=== PATIENT | male | born 1955 | race Caucasian/White ===

== ENCOUNTER → 2017-09-23 07:59 | Outpatient (CLI) | payer OTHER, SELFPAY ==
[2017-09-23 12:30] LABS: ALB/GLOB Ratio 1.2 RATIO (0.9-2.4); AST(SGOT) 105 U/L (15-37); Alanine Aminotransfer ALT/SGPT 206 U/L (16-61); Albumin, Serum 4.1 g/dL (3.2-5.0); Alkaline Phosphatase 64 U/L (45-117); Anion Gap 7 (5-15); BUN 16 mg/dL (7-18); BUN/Creat Ratio 15.1 RATIO (10-20); Calcium,Total 8.5 mg/dL (8.5-10.1); Chloride 106 mmol/L (98-107); Cholesterol 186 mg/dL (200); Creatinine, Serum 1.06 mg/dL (0.70-1.30); EST Glomerular Filtration Rate 75 mL/min (>60); Est Glom Filt Rate - Afr Amer 91 mL/min (>60); Globulin 3.4 g/dL (2.2-4.2); Glucose 107 mg/dL (74-106); High Density Lipoprotein 33 mg/dL; Protein, Total 7.5 g/dL (6.4-8.2); Sodium Level 139 mmol/L (136-145); Triglycerides 186 mg/dL; Very Low Density Lipoprotein 37 mg/dL (5-40)
[2017-09-23 12:42] LABS: Hemoglobin A1c 6.5 % (4.2-6.3)
[2017-09-23 12:57] LABS: Microalbumin,Random Urine 19.1 mg/L (NO RANGE EST.); Microalbumin:Creatinine Ratio 8.3 mg/g CRE (<30 mg/g CRE)
== END ==
PROVIDERS: Family Provider Family Medicine; PCP Family Medicine; Visit Provider Family Medicine
DX: I10 Essential (primary) hypertension (principal); E11.42 Type 2 diabetes mellitus with diabetic polyneuropathy; E78.1 Pure hyperglyceridemia; E78.5 Hyperlipidemia, unspecified; K76.0 Fatty (change of) liver, not elsewhere classified
CPT/HCPCS: 36415; 80053; 80061; 82043; 82570; 83036

== ENCOUNTER → 2018-05-27 08:36 | Outpatient (CLI) | payer OTHER, SELFPAY ==
[2018-05-27 12:44] LABS: ALB/GLOB Ratio 1.1 RATIO (0.9-2.4); AST(SGOT) 60 U/L (15-37); Alanine Aminotransfer ALT/SGPT 139 U/L (16-61); Albumin, Serum 3.7 g/dL (3.2-5.0); Alkaline Phosphatase 59 U/L (45-117); Anion Gap 9 (5-15); BUN 17 mg/dL (7-18); BUN/Creat Ratio 14.9 RATIO (10-20); Calcium,Total 8.8 mg/dL (8.5-10.1); Chloride 102 mmol/L (98-107); Cholesterol 220 mg/dL (200); Creatinine, Serum 1.14 mg/dL (0.70-1.30); EST Glomerular Filtration Rate 69 mL/min (>60); Est Glom Filt Rate - Afr Amer 83 mL/min (>60); Globulin 3.5 g/dL (2.2-4.2); Glucose 118 mg/dL (74-106); Hemoglobin A1c 7.4 % (4.2-6.3); High Density Lipoprotein 35 mg/dL; Potassium 4.4 mmol/L (3.5-5.1); Protein, Total 7.2 g/dL (6.4-8.2); Sodium Level 141 mmol/L (136-145); Triglycerides 196 mg/dL; Very Low Density Lipoprotein 39 mg/dL (5-40)
== END ==
PROVIDERS: Family Provider Family Medicine; PCP Family Medicine; Visit Provider Family Medicine
DX: I10 Essential (primary) hypertension (principal); E11.42 Type 2 diabetes mellitus with diabetic polyneuropathy
CPT/HCPCS: 36415; 80053; 80061; 83036

== ENCOUNTER → 2018-09-01 08:01 | Outpatient (CLI) | payer OTHER, SELFPAY ==
[2018-09-01 13:25] LABS: Hemoglobin A1c 6.8 % (4.2-6.3)
[2018-09-01 13:56] LABS: Cholesterol 228 mg/dL (200); High Density Lipoprotein 44 mg/dL; PSA,Total - Annual Screen 1.88 ng/mL (0.00-4.00); Triglycerides 252 mg/dL; Very Low Density Lipoprotein 50 mg/dL (5-40)
== END ==
PROVIDERS: Family Provider Family Medicine; PCP Family Medicine; Visit Provider Family Medicine
DX: E11.42 Type 2 diabetes mellitus with diabetic polyneuropathy (principal); N40.1 Benign prostatic hyperplasia with lower urinary tract symptoms
CPT/HCPCS: 36415; 80061; 83036; 84153; G0103

== ENCOUNTER → 2019-02-24 | Outpatient (CLI) | payer OTHER, SELFPAY ==
[2019-02-24 12:13] LABS: Absolute Lymphocyte Count 2.08 X10^3/uL (0.83-4.51); Absolute Neutrophil Count 2.8 X10^3/uL (2.0-7.7); Basophil# 0.09 X10^3/uL; Basophil% 1.5 % (0-1); Eosinophil# 0.23 X10^3/uL; Eosinophils% 3.8 % (0-5); Hematocrit 48.6 % (40-54); Hemoglobin 16.3 g/dL (13.0-16.5); Lymphocyte # 2.08 X10^3/ul (4.0); Lymphocyte % 34.6 % (19-41); Mean Corp Hgb Conc 33.5 g/dL (32-36); Mean Corpuscular Hgb 30.8 pg (27.0-32.0); Mean Corpuscular Volume 91.9 fL (80-94); Mean Platelet Vol. 10.8 fl (6.2-12.0); Monocyte# 0.78 X10^3/uL; NRBC Flagged by Analyzer 0 % (0-5); Neutrophil # 2.82 X10^3/uL (2.7-7.7); Neutrophil % 46.8 % (47-70); Platelet Count 213 K/mm3 (150-450); RBC Distribution Width CV 13.2 % (11.6-14.6); RBC Distribution Width SD 44.9 fl (35.1-43.9); Red Blood Count 5.29 M/mm3 (4.6-6.2)
[2019-02-24 12:28] LABS: AST(SGOT) 69 U/L (15-37); Alanine Aminotransfer ALT/SGPT 157 U/L (16-61); Albumin, Serum 3.8 g/dL (3.2-5.0); Alkaline Phosphatase 66 U/L (45-117); Anion Gap 7 (5-15); BUN 22 mg/dL (7-18); Calcium,Total 8.9 mg/dL (8.5-10.1); Chloride 106 mmol/L (98-107); Cholesterol 239 mg/dL (200); Creatinine, Serum 1.05 mg/dL (0.70-1.30); EST Glomerular Filtration Rate 75 mL/min (>60); Est Glom Filt Rate - Afr Amer 91 mL/min (>60); Globulin 3.9 g/dL (2.2-4.2); Glucose 129 mg/dL (74-106); High Density Lipoprotein 42 mg/dL; Potassium 4.1 mmol/L (3.5-5.1); Protein, Total 7.7 g/dL (6.4-8.2); Sodium Level 138 mmol/L (136-145); Triglycerides 282 mg/dL; Very Low Density Lipoprotein 56 mg/dL (5-40)
[2019-02-24 12:39] LABS: Hemoglobin A1c 7.1 % (4.2-6.3)
== END | disposition home or self-care (01) ==
LOC: LAB.FUTURE 09:41
PROVIDERS: Family Provider Family Medicine; PCP Family Medicine; Visit Provider Family Medicine
DX: E11.42 Type 2 diabetes mellitus with diabetic polyneuropathy (principal); I10 Essential (primary) hypertension; E78.1 Pure hyperglyceridemia; I25.10 Atherosclerotic heart disease of native coronary artery without angina pectoris
CPT/HCPCS: 80053; 80061; 83036; 85025

== ENCOUNTER → 2019-02-24 | Outpatient (CLI) | payer OTHER, SELFPAY ==
[2019-02-24 12:03] LABS: Microalbumin,Random Urine 23.2 mg/L (NO RANGE EST.); Microalbumin:Creatinine Ratio 14.5 mg/g CRE (<30 mg/g CRE)
== END | disposition home or self-care (01) ==
LOC: LABSPEC 11:05
PROVIDERS: Family Provider Family Medicine; PCP Family Medicine; Referring Provider Family Medicine; Visit Provider Family Medicine
DX: E11.42 Type 2 diabetes mellitus with diabetic polyneuropathy (principal); I10 Essential (primary) hypertension; E78.1 Pure hyperglyceridemia; I25.10 Atherosclerotic heart disease of native coronary artery without angina pectoris
CPT/HCPCS: 82043; 82570

== ENCOUNTER 2020-08-17 10:02 | Outpatient (RCR) | payer MEDICARE, SELFPAY | END 2020-08-17 23:59 | LOC: IMMUN 10:02 | PROVIDERS: PCP Internal Medicine; Referring Provider Family Medicine; Visit Provider Family Medicine | DX: Z23 Encounter for immunization (principal) | CPT/HCPCS: 0011A; 0012A ==

== ENCOUNTER → 2020-11-15 13:50 | Outpatient (CLI) | payer MEDICARE, SELFPAY ==
--- NOTE | 2020-11-15 13:54 | US_ITS ---
STUDY: THYROID ULTRASOUND REASON FOR EXAM: Male, 65 years old. THYROID CYST TECHNIQUE: Ultrasound evaluation of the thyroid was performed with real-time and static ellsworth-scale imaging. COMPARISON: Comparison is made with prior examination dated 01/25/2017. FINDINGS: RIGHT LOBE: The right lobe of the thyroid gland measures 4.6 cm x 1.7 cm x 2.2 cm. There is a homogeneous echotexture. There is a 9 mm x 8 mm x 8 mm hypoechoic solid nodule in the deep midportion of the right lobe. This is unchanged. LEFT LOBE: The left lobe of the thyroid gland measures 4.7 cm x 2 cm x 2.5 cm. There is a homogeneous echotexture. 2 hypoechoic solid/cystic nodules are seen. The larger measures 2.2 cm by 2 cm x 1.7 cm. This is deep within the lobe. ISTHMUS: The isthmus measures 5 mm. The regional lymph nodes are normal. US/Thyroid IMPRESSION: Stable examination. A biopsy of the dominant nodule in the left lobe of the thyroid is recommended if none done yet. Electronically Signed: Derrick Groves MD at 15:02 EDT , Service support ,
== END ==
PROVIDERS: PCP Internal Medicine; Referring Provider Internal Medicine; Visit Provider Internal Medicine
DX: E04.1 Nontoxic single thyroid nodule (principal)
CPT/HCPCS: 76536

== ENCOUNTER 2021-06-25 06:01 | Emergency (ER) | payer MEDICARE, SELFPAY ==
[2021-06-25 06:01] VITALS: BP 152/98; PULSE 85; RESP 18; TEMP 37.3; O2SAT 96; BMI 37.8
[2021-06-25 06:04] VITALS: O2SAT 96
--- NOTE | 2021-06-25 06:22 | RAD_ITS ---
EXAM: XR CHEST, 1 VIEW : 1955 CLINICAL INDICATION: cough TECHNIQUE: Frontal view of the chest. This report was created using [employer] report generation technology. COMPARISON: 09/15/15 FINDINGS: LUNGS AND PLEURAL SPACES: Unremarkable. No consolidation or edema. No pneumothorax. No effusion. HEART: Mild enlargement of the cardiac silhouette. MEDIASTINUM: Central airways and mediastinal contour are unremarkable. BONES/JOINTS: Degenerative changes of the spine. SOFT TISSUES: Unremarkable. RAD/Chest 1 View (Portable) IMPRESSION: No acute findings in the chest. at 0654 Reported and signed by: Radu Dumont MD Electronically Signed: Radu Dumont MD at 6:53 EST Tel , Service support ,
--- NOTE | 2021-06-25 06:22 | EX.ED.DYSGE1 ---
HPI History of Present Illness Chief Complaint: Cough Informant: patient Onset/Context/Timing Onset: Days Context: Gradual Onset Current Severity: Mild Maximum Severity: Mild Narrative Narrative: Patient presents due to concerns of Covid. He reports feeling slightly rundown the past couple days but worse today. He reports low-grade fever, nonproductive cough, congestion. He has been vaccinated and received a booster. [facility] Medical History Diabetes Home Medications benzonatate 200 mg PO BID PRN #14 cap 06/25/21 [Rx Last Taken Unknown] dulaglutide [Trulicity] 0.5 mg SUBCUT DAILY 06/25/21 [History Last Taken Unknown] famotidine 20 mg PO DAILY 06/25/21 [History Last Taken Unknown] rosuvastatin 5 mg PO DAILY 06/25/21 [History Last Taken Unknown] tamsulosin 0.4 mg PO DAILY 06/25/21 [History Last Taken Unknown] Allergy/AdvReac Type Severity Reaction Status Date / Time No Known Allergies Allergy Verified 06/25/21 06:04 Surgical History History of cholecystectomy Social History Smoking Status: Never smoker ROS ROS ED Constitutional Constitutional ED: Reports fever(s); Denies chills Eyes Eyes: Denies change in vision ENT ENT ED: Reports other Details: Congestion ; Denies sore throat Cardiovascular Cardiovascular: Denies chest pain Respiratory/Chest Respiratory/Chest: Reports cough and dyspnea; Denies sputum Gastrointestinal Gastrointestinal: Denies abdominal pain, diarrhea, nausea or vomiting Genitourinary Genitourinary ED: Denies dysuria Musculoskeletal Musculoskeletal: Reports myalgias; Denies back pain Integumentary Denies rash Neurologic Neurologic: Denies headache(s) or weakness Allergic/Immunologic Allergic/Immunologic ED: Denies urticaria EXAM Physical Exam Const Vital Signs: 06/25/21 06:01 06/25/21 06:04 Temperature 99.2 F H Temperature Source Oral Pulse Rate 85 Respiratory Rate 18 Respiratory Effort Normal Respiratory Depth Normal Respiratory Pattern Normal Blood Pressure 152/98 H Blood Pressure Mean 116 Pulse Ox 96 Oxygen Delivery Method Room Air Room Air Positive well nourished and well developed General Appearance ED: well developed HEENT Reports moist mucous membranes Eyes PERRL and EOMs intact bilaterally Chest Wall inspection of chest normal and palpation of chest normal Resp normal respiratory effort and clear to auscultation bilaterally Cardio regular rate and regular rhythm GI non-tender Palpation: soft Extremity normal to inspection Neuro oriented x3 Sensorium / Orientation: alert Psych mental status grossly normal Skin no rashes or lesions noted MDM MDM MDM Narrative Medical decision making narrative: Rapid Covid test obtained along with portable chest x-ray. Radiography Chest X-Ray - ED: 1 View, Read by ED Physician and No Acute Disease Diagnostic Testing: Clinical Impression(s) from Imaging Studies Chest X-Ray 06/25/21 06:22 IMPRESSION: No acute findings in the chest. at 0654 Reported and signed by: Radu Dumont MD Electronically Signed: Radu Dumont MD at 6:53 EST Tel , Service support , Treatment and Re-Evaluation Comments:: Chest x-ray reveals no focal infiltrate. Radiology interpretation also reviewed. Rapid Covid test is negative. Patient will continue supportive care. I will write him Tessalon Perles to help control cough. He was advised he can also use Robitussin [id number]. Discharge Plan Triage Chief Complaint: Cough ED Provider: Melida Santa Dx/Rx/DC Orders Clinical Impression: Viral URI Instructions: ED URI, Viral, No Abx (Adult) Prescriptions: New benzonatate 200 mg capsule 200 mg PO BID PRN (Reason: cough) Qty: 14 RF: 0 No Action famotidine 20 mg tablet 20 mg PO DAILY RF: 0 tamsulosin 0.4 mg capsule 0.4 mg PO DAILY RF: 0 rosuvastatin 5 mg tablet 5 mg PO DAILY RF: 0 Trulicity 0.75 mg/0.5 mL pen injector 0.5 mg SUBCUT DAILY RF: 0 Primary Care Provider: Miri Powers Referrals: Miri Powers MD [Primary Care Provider] - 1 Week if not improving Disposition Disposition: Home, Self Care
== END 2021-06-25 08:07 | disposition home or self-care (01) ==
PROVIDERS: Emergency Provider Emergency Medicine; PCP Internal Medicine; Visit Provider Emergency Medicine
DX: J06.9 Acute upper respiratory infection, unspecified (principal); Z79.899 Other long term (current) drug therapy
CPT/HCPCS: 71045; 87426; 99282

== ENCOUNTER 2024-07-12 10:17 | Emergency (ER) | payer MEDICARE, SELFPAY ==
[2024-07-12 10:17] VITALS: BP 146/88; PULSE 70; RESP 14; TEMP 36.1; O2SAT 98; BMI 39.0
--- NOTE | 2024-07-12 10:37 | ED.VIS.GI ---
HPI HPI - GI History of Present Illness Chief Complaint: Abd Pain Informant: patient Narrative Narrative: Very pleasant 69-year-old male presenting to the emergency room with a chief complaint of left-sided abdominal pain. Patient notes the development of a sharp abdominal pain in the left side of his abdomen. He states he massaged it and outs more of a generalized ache. He is concerned about a bowel obstruction. He had a normal bowel movement yesterday but does note that he has felt more constipated recently. He denies any hematuria dysuria or urinary frequency. Denies any fever. He has had prior cholecystectomy. No history of bowel obstruction. [facility] Medical History (Updated 07/12/24 @ 11:[address] Vish Herron DO) BPH (benign prostatic hyperplasia) Hypercholesterolemia Hypertriglyceridemia Diabetes Home Medications ?Medication ?Instructions ?Recorded ?Last Taken ?Type benzonatate 200 mg capsule 200 mg PO BID PRN cough #14 caps 06/25/21 Unknown Rx dulaglutide 0.75 mg/0.5 mL 0.5 mg subcut DAILY 06/25/21 Unknown History subcutaneous pen injector (Trulicity) famotidine 20 mg tablet 20 mg PO DAILY 06/25/21 Unknown History rosuvastatin 5 mg tablet 5 mg PO DAILY 06/25/21 Unknown History tamsulosin 0.4 mg capsule 0.4 mg PO DAILY 06/25/21 Unknown History Allergy/AdvReac Type Severity Reaction Status Date / Time No Known Allergies Allergy Verified 06/25/21 06:04 Surgical History History of cholecystectomy Social History Smoking Status: Never smoker ROS ROS ED Constitutional Constitutional ED: Denies chills, fever(s) or weight loss Eyes Eyes: Denies change in vision or diplopia ENT ENT ED: Denies ear pain, rhinorrhea or sore throat Cardiovascular Cardiovascular: Denies chest pain, orthopnea, palpitations or racing heartbeat Respiratory/Chest Respiratory/Chest: Denies cough, dyspnea or orthopnea Gastrointestinal Gastrointestinal: Reports abdominal pain and constipation; Denies diarrhea, nausea or vomiting Genitourinary Genitourinary ED: Denies dysuria, hematuria or urinary frequency Musculoskeletal Musculoskeletal: Denies arthralgias or myalgias Integumentary Denies abscess or rash Neurologic Neurologic: Denies headache(s) or weakness Psychiatric Psychiatric: Denies anxiety, depression, suicidal ideation or suicidal thoughts Endocrine Endocrinology: Denies polydipsia, polyphagia or polyuria Allergic/Immunologic Allergic/Immunologic ED: Denies mouth swelling, tongue swelling or urticaria EXAM Physical Exam Const Vital Signs: 07/12/24 10:17 Temperature 96.9 F L Temperature Source Temporal Pulse Rate 70 Respiratory Rate 14 Blood Pressure 146/88 H Blood Pressure Mean 107 Pulse Ox 98 Oxygen Delivery Method Room Air Positive well nourished and well developed General Appearance ED: well developed HEENT Reports normocephalic, head/scalp atraumatic and moist mucous membranes Eyes PERRL and EOMs intact bilaterally Neck no lymphadenopathy, supple and no JVD Resp normal respiratory effort and clear to auscultation bilaterally Cardio regular rate, regular rhythm and no murmurs GI normal to inspection, nondistended, normoactive bowel sounds and non-tender Auscultation: normoactive bowel sounds Palpation: soft; Negative for guarding or rebound tenderness present Back/Spine no CVA tenderness and normal ROM Extremity normal to inspection General Extremety ED: Negative for edema General Extremity: Negative for edema Neuro oriented x3 and CN's II-XII intact bilaterally Sensorium / Orientation: alert Motor Exam: strength 5/5 throughout Psych mental status grossly normal Mood & Affect: Negative for depressed or tearful Skin no rashes or lesions noted and no wounds MDM MDM MDM Narrative Medical decision making narrative: Differential diagnosis includes but not limited to colitis diverticulitis volvulus bowel obstruction ureterolithiasis Patient's white count 9.5 hemoglobin 15.4 platelet count of 210. Creatinine 1.04 glucose noted to be 170. Patient had a CT of the abdomen pelvis ordered but he declined this stating that he is now asymptomatic and does not feel it is necessary. At this point believe the patient will be discharged home. Would recommend PCP follow-up return if worsening or concerns History & Record Review Discussion w/independent historian: Patient Lab Data Attestation: I reviewed the patient's lab results. Labs: Laboratory Results - last 24 hr 07/12/24 10:50 WBC 9.5 RBC 5.09 Hgb 15.4 Hct 45.7 MCV 89.8 MCH 30.3 MCHC 33.7 RDW Std Deviation 41.9 RDW Coeff of Nahtan 12.7 Plt Count 210 MPV 10.5 Immature Gran % (Auto) 0.300 Neut % (Auto) 71.9 H Lymph % (Auto) 16.2 L [place] % (Auto) 10.1 H Eos % (Auto) 0.7 Baso % (Auto) 0.8 Absolute Neuts (auto) 6.8 Absolute Lymphs (auto) 1.54 Nucleated RBC % 0 Sodium 137 Potassium 4.6 Chloride 104 Carbon Dioxide 26.0 Anion Gap 6 BUN 19 H Creatinine 1.04 Estim Creat Clear Calc 97.67 Est GFR (MDRD) Af Amer 91 Est GFR (MDRD) Non-Af 75 BUN/Creatinine Ratio 18.3 Glucose 170 H Calcium 9.5 Discharge Plan Triage Chief Complaint: Abd Pain ED Provider: Vish Herron Dx/Rx/DC Orders Clinical Impression: Abdominal pain, Diabetes mellitus Instructions: Abdominal Pain Prescriptions: No Action famotidine 20 mg tablet 20 mg PO DAILY tamsulosin 0.4 mg capsule 0.4 mg PO DAILY Patient Comments: take 1 capsule by mouth at bedtime rosuvastatin 5 mg tablet 5 mg PO DAILY Trulicity 0.75 mg/0.5 mL pen injector 0.5 mg SUBCUT DAILY Patient Comments: inject 0.5 milliliters ( 0.75 milligrams ) subcutaneously every week DISCARD PEN AFTER benzonatate 200 mg capsule 200 mg PO BID PRN (Reason: cough) Qty: 14 0RF Primary Care Provider: Miri Powers Referrals: Miri Powers MD [Primary Care Provider] - As Needed Print Language: Portuguese Disposition Disposition: Home, Self Care
[2024-07-12 11:03] LABS: Absolute Lymphocyte Count 1.54 X10^3/uL (0.83-4.51); Absolute Neutrophil Count 6.8 X10^3/uL (2.0-7.7); Basophil# 0.08 X10^3/uL; Basophil% 0.8 % (0-1); Eosinophil# 0.07 X10^3/uL; Eosinophils% 0.7 % (0-5); Hematocrit 45.7 % (40-54); Hemoglobin 15.4 g/dL (13.0-16.5); Lymphocyte # 1.54 X10^3/ul (0.83-4.51); Lymphocyte % 16.2 % (19-41); Mean Corp Hgb Conc 33.7 g/dL (32-36); Mean Corpuscular Hgb 30.3 pg (27.0-32.0); Mean Corpuscular Volume 89.8 fL (80-94); Mean Platelet Vol. 10.5 fl (6.2-12.0); Monocyte# 0.96 X10^3/uL; Monocyte% 10.1 % (0-10); NRBC Flagged by Analyzer 0 % (0-5); Neutrophil # 6.82 X10^3/uL (2.7-7.7); Neutrophil % 71.9 % (47-70); Platelet Count 210 K/mm3 (150-450); RBC Distribution Width CV 12.7 % (11.6-14.6); RBC Distribution Width SD 41.9 fl (35.1-43.9); Red Blood Count 5.09 M/mm3 (4.6-6.2); White Blood Count 9.5 K/mm3 (4.4-11.0)
[2024-07-12 11:07] LABS: Anion Gap 6 (5-15); BUN 19 mg/dL (7-18); BUN/Creat Ratio 18.3 RATIO (10-20); Calcium,Total 9.5 mg/dL (8.5-10.1); Chloride 104 mmol/L (98-107); Creatinine, Serum 1.04 mg/dL (0.70-1.30); EST Glomerular Filtration Rate 75 mL/min (>60); Est Glom Filt Rate - Afr Amer 91 mL/min (>60); Estimated Creatinine Clearance 97.67 ml/min; Glucose 170 mg/dL (74-106); Potassium 4.6 mmol/L (3.5-5.1); Sodium Level 137 mmol/L (136-145)
--- NOTE | 2024-07-12 11:42 | ED.RN ---
RADIOLOGY CAME TO GET PATIENT. PT TOLD RADIOLOGY STAFF THAT HE DOES NOT THINK THE CT IS NECESSARY. DR. BRIAN INFORMED
== END 2024-07-12 11:46 | disposition home or self-care (01) ==
PROVIDERS: Emergency Provider Emergency Medicine; PCP Internal Medicine; Visit Provider Emergency Medicine
DX: R10.9 Unspecified abdominal pain (principal); E11.9 Type 2 diabetes mellitus without complications; E78.00 Pure hypercholesterolemia, unspecified; N40.0 Benign prostatic hyperplasia without lower urinary tract symptoms; Z90.49 Acquired absence of other specified parts of digestive tract; Z79.85 Long-term (current) use of injectable non-insulin antidiabetic drugs; Z79.899 Other long term (current) drug therapy
CPT/HCPCS: 80048; 85025; 99282; A4216

== ENCOUNTER 2024-12-09 20:45 | Emergency (ER) | payer MEDICARE, SELFPAY ==
[2024-12-09 20:46] VITALS: BP 163/82; PULSE 80; RESP 17; TEMP 37; O2SAT 95; BMI 38.4
--- NOTE | 2024-12-09 21:40 | ED.VIS.DENTA ---
HPI History of Present Illness Chief Complaint: Dental Detail of Chief Complaint: Dental pain right lower molar Informant: patient Onset/Context/Timing Onset: Weeks Context: Sudden Onset Timing: Intermittent Quality: Pain Location: Tooth #31 Current Severity: Mild Maximum Severity: Severe Worsened by: Cold liquids Relieved by: - (Nothing) Associated Symptoms Assocated Symptom - Dental: cold sensitivity; Negative for fever, jaw swelling, face swelling or hot sensitivity Narrative Narrative: Patient is a 69-year-old male. Patient presents with pain involving tooth #31. He saw his dentist a week ago and had x-rays because tooth #30 is an implant. X-rays revealed no abnormality. Patient did contact his natural resources technician. He states he needs a referral. He denies fever, chills night sweats. He denies history of medic fever, heart murmur, SBE or mitral valve prolapse. Patient denies difficulty opening closes mouth. He had no trouble with swallowing. No change in his voice or speech. Drinking hot liquids does not make the pain worse. Prior similar symptoms: No Recent Illness/Hospitalization: No PFSH PFS Medical History BPH (benign prostatic hyperplasia) Hypercholesterolemia Hypertriglyceridemia Diabetes Home Medications ?Medication ?Instructions ?Recorded ?Last Taken ?Type benzonatate 200 mg capsule 200 mg PO BID PRN cough #14 caps 06/25/21 Unknown Rx dulaglutide 0.75 mg/0.5 mL 0.5 mg subcut DAILY 06/25/21 Unknown History subcutaneous pen injector (Trulicity) famotidine 20 mg tablet 20 mg PO DAILY 06/25/21 Unknown History rosuvastatin 5 mg tablet 5 mg PO DAILY 06/25/21 Unknown History tamsulosin 0.4 mg capsule 0.4 mg PO DAILY 06/25/21 Unknown History naproxen 500 mg tablet 500 mg PO BID #14 tabs 12/09/24 Unknown Rx oxycodone-acetaminophen 5 mg-325 1 tab PO Q6H PRN PRN pain 5 days 12/09/24 Unknown Rx mg tablet #20 TABLETS Allergy/AdvReac Type Severity Reaction Status Date / Time No Known Allergies Allergy Verified 12/09/24 20:48 Surgical History History of cholecystectomy Social History Smoking Status: Never smoker ROS ROS ED Constitutional Constitutional ED: Denies chills, fever(s), subjective or sweats Eyes Eyes: Denies blurry vision or change in vision ENT ENT ED: Denies sore throat Cardiovascular Cardiovascular: Reports other Details: HPI narrative ; Denies chest pain or palpitations Respiratory/Chest Respiratory/Chest: Denies dyspnea or dyspnea on exertion Integumentary Denies rash Neurologic Neurologic: Denies headache(s) EXAM Physical Exam Const Vital Signs: 12/09/24 20:46 Temperature 98.6 F Temperature Source Temporal Pulse Rate 80 Respiratory Rate 17 Blood Pressure 163/82 H Blood Pressure Mean 109 Pulse Ox 95 Oxygen Delivery Method Room Air Positive well nourished and well developed General Appearance ED: well developed and NAD HEENT HEENT Narrative: Patient has no tenderness with tapping of tooth #31. There is a large filling noted. Tooth #30 is a prosthetic tooth/implant. There is no swelling of the gingiva. There is no submandibular swelling noted. There is no evidence of Ludewig's angina. He has no trismus. There is no dysphonia or drooling. Mouth ED: Yes lips normal, Yes tongue normal, Yes salivary gland normal and No mouth trauma Mouth: lips normal, tongue normal, salivary gland normal and No mouth trauma Teeth and Gingiva: Negative for caries, gingiva abnormal or poor dentition Eyes PERRL and EOMs intact bilaterally Neck no lymphadenopathy, supple and no JVD General: normal visual inspection; Negative for anterior neck swelling or tenderness Resp normal respiratory effort Cardio regular rate, regular rhythm, S1 normal heart sound, S2 normal heart sound and no murmurs Neuro oriented x3 and CN's II-XII intact bilaterally Sensorium / Orientation: alert Psych mental status grossly normal Skin Skin Narrative: There is no evidence of facial cellulitis. MDM MDM MDM Narrative Medical decision making narrative: With sensitivity to cold that would indicate reversible pulpitis however with symptoms for 3 weeks this would be considered irreversible pulpitis. Since he had recent dental x-ray that showed no evidence infection he was treated with NSAID and opiate analgesia. Recommend that he see his natural resources technician. Discharge Plan Triage Chief Complaint: Dental ED Provider: Malachi Friedman Dx/Rx/DC Orders Clinical Impression: Symptomatic irreversible pulpitis, History of renal hypertension, Elevated blood pressure reading with diagnosis of hypertension Instructions: ED Dental Pain Prescriptions: New oxycodone-acetaminophen 5-325 mg tablet 1 tab PO Q6H PRN PRN (Reason: pain) 5 Days Qty: 20 0RF naproxen 500 mg tablet 500 mg PO BID Qty: 14 0RF No Action famotidine 20 mg tablet 20 mg PO DAILY tamsulosin 0.4 mg capsule 0.4 mg PO DAILY Patient Comments: take 1 capsule by mouth at bedtime rosuvastatin 5 mg tablet 5 mg PO DAILY Trulicity 0.75 mg/0.5 mL pen injector 0.5 mg SUBCUT DAILY Patient Comments: inject 0.5 milliliters ( 0.75 milligrams ) subcutaneously every week DISCARD PEN AFTER benzonatate 200 mg capsule 200 mg PO BID PRN (Reason: cough) Qty: 14 0RF Primary Care Provider: Miri Powers Referrals: Miri Powers MD [Primary Care Provider] - Activity Restrictions/Additional Instructions: 1. Recommend that you follow-up with your natural resources technician. You can tell your natural resources technician in my opinion you have irreversible pulpitis. 2. Take pain medicine as prescribed 3. Avoid cold liquids 4. If you develop temperature greater than 100, swelling of your face, difficulty opening closing her mouth return to the emergency department or see the natural resources technician immediately Print Language: Sudanese Disposition Disposition: Home, Self Care
[2024-12-09 21:52] VITALS: BP 145/78; PULSE 78; RESP 18; TEMP 36.8; O2SAT 100
[2024-12-09] MEDS: Naproxen 500 MG Tablet PO (21:54)
--- OUTSIDE RECORDS SUMMARY | 2024-12-09 22:54 | XMS RPT_ITS | CCD ---
Author Organization [facility] Care Team Providers Care Operations Trainer Name Role Phone Gio PEÑA, Marquita Primary Care Provider Older DICE DEALER.Daria STEWART Primary Care Provider Gio PEÑA, Marquita Primary Care Provider Gio PEÑA, Marquita Primary Care Provider Gio PEÑA, Marquita Primary Care Provider Older DICE DEALER.Daria STEWART Primary Care Provider Micki Smith PA-C Unavailable Older DICE DEALER.PEST CONTROL OPERATOR, Daria Unavailable Ct Michelle PA-C Unavailable [phone] PROVIDER, UNKNOWN Referring Unavailable GANTA, MARQUITA Primary Care Unavailable PROVIDER, UNKNOWN Attending Unavailable PROVIDER, UNKNOWN Admitting Unavailable GANTA, MARQUITA Primary Care Unavailable Vish Herron Attending Unavailable Ganta, Marquita Primary Care Unavailable Andrés PARKER, Rima Unavailable Unavailable JERRY SUH Attending Unavailable GANTA, MARQUITA Primary Care Unavailable OLDER, DARIA Attending Unavailable GANTA, MARQUITA Primary Care Unavailable OLDER, DARIA Referring Unavailable GANTA, MARQUITA Primary Care Unavailable OLDER, DARIA Attending Unavailable GANTA, MARQUITA Primary Care Unavailable OLDER, DARIA Referring Unavailable GANTA, MARQUITA Primary Care Unavailable ENRICO HOLLIS Attending Unavailable GANTA, MARQUITA Primary Care Unavailable VISH PETERSON Attending Unavailable OLDER, DARIA Referring Unavailable GANTA, MARQUITA Primary Care Unavailable OLDER, DARIA Referring Unavailable GANTA, MARQUITA Primary Care Unavailable GANTA, MARQUITA Primary Care Unavailable ROBERT BARONE Referring Unavailable GANTA, MARQUITA Primary Care Unavailable ENRICO HOLLIS Attending Unavailable GANTA, MARQUITA Primary Care Unavailable OLDER, DARIA Attending Unavailable GANTA, MARQUITA Primary Care Unavailable GREY HERNANDEZ Referring Unavailable [facility], MARQUITA Primary Care Unavailable GREY HERNANDEZ Attending Unavailable [facility], MARQUITA Primary Care Unavailable [facility], MARQUITA Primary Care Unavailable [facility], MARQUITA Primary Care Unavailable PEMA DUONG Attending Unavailable [facility] Primary Care Unavailable JERRY SUH Referring Unavailable [facility] Unavailable Gio PEÑA, Dr. Chery Primary Care Provider Dr. Malachi Friedman MD Emergency Provider [phone] Allergies Allergy Classification Reported Allergen(s) Allergy Type Date of Onset Reaction(s) Facility (20 sources) Losartan; Translations: [LOSARTAN] Drug Allergy 12-07-2022 Other: See Comments, GI Upset [facility] Work Phone: (20 sources) Lisinopril; Translations: [LISINOPRIL] Drug Allergy 07-25-2023 Rash [facility] Medications Current Medications Medication Drug Class(es) Dates Sig (Normalized) Sig (Original) acetaminophen 325 mg / oxyCODONE hydrochloride 5 mg oral tablet (1 source) Opioid Agonist Start: 12-09-2024 take 1 tablet by mouth every six hours as needed for pain Oxycodone-Acetam inophen 5-325 mg tablet Active 1 {tbl} PO EVERY 6 HOURS NEEDED as needed for pain 10 11December 09, 2024 amLODIPine 5 mg oral tablet (20 sources) Dihydropyridine Calcium Channel Marc Start: 08-23-2023 End: 10-21-2024 take 1 tablet by mouth once daily amLODIPine (NORVASC) 5 mg tablet Take 1 tablet by mouth once daily. 90 tablet 3 10/21/2024 Active Start: 08-07-2023 End: 08-22-2023 take 1 tablet by mouth once daily amLODIPine (NORVASC) 2.5 mg tablet Take 1 tablet by mouth once daily. 30 tablet 1 08/20/2023 08/22/2023 Discontinued Comment on above: Take 1 tablet by yg th once daily. ascorbic acid 1000 mg oral tablet (20 sources) Vitamin C take 1 tablet by mouth once daily Ascorbic Acid (VITAMIN C) 1,000 mg tablet Take 1,000 mg by mouth once daily. Active Comment on above: Take 1,000 mg by yg th once daily. azelastine hydrochloride 0.137 mg/actuat metered dose nasal spray (20 sources) Histamine-1 Receptor Antagonist Start: azelastine 0.1% nasal spray 2 Sprays two times a day. 07/08/2024 Active Start: 05-20-2023 End: 02-26-2024 take 2 spray(s) nasal route twice daily azelastine 0.1% nasal spray Use 2 Sprays in each nostril two times a day. 90 mL 3 12/23/2023 02/26/2024 Discontinued Start: 04-02-2022 take 2 spray(s) nasa l route twice daily azelastine (ASTELIN, ASTEPRO) 0.1% nasal spray Use 2 Sprays in each nostril twice daily. 90 mL 3 04/02/2022 Active Start: 01-30-2021 End: 02-22-2022 take 2 spray(s) nasal route twice daily azelastine (ASTELIN) 0.1% nasal spray Use 2 Sprays in each nostril twice daily. 4 Bottle 3 01/30/2021 02/22/2022 Discontinued Comment on above: Use 2 Sprays in each nostril twice daily. Use 2 Sprays in each nostril two times a day. benzonatate 100 mg oral capsule (3 sources) Non-narcotic Antitussive Start: End: take 1 capsule by mouth every eight hours as needed benzonatate (TESSALON PERLE) 100 mg capsule Take 1 capsule by mouth three times a day as needed for cough for up to 7 days. 21 capsule 06/25/2024 07/02/2024 Active Start: 06-25-2021 take 1 capsule by [facility] twice daily as needed for cough Benzonatate 200 mg capsule Active 200 mg PO TWICE A DAY as needed for cough June 25, 2021 1:00am cholecalciferol 0.025 mg oral capsule (20 sources) Vitamin D take 1 capsule by mouth once daily Cholecalciferol, Vitamin D3, (VITAMIN D) 1,000 unit cap Take 1,000 Units by mouth once daily. Active Comment on above: Take 1,000 Units by mouth once daily. 0.5 ml dulaglutide 1.5 mg/ml auto-injector (20 sources) GLP-1 Receptor Agonist Start: inject 0.75 mg by subcutaneous injection every week dulaglutide (TRULICITY) 0.75 mg/0.5 mL pen injector Indications: Type 2 diabetes mellitus without complication, without long-term current use of insulin (HCC) Inject 0.75 mg subcutaneously one time a week. 2 mL 1 11/27/2024 Active Start: 07-25-2023 End: 01-01-2024 inject 1.5 mg by subcutaneous injection every week dulaglutide (TRULICITY) 1.5 mg/0.5 mL pen injector Inject 1.5 mg subcutaneously one time a week. 6 mL 3 07/25/2023 01/01/2024 Discontinued Start: 05-16-2022 End: 07-25-2023 inject 0.75 mg by subcutaneous injection every week TRULICITY 0.75 mg/0.5 mL pen injector INJECT 0.75 MG DOSE UNDER THE SKIN ONCE A WEEK. DISCARD PEN AFTER 6 mL 3 04/15/2023 07/25/2023 Discontinued Start: 06-25-2021 Dulaglutide (T rulicity) 0.75 mg/0.5 mL pen injector Active 0.5 mg SC DAILY June 25, 2021 1:00am Start: 06-13-2021 End: 05-13-2022 inject 0.75 mg by subcutaneous injection every week dulaglutide (TRULICITY) 0.75 mg/0.5 mL pen injector Inject 0.75 mg subcutaneously one time a week. Inject dose once per week. Discard Pen After 12 Each 3 06/13/2021 05/13/2022 Discontinued Comment on above: Inject 0.75 mg subcu taneously one time a week. Inject dose once per week. Discard Pen After INJECT 0.75 MG DOSE UNDER THE SKIN ONCE A WEEK. DISCARD PEN AFTER Inject 1.5 mg subcut aneously one time a week. famotidine 20 mg oral tablet (20 sources) Histamine-2 Receptor Antagonist Start: 01-31-20 End: 04-24-20 take 1 tablet by mouth once daily Famotidine 20 mg tablet Active 20 mg PO DAILY June 25, 2021 1:00am Comment on above: Take 1 tablet by yg th at bedtime as needed. finasteride 5 mg oral tablet (20 sources) 5-alpha Reductase Inhibitor Start: 10-18-19 22 End: 07-05-19 25 take 1 tablet by mouth once daily finasteride (PROSCAR) 5 mg tablet Take 1 tablet by mouth once daily. 90 tablet 3 07/06/2024 Active Comment on above: Take 1 tablet by yg once daily. TAKE 1 TABLET DAILY fluocinolone acetonide 0.1 mg/ml topical oil (20 sources) Corticosteroid Fluocinolone Acetonide 0.01 % external oil Apply 0.1 % to affected area every 2 weeks. Active Comment on above: Apply 0.1 % to affec robbie area every 2 weeks. ketoconazole 20 mg/ml medicated shampoo (20 sources) Azole Antifungal Start: 07-28-19 ketoconazole (NIZORAL) 2 % shampoo Apply to affected area as directed. 07/28/2014 Active Start: 07-28-2014 ketoconazole ( NIZORAL) 2 % shampoo Comment on above: Apply to affected ar ea as directed. MULTI-VITAMIN ORAL (20 sources) MULTI-VITAMIN OR AL Take by mouth once daily. Active MULTI-VITAMIN OR AL Take by mouth once daily. 0 Active MULTI-VITAMIN OR AL Take by mouth. 0 Active Comment on above: Take by mouth. Take by mouth once d aily. naproxen 500 mg oral tablet (13 sources) Nonsteroidal Anti-inflammatory Drug Start: 12-09-2024 take 1 tablet by mouth twice daily Naproxen 500 mg tablet Active 500 mg PO TWICE A DAY December 09, 2024 12:00am Start: 07-08-2024 End: 09-06-2024 take 1 tablet by mouth twice daily at mealtime naproxen (NAPROSYN) 500 mg tablet Take 1 tablet by mouth two times a day with meals. 60 tablet 1 07/08/2024 09/06/2024 Active End: 11-16-2021 naproxen sodium (ALEVE) 220 mg cap Take by mouth. 11/16/2021 Discontinued (Discontinued by Patient) Comment on above: Take by mouth. nirmatrelvir tablet 300 mg (150 mg x 2) and ritonavir tablet 100 mg in a dose pack (PAXLOVID) (1 source) Start: 06-25-2024 End: 06-30-2024 nirmatrelvir tablet 300 mg (150 mg x 2) and ritonavir tablet 100 mg in a dose pack (PAXLOVID) Administer TWO pink nirmatrelvir 150 mg tablets and ONE white ritonavir 100 mg tablet for a total of three tablets twice daily. 30 tablet 06/25/2024 06/30/2024 Active [place]-3 Fatty Acids-Vitamin E (FISH OIL) 1,000 mg cap (20 sources) take 1 capsule by mouth once daily [place]-3 Fatty Acids-Vitamin E (FISH OIL) 1,000 mg cap Take 1 capsule by mouth once daily. Active take 1 capsule by mouth once lakhwinder ly [place]-3 Fatty Acids-Vitamin E (FISH OIL) 1,000 mg cap Take 1 capsule by mouth once daily. 0 Active [place]-3 Fatty Ac ids-Vitamin E (FISH OIL) 1,000 mg cap Take 1 capsule by mouth. 0 Active Comment on above: Take 1 capsule by mo ut. Take 1 capsule by mo ut once daily. rosuvastatin calcium 5 mg oral tablet (20 sources) HMG-CoA Reductase Inhibitor Start: End: take 1 tablet by mouth once daily at bedtime rosuvastatin (CRESTOR) 5 mg tablet Take 1 tablet by mouth daily at bedtime. 90 tablet 3 04/24/2024 Active Start: 12-12-2020 End: 12-04-2022 take 1 tablet by mouth once daily at bedtime rosuvastatin (CRESTOR) 5 mg tablet Take 1 tablet by mouth daily at bedtime. 90 tablet 3 12/04/2022 Active Comment on above: Take 1 tablet by [facility] daily at bedtime. semaglutide (OZEMPIC) 0.25 mg or 0.5 mg (2 mg/3 mL) pen (20 sources) Start: 02-26-20 inject 0.5 mg by subcutaneous injection every week semaglutide (OZEMPIC) 0.25 mg or 0.5 mg (2 mg/3 mL) pen Indications: Type 2 diabetes mellitus with peripheral neuropathy (HCC) Inject 0.5 mg subcutaneously one time a week. 9 mL 1 02/26/2024 Active Start: 02-26-2024 End: 02-26-2024 inject 0.5 mg by subcutaneous injection every week semaglutide (OZEMPIC) 0.25 mg or 0.5 mg (2 mg/3 mL) pen Indications: Type 2 diabetes mellitus with peripheral neuropathy (HCC) Inject 0.5 mg subcutaneously one time a week. 9 mL 1 02/26/2024 02/26/2024 Discontinued Start: 01-01-2024 End: 02-26-2024 inject 0.5 mg by subcutaneous injection every week semaglutide (OZEMPIC) 0.25 mg or 0.5 mg (2 mg/3 mL) pen Indications: Type 2 diabetes mellitus with peripheral neuropathy (HCC) Inject 0.5 mg subcutaneously one time a week. 3 mL 1 01/01/2024 02/26/2024 Discontinued Start: 01-01-2024 inject 0.5 mg by sub cutaneous injection every week semaglutide (OZEMPIC) 0.25 mg or 0.5 mg (2 mg/3 mL) pen Indications: Type 2 diabetes mellitus with peripheral neuropathy (HCC) Inject 0.5 mg subcutaneously one time a week. 3 mL 1 01/01/2024 Active tamsulosin hydrochloride 0.4 mg oral capsule (20 sources) alpha-Adrenergic Marc Start: 05-29-2021 End: 09-14-2024 take 1 capsule by mouth once daily at bedtime tamsulosin (FLOMAX) 0.4 mg Take 1 capsule by mouth daily at bedtime. 90 capsule 3 04/24/2024 Active Comment on above: Take 1 capsule by mo uth daily at bedtime. TAKE 1 CAPSULE DAILY AT BEDTIME Zinc (20 sources) Zinc 50 mg tab Take 22 mg by mouth once daily. Active Zinc 50 mg tab T rafi 22 mg by mouth once daily. 0 Active take 1 tablet by mouth once gardenia y Zinc 50 mg tab Take 50 mg by mouth once daily. 0 Active Comment on above: Take 50 mg by mouth once daily. Take 22 mg by mouth once daily. Completed/Discontinued Medications Medication Drug Class(es) Dates Sig (Normalized) Sig (Original) fenofibrate 54 mg oral tablet (20 sources) Peroxisome Proliferator Receptor alpha Agonist Start: 01-30-2021 End: 09-14-2024 take 1 tablet by mouth once daily Fenofibrate (LOFIBRA) 54 mg tablet Indications: Hypertriglyceridemia Take 1 tablet by mouth once daily. 90 tablet 3 09/14/2024 09/14/2024 Discontinued (Discontinued by Patient) Comment on above: Take 1 tablet by mouth once daily. fluticasone propionate 0.05 mg/actuat metered dose nasal spray (20 sources) Corticosteroid Start: 07-01-2023 End: 02-26-2024 take 2 spray(s) by mouth once daily fluticasone (FLONASE) 50 mcg/actuation nasal spray Use 2 Sprays in each nostril once daily. Rinse mouth after use. 4 Each 3 07/01/2023 02/26/2024 Discontinued Start: 03-15-2021 End: 09-03-2022 take 2 spray(s) by mouth once daily fluticasone (FLONASE) 50 mcg/actuation nasal spray Use 2 Sprays in each nostril once daily. Rinse mouth after use. 4 Each 3 09/03/2022 Active Start: 06-07-2020 End: 07-25-2021 fluticasone (FLONASE) 50 mcg/actuation nasal spray I spray in the morning and 2 sprays in the evening 1 Bottle 1 06/07/2020 07/25/2021 Discontinued fluticasone prop ionate (FLONASE NASAL) Use in the nose two times a day. Active Comment on above: Use 2 Sprays in each nostril once daily. Rinse mouth after use. hydroCHLOROthiazide 25 mg / triamterene 37.5 mg oral tablet (2 sources) Potassium-sparing Diuretic, Thiazide Diuretic Start: 12-08-19 End: 06-05-20 take 0.5 tablet by mouth once daily triamterene-hydroCH LOROthiazide (MAXZIDE-25) 37.5-25 mg per tablet Take 0.5 tablets by mouth once daily. 45 tablet 1 12/07/2022 12/12/2022 Discontinued Comment on above: Take 0.5 tablets by mouth once daily. 10 ml lidocaine hydrochloride 10 mg/ml injection (2 sources) Antiarrhythmic, Amide Local Anesthetic Start: 10-29-19 End: 10-29-19 lidocaine (PF) 10 mg/mL (1 %) 3 mL injection (XYLOCAINE) Start: 10-28-2024 End: 10-28-2024 3 mL, Injection - FOR ORTHO USE ONLY, ONCE, 1 dose, Starting on Sat10/28/24 at 1401, Until Sat10/28/24 at 1401 lisinopril 10 mg oral tablet (16 sources) Angiotensin Converting Enzyme Inhibitor Start: 12-12-2022 End: 07-25-2023 take 1 tablet by mouth once daily lisinopril (ZESTRIL) 10 mg tablet Indications: Essential hypertension Take 1 tablet by mouth once daily. 90 tablet 3 12/31/2022 07/25/2023 Discontinued Comment on above: Take 1 tablet by yg th once daily. losartan potassium 25 mg oral tablet (2 sources) Angiotensin 2 Receptor Marc Start: 11-13-2022 End: 12-12-2022 take 1 tablet by mouth once daily losartan (COZAAR) 25 mg tablet Take 1 tablet by mouth once daily. 30 tablet 5 11/13/2022 12/12/2022 Discontinued Comment on above: Take 1 tablet by yg th once daily. 1 ml triamcinolone acetonide 40 mg/ml injection (2 sources) Corticosteroid Start: 10-28-2024 End: 10-28-2024 triamcinolone acetonide 80 mg injection (KeNALog 40) Start: 10-28-2024 End: 10-28-2024 80 mg, Injection - FOR ORTHO USE ONLY, ONCE, 1 dose, Starting on Sat10/28/24 at 1401, Until Sat10/28/24 at 1401 Problems Active Problems Problem Classification Problem Date Documented Da te Episodic/Chronic Abdominal pain (3 sources) Left lower quadrant pain; Translations: [Left lower quadrant pain] Onset: 08-05-2024 07-12-2024 Episodic Cardiac dysrhythmias (2 sources) Palpitations; Translations: [Palpitations] 09-10-2023 Episodic Chronic obstructive pulmonary disease and bronchiectasis (20 sources) Chronic bronchitis; Translations: [Unspecified chronic bronchitis] Onset: 11-13-2022 11-13-2022 Chronic Diabetes mellitus with complications (20 sources) Type 2 diabetes mellitus; Translations: [Type 2 diabetes mellitus with other specified complication] Onset: 08-17-2021 Chronic Diabetes mellitus without complication (20 sources) Diabetes mellitus; Translations: [Type 2 diabetes mellitus without complications] Onset: 08-17-2021 08-17-2021 Chronic Disorders of lipid metabolism (20 sources) Mixed hyperlipidemia; Translations: [Mixed hyperlipidemia] Onset: 11-09-2020 11-09-2020 Chronic Disorders of teeth and jaw (1 source) Symptomatic irreversible pulpitis; Translations: [Irreversible pulpitis] 12-09-2024 Episodic Essential hypertension (20 sources) Essential hypertension; Translations: [Essential (primary) hypertension] Onset: 11-09-2020 11-09-2020 Chronic Genitourinary symptoms and ill-defined conditions (1 source) Urine looks dark; Translations: [Other abnormal findings in urine] 09-10-2023 Episodic Hyperplasia of prostate (7 sources) Benign prostatic hypertrophy with outflow obstruction; Translations: [Benign prostatic hyperplasia with lower urinary tract symptoms] Onset: 01-23-2024 Chronic Immunizations and screening for infectious disease (2 sources) Vaccination needed; Translations: [Encounter for immunization] 05-28-2023 Episodic Nutritional deficiencies (1 source) Vitamin D deficiency; Translations: [Vitamin D deficiency, unspecified] Chronic Osteoarthritis (3 sources) Osteoarthritis of left hip joint; Translations: [Unilateral primary osteoarthritis, left hip] 07-08-2024 Chronic Other circulatory disease (1 source) H/O: hypertension; Translations: [Personal history of other diseases of the circulatory system] 12-09-2024 Episodic Other connective tissue disease (1 source) Tendinitis of left gluteal tendon; Translations: [Unspecified disorder of synovium and tendon, left thigh] 07-08-2024 Episodic Other gastrointestinal disorders (2 sources) Heartburn; Translations: [Heartburn] Episodic Other gastrointestinal disorders (3 sources) Constipation; Translations: [Constipation, unspecified] 09-10-2023 Episodic Other gastrointestinal disorders (1 source) Drug-induced constipation; Translations: [Drug induced constipation] 09-14-2024 Episodic Other gastrointestinal disorders (1 source) Constipation, unspecified; Translations: [Constipation, unspecified constipation type] Onset: 10-21-2024 Episodic Other lower respiratory disease (2 sources) Cough; Translations: [Acute cough] 06-25-2024 Episodic Other non-traumatic joint disorders (2 sources) Hip pain; Translations: [Pain in left hip] 2024 Episodic Other nutritional; endocrine; and metabolic disorders (20 sources) Morbid obesity; Translations: [Morbid (severe) obesity due to excess calories] Onset: 11-09-2020 11-09-2020 Chronic Other skin disorders (1 source) Xeroderma; Translations: [Xerosis cutis] 09-10-2023 Episodic Other upper respiratory infections (2 sources) Acute upper respiratory infection; Translations: [Acute upper respiratory infection, unspecified] 06-25-2024 Episodic Residual codes; unclassified (3 sources) Pain; Translations: [Pain, unspecified] 06-22-2024 Episodic Screening and history of mental health and substance abuse codes (2 sources) Encounter for screening examination for other mental health and behavioral disorders; Translations: [Encounter for screening for depression] Onset: 10-21-2024 Episodic Spondylosis; intervertebral disc disorders; other back problems (1 source) Lumbar spondylosis; Translations: [Spondylosis without myelopathy or radiculopathy, lumbar region] 07-29-2024 Chronic Spondylosis; intervertebral disc disorders; other back problems (2 sources) Chronic low back pain; Translations: [Chronic bilateral low back pain without sciatica] 05-03-2021 Episodic Thyroid disorders (20 sources) Non-toxic multinodular goiter; Translations: [Nontoxic multinodular goiter] Onset: 08-11-2014 08-11-2014 Chronic Unclassified (1 source) Established Patient Onset: 10-28-2024 Unclassified (1 source) Acute cough; Translations: [Acute cough] Onset: 06-25-2024 Past or Other Problems Problem Classification Problem Date Documented Da te Episodic/Chronic Other diseases of kidney and ureters (1 source) Other obstructive and reflux uropathy; Translations: [BPH with urinary obstruction] Onset: 01-23-2024 Episodic Other gastrointestinal disorders (1 source) Heartburn; Translations: [Heartburn] Onset: 04-24-2024 Episodic Other non-traumatic joint disorders (2 sources) Pain in left hip; Translations: [Pain in left hip] Onset: 07-08-2024 Episodic Other screening for suspected conditions (not mental disorders or infectious disease) (20 sources) Patient encounter status; Translations: [Encounter for screening for malignant neoplasm of prostate] Onset: 11-09-2020 11-09-2020 Episodic Residual codes; unclassified (1 source) Pain, unspecified; Translations: [Pain] Onset: 08-24-2024 Episodic Results Test Name Value Interpretation Reference [facility] ABISA[facility]RAYA ([id number]) 1955 Date Time Provider Department 11/30/24 MARQUITA CALVERT During your visit today, we recorded the following information about you: Joy Soriano LPN 11/30/2024 11:56 AM Signed [employer] SLATER rec'd for trulicity. This was completed electronically. Prior authorization approved Payer: [facility] [phone] Approval Details Authorized from June 24, 2024 to November 30, 2025 Electronic appeal: Not supported View History Notes Time User Attachment Attachment received from payer. 11/30/2024 11:47 AM Aracelis Ontiveros Priorautmelva In Document Medication Being Authorized dulaglutide (TRULICITY) 0.75 mg/0.5 mL pen injector Inject 0.75 mg subcutaneously one time a week. Dispense: 2 mL Refills: 1 Start: 11/27/2024 Class: Normal Diagnoses: Type 2 diabetes mellitus without complication, without long-term current use of insulin (HCC) This order has been released to its destination. To be filled at: [facility] [address] [place] [id number] [facility] [phone] [facility] notified. Allergies As of Date: 11/30/2024 Noted Allergy Reaction LISINOPRIL 07/25/2023 2 - Rash LOSARTAN 12/07/2022 8 - GI Upset Comments: Constipation Date Reviewed: 11/24/2024 Reviewed by: Heather Groves, KEITH - Fully Assessed Reason for Visit: Insurance Authorization [[id number]] Prescriptions as of 11/30/2024 - dulaglutide (TRULICITY) 0.75 mg/0.5 mL pen injector Inject 0.75 mg subcutaneously one time a week. - amLODIPine (NORVASC) 5 mg tablet Take 1 tablet by mouth once daily. - azelastine 0.1% nasal spray 2 Sprays two times a day. - fluticasone propionate (FLONASE NASAL) Use in the nose two times a day. - finasteride (PROSCAR) 5 mg tablet Take 1 tablet by mouth once daily. - famotidine (PEPCID) 20 mg tablet Take 1 tablet by mouth at bedtime as needed. - tamsulosin (FLOMAX) 0.4 mg Take 1 capsule by mouth daily at bedtime. - rosuvastatin (CRESTOR) 5 mg tablet Take 1 tablet by mouth daily at bedtime. - Fluocinolone Acetonide 0.01 % external oil Apply 0.1 % to affected area every 2 weeks. - Zinc 50 mg tab Take 22 mg by mouth once daily. - ketoconazole (NIZORAL) 2 % shampoo Apply to affected area as directed. - MULTI-VITAMIN ORAL Take by mouth once daily. - Ascorbic Acid (VITAMIN C) 1,000 mg tablet Take 1,000 mg by mouth once daily. - [place]-3 Fatty Acids-Vitamin E (FISH OIL) 1,000 mg cap Take 1 capsule by mouth once daily. - Cholecalciferol, Vitamin D3, (VITAMIN D) 1,000 unit cap Take 1,000 Units by mouth once daily. Problem List As Of Date 11/30/2024 Noted Resolved Nontoxic multinodular goiter [E04.2] 08/11/2014 Mixed hyperlipidemia [E78.2] 11/09/2020 Essential hypertension [I10] 11/09/2020 Hypertriglyceridemia [E78.1] 11/09/2020 Morbid obesity (HCC) [E66.01] 11/09/2020 Prostate cancer screening [Z12.5] 11/09/2020 Type 2 diabetes mellitus with peripheral neurop*08/17/2021 Chronic bronchitis, unspecified chronic bronchi*11/13/2022 Encounter Status:Closed by JOY SORIANO on 11/30/24 [facility] Angely 11-24-2024 CNOV Office Visit (GENSWS ) MARSHALABISAI ([id number]) 1955 M Date Time Provider Department 11/24/24 11:30 AM VISH PETERSON During your visit today, we recorded the following information about you: Pulse Respiration Blood pressure Weight 75/minute 14/minute 146/80 136.9 kg Heather Groves RN 11/24/2024 1:36 PM Signed REVIEW OF SYSTEMS: General: The patient denies fatigue, denies weight loss, denies weight gain, denies feeling hot, and denies feelings of cold. Eyes: The patient denies glaucoma, denies eye injury/surgery, does not wear glasses or contacts. Ear/Nose/Throat: The patient denies allergies, denies hayfever, denies ear infections, and denies bloody noses. Cardiovascular: The patient denies chest pain, denies heart disease, denies high blood pressure,denies cardiac stent, denies prior heart attack, denies irregular heart beat, denies high cholesterol, denies poor circulation, denies heart failure, other cardiac issues, denies claudication, denies cold feet, denies peripheral arterial stent. Respiratory: The patient denies tuberculosis, denies pneumonia, denies frequent cough, denies pulmonary embolism, denies shortness of breath, and denies coughing up blood. Gastrointestinal: The patient denies difficulty swallowing, denies acid reflux, denies ulcers, denies vomiting, denies jaundice/hepatitis, denies gallbladder problems, denies black or tarry stools, denies hemorrhoids, denies bleeding from rectum, denies diverticulitis, notes constipation, denies diarrhea, denies loss of stool control, and denies hernias. Kidney/Bladder: The patient denies kidney stones, denies urine infections, and denies bloody urine. Skin: The patient denies a history of skin cancer, denies bleeding/changing moles, and denies a history of skin rash. Neurologic: The patient denies a history of epilepsy/convulsions, denies headaches, denies head/spinal injuries, and denies stroke/TIA. Psychiatric: The patient denies psychiatric medications, denies depression, and denies voices, denies substance abuse. Endocrine: The patient denies thyroid disorders, notes diabetes, and denies hormonal problems. Hematologic: The patient denies a history of bruising, denies bleeding, and denies anemia, denies blood clots. Infections: The patient denies a history of measles and mumps, denies rheumatic fever, and denies sexually transmitted diseases. Musculoskeletal: The patient denies back pain/injury, notes back problems, denies sciatica, notes knee/foot trouble, denies arthritis, or denies gout. When was patient's last Mammogram screening? N/A Last Colonoscopy: 2019 KEITH Berger Daniel P, MD 11/24/2024 1:36 PM Signed HISTORY AND PHYSICAL Abisai Araya 1955 REFERRING PHYSICIAN: Daria Park APRN.CNP CHIEF COMPLAINT: Thyroid Nodule (Has, three nodules on his thyroid, has had for years.) HPI: The patient is a 69 year old male with a complaint of evaluation of an abnormal thyroid ultrasound. NODULE 1: Location: Right mid Size: 1.2 x 0.8 x 0.9 cm Characteristics: Composition: Solid or almost completely solid, 2 points Echogenicity: Hypoechoic, 2 points Shape: Muwje-haxg-qkly, 0 points Margin: Smooth, 0 points Echogenic foci (add points for all that apply): Punctate echogenic foci, 3 points Internal vascularity: absent Interval growth: Grossly similar but not discretely measured on the prior study TI-RADS Category: TR5 ACR Recommendation: TI-RADS 5 nodule. FNA is advised. NODULE 2: Location: Left mid Size: 1.8 x 1.2 x 1.5 cm (previously 2.4 x 1.4 x 1.9 cm) Characteristics: Composition: Solid or almost completely solid, 2 points Echogenicity: Very hypoechoic, 3 points Shape: Eiywo-hwsr-ymex, 0 points Margin: Smooth, 0 points Echogenic foci (add points for all that apply): Macrocalcifications, 1 point Internal vascularity: absent Interval growth: No significant growth given differences in technique TI-RADS Category: TR4 ACR Recommendation: TI-RADS 4 nodule. FNA is recommended. NODULE 3: Location: Left lower pole Size: 3.6 x 2.5 x 2.8 cm (previously 2.5 x 1.9 x 2.6 cm) Characteristics: Composition: Solid or almost completely solid, 2 points Echogenicity: Peripherally isoechoic with hypoechoic center, 2 points Shape: Gqukd-ibzm-edxi, 0 points Margin: Smooth, 0 points Echogenic foci (add points for all that apply): None, 0 points Internal vascularity: absent Interval growth: Significant interval growth (20% increase in at least two nodule dimensions and a minimal increase of 2 mm, or a 50% or greater increase in volume). TI-RADS Category: TR4 ACR Recommendation: TI-RADS 4 nodule. FNA is recommended. Patient had a fine-needle aspiration of both the left and right side done last year which came back benign. However the left inferior 1 has grown (more content not included)... Normal [facility] CNOVon 10-28-2024 CNOV Office Visit (ORMDNA ) ABISAI ARAYA ([id number]) 1955 M Date Time Provider Department 10/28/24 1:30 PM ENRICO HOLLIS During your visit today, we recorded the following information about you: Enrico Hollis PA-C 10/28/2024 2:23 PM Signed Established Patient Ortho Knee Consult Note ASSESSMENT AND PLAN Sathish is a 69-year-old male who presents the office today for left knee pain. He states that he has an appointment in February with Dr. Jerry Suh to discuss possible knee replacement surgery. Patient would like to have this done around July or August of next year. He is here today requesting cortisone injection. He has not had any prior injections in this knee. No other concerns today. Follow-up with Dr. Suh in February for surgical consult. Impression: Left Knee Severe Degenerative Osteoarthritis, Primary After discussion with Abisai Araya, continued non-operative management of injection(s) was chosen. The patient currently has had six months of unsuccessful non-operative treatment as outlined in the HPI below and progressive symptoms. Progressive Symptoms Include: Pain worsened by weight bearing. The patient has been ordered: No orders placed today. CONSULTS: Patient does not require consults for optimization at this time. ACTIVE PROBLEM LIST Nontoxic Multinodular Goiter Mixed Hyperlipidemia Essential Hypertension Hypertriglyceridemia Morbid Obesity (Hcc) Prostate Cancer Screening Type 2 Diabetes Mellitus With Peripheral Neuropathy (Hcc) Chronic Bronchitis, Unspecified Chronic Bronchitis Type (Hcc) SUBJECTIVE CHIEF COMPLAINT: Knee Pain HPI: Abisai Araya is a 69 year old patient here for evaluation and management of left knee pain. Patient has had progressive problems with the knee(s) most of the day over the past 1 year(s) interfering with activities which include walking. The problem began limiting activities 1-3 years ago. Currently the pain in the joint is rated at 4 out of 10 with minimal activity. The pain is chronic and constant and is located along the inside aspect and in the front. The pain is described as aching, dull, and sharp. Relieving factors include rest and over the counter medication. There is no specific incident that brought about this pain. Patient has no additional complaints. Total Joint Athroplasty - Risk Calculator PREVIOUS TREATMENTS: Attempted Weight Loss Medical Treatments: OTC NSAIDS for 3 Months or Greater (Ibuprofen) Risk Factors for Total Joint Arthroplasty (TJA) Obesity High Risk High: BMI > 40 Moderate: BMI 30-40 Normal: BMI < 30 Diabetes Moderate Risk High: A1C > 8 Moderate: A1C 7-8 Normal: A1C < 7 Smoking normal High: Current smoker Normal: Non smoker Anemia normal High: Hgb < 13 (men) N/A: Hgb >= 13 (men) Nutritional Status normal High: Alb<3.4, or prealb<15, or serum transferrin<200, or total lymphocyte count<1500 Normal: normal labs COPD normal High: dx of COPD Normal: no dx of COPD MRSA normal High: dx of MRSA or positive lab test Normal: no MRSA CKD normal High: eGFR<60 Moderate: eGFR 60-89 Normal: eGFR>90 Hx of DVT / PE normal High: dx of DVT / PE Normal: no dx of DVT / PE Narcotics Use normal High:NarxCare >=300 Moderate: 100-299 Normal: 0-99 REYNALDO normal High: dx of REYNALDO N/A: no dx of REYNALDO Coagulation normal High:PT Sec>13, or PT INR>1.3, or APTT>32.4, or Plt ct<150k Moderate: on anticoag but none of the above Normal: none Obesity: Weight management and obesity medicine (bariatric) program recommended BMI Readings from Last 3 Encounters: 10/21/24 : 40.96 kg/m? 09/14/24 : 40.82 kg/m? 08/24/24 : 40.69 kg/m? Diabetes: Well controlled - Abisai has been diagnosed with Type 2 Diabetes. His last Hemoglobin A1C was 6.5 - 10/15/2024. Pt is followed by Daria Park for Type 2 Diabetes - last seen on 10/21/2024. Other Risk Factors None PHYSICAL EXAM: There were no vitals taken for this visit. All other systems deferred. GENERAL: Appears healthy, well-nourished, no deformities. HABITUS: Obese GAIT: Antalgic to the left KNEE EXAM: Left: Alignment: Varus deformity, Correctable Range of motion is lacking a few degrees secondary to tight hamstrings degrees in extension and 120 degrees of flexion. Extension La degrees Pain with ROM: Yes Effusion: Slight Tender to the palpation of Medial femoral condyle and Medial joint line Pain with patellar compression: No Stability: Anterior/Posterior stable and Varus/Valgus stable Hip Exam: flexion to 100+ degrees, full extension, internal/external rotation adequate, and no pain with log roll Neurovascular Status: Sensation Intact, Moves foot and ankle up AND down, and 2+ dorsalis pedis DATA: Diagnostic tests reviewed for today's visit: Left knee X-Ray: Severe tri-compartmental degeneration and Bone on bone contact of the medial (more content not included)... Normal [facility] Large Joint Arthro/Inj: L kn ee jointon 10-28-2024 Enrico Hollis P A-C 10/28/2024 2:23 PM Large Joint Arthro/Inj: L knee joint 10/28/2024 2:01 PM The procedure site was prepped in the usual sterile fashion. Site: L knee joint Medications: 80 mg triamcinolone acetonide 40 mg/mL Anesthetics: 3 mL lidocaine (PF) 10 mg/mL (1 %) Outcome: Tolerated well, no immediate complications Post-injection instructions were reviewed with the patient and the patient voiced understanding of these instructions. Informed Consent Consent Obtained: Verbal [place] Protocol A moment to CARE was completed. SIGN IN Personnel directly involved with the procedure wore the appropriate PPE. Special Equipment: N/A Patient/Surrogate Stated/Verified: Patient name, Date of , Relevant allergies and Intended procedure TIME OUT Relevant labs, photos, and/or imaging studies have been reviewed. Intended patient and procedure match source documents. Consent obtained and matches the intended procedure. Correct side/site marked and visible. Medications required for procedure verified. No fire risk assessment and interventions applicable. No implant(s) inserted. SIGN OUT No specimen collected. All instruments, equipment, possible retained foreign bodies accounted for. The post-procedure POC has been communicated to the patient or surrogate. No post-procedure POC communication to the patient's multidisciplinary team (including the bedside nurse for hospitalized patients) applicable. [facility] US THYROID/PARATHYROIDon US THYROID/PARATHYROI D * * *Final Report* * * DATE OF EXAM: Oct 27 2024 2:05PM [facility] 1048 - US THYROID/PARATHYROID / PROCEDURE REASON: Thyroid nodule * * * * Physician Interpretation * * * * EXAMINATION: THYROID ULTRASOUND CLINICAL HISTORY: Thyroid nodule TECHNIQUE: Sonography and Doppler imaging of the thyroid was performed. Images were obtained and stored in a permanent archive. MQ: UST_1 COMPARISON: 02/28/2023 RESULT: Right Lobe: 4.7 cm x 1.4 cm x 2.7 cm; homogeneous echogenicity, expected vascular flow. Left Lobe: 5.3 cm x 2.2 cm x 3.3 cm; homogeneous echogenicity, expected vascular flow. Isthmus: 0.4 cm The most suspicious thyroid nodule(s) (up to four) as below: NODULE 1: Location: Right mid Size: 1.2 x 0.8 x 0.9 cm Characteristics: Composition: Solid or almost completely solid, 2 points Echogenicity: Hypoechoic, 2 points Shape: Temzu-jtbz-lior, 0 points Margin: Smooth, 0 points Echogenic foci (add points for all that apply): Punctate echogenic foci, 3 points Internal vascularity: absent Interval growth: Grossly similar but not discretely measured on the prior study TI-RADS Category: TR5 ACR Recommendation: TI-RADS 5 nodule. FNA is advised. NODULE 2: Location: Left mid Size: 1.8 x 1.2 x 1.5 cm (previously 2.4 x 1.4 x 1.9 cm) Characteristics: Composition: Solid or almost completely solid, 2 points Echogenicity: Very hypoechoic, 3 points Shape: Kxfkb-pksj-pdyc, 0 points Margin: Smooth, 0 points Echogenic foci (add points for all that apply): Macrocalcifications, 1 point Internal vascularity: absent Interval growth: No significant growth given differences in technique TI-RADS Category: TR4 ACR Recommendation: TI-RADS 4 nodule. FNA is recommended. NODULE 3: Location: Left lower pole Size: 3.6 x 2.5 x 2.8 cm (previously 2.5 x 1.9 x 2.6 cm) Characteristics: Composition: Solid or almost completely solid, 2 points Echogenicity: Peripherally isoechoic with hypoechoic center, 2 points Shape: Wclbo-gjew-vgsd, 0 points Margin: Smooth, 0 points Echogenic foci (add points for all that apply): None, 0 points Internal vascularity: absent Interval growth: Significant interval growth (20% increase in at least two nodule dimensions and a minimal increase of 2 mm, or a 50% or greater increase in volume). TI-RADS Category: TR4 ACR Recommendation: TI-RADS 4 nodule. FNA is recommended. IMPRESSION: Thyroid nodule(s) is/are present. Fine needle aspiration is recommended if not previously performed. TI-RADS Category: TR4 ACR Recommendation: TI-RADS 4 nodule. FNA is recommended. ACR recommendations are strictly based on the size and imaging appearance at the time of the exam and do not consider stability or previous biopsy results. Operating Theatre Technician: ROBIN Transcribe Date/Time: Oct 31 2024 8:30A Dictated by : KAITY HOOPER MD This examination was interpreted and the report reviewed and electronically signed by: KAITY HOOPER MD on Oct 31 2024 8:36AM EST [id number] Normal [facility] CNOVon 10-21-2024 CNOV Office Visit (INTMWS ) ABISAI ARAYA ([id number]) 1955 M Date Time Provider Department 10/21/24 2:20 PM DARIA PARK During your visit today, we recorded the following information about you: Pulse Respiration Blood pressure Weight 70/minute 16/minute 128/72 137 kg Daria Park APRN.CNP 11/05/2024 1:07 PM Addendum Abisai Araya is a 69 year old male here for a Medicare wellness visit. Medicare Health Risk Assessment General Health Very good Exercise: Minutes/Day 40 min Exercise: Days/Week 4 days Alcohol: Daily Use 2-3 times a week Alcohol: Drinks/Day 1 or 2 Alcohol: 6 or more drinks Never Feel off balance Mild but not concerning to pt Concerns: Teeth/Dentures denies Concerns: Sexual function denies Troubled by feelings denies Frequency: Eating healthy diet 95% of the time ADLs requiring help denies Safety precautions in home/vehicle Wears seatbelt in the car, steps have handrails, floors are clutter free, and has grab bars in the bathrooms Smoke, vape, chews tobacco former Difficulty hearing Wears hearing aides but needs adjusted. Difficulty seeing Wears Glasses Current Providers Specialists: I have reviewed specialist-related care of the patient in the medical record. Sleep Medicine - Dr. Hunter ENT/Audiology - Dr. Espinoza Dentistry/Gum specialist Dermatology - Dr. Rae Orthopedics - Dr. Suh Optometry - sees Dr. Wright annually Medical/Family history review Reviewed and updated problem list, medical/surgical/family/soci al history, medications, and allergies. Opioid use review Opioid Medications (last 90 days) No data to display Anxiety/Depression screening PHQ-2 Score: 0 (Lower risk for depression) VANESSA-7 Score: 3 (Minimal Anxiety) Recommendation: no further intervention at this time Cognitive screening Mini Cog Score: 4 Cognitive screening reviewed and No further action needed (score 3-5). Functional Observation Was the patient's Timed Up AND Go test unsteady or >= 12 seconds? No Advance Care Planning Surrogate decision maker documented and/or advance directives scanned in chart Measurements BP 128/72 Pulse 70 Resp 16 Wt (!) 137 kg (302 lb) SpO2 96% BMI 40.96 kg/m? Vision Screening: Follows with optometry/ophthalmology Assessment/Plan Medicare annual wellness visit, subsequent (Z00.00) - Counseled on healthy diet and regular exercise - Fall avoidance information provided - Personalized prevention plan provided - Discussed need for and benefit of weight loss. BMI 40.96 kg/(m2) - Counseled patient on alcohol intake and associated health risks CC: Patient presents with: Medicare Wellness Exam: Annual Medicare Wellness HPI Abisai Araya is a 69 year old male who presents today for medicare wellness and review of chronic conditions. Recording using End[employer] software for draft documentation of the visit was discussed with the patient/authorized branch sales and service representative; all questions welcomed and answered. Patient/authorized branch sales and service representative agreed to proceed Type 2 Diabetes Mellitus w/ BMI > 40: - Recent HbA1c decreased from 6.6% to 6.5%. - Home glucose readings in the 130s. - Denies hypoglycemic episodes, dizziness, lightheadedness, diaphoresis, polydipsia, polyphagia, polyuria, chest pain, or dyspnea. - Taking Ozempic 0.25 mg; tolerating well with no abdominal pain or bowel changes. - Reports constipation managed with Colace as needed. - Followed by a foot clinic; sees Dr. Fox. Hyperlipidemia: - Recent labs show triglycerides at 155 mg/dL, HDL at 45 mg/dL, and LDL at 75 mg/dL. - Taking rosuvastatin 5 mg. - Consuming more fish, considering discontinuing fish oil supplements. Hypertension: - Taking amlodipine; requests a refill. - Home blood pressure readings approximately 20 points higher than office readings, with a recent reading of 142/90 mmHg but does tend to put the BP cuff on at home very tight which may be giving incorrect high readings. . - Denies chest pain, headaches, edema, or dyspnea. Thyroid Nodule: - Biopsy in July of last year; advised to have an annual thyroid ultrasound by Dr. Peterson. REVIEW OF SYSTEMS See HPI PAST MEDICAL HISTORY Diagnosis Date Allergic rhinitis, cause unspecified Anxiety state, unspecified Arthritis Backache, unspecified BPH (benign prostatic hyperplasia) Essential hypertension, benign Headache(784.0) Hypertrophy of prostate without urinary obstruction and other lower urinary tract symptoms (LUTS) Nontoxic uninodular goiter Olecranon bursitis Other and unspecified hyperlipidemia Other chronic nonalcoholic liver disease Shortness of breath Symptom of bladder outlet obstruction Unspecified hemorrhoids with other complication Unspecified hereditary and idiopathic peripheral neuropathy Urine retention PAST SURGICAL HISTORY Procedure L (more content not included)... Normal [facility] Comprehensive metabolic 2000 panelon 10-15-2024 Albumin [Mass/Vol] 4.6 g/dL Normal 3.9-4.9 [facility] Comment on above: Order Comment: Speci men Type: BLOOD SPECIMENOrdering Facility: [facility] Address: [address] [place] [address] Performed By: #### 2 4323-8 ####[facility] [id number] [place] [address] [place] ALP [Catalytic activity/Vol] 57 U/L Normal 38-113 [facility] Comment on above: Order Comment: Speci men Type: BLOOD SPECIMENOrdering Facility: [facility] Address: [address] [place] [address] Performed By: #### 2 4323-8 ####[facility] FLORIDAA [id number] [place] [address] [place] ALT [Catalytic activity/Vol] 64 U/L High 10-54 [facility] Comment on above: Order Comment: Speci men Type: BLOOD SPECIMENOrdering Facility: [facility] Address: [address] [place] [address] Performed By: #### 2 4323-8 ####[facility] [id number] [place] [address] [place] Anion gap [Moles/Vol] 9 mmol/L Normal 8-15 [facility] Comment on above: Order Comment: Speci men Type: BLOOD SPECIMENOrdering Facility: [facility] Address: [address] [place] [address] Performed By: #### 2 4323-8 ####[facility]ERN[facility] [id number] [place] [address] [place] AST [Catalytic activity/Vol] 38 U/L Normal 14-40 [facility] Comment on above: Order Comment: Speci men Type: BLOOD SPECIMENOrdering Facility: [facility] Address: [address] [place] [address] Performed By: #### 2 4323-8 ####[facility] DEBRACHRISA [id number] [place] [address] [place] Bilirubin [Mass/Vol] 0.8 mg/dL Normal 0.2-1.3 [facility] Comment on above: Order Comment: Speci men Type: BLOOD SPECIMENOrdering Facility: [facility] Address: [address] [place] [address] Performed By: #### 2 4323-8 ####[facility] DEBRAALYSSIALIA [id number] [place] [address] [place] Calcium [Mass/Vol] 9.3 mg/dL Normal 8.5-10.2 [facility] Comment on above: Order Comment: Speci men Type: BLOOD SPECIMENOrdering Facility: [facility] Address: [address] [place] [address] Performed By: #### 2 4323-8 ####[facility] CANDIEA [id number] [place] [address] [place] Chloride [Moles/Vol] 101 mmol/L Normal 98-107 [facility] Comment on above: Order Comment: Speci men Type: BLOOD SPECIMENOrdering Facility: [facility] Address: [address] [place] [address] Performed By: #### 2 4323-8 ####[facility] MILLYAZMINWNCLIA [id number] [place] [address] [place] CO2 [Moles/Vol] 25 mmol/L Normal 22-30 [facility] Comment on above: Order Comment: Speci men Type: BLOOD SPECIMENOrdering Facility: [facility] Address: [address] [place] [address] Performed By: #### 2 4323-8 ####[facility] [id number] [place] [address] [place] Creatinine [Mass/Vol] 0.86 mg/dL Normal 0.73-1.22 [facility] Comment on above: Order Comment: Anika mills Type: BLOOD SPECIMENOrdering Facility: [facility] Address: [address] [place] [address] Performed By: #### 2 4323-8 ####[facility] [id number] [place] [address] [place] Creatinine and Glomerular filtration rate.predicted panel (S/P/Bld) 93 mL/min/1.73m??? Normal >=60 [facility] Comment on above: Order Comment: Anika mills Type: BLOOD SPECIMENOrdering Facility: [facility] Address: [address] [place] [address] Result Comment: Mireya mated Glomerular Filtration Rate (eGFR) is calculated using the 2020 CKD-EPI creatinine equation. This equation utilizes serum creatinine, sex, and age as parameters. The creatinine assay has traceable calibration to isotope dilution-mass spectrometry. Refer to KDIGO guidelines for clinical interpretation. In patients with unstable renal function, e.g. those with acute kidney injury, the eGFR may not accurately reflect actual GFR. Performed By: #### 2 4323-8 ####[facility] [id number] [place] [address] [place] Glucose [Mass/Vol] 141 mg/dL High 74-99 [facility] Comment on above: Order Comment: Anika mills Type: BLOOD SPECIMENOrdering Facility: [facility] Address: [address] [place] [address] Result Comment: The [place] [employer] (ADA) provides guidance for cutoff values for fasting glucose and random glucose. The ADA defines fasting as no caloric intake for at least 8 hours. Fasting plasma glucose results between 100 to 125 mg/dL indicate increased risk for diabetes (prediabetes). Fasting plasma glucose results greater than or equal to 126 mg/dL meet the criteria for diagnosis of diabetes. In the absence of unequivocal hyperglycemia, results should be confirmed by repeat testing. In a patient with classic symptoms of hyperglycemia or hyperglycemic crisis, random plasma glucose results greater than or equal to 200 mg/dL meet the criteria for diagnosis of diabetes. Reference: Standards of Medical Care in Diabetes 2016, [place] [employer]. Diabetes Care. 2016.39(Suppl 1). Performed By: #### 2 4323-8 ####[facility] [id number] [place] [address] [place] Potassium [Moles/Vol] 4.0 mmol/L Normal 3.7-5.1 [facility] Comment on above: Order Comment: Speci men Type: BLOOD SPECIMENOrdering Facility: [facility] Address: [address] [place] [address] Performed By: #### 2 4323-8 ####[facility] [id number] [place] [address] [place] Protein [Mass/Vol] 7.3 g/dL Normal 6.3-8.0 [facility] Comment on above: Order Comment: Speci men Type: BLOOD SPECIMENOrdering Facility: [facility] Address: [address] [place] [address] Performed By: #### 2 4323-8 ####[facility] [id number] [place] [address] [place] Sodium [Moles/Vol] 135 mmol/L Low 136-144 [facility] Comment on above: Order Comment: Speci men Type: BLOOD SPECIMENOrdering Facility: [facility] Address: [address] [place] [address] Performed By: #### 2 4323-8 ####[facility] [id number] [place] [address] [place] Urea nitrogen [Mass/Vol] 18 mg/dL Normal 9-24 [facility] Comment on above: Order Comment: Speci men Type: BLOOD SPECIMENOrdering Facility: [facility] Address: [address] [place] [address] Performed By: #### 2 4323-8 ####[facility] [id number] [place] [address] [place] HbA1c (Bld)on 10-15-2024 Average glucose Estimated from glycated hemoglobin (Bld) [Mass/Vol] 140 mg/dL Normal [facility] Comment on above: Order Comment: Speci men Type: BLOOD SPECIMENOrdering Facility: [facility] Address: [address] [place] [address] Result Comment: eAG: (Estimated average glucose) is a calculated value from HgbA1c and is branch sales and service representative of the average blood glucose level in the last 2-3 month period. Performed By: #### 5 5454-3 ####[facility] [id number] [place] [address] [place] HbA1c (Bld) [Mass fraction] 6.5 % High 4.3-5.6 [facility] Comment on above: Order Comment: Anika mills Type: BLOOD SPECIMENOrdering Facility: [facility] Address: [address] [place] [address] Result Comment: Amer ican Diabetes Association guidelines indicate that patients with HgbA1c in the range 5.7-6.4% are at increased risk for development of diabetes, and intervention by lifestyle modification may be beneficial. HgbA1c greater or equal to 6.5% is considered diagnostic of diabetes. Performed By: #### 5 5454-3 ####[facility] [id number] [place] [id number] [place] Lipid 1996 panelon Cholesterol [Mass/Vol] 147 mg/dL Normal <200 [facility] Comment on above: Order Comment: Anika mills Type: BLOOD SPECIMENOrdering Facility: [facility] Address: [address] [place] [address] Result Comment: <200 mg/dL, Desirable 200-239 mg/dL, Borderline high >239 mg/dL, High Performed By: #### 2 4331-1 ####[facility] [id number] [address] [id number] [address] [place] Cholesterol in HDL [Mass/Vol] 45 mg/dL Normal >39 [facility] Comment on above: Order Comment: Speci men Type: BLOOD SPECIMENOrdering Facility: [facility] Address: [address] [place] [address] Result Comment: 40-5 9 mg/dL, Acceptable >59 mg/dL, High: Negative risk factor for coronary heart disease <40 mg/dL, Low: Positive risk factor for coronary heart disease Performed By: #### 2 4331-1 ####[facility] [id number] [id number] [place] [address] [place] [facility] Cholesterol in LDL [Mass/Vol] 75 mg/dL Normal <100 [facility] Comment on above: Order Comment: Radhamesi men Type: BLOOD SPECIMENOrdering Facility: [facility] Address: [address] [place] [address] Result Comment: <100 mg/dL, Optimal 100-129 mg/dL, Near optimal/above optimal 130-159 mg/dL, Borderline high 160-189 mg/dL, High >189 mg/dL, Very high Secondary prevention optimal LDL Cholesterol levels are recommended to be <70 mg/dL LDL cholesterol is calculated using the Morales-NIH equation. Performed By: #### 2 4331-1 ####[facility] [id number] [address] [id number] [address] [place] Cholesterol in LDL/Cholesterol in HDL [Mass ratio] 1.67 {ratio} Normal <2.54 [facility] Comment on above: Order Comment: Speci men Type: BLOOD SPECIMENOrdering Facility: [facility] Address: [address] [place] [address] Result Comment: Betsey alvarez: 1. National Cholesterol Education Program ATP III Guideline At-A-Glance Quick Desk Reference: National Heart, Lung, and Blood [place]. National Institutes of Health. 2001: NIH Publication No. 01-3305. 2. An International Atherosclerosis Society position paper: global recommendations for the management of dyslipidemia: executive summary, Atherosclerosis. 2014: 232(2):410-413. Performed By: #### 2 4331-1 ####[facility] [id number] [address] [id number] [place] [address] OF [facility] Cholesterol in VLDL [Mass/Vol] 24 mg/dL Normal <30 [facility] Comment on above: Order Comment: Speci men Type: BLOOD SPECIMENOrdering Facility: [facility] Address: [address] [place] [address] Performed By: #### 2 4331-1 ####[facility] [id number] [address] [id number] [place] [address] [place] Cholesterol non HDL [Mass/Vol] 102 mg/dL Normal <130 [facility] Comment on above: Order Comment: Speci men Type: BLOOD SPECIMENOrdering Facility: [facility] Address: [address] [place] [address] Result Comment: <130 mg/dL, Optimal 130-159 mg/dL, Near optimal/above optimal 160-189 mg/dL, Borderline high 190-219 mg/dL, High >219 mg/dL, Very high Secondary prevention optimal non HDL Cholesterol levels are recommended to be <100 mg/dL Performed By: #### 2 4331-1 ####[facility] [id number] [address] [place] [address] [place] [id number] [place] [address] [place] Cholesterol.total/ Cholesterol in HDL [Mass ratio] 3.27 {ratio} Normal <5.10 [facility] Comment on above: Order Comment: Speci men Type: BLOOD SPECIMENOrdering Facility: [facility] Address: [address] [place], [place] [id number] Performed By: #### 2 4331-1 ####[facility] [id number] [place] [id number] [place] [address] [place] FASTING TIME 12 hrs Normal [facility] Comment on above: Order Comment: Speci men Type: BLOOD SPECIMENOrdering Facility: [facility] Address: [address] [place], [place] [address] Performed By: #### 2 4331-1 ####[facility] [id number] [place] [id number] [place] [id number] [place] [address] [place] Triglyceride [Mass/Vol] 155 mg/dL High <150 [facility] Comment on above: Order Comment: Speci men Type: BLOOD SPECIMENOrdering Facility: [facility] Address: [address] [place] [address] Result Comment: <150 mg/dL, Normal 150-199 mg/dL, Borderline high 200-499 mg/dL, High >499 mg/dL, Very high Performed By: #### 2 4331-1 ####[facility] [id number] [address] [place] [address] [facility] [id number] [place] [id number] [place] CNOVon 09-14-2024 CNOV Office Visit (INTMWS ) ABISAI ARAYA ([id number]) 1955 M Date Time Provider Department 09/14/24 2:20 PM OLDERDARIA INTMWS During your visit today, we recorded the following information about you: Pulse Respiration Blood pressure Weight 70/minute 16/minute 128/68 136.5 kg OlderDaria APRN.PEST CONTROL OPERATOR 09/14/2024 4:28 PM Signed CC: Patient presents with: Recheck: Medication follow up HPI Abisai Araya is a 69 year old male who presents today for ongoing constipation. For months has had intermittent constipation. Once he notices he is getting constipated, which is every few days, hew will take a laxative stool softener which resolves this. Would like to review his medications. Realizes the ozempic causes constipation as well but would like to try stopping the fenofibrate first. Has been on fenofibrate for years, even prior to being our patient was on this for elevated triglycerides. Would like to consider stopping this. Denies abdominal pain (outside of cramping with constipation and having a BM, nausea, vomiting, fever, chills, chest pain, or shortness of breath. REVIEW OF SYSTEMS See HPI PAST MEDICAL HISTORY Diagnosis Date Allergic rhinitis, cause unspecified Anxiety state, unspecified Arthritis Backache, unspecified BPH (benign prostatic hyperplasia) Essential hypertension, benign Headache(784.0) Hypertrophy of prostate without urinary obstruction and other lower urinary tract symptoms (LUTS) Nontoxic uninodular goiter Olecranon bursitis Other and unspecified hyperlipidemia Other chronic nonalcoholic liver disease Shortness of breath Symptom of bladder outlet obstruction Unspecified hemorrhoids with other complication Unspecified hereditary and idiopathic peripheral neuropathy Urine retention PAST SURGICAL HISTORY Procedure Laterality Date CHOLECYSTECTOMY HX 2002 COLONOSCOPY 2004 COLONOSCOPY 2019 THYROID FINE NEEDLE ASPIRATION 07/29/2023 Left midpole and left lower pole of the thyroid ALLERGIES Lisinopril and Losartan MEDICATIONS azelastine 0.1% nasal spray 2 Sprays two times a day. fluticasone propionate (FLONASE NASAL) Use in the nose two times a day. finasteride (PROSCAR) 5 mg tablet Take 1 tablet by mouth once daily. amLODIPine (NORVASC) 5 mg tablet Take 1 tablet by mouth once daily. famotidine (PEPCID) 20 mg tablet Take 1 tablet by mouth at bedtime as needed. tamsulosin (FLOMAX) 0.4 mg Take 1 capsule by mouth daily at bedtime. rosuvastatin (CRESTOR) 5 mg tablet Take 1 tablet by mouth daily at bedtime. tamsulosin (FLOMAX) 0.4 mg Take 1 capsule by mouth daily at bedtime. (Patient not taking: Reported on 07/29/2024) semaglutide (OZEMPIC) 0.25 mg or 0.5 mg (2 mg/3 mL) pen Inject 0.5 mg subcutaneously one time a week. Fenofibrate (LOFIBRA) 54 mg tablet Take 1 tablet by mouth once daily. Fluocinolone Acetonide 0.01 % external oil Apply 0.1 % to affected area every 2 weeks. Zinc 50 mg tab Take 22 mg by mouth once daily. ketoconazole (NIZORAL) 2 % shampoo Apply to affected area as directed. MULTI-VITAMIN ORAL Take by mouth once daily. Ascorbic Acid (VITAMIN C) 1,000 mg tablet Take 1,000 mg by mouth once daily. [place]-3 Fatty Acids-Vitamin E (FISH OIL) 1,000 mg cap Take 1 capsule by mouth once daily. Cholecalciferol, Vitamin D3, (VITAMIN D) 1,000 unit cap Take 1,000 Units by mouth once daily. FAMILY HISTORY Problem Relation Age of Onset Goiter Mother Alcohol/Drug Father Diabetes Father Coronary Artery Disease Father Heart Father Hypertension Father Lipids Father No Known Problems Sister No Known Problems Sister No Known Problems Brother No Known Problems Maternal Grandmother No Known Problems Maternal Grandfather No Known Problems Paternal Grandmother Lung Cancer Paternal Grandfather Social History Tobacco Use Smoking status: Former Current packs/day: 0.00 Types: Cigarettes Quit date: 06/24/1997 Years since quittin.2 Smokeless tobacco: Never Vaping Use Vaping status: Never Used Substance Use Topics Alcohol use: Yes Alcohol/week: 7.0 standard drinks of alcohol Types: 4 Glasses of wine, 1 Cans of beer, 1 Shots of liquor, 1 Standard drinks or equivalent per week Drug use: Not Currently Types: Marijuana PHYSICAL EXAM BP 128/68 Pulse 70 Resp 16 Wt (!) 136.5 kg (301 lb) SpO2 94% BMI 40.82 kg/m? General Appearance: well appearing, in no acute distress, alert Lungs: Lungs clear to auscultation. No wheezing, rhonchi, rales. Heart: RRR without murmur, gallop, or rubs. No ectopy Abdomen: Abdomen soft, non-tender. Bowel sounds normal. No masses, organomegaly Health maintenance reviewed with patient: Depression Screening Never done Anxiety Screening Never done Covid-19 Vaccine( season) due on 05/29/2024 Advance Directive Discussion due on 06/24/2024 HbA1C due on 10/12/2024 Dilated Retin (more content not included)... Normal [facility] CNOVon 08-24-2024 CNOV Office Visit (ORTHMN ) ABISAI ARAYA ([id number]) 1955 M Date Time Provider Department 08/24/24 2:00 PM JERRY SUH ORTHMN During your visit today, we recorded the following information about you: Weight Height 136.1 kg 1.829 m Jerry Suh MD 08/24/2024 3:46 PM Signed CONSULT ORTHOPAEDIC: KNEE PRIMARY CARE PHYSICIAN: Marquita [place] MD REFERRING PROVIDER: No referring provider defined for this encounter. ASSESSMENT AND PLAN Impression: Left Knee Severe Degenerative Osteoarthritis, Primary Will RTC in to schedule in TKA in winter Diagnoses: No diagnosis found. Abisai Araya has radiograph and physical exam evidence of degenerative joint disease and wishes to consider options before making a decision for surgery. This patient appears to have sufficient symptoms to warrant surgical intervention and is an appropriate candidate for left Primary Total Knee Arthroplasty as evidenced by six months of unsuccessful non-operative treatment as outlined in the HPI below. We had a lengthy discussion regarding the risk and benefit of surgery, the alternatives, limitations and personnel involved. These included but were not limited to infection, persistent pain, instability, nerve injury, blood clots, and medical complications. We also discussed the pre-operative course, surgery itself and rehabilitation. Lucero-operative blood management and transfusion issues were discussed, and options clearly outlined. The patient has consented to the use of the banked allogenic blood if medically necessary. The patient has elected to schedule surgery in the winter; we will see the patient this fall for reevaluation. Shared decision making occurred while obtaining informed consent. The patient will be scheduled for a pre-operative education class at which time they will have their nasal swab completed and will be given CHG cloths along with the verbal and written instructions for their use. Patient has been instructed and has been scheduled or will call to schedule attendence in one of the total joint perioperative classes offered prior to proceeding with TKA. The patient has been ordered: No orders found for this visit on 08/24/24. None today CONSULTS: IMPACT/PACE Consult for preoperative clearance. Total Joint Arthroplasty: Risk Calculator Abisai Araya has a 9.53% chance of NOT returning home at discharge for a Primary total Knee replacement. Abisai's estimated Length of Stay is 1 day (Outpatient candidate). Abisai's 30 day chance of readmission is . Estimated LOS 1 day Discharge Disposition Probability D/C to Home 90.47 % D/C to SNF 9.53 % These calculations are based on the following factors: - 69 years of age - sex is male - BMI of 40.69 kg/m2 - 0 hospitalizations in the last 12 months - no history of heart disease - history of diabetes - no history of COPD - no history of anemia - preoperative ambulation: independent community distances - 5 step(s) to enter home - bed location is NOT on the first floor - bath location is NOT on the first floor - caregiver is consistent - home is not more than 150 miles away - PROMIS-10 Mental Health T score 41-49 - Marital status: Risk Factors for Total Knee Arthroplasty (TKA) Major Risk Factors Obesity High Risk High: BMI > 40 Moderate: BMI 30-40 Normal: BMI < 30 Diabetes Moderate Risk High: A1C > 8 Moderate: A1C 7-8 Normal: A1C < 7 Hx of DVT / PE normal High: dx of DVT / PE Normal: no dx of DVT / PE Smoking normal High: Current smoker Normal: Non smoker Narcotics Use normal High:NarxCare >=300 Moderate: 100-299 Normal: 0-99 Depression normal High: PHQ-9 >14 Moderate: PHQ-9 5-14 Normal: PHQ-9 < 5 Area Deprivation Index (NEFTALI) Unknown Risk High: NEFTALI Score > 75 Moderate: NEFTALI 50-75 Normal: NEFTALI < 50 Obesity: Weight management and obesity medicine (bariatric) program recommended BMI Readings from Last 3 Encounters: 08/24/24 : 40.69 kg/m? 07/29/24 : 38.61 kg/m? 06/25/24 : 39.12 kg/m? Diabetes: Well controlled - Abisai has been diagnosed with Type 2 Diabetes. His last Hemoglobin A1C was 6.6 (04/13/2024). Pt is followed by [facility] for Type 2 Diabetes - last seen on 04/24/2024. Area Deprivation Index (NEFTALI) 11/16/2021 11/06/2022 NEFTALI Score National Score 64 66 Patient Health Questionnaire (PHQ-9) 07/04/2024 07/26/2024 08/23/2024 PHQ-9 PHQ-2 Score 0 0 2 PHQ-9 Score 1 (0-4) minimal depression, (5-9) mild depression, (10-14) moderate depression, (15-19) moderately severe depression, (20-27) severe depression Bone Density Risk Screen Abisai Araya is at risk for bone loss and has not had a bone densitometry scan in the last 2 years (date of last scan: None on file). Recommend a bone densitometry scan and if indicated on the bone density results, a consult to a bone health specialist (Rheumatolo (more content not included)... Normal [facility] XR KNEE 4V AP/PA BOTH+LAT/ME R LTon 08-24-2024 XR KNEE 4V AP/PA BOTH+LAT/CHARMAINE LT * * *Final Report* * * DATE OF EXAM: Aug 24 2024 1:22PM AOX 5202 - XR KNEE 4V AP/PA BOTH+LAT/CHARMAINE LT / PROCEDURE REASON: Pain * * * * Physician Interpretation * * * * HISTORY: Pain . Chronic left knee pain TECHNIQUE: XR KNEE 4V AP/PA BOTH+LAT/CHARMAINE LT COMPARISON: None RESULT: Marked medial compartment narrowing with nfdr-ex-lglf contact. Small tricompartmental osteophytes. No fractures or joint effusion. Superior patellar enthesophyte. Marked medial compartment narrowing also noted in the right knee. No other significant abnormality. IMPRESSION: Marked degenerative changes in the medial compartments bilaterally. Operating Theatre Technician: [email or web address] Transcribe Date/Time: Aug 24 2024 1:40P Dictated by : NAM THAO MD This examination was interpreted and the report reviewed and electronically signed by: NAM THAO MD on Aug 24 2024 1:42PM EST [id number] Normal [facility] XR Knee - left 4 Viewson IMPRESSION: Marked degenerative changes in the medial compartments bilaterally. Operating Theatre Technician: [email or web address] Transcribe Date/Time: Aug 24 2024 1:40P Dictated by : NAM THAO MD This examination was interpreted and the report reviewed and electronically signed by: NAM THAO MD on Aug 24 2024 1:42PM EST DIVISION OF RADIOLOGY * * *Final Report* * * DATE OF EXAM: Aug 24 2024 1:22PM AOX 5202 - XR KNEE 4V AP/PA BOTH+LAT/CHARMAINE LT / PROCEDURE REASON: Pain * * * * Physician Interpretation * * * * HISTORY: Pain . Chronic left knee pain TECHNIQUE: XR KNEE 4V AP/PA BOTH+LAT/CHARMAINE LT COMPARISON: None RESULT: Marked medial compartment narrowing with zotv-nb-xixx contact. Small tricompartmental osteophytes. No fractures or joint effusion. Superior patellar enthesophyte. Marked medial compartment narrowing also noted in the right knee. No other significant abnormality. DIVISION OF RADIOLOGY Provider, [facility] [place] - 08/24/2024 * * *Final Report* * * DATE OF EXAM: Aug 24 2024 1:22PM AOX 5202 - XR KNEE 4V AP/PA BOTH+LAT/CAHRMAINE LT / PROCEDURE REASON: Pain * * * * Physician Interpretation * * * * HISTORY: Pain . Chronic left knee pain TECHNIQUE: XR KNEE 4V AP/PA BOTH+LAT/CHARMAINE LT COMPARISON: None RESULT: Marked medial compartment narrowing with umks-cr-duoy contact. Small tricompartmental osteophytes. No fractures or joint effusion. Superior patellar enthesophyte. Marked medial compartment narrowing also noted in the right knee. No other significant abnormality. IMPRESSION IMPRESSION: Marked degenerative changes in the medial compartments bilaterally. Operating Theatre Techn[facility] Trans[facility] Date/Time: Aug 24 2024 1:40P Dictated by : NAM THAO MD This examination was interpreted and the report reviewed and electronically signed by: NAM THAO MD on Aug 24 2024 1:42PM EST [facility] Radiology Study observation (narrative) [facility] XR Knee - left 4 ViewsOrdere d By: [facility] Provider on 08-24-2024 [facility] CNOVon 07-29-2024 CNOV Office Visit (SPNMED ) ABISAI ARAYA ([id number]) 1955 M Date Time Provider Department 07/29/24 11:00 AM PEMA DUONG SPBRENDENED During your visit today, we recorded the following information about you: Pulse Blood pressure Weight Height 69/minute 121/71 136.4 kg 1.88 m Pema Duong PA-C 07/29/2024 12:07 PM Signed Pema Duong PA-C [facility] [address] [place] [address] 07/29/2024 ASSESSMENT AND PLAN: Assessment : Encounter Diagnosis ICD-10-CM 1. Mechanical low back pain M54.59 2. Lumbar spondylosis M47.816 Discussion: Mr. Araya is a very pleasant 69-year-old man here for evaluation of low back pain on an intermittent but frequent basis over the last few years. He has tried health care attorney and massage as, naproxen. Current episode has lasted for around 6 months and he even says that pain has awoken him in the past. Walking makes symptoms worse and stretching before going to bed seems to really help. Patient is diabetic He is obese but losing weight with current BMI of 38.6. He has LEFT knee OA and RIGHT hip issues as well. He has been holding off on a left knee surgery. EXAM Highlights: Slow to mobilize from sitting to standing. He has favoring of his RLE secondary to some right hip pain as he walks and the left leg acts as if it is slightly shorter because it does not fully straighten at the knee. There is LBP at the LS junction to palpation but it is mild. Motion is normal and neurologic function in terms of strength and reflexes are normal. He is globally hyporeflexic at 0/4 in both upper and lower extremities without the presence of any pathological reflexes. He does have distal sensory deficits secondary to diabetic peripheral polyneuropathy. Seated SLR's are negative bilaterally. IMAGING: We did review his most recent lumbar plain radiographs together during today's visit. These films were done on 05/03/2021. He has moderately severe DDD especially in lower lumbar segments and increase in lumbar lordosis which seems to place more weight on the facet joints of the lumbar region. He does not appear to have fracture or significant listhesis. SUMMARY/PLAN: We had a long talk today regarding overall spine health and wellness. Since he is already working hard on weight loss, I will have him continue that. He is benefited from PT in the past and he would consider redoing this in the future, but he will also focus on his other lower extremity orthopedic issues in the left knee. He seems to manage quite well with his current symptoms in the low back and I think that he has good reason based on x-ray findings for lumbosacral mechanical pain. He will check back in with me if he would like to go forward with supervised PT, health care attorney, acupuncture, osteopathic manipulation or if symptoms develop into more of a radiculopathy where we would want to proceed with MRI studies. Plan : ACTIVITY RECOMMENDATIONS: -The patient is encouraged to avoid bed rest and maintain normal activity. -The patient is encouraged to exercise regularly as tolerated. -The patient advised to avoid prolonged sitting. NUTRITION RECOMMENDATIONS: -The patient is carrying a significant amount of weight above an ideal BMI. We discussed how this impacts overall health and back pain. FOLLOW-UP: -The patient is instructed to return as needed. ADDITIONAL DISCUSSION: -We discussed the difference between hurt vs harm as it relates to chronic pain. This document has been created with the use of voice recognition technology. It may contain inaccuracies: (e.g. misspellings, inaccurate syntax or word sense) that have escaped review. Time spent: 47 minutes today with this patient visit. This includes kypp-os-pcfn time, review of chart records regarding conservative care history, spine-pertinent imaging, and communication/care coordination with referring provider, problem-specific history-taking and counseling/education regarding treatment options. cc: No referring provider defined for this encounter. Phone: N/A Fax: Results of consultation to be transmitted via electronic medical record for those providers who practice within [facility] or with access to [facility] via [facility], or via letter. ############################ ############################ ################ CHIEF COMPLAINT: Patient is here for the lower back pian, and left hip. Has this pain for years but in the last 6 months, pain started to get worse. Level of the pain is at 1/10. Pain is worse when sleeping. Walking makes pain worse. He's stretching before going to beg and it helps. HPI: see Discussion above History of bowel or bladder dysfunction (not IBS or constip (more content not included)... Normal [facility] Basic Metabolic Profile (BMP )on 07-12-2024 BUN/CRE 18.3 RATIO Normal 10-20 [facility] Comment on above: Performed By: #### L 500.2500, L100.0100 #### [facility] [address] [place], [address] CA,Total 9.5 mg/dL Normal 8.5-10.1 [facility] Comment on above: Result Comment: Slig ht Lipemia, Result may be falsely increased. Performed By: #### L 500.2500, L100.0100 #### [facility] [address] [place], [address] Chloride [Moles/Vol] 104 mmol/L Normal 98-107 [facility] Comment on above: Performed By: #### L 500.2500, L100.0100 #### [facility] [address] [place], [address] CO2 [Moles/Vol] 26.0 mmol/L Normal 21.0-32.0 [facility] Comment on above: Result Comment: Slig ht Lipemia, Result may be falsely increased. Performed By: #### L 500.2500, L100.0100 #### [facility] [address] [place], [address] Creatinine [Mass/Vol] 1.04 mg/dL Normal 0.70-1.30 [facility] Comment on above: Result Comment: Slig ht Lipemia, Result may be falsely increased. The validity of the calculated GFR GFRAA in patients over 70 years has not been determined. Clinical correlation is essential. Performed By: #### L 500.2500, L100.0100 #### [facility] [address] [place], [address] ECRCL 97.67 ml/min Normal [facility] Comment on above: Performed By: #### L 500.2500, L100.0100 #### [facility] [address] [place], [address] EST GFR - AA 91 mL/min Normal >60 [facility] Comment on above: Result Comment: Afri can [place] GFR Calc Performed By: #### L 500.2500, L100.0100 #### [facility] [address] [place], [address] GAP 6 Normal 5-15 [facility] Comment on above: Performed By: #### L 500.2500, L100.0100 #### [facility] [address] [place], [address] GFR/1.73 sq M.predicted among non-blacks MDRD (S/P/Bld) [Vol rate/Area] 75 mL/min/{1.73_m2} Normal >60 [facility] Comment on above: Result Comment: Non- GFR Calc Performed By: #### L 500.2500, L100.0100 #### [facility] [address] [place], [address] Glucose [Mass/Vol] 170 mg/dL High 74-106 [facility] Comment on above: Result Comment: Slig ht Lipemia, Result may be falsely increased. Fasting Glucose result greater than or equal to 126 mg/dL suggests DIABETES MELLITUS per A.D.A. criteria. Performed By: #### L 500.2500, L100.0100 #### [facility] [address] [place], [address] Potassium [Moles/Vol] 4.6 mmol/L Normal 3.5-5.1 [facility] Comment on above: Result Comment: Slig ht Lipemia, Result may be falsely increased. Performed By: #### L 500.2500, L100.0100 #### [facility] [address] [place], [address] Sodium [Moles/Vol] 137 mmol/L Normal 136-145 [facility] Comment on above: Performed By: #### L 500.2500, L100.0100 #### [facility] [address] [place], [address] Urea nitrogen [Mass/Vol] 19 mg/dL High 7-18 [facility] Comment on above: Result Comment: Slig ht Lipemia, Result may be falsely increased. Performed By: #### L 500.2500, L100.0100 #### [facility] [address] [place], [address] CBC W/Diff, Automatedon 06-24 Absolute Lymph 1.54 X10 3/uL Normal 0.83-4.51 [facility] Comment on above: Performed By: #### L 500.2500, L100.0100 #### [facility] [address] [place], [address] Absolute Neut 6.8 X10 3/uL Normal 2.0-7.7 [facility] Comment on above: Performed By: #### L 500.2500, L100.0100 #### [facility] [address] [place], [address] Basophils/100 WBC (Bld) 0.8 % Normal 0-1 [facility] Comment on above: Performed By: #### L 500.2500, L100.0100 #### [facility] [address] [place], [address] Eosinophils/100 WBC (Bld) 0.7 % Normal 0-5 [facility] Comment on above: Performed By: #### L 500.2500, L100.0100 #### [facility] [address] [place], [address] Erythrocyte distribution width (RBC) [Ratio] 12.7 % Normal 11.6-14.6 [facility] Comment on above: Performed By: #### L 500.2500, L100.0100 #### [facility] [address] [place], [address] Hematocrit (Bld) [Volume fraction] 45.7 % Normal 40-54 [facility] Comment on above: Performed By: #### L 500.2500, L100.0100 #### [facility] [address] [place], [address] Hemoglobin (Bld) [Mass/Vol] 15.4 g/dL Normal 13.0-16.5 [facility] Comment on above: Performed By: #### L 500.2500, L100.0100 #### [facility] [address] [place], [address] IG% 0.300 Normal 0.0-0.9 [facility] Comment on above: Result Comment: IG% - Immature Granulocytes (promyelocytes, myelocytes and metamyelocytes) > 1% indicates that a LEFT SHIFT is Present. Performed By: #### L 500.2500, L100.0100 #### [facility] [address] [place], [address] Lymphocytes/100 WBC (Bld) 16.2 % Low 19-41 [facility] Comment on above: Performed By: #### L 500.2500, L100.0100 #### [facility] [address] [place], [address] MCH (RBC) [Entitic mass] 30.3 pg Normal 27.0-32.0 [facility] Comment on above: Performed By: #### L 500.2500, L100.0100 #### [facility] [address] [place], [address] MCHC (RBC) [Mass/Vol] 33.7 g/dL Normal 32-36 [facility] Comment on above: Performed By: #### L 500.2500, L100.0100 #### [facility] [address] [place], [address] MCV (RBC) [Entitic vol] 89.8 fL Normal 80-94 [facility] Comment on above: Performed By: #### L 500.2500, L100.0100 #### [facility] [address] [place], [address] Monocytes/100 WBC (Bld) 10.1 % High 0-10 [facility] Comment on above: Performed By: #### L 500.2500, L100.0100 #### [facility] [address] [place], [address] Neutrophils/100 WBC (Bld) 71.9 % High 47-70 [facility] Comment on above: Performed By: #### L 500.2500, L100.0100 #### [facility] [address] [place], [address] Nucleated RBC (Bld) [#/Vol] 0 10*3/uL Normal 0-5 [facility] Comment on above: Performed By: #### L 500.2500, L100.0100 #### [facility] [address] [place], [address] Platelet mean volume (Bld) [Entitic vol] 10.5 fL Normal 6.2-12.0 [facility] Comment on above: Performed By: #### L 500.2500, L100.0100 #### [facility] [address] [place], [address] Platelets (Bld) [#/Vol] 210 10*3/uL Normal 150-450 [facility] Comment on above: Performed By: #### L 500.2500, L100.0100 #### [facility] [address] [place], [address] RBC (Bld) [#/Vol] 5.09 10*6/uL Normal 4.6-6.2 [facility] Comment on above: Performed By: #### L 500.2500, L100.0100 #### [facility] [address] [place], [address] RDW SD 41.9 fl Normal 35.1-43.9 [facility] Comment on above: Performed By: #### L 500.2500, L100.0100 #### [facility] [address] [place], [address] WBC (Bld) [#/Vol] 9.5 10*3/uL Normal 4.4-11.0 [facility] Comment on above: Performed By: #### L 500.2500, L100.0100 #### [facility] [address] [place], [address] CNOVon 07-12-2024 CNOV Office Visit (UCWSTR ) ABISAI ARAYA ([id number]) 1955 M Date Time Provider Department 07/12/24 10:15 AM ELLA AARON [facility] During your visit today, we recorded the following information about you: Ella Aaron APRN.CNP 07/12/2024 10:06 AM Signed Called to triage patient by PSS 69 year old male presents with possible bowel obstruction Acute onset abdominal pain last night +LUQ and LLQ TTP Discussed limitations of express care. He denies prior history of bowel obstruction, but endorses the pain is so bad it has to be that No imaging and labs available on a Saturday morning Referred to ED Declines EMS Allergies As of Date: 07/12/2024 Noted Allergy Reaction LISINOPRIL 07/25/2023 2 - Rash LOSARTAN 12/07/2022 8 - GI Upset Comments: Constipation Date Reviewed: 07/08/2024 Reviewed by: Enrico Hollis PA-C - Fully Assessed Reason for Visit: Abdominal Pain [1] Primary Visit Diagnosis:Left lower quadrant abdominal pain [R10.32] Prescriptions as of 07/12/2024 - naproxen (NAPROSYN) 500 mg tablet Take 1 tablet by mouth two times a day with meals. - finasteride (PROSCAR) 5 mg tablet Take 1 tablet by mouth once daily. - amLODIPine (NORVASC) 5 mg tablet Take 1 tablet by mouth once daily. - famotidine (PEPCID) 20 mg tablet Take 1 tablet by mouth at bedtime as needed. - tamsulosin (FLOMAX) 0.4 mg Take 1 capsule by mouth daily at bedtime. - rosuvastatin (CRESTOR) 5 mg tablet Take 1 tablet by mouth daily at bedtime. - tamsulosin (FLOMAX) 0.4 mg Take 1 capsule by mouth daily at bedtime. - semaglutide (OZEMPIC) 0.25 mg or 0.5 mg (2 mg/3 mL) pen Inject 0.5 mg subcutaneously one time a week. - Fenofibrate (LOFIBRA) 54 mg tablet Take 1 tablet by mouth once daily. - Fluocinolone Acetonide 0.01 % external oil Apply 0.1 % to affected area every 2 weeks. - Zinc 50 mg tab Take 22 mg by mouth once daily. - ketoconazole (NIZORAL) 2 % shampoo Apply to affected area as directed. - MULTI-VITAMIN ORAL Take by mouth once daily. - Ascorbic Acid (VITAMIN C) 1,000 mg tablet Take 1,000 mg by mouth once daily. - [place]-3 Fatty Acids-Vitamin E (FISH OIL) 1,000 mg cap Take 1 capsule by mouth once daily. - Cholecalciferol, Vitamin D3, (VITAMIN D) 1,000 unit cap Take 1,000 Units by mouth once daily. Problem List As Of Date 07/12/2024 Noted Resolved Nontoxic multinodular goiter [E04.2] 08/11/2014 Mixed hyperlipidemia [E78.2] 11/09/2020 Essential hypertension [I10] 11/09/2020 Hypertriglyceridemia [E78.1] 11/09/2020 Morbid obesity (HCC) [E66.01] 11/09/2020 Prostate cancer screening [Z12.5] 11/09/2020 Type 2 diabetes mellitus with peripheral neurop*08/17/2021 Chronic bronchitis, unspecified chronic bronchi*11/13/2022 Encounter Status:Closed by ELLA AARON on 07/12/24 Normal [facility] Emergency Department Summary on 07-12-2024 Emergency Department Summary [facility] Medical Records Department [address] [place] [address] Emergency Department Summary 07/12/24 MR#: [id number] Acct: [id number] Name: ABISAI ARAYA Rep #: [id number] : 1955 69 From: Vish Herron DO PCP: Dr. Marquita Calvert MD Status:DEP ER Location: ED HPI HPI - GI History of Present Illness Chief Complaint: Abd Pain Informant: patient Narrative Narrative: Very pleasant 69-year-old male presenting to the emergency room with a chief complaint of left-sided abdominal pain. Patient notes the development of a sharp abdominal pain in the left side of his abdomen. He states he massaged it and outs more of a generalized ache. He is concerned about a bowel obstruction. He had a normal bowel movement yesterday but does note that he has felt more constipated recently. He denies any hematuria dysuria or urinary frequency. Denies any fever. He has had prior cholecystectomy. No history of bowel obstruction. [facility] Medical History (Updated 07/12/24 @ 11:[address] Vish Herron DO) BPH (benign prostatic hyperplasia) Hypercholesterolemia Hypertriglyceridemia Diabetes Home Medications ???Medication ???Instructions ???Recorded ???Last Taken ???Type benzonatate 200 mg capsule 200 mg PO BID PRN cough #14 caps 06/25/21 Unknown Rx dulaglutide 0.75 mg/0.5 mL 0.5 mg subcut DAILY 06/25/21 Unknown History subcutaneous pen injector (Trulicity) famotidine 20 mg tablet 20 mg PO DAILY 06/25/21 Unknown History rosuvastatin 5 mg tablet 5 mg PO DAILY 06/25/21 Unknown History tamsulosin 0.4 mg capsule 0.4 mg PO DAILY 06/25/21 Unknown History Allergy/AdvReac Type Severity Reaction Status Date / Time No Known Allergies Allergy Verified 06/25/21 06:04 Surgical History History of cholecystectomy Social History Smoking Status: Never smoker ROS ROS ED Constitutional Constitutional ED: Denies chills, fever(s) or weight loss Eyes Eyes: Denies change in vision or diplopia ENT ENT ED: Denies ear pain, rhinorrhea or sore throat Cardiovascular Cardiovascular: Denies chest pain, orthopnea, palpitations or racing heartbeat Respiratory/Chest Respiratory/Chest: Denies cough, dyspnea or orthopnea Gastrointestinal Gastrointestinal: Reports abdominal pain and constipation; Denies diarrhea, nausea or vomiting Genitourinary Genitourinary ED: Denies dysuria, hematuria or urinary frequency Musculoskeletal Musculoskeletal: Denies arthralgias or myalgias Integumentary Denies abscess or rash Neurologic Neurologic: Denies headache(s) or weakness Psychiatric Psychiatric: Denies anxiety, depression, suicidal ideation or suicidal thoughts Endocrine Endocrinology: Denies polydipsia, polyphagia or polyuria Allergic/Immunologic Allergic/Immunologic ED: Denies mouth swelling, tongue swelling or urticaria EXAM Physical Exam Const Vital Signs: 07/12/24 10:17 Temperature 96.9 F L Temperature Source Temporal Pulse Rate 70 Respiratory Rate 14 Blood Pressure 146/88 H Blood Pressure Mean 107 Pulse Ox 98 Oxygen Delivery Method Room Air Positive well nourished and well developed General Appearance ED: well developed HEENT Reports normocephalic, head/scalp atraumatic and moist mucous membranes Eyes PERRL and EOMs intact bilaterally Neck no lymphadenopathy, supple and no JVD Resp normal respiratory effort and clear to auscultation bilaterally Cardio regular rate, regular rhythm and no murmurs GI normal to inspection, nondistended, normoactive bowel sounds and non-tender Auscultation: normoactive bowel sounds Palpation: soft; Negative for guarding or rebound tenderness present Back/Spine no CVA tenderness and normal ROM Extremity normal to inspection General Extremety ED: Negative for edema General Extremity: Negative for edema Neuro oriented x3 and CN's II-XII intact bilaterally Sensorium / Orientation: alert Motor Exam: strength 5/5 throughout Psych mental status grossly normal Mood Affect: Negative for depressed or tearful Skin no rashes or lesions noted and no wounds MDM MDM MDM Narrative Medical decision making narrative: Differential diagnosis includes but not limited to colitis diverticulitis volvulus bowel obstruction ureterolithiasis Patient's white count 9.5 hemoglobin 15.4 platelet count of 210. Creatinine 1.04 glucose noted to be 170. Patient had a CT of the abdomen pelvis ordered but he declined this stating that he is now asymptomatic and does not feel it is necessary. At this point believe the patient will be discharged home. Would recommend PCP follow-up return if worsening or concerns History Record Review Discussion w/independent hi (more content not included)... Normal [facility] Urinalysis, Completeon 07-12 BACTERIA Normal None Seen [facility] Comment on above: Order Comment: CONNIE CTOR TO SPECIFY Result Comment: CON ENT DISCHARGED Performed By: #### L 400.0001 #### [facility] [address] [facility] [address] BILIRUBIN URINE Normal Negative [facility] Comment on above: Order Comment: CONNIE CTOR TO SPECIFY Result Comment: CON ENT DISCHARGED Performed By: #### L 400.0001 #### [facility] [address] [place], [address] Clarity (U) Normal Clear [facility] Comment on above: Order Comment: CONNIE CTOR TO SPECIFY Result Comment: CON ENT DISCHARGED Performed By: #### L 400.0001 #### [facility] [address] [place], [address] Color (U) Normal Yellow [facility] Comment on above: Order Comment: CONNIE CTOR TO SPECIFY Result Comment: CON ENT DISCHARGED Performed By: #### L 400.0001 #### [facility] [address] [place], [address] EPI,SQUAMOUS Normal 0-5 [facility] Comment on above: Order Comment: CONNIE CTOR TO SPECIFY Result Comment: CON ENT DISCHARGED Performed By: #### L 400.0001 #### [facility] [address] [place], [address] GLUCOSE, UR Normal Normal [facility] Comment on above: Order Comment: COLLE CTOR TO SPECIFY Result Comment: CON ENT DISCHARGED Performed By: #### L 400.0001 #### [facility] [address] [place], [address] KETONE UR Normal Negative [facility] Comment on above: Order Comment: COLLE CTOR TO SPECIFY Result Comment: CON ENT DISCHARGED Performed By: #### L 400.0001 #### [facility] [address] [place], [address] LEUK ESTERASE Normal Negative [facility] Comment on above: Order Comment: COLLE CTOR TO SPECIFY Result Comment: CON ENT DISCHARGED Performed By: #### L 400.0001 #### [facility] [address] [place], [address] Mucus Ql (Urine sed) Normal [facility] Comment on above: Order Comment: COLLE CTOR TO SPECIFY Result Comment: CON ENT DISCHARGED Performed By: #### L 400.0001 #### [facility] [address] [place], [address] Nitrite Ql (U) Normal Negative [facility] Comment on above: Order Comment: CONNIE CTOR TO SPECIFY Result Comment: CON ENT DISCHARGED Performed By: #### L 400.0001 #### [facility] [address] [place], [address] OCCULT BLOOD-UR Normal Negative [facility] Comment on above: Order Comment: CONNIE CTOR TO SPECIFY Result Comment: CON ENT DISCHARGED Performed By: #### L 400.0001 #### [facility] [address] [place], [address] pH UR Normal 5.0 - 8.0 [facility] Comment on above: Order Comment: COLLE CTOR TO SPECIFY Result Comment: CON ENT DISCHARGED Performed By: #### L 400.0001 #### [facility] [address] [place], [address] PROT DIPSTX Normal Negative [facility] Comment on above: Order Comment: CONNIE CTOR TO SPECIFY Result Comment: CON ENT DISCHARGED Performed By: #### L 400.0001 #### [facility] [address] [place], [address] RBC Normal 0-5 [facility] Comment on above: Order Comment: CONNIE CTOR TO SPECIFY Result Comment: CON ENT DISCHARGED Performed By: #### L 400.0001 #### [facility] [address] [place], [address] SP.GR. DIPSTX Normal 1.002-1.030 [facility] Comment on above: Order Comment: CONNIE CTOR TO SPECIFY Result Comment: CON ENT DISCHARGED Performed By: #### L 400.0001 #### [facility] [address] [place], [address] UR Preservative Normal [facility] Comment on above: Order Comment: CONNIE CTOR TO SPECIFY Result Comment: CON ENT DISCHARGED Performed By: #### L 400.0001 #### [facility] [address] [place], [address] UROBILI Normal Normal [facility] Comment on above: Order Comment: CONNIE CTOR TO SPECIFY Result Comment: CON ENT DISCHARGED Performed By: #### L 400.0001 #### [facility] [address] [place], [address] WBC Normal 0-5 [facility] Comment on above: Order Comment: CONNIE CTOR TO SPECIFY Result Comment: CON ENT DISCHARGED Performed By: #### L 400.0001 #### [facility] [address] [place], [address] CNOVon 07-08-2024 CNOV Office Visit (ORMDNA ) ABISAI ARAYA ([id number]) 1955 M Date Time Provider Department 07/08/24 11:00 AM ENRICO HOLLIS During your visit today, we recorded the following information about you: Enrico Hollis PA-C 07/08/2024 11:02 AM Signed HISTORY OF PRESENT ILLNESS: Abisai is a 69 year old male. He is here for evaluation of Left hip pain. Patient reports intermittent hip pain for approximately one year that is located in the posterior and lateral aspects of the hip. Denies groin pain. He reports that his left knee is pjih-da-lehi and he has been told he needs TKA. Due to this, he primarily keeps his left knee extended when he walks to avoid pain in the knee. He also moved into a new house and has been exercising more with walking. He currently takes xxse-cus-qsenqig naproxen 1 to 2 tablets at night. Denies any numbness or tingling to the left lower extremity. No trauma or injury that may have precipitated this pain. PAIN EVALUATION 07/04/2024 2132 07/08/2024 1034 Pain Level: 3 2 Pain Location: Hip-Left Hip-Left Description: Aching;Dull;Sore Aching Duration Amount of Time: 2 1 Duration Units: Hours Years Frequency: Intermittent Intermittent Intervention/Comfort measure: Medication;Reposition;Relaxa tion;Pillow support;Other: See comment -- Comments: Stretching -- MEDICATIONS Current Outpatient Medications on File Prior to Visit Medication Sig finasteride (PROSCAR) 5 mg tablet Take 1 tablet by mouth once daily. amLODIPine (NORVASC) 5 mg tablet Take 1 tablet by mouth once daily. famotidine (PEPCID) 20 mg tablet Take 1 tablet by mouth at bedtime as needed. tamsulosin (FLOMAX) 0.4 mg Take 1 capsule by mouth daily at bedtime. rosuvastatin (CRESTOR) 5 mg tablet Take 1 tablet by mouth daily at bedtime. tamsulosin (FLOMAX) 0.4 mg Take 1 capsule by mouth daily at bedtime. semaglutide (OZEMPIC) 0.25 mg or 0.5 mg (2 mg/3 mL) pen Inject 0.5 mg subcutaneously one time a week. Fenofibrate (LOFIBRA) 54 mg tablet Take 1 tablet by mouth once daily. Fluocinolone Acetonide 0.01 % external oil Apply 0.1 % to affected area every 2 weeks. Zinc 50 mg tab Take 22 mg by mouth once daily. ketoconazole (NIZORAL) 2 % shampoo Apply to affected area as directed. MULTI-VITAMIN ORAL Take by mouth once daily. Ascorbic Acid (VITAMIN C) 1,000 mg tablet Take 1,000 mg by mouth once daily. [place]-3 Fatty Acids-Vitamin E (FISH OIL) 1,000 mg cap Take 1 capsule by mouth once daily. Cholecalciferol, Vitamin D3, (VITAMIN D) 1,000 unit cap Take 1,000 Units by mouth once daily. No current facility-administered medications on file prior to visit. ALLERGIES ALLERGIES Allergen Reactions Lisinopril Rash Losartan GI Upset Constipation PAST MEDICAL HISTORY PAST MEDICAL HISTORY Diagnosis Date Allergic rhinitis, cause unspecified Anxiety state, unspecified Arthritis Backache, unspecified BPH (benign prostatic hyperplasia) Essential hypertension, benign Headache(784.0) Hypertrophy of prostate without urinary obstruction and other lower urinary tract symptoms (LUTS) Nontoxic uninodular goiter Olecranon bursitis Other and unspecified hyperlipidemia Other chronic nonalcoholic liver disease Shortness of breath Symptom of bladder outlet obstruction Unspecified hemorrhoids with other complication Unspecified hereditary and idiopathic peripheral neuropathy Urine retention PAST SURGICAL HISTORY PAST SURGICAL HISTORY Procedure Laterality Date CHOLECYSTECTOMY HX 2002 COLONOSCOPY 2005 COLONOSCOPY 2019 THYROID FINE NEEDLE ASPIRATION 07/29/2023 Left midpole and left lower pole of the thyroid SOCIAL HISTORY Tobacco: Ex-smoker, quit 1997 FAMILY HISTORY Does a similar condition to what you are experiencing run in your family? No REVIEW OF SYSTEMS: All other systems negative. PHYSICAL EXAM: PE: All other systems deferred. GENERAL: Appears healthy, well-nourished, no deformities. HABITUS: Obese GAIT: Antalgic to the left SKIN: Normal Left: ROM: Extension: Normal Flexion: 110 degrees Internal Rotation: 20 degrees External Rotation: 35 degrees Abduction: 40 degrees Adduction: 30 degrees Strength: Abduction 5/5 and Flexion 5/5 Palpation: No tenderness Log roll: non-painful. Straight leg raise: Negative Neurovascular Status: Sensation Intact and Moves foot and ankle up AND down Mild pain with FADIR and RACQUEL testing RADIOGRAPHS (personally reviewed): moderate left hip osteoarthritis MRI: none DIAGNOSIS Encounter Diagnosis ICD-10-CM 1. Pain in left hip M25.552 XR HIP GENERAL 3V PELV/AP/LAT LEFT 2. Primary osteoarthritis of left hip M16.12 3. Tendinopathy of left gluteal region M67.952 PLAN Patient has moderate left hip osteoarthritis, however I believe that most of his symptoms are coming from the gluteal musculature and IT band tightness due to (more content not included)... Normal [facility] XR HIP 3V PELV+ AP/LAT LTon 07-08-2024 XR HIP 3V PELV+ AP/LAT LT * * *Final Report* * * DATE OF EXAM: Jul 08 2024 10:16AM DARLINE [id number] - XR HIP 3V PELV+ AP/LAT LT / PROCEDURE REASON: M25.552-Pain in left hip * * * * Physician Interpretation * * * * PROCEDURE: Pelvis and left hip INDICATION: Pain in left hip .Pt states he is having left hip pain on his lateral side TECHNIQUE: XR HIP 3V PELV+ AP/LAT LT, weight bearing COMPARISON: None FINDINGS: Moderate bilateral hip osteoarthrosis, left slightly greater than right. Mild spurring from the greater trochanters bilaterally. Sacroiliac joints and symphysis pubis are maintained. No fracture or dislocation. IMPRESSION: Bilateral hip osteoarthrosis, left greater than right Operating Theatre Technician: ROBIN Transcribe Date/Time: Jul 09 2024 9:09A Dictated by : ABISAI GARCIAS MD This examination was interpreted and the report reviewed and electronically signed by: ABISAI GARCIAS MD on Jul 09 2024 9:10AM EST [id number] [facility] CNOVon 06-25-2024 OV Office Visit (UCWSTR ) ABISAI ARAYA ([id number]) 1955 M Date Time Provider Department 06/25/24 7:45 AM ABISAIROBERT UCWSTR During your visit today, we recorded the following information about you: Temperature Pulse Respiration Blood pressure 98.7 degrees 83/minute 18/minute 151/85 Weight 138.2 kg Robert Barone APRN.PEST CONTROL OPERATOR 06/25/2024 8:35 AM Signed CC: Patient presents with: Cough: Head and chest congestion, sinus drainage, NATARAJAN x3 days HPI: Abisai Araya is a 68 year old male who presents to the office with complaint of chest congestion, head congestion, and cough, nonproductive for a few days. Symptoms are staying the same. Associated symptoms includes dyspnea. Denies wheezing, nausea, vomiting , and diarrhea. Treatments tried include nothing so far. with no relief of symptoms. Sick contacts: unknown. History of asthma, frequent episodes of bronchitis, chronic bronchitis, bronchiectasis or COPD: No Smoker: No Seasonal/environmental allergies: No The ROS is otherwise negative. The patient's pmh, medications, allergies, and past visits are reviewed. PHYSICAL EXAM: BP 151/85 Pulse 83 Temp 37.1 ?C (98.7 ?F) Resp 18 Wt (!) 138.2 kg (304 lb 10.8 oz) SpO2 94% BMI 39.12 kg/m? General appearance: alert, cooperative, pleasant, in no acute distress Head: Normocephalic Eyes: EOM's intact, conjunctiva pink and moist, no icterus, sclera white, non-injected Ears: Right ear: External ear/canal- Normal, TM - clear with good landmarks. Left ear: External ear/canal- Normal, TM - clear with good landmarks Oropharynx:moist without lesions, No erythema, exudates or tonsillar hypertrophy. Heart: Negative. RRR without obvious murmur, gallop, or rubs. No ectopy. Lungs: clear to auscultation, without rales or wheeze, good air exchange PAST MEDICAL HISTORY Diagnosis Date Allergic rhinitis, cause unspecified Anxiety state, unspecified Arthritis Backache, unspecified BPH (benign prostatic hyperplasia) Essential hypertension, benign Headache(784.0) Hypertrophy of prostate without urinary obstruction and other lower urinary tract symptoms (LUTS) Nontoxic uninodular goiter Olecranon bursitis Other and unspecified hyperlipidemia Other chronic nonalcoholic liver disease Shortness of breath Symptom of bladder outlet obstruction Unspecified hemorrhoids with other complication Unspecified hereditary and idiopathic peripheral neuropathy Urine retention PAST SURGICAL HISTORY Procedure Laterality Date CHOLECYSTECTOMY HX 2002 COLONOSCOPY 2004 COLONOSCOPY 2019 THYROID FINE NEEDLE ASPIRATION 07/29/2023 Left midpole and left lower pole of the thyroid ALLERGIES Lisinopril and Losartan MEDICATIONS famotidine (PEPCID) 20 mg tablet Take 1 tablet by mouth at bedtime as needed. tamsulosin (FLOMAX) 0.4 mg Take 1 capsule by mouth daily at bedtime. rosuvastatin (CRESTOR) 5 mg tablet Take 1 tablet by mouth daily at bedtime. tamsulosin (FLOMAX) 0.4 mg Take 1 capsule by mouth daily at bedtime. semaglutide (OZEMPIC) 0.25 mg or 0.5 mg (2 mg/3 mL) pen Inject 0.5 mg subcutaneously one time a week. amLODIPine (NORVASC) 5 mg tablet Take 1 tablet by mouth once daily. finasteride (PROSCAR) 5 mg tablet Take 1 tablet by mouth once daily. Fenofibrate (LOFIBRA) 54 mg tablet Take 1 tablet by mouth once daily. Fluocinolone Acetonide 0.01 % external oil Apply 0.1 % to affected area every 2 weeks. Zinc 50 mg tab Take 22 mg by mouth once daily. ketoconazole (NIZORAL) 2 % shampoo Apply to affected area as directed. MULTI-VITAMIN ORAL Take by mouth once daily. Ascorbic Acid (VITAMIN C) 1,000 mg tablet Take 1,000 mg by mouth once daily. [place]-3 Fatty Acids-Vitamin E (FISH OIL) 1,000 mg cap Take 1 capsule by mouth once daily. Cholecalciferol, Vitamin D3, (VITAMIN D) 1,000 unit cap Take 1,000 Units by mouth once daily. FAMILY HISTORY Problem Relation Age of Onset Goiter Mother Alcohol/Drug Father Diabetes Father Coronary Artery Disease Father Heart Father Hypertension Father Lipids Father No Known Problems Sister No Known Problems Sister No Known Problems Brother No Known Problems Maternal Grandmother No Known Problems Maternal Grandfather No Known Problems Paternal Grandmother Lung Cancer Paternal Grandfather Social History Tobacco Use Smoking status: Former Current packs/day: 0.00 Types: Cigarettes Quit date: 06/24/1997 Years since quittin.0 Smokeless tobacco: Never Vaping Use Vaping status: Never Used Substance Use Topics Alcohol use: Yes Alcohol/week: 7.0 standard drinks of alcohol Types: 4 Glasses of wine, 1 Cans of beer, 1 Shots of liquor, 1 Standard drinks or equivalent per week Drug use: Not Currently Types: Marijuana ASSESSMENT/PLAN: 1. Acute cough - ICD9: 786.2, ICD10: R05.1 (primary diagnosis) - XR CHEST 2V FRONTAL/LAT * * (more content not included)... Normal [facility] ([id number]) 1955 M Date Time Provider Department 06/25/24 TRICIA GILBERT [facility] During your visit today, we recorded the following information about you: Tricia Gilbert PA 06/25/2024 7:48 PM Signed Contacted patient. Positive for COVID. He is into the window and candidate for Paxlovid. Lab testing reviewed from 03/2024-eGFR 94. Discussed with patient side effects of medication versus benefits. Patient unsure if he wants to take it or not, but would like it sent to his pharmacy. Discussed he will need to start this within 5 days of symptoms-patient is on day 3. He will need to start this within the next 2 days. Did discuss he needs to stop taking Flomax and rosuvastatin while taking the medication and 3 to 5 days afterwards. Patient understands. Carolina Osorio RN 06/26/2024 8:33 AM Signed Patient seen in [facility] on 06/25/2024 and positive for Covid. Patient was prescribed Paxlovid but calls to ask if Daria Park would recommend he take the Paxlovid. See below note from Tricia SLATER. Patient reports he doesn't feel comfortable taking the medication without Daria reviewing it. Today is day 4 of symptoms. CarolinaKEITH Kwon Joy, APRN.PEST CONTROL OPERATOR 06/26/2024 9:01 AM Signed Yes he can take this but should hold his rosuvastatin while taking paxlovid. Thank you Daria Park APRN.PEST CONTROL OPERATOR Nadiya Lebron MA 06/26/2024 10:57 AM Signed Patient notified. Allergies As of Date: 06/25/2024 Noted Allergy Reaction LISINOPRIL 07/25/2023 2 - Rash LOSARTAN 12/07/2022 8 - GI Upset Comments: Constipation Date Reviewed: 06/25/2024 Reviewed by: Lisa Gonzalez MA - Fully Assessed Reason for Visit: Results [95] Order(s):nirmatrelvir tablet 300 mg (150 mg x 2) and ritonavir tablet 100 mg in a dose pack (PAXLOVID)Administer TWO pink nirmatrelvir 150 mg tablets and ONE white ritonavir 100 mg tablet for a total of three tablets twice daily.Disp: 30 tabletRfl: 0 Prescriptions as of 06/26/2024 - benzonatate (TESSALON PERLE) 100 mg capsule Take 1 capsule by mouth three times a day as needed for cough for up to 7 days. - nirmatrelvir tablet 300 mg (150 mg x 2) and ritonavir tablet 100 mg in a dose pack (PAXLOVID) Administer TWO pink nirmatrelvir 150 mg tablets and ONE white ritonavir 100 mg tablet for a total of three tablets twice daily. - famotidine (PEPCID) 20 mg tablet Take 1 tablet by mouth at bedtime as needed. - tamsulosin (FLOMAX) 0.4 mg Take 1 capsule by mouth daily at bedtime. - rosuvastatin (CRESTOR) 5 mg tablet Take 1 tablet by mouth daily at bedtime. - tamsulosin (FLOMAX) 0.4 mg Take 1 capsule by mouth daily at bedtime. - semaglutide (OZEMPIC) 0.25 mg or 0.5 mg (2 mg/3 mL) pen Inject 0.5 mg subcutaneously one time a week. - amLODIPine (NORVASC) 5 mg tablet Take 1 tablet by mouth once daily. - finasteride (PROSCAR) 5 mg tablet Take 1 tablet by mouth once daily. - Fenofibrate (LOFIBRA) 54 mg tablet Take 1 tablet by mouth once daily. - Fluocinolone Acetonide 0.01 % external oil Apply 0.1 % to affected area every 2 weeks. - Zinc 50 mg tab Take 22 mg by mouth once daily. - ketoconazole (NIZORAL) 2 % shampoo Apply to affected area as directed. - MULTI-VITAMIN ORAL Take by mouth once daily. - Ascorbic Acid (VITAMIN C) 1,000 mg tablet Take 1,000 mg by mouth once daily. - [place]-3 Fatty Acids-Vitamin E (FISH OIL) 1,000 mg cap Take 1 capsule by mouth once daily. - Cholecalciferol, Vitamin D3, (VITAMIN D) 1,000 unit cap Take 1,000 Units by mouth once daily. Problem List As Of Date 06/25/2024 Noted Resolved Nontoxic multinodular goiter [E04.2] 08/11/2014 Mixed hyperlipidemia [E78.2] 11/09/2020 Essential hypertension [I10] 11/09/2020 Hypertriglyceridemia [E78.1] 11/09/2020 Morbid obesity (HCC) [E66.01] 11/09/2020 Prostate cancer screening [Z12.5] 11/09/2020 Type 2 diabetes mellitus with peripheral neurop*08/17/2021 Chronic bronchitis, unspecified chronic bronchi*11/13/2022 Prescriptions ordered this encounter Disp Refills Start End NIRMATRELVIR 300 MG (150 MG X2)-WILMER* 30 t* 0 06/25/2024 06/30/2024 Sig: Administer TWO pink nirmatrelvir 150 mg tablets and ONE white ritonavir 100 mg tablet for a total of three tablets twice daily. Encounter Status:Closed by TRICIA GILBERT on 06/25/24 Normal [facility] COVID AND INFLUENZA A/B AND RSV PCR, ROUTINEon 06-25-2024 SARS-CoV-2 (COVID-19) RNA MIGUEL+probe Ql (Unsp spec) SARS-COV-2 (AGENT OF COVID-19) RNA: Detected INFLUENZA A RNA: Not detected INFLUENZA B RNA: Not detected RESPIRATORY SYNCYTIAL VIRUS (RSV) RNA: Not detected Abnormal [facility] Comment on above: Performed By: #### C VFLRS ####[facility] LABCLIA [id number] [address] [address] [place] [facility] XR CHEST 2V FRONTAL/LATon XR CHEST 2V FRONTAL/LAT * * *Final Report* * * DATE OF EXAM: Jun 25 2024 8:13AM WOX [id number] - XR CHEST 2V FRONTAL/LAT / PROCEDURE REASON: Acute cough * * * * Physician Interpretation * * * * EXAMINATION: CHEST RADIOGRAPH (2 VIEW FRONTAL and LATERAL) CLINICAL HISTORY: Acute cough MQ: XC2_6 EXAM DATE/TIME: 06/25/2024 8:13 AM COMPARISON: No relevant prior studies available. RESULT: Lines, tubes, and devices: None. Lungs and pleura: There is prominence of the pulmonary markings in the lower lungs. No definite consolidation. No lung mass. No pleural effusion. No pneumothorax. Cardiomediastinal silhouette: The cardiac silhouette is within normal limits. There is tortuosity or dilation of the thoracic aorta. Bones and soft tissues: The spine shows degenerative changes. IMPRESSION: Prominence of the pulmonary markings in the lower lungs. Operating Theatre Technician: ROBIN Transcribe Date/Time: Jun 25 2024 8:14A Dictated by : ASHVIN ZUNIGA MD This examination was interpreted and the report reviewed and electronically signed by: ASHVIN ZUNIGA MD on Jun 25 2024 8:17AM EST [id number] Normal [facility] XR Chest PA and Lateralon IMPRESSION: Prominence of the pulmonary markings in the lower lungs. Operating Theatre Technician: ROBIN Transcribe Date/Time: Jun 25 2024 8:14A Dictated by : ASHVIN ZUNIGA MD This examination was interpreted and the report reviewed and electronically signed by: ASHVIN ZUNIGA MD on Jun 25 2024 8:17AM EST DIVISION OF RADIOLOGY * * *Final Report* * * DATE OF EXAM: Jun 25 2024 8:13AM WOX [id number] - XR CHEST 2V FRONTAL/LAT / PROCEDURE REASON: Acute cough * * * * Physician Interpretation * * * * EXAMINATION: CHEST RADIOGRAPH (2 VIEW FRONTAL & LATERAL) CLINICAL HISTORY: Acute cough MQ: XC2_6 EXAM DATE/TIME: 06/25/2024 8:13 AM COMPARISON: No relevant prior studies available. RESULT: Lines, tubes, and devices: None. Lungs and pleura: There is prominence of the pulmonary markings in the lower lungs. No definite consolidation. No lung mass. No pleural effusion. No pneumothorax. Cardiomediastinal silhouette: The cardiac silhouette is within normal limits. There is tortuosity or dilation of the thoracic aorta. Bones and soft tissues: The spine shows degenerative changes. DIVISION OF RADIOLOGY Provider, Soham Viveros - 06/25/2024 * * *Final Report* * * DATE OF EXAM: Jun 25 2024 8:13AM WOX [id number] - XR CHEST 2V FRONTAL/LAT / PROCEDURE REASON: Acute cough * * * * Physician Interpretation * * * * EXAMINATION: CHEST RADIOGRAPH (2 VIEW FRONTAL & LATERAL) CLINICAL HISTORY: Acute cough MQ: XC2_6 EXAM DATE/TIME: 06/25/2024 8:13 AM COMPARISON: No relevant prior studies available. RESULT: Lines, tubes, and devices: None. Lungs and pleura: There is prominence of the pulmonary markings in the lower lungs. No definite consolidation. No lung mass. No pleural effusion. No pneumothorax. Cardiomediastinal silhouette: The cardiac silhouette is within normal limits. There is tortuosity or dilation of the thoracic aorta. Bones and soft tissues: The spine shows degenerative changes. IMPRESSION IMPRESSION: Prominence of the pulmonary markings in the lower lungs. Operating Theatre Technician: ROBIN Transcribe Date/Time: Jun 25 2024 8:14A Dictated by : ASHVIN ZUNIGA MD This examination was interpreted and the report reviewed and electronically signed by: ASHVIN ZUNIGA MD on Jun 25 2024 8:17AM EST [facility] Radiology Study observation (narrative) [facility] XR Chest PA and LateralOrder ed By: Cc Provider on 06-25-2024 [facility] Rajwinder 05-05-2024 CNPN Telephone (INTMWS) ARAYAABISAI EARL ([id number]) 1955 M Date Time Provider Department 05/05/24 MARQUITA CALVERT During your visit today, we recorded the following information about you: Judy Hardin 05/05/2024 8:05 AM Signed Ella, with [facility], called to request a refill of axelastine 0.1% nasal spray. Noted as a discontinued medication. Please advise at [phone]; opt 2 Ref [id number] Johana Chavarria LPN 05/05/2024 8:22 AM Signed Message left asking patient to call office to confirm if taking/needing medication. Geraldo Ramsey, KEITH 05/06/2024 4:29 PM Signed Called pt and states he does still use this medication but he has so much of it at home he does not want anymore. He states he has told [facility] this several times. Allergies As of Date: 05/05/2024 Noted Allergy Reaction LISINOPRIL 07/25/2023 2 - Rash LOSARTAN 12/07/2022 14 - Other: See Comments Comments: Patient was constipated with the medication Date Reviewed: 04/24/2024 Reviewed by: Nadiya Lebron MA - Fully Assessed Reason for Visit: Rx refill; discontinued medication [Other] Prescriptions as of 05/06/2024 - famotidine (PEPCID) 20 mg tablet Take 1 tablet by mouth at bedtime as needed. - tamsulosin (FLOMAX) 0.4 mg Take 1 capsule by mouth daily at bedtime. - rosuvastatin (CRESTOR) 5 mg tablet Take 1 tablet by mouth daily at bedtime. - tamsulosin (FLOMAX) 0.4 mg Take 1 capsule by mouth daily at bedtime. - semaglutide (OZEMPIC) 0.25 mg or 0.5 mg (2 mg/3 mL) pen Inject 0.5 mg subcutaneously one time a week. - amLODIPine (NORVASC) 5 mg tablet Take 1 tablet by mouth once daily. - finasteride (PROSCAR) 5 mg tablet Take 1 tablet by mouth once daily. - Fenofibrate (LOFIBRA) 54 mg tablet Take 1 tablet by mouth once daily. - Fluocinolone Acetonide 0.01 % external oil Apply 0.1 % to affected area every 2 weeks. - Zinc 50 mg tab Take 22 mg by mouth once daily. - ketoconazole (NIZORAL) 2 % shampoo Apply to affected area as directed. - MULTI-VITAMIN ORAL Take by mouth once daily. - Ascorbic Acid (VITAMIN C) 1,000 mg tablet Take 1,000 mg by mouth once daily. - [place]-3 Fatty Acids-Vitamin E (FISH OIL) 1,000 mg cap Take 1 capsule by mouth once daily. - Cholecalciferol, Vitamin D3, (VITAMIN D) 1,000 unit cap Take 1,000 Units by mouth once daily. 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*08/17/2021 Chronic bronchitis, unspecified chronic bronchi*11/13/2022 Encounter Status:Closed by GERALDO RAMSEY on 05/06/24 [facility] CNOVon 04-24-2024 CNOV Office Visit (INTMWS ) ABISAI ARAYA ([id number]) 1955 M Date Time Provider Department 04/24/24 1:40 PM [facility] P[facility] During your visit today, we recorded the following information about you: Pulse Respiration Blood pressure Weight 80/minute 16/minute 128/68 137.4 kg Daria Park APRN.PEST CONTROL OPERATOR 04/24/2024 2:49 PM Signed CC: Patient presents with: Recheck: 6 month follow up HPI Abisai Araya is a 68 year old male who presents today for routine follow up. DIABETES MELLITUS: Mr. Araya denies excessive thirst or increased frequency of urination, chest pain or dyspnea , new numbness, tingling or pain in extremities, new or unusual visual symptoms, low sugar/hypoglycemic reactions, weight loss/gain, lightheadedness/dizziness, and bowel changes/loose stools. Follows a diabetic diet most of the time. He is compliant with medication(s) and is tolerating med(s) without any side effects. He reports checking his glucose on a once a day but unsure recent readings as he has not checked din a week. Patient's last HgA1C was Hemoglobin A1C (%) Date Value 04/13/2024 6.6 04/17/2023 7.0 08/15/2021 6.7 05/02/2021 8.7 Hemoglobin A1C (POCT) (%) Date Value 07/25/2023 6.9 ) Last Ophthalmology exam was within the past 12 months Last Podiatry exam was within the past 3 months HTN and HLD: Mr. Araya indicates that he is feeling well and denies any symptoms referable to elevated blood pressure. Specifically denies headache, chest pain, palpitations, dyspnea, and peripheral edema. Patient denies any side effects of his medication(s) and is compliant with their regimen. He does check BP's away from this office with average BP's in the 140s/80s range. Abisai works out regularly 3-4 times per week with walking. He watches his diet for sodium, low fat and low cholesterol most of the time. Last 3 Encounter BP Readings: Date: BP: 04/24/2024 132/70 - 128/68 01/28/2024 138/86 10/17/2023 132/82 Heartburn: controlled with current treatment and if not taken will have issues with heartburn. Denies abdominal pain, difficulty swallowing, nausea, or vomiting. REVIEW OF SYSTEMS See HPI PAST MEDICAL HISTORY Diagnosis Date Allergic rhinitis, cause unspecified Anxiety state, unspecified Arthritis Backache, unspecified BPH (benign prostatic hyperplasia) Essential hypertension, benign Headache(784.0) Hypertrophy of prostate without urinary obstruction and other lower urinary tract symptoms (LUTS) Nontoxic uninodular goiter Olecranon bursitis Other and unspecified hyperlipidemia Other chronic nonalcoholic liver disease Shortness of breath Symptom of bladder outlet obstruction Unspecified hemorrhoids with other complication Unspecified hereditary and idiopathic peripheral neuropathy Urine retention PAST SURGICAL HISTORY Procedure Laterality Date CHOLECYSTECTOMY HX 2002 COLONOSCOPY 2004 COLONOSCOPY 2019 THYROID FINE NEEDLE ASPIRATION 07/29/2023 Left midpole and left lower pole of the thyroid ALLERGIES Lisinopril and Losartan MEDICATIONS amLODIPine (NORVASC) 5 mg tablet Take 1 tablet by mouth once daily. Fenofibrate (LOFIBRA) 54 mg tablet Take 1 tablet by mouth once daily. rosuvastatin (CRESTOR) 5 mg tablet Take 1 tablet by mouth daily at bedtime. tamsulosin (FLOMAX) 0.4 mg Take 1 capsule by mouth daily at bedtime. semaglutide (OZEMPIC) 0.25 mg or 0.5 mg (2 mg/3 mL) pen Inject 0.5 mg subcutaneously one time a week. finasteride (PROSCAR) 5 mg tablet Take 1 tablet by mouth once daily. tamsulosin (FLOMAX) 0.4 mg Take 1 capsule by mouth daily at bedtime. (Patient not taking: Reported on 01/28/2024) famotidine (PEPCID) 20 mg tablet Take 1 tablet by mouth at bedtime as needed. Fluocinolone Acetonide 0.01 % external oil Apply 0.1 % to affected area every 2 weeks. Zinc 50 mg tab Take 22 mg by mouth once daily. ketoconazole (NIZORAL) 2 % shampoo Apply to affected area as directed. MULTI-VITAMIN ORAL Take by mouth once daily. Ascorbic Acid (VITAMIN C) 1,000 mg tablet Take 1,000 mg by mouth once daily. [place]-3 Fatty Acids-Vitamin E (FISH OIL) 1,000 mg cap Take 1 capsule by mouth once daily. Cholecalciferol, Vitamin D3, (VITAMIN D) 1,000 unit cap Take 1,000 Units by mouth once daily. FAMILY HISTORY Problem Relation Age of Onset Goiter Mother Alcohol/Drug Father Diabetes Father Coronary Artery Disease Father Heart Father Hypertension Father Lipids Father No Known Problems Sister No Known Problems Sister No Known Problems Brother No Known Problems Maternal Grandmother No Known Problems Maternal Grandfather No Known Problems Paternal Grandmother Lung Cancer Paternal Grandfather Social History Tobacco Use Smoking status: Former Current packs/day: 0.00 Types: Cigarettes Quit date: 06/24/1997 Years since quittin.8 Smokeless tobacco: Never Vaping Us (more content not included)... Normal [facility] ALBUMIN/CREATININE RATIO, UR INEon 04-13-2024 Albumin DL <= 20 mg/L (U) [Mass/Vol] 17.9 mg/L Normal [facility] Comment on above: Order Comment: Speci men Type: URINE SPECIMENOrdering Facility: [facility] Address: [address] [place] [address] Performed By: #### U ACR ####[facility] LABCLIA [id number] [place] [address] [place] Albumin/Creatinine (U) [Mass ratio] 12 mg/g Normal <30 [facility] Comment on above: Order Comment: Speci men Type: URINE SPECIMENOrdering Facility: [facility] Address: [address] [place] [address] Result Comment: Adul t Male and Female Nephrotic Criteria: <30 mg/g is considered normal to mildly increased 30-300 mg/g is considered moderately increased >300 mg/g is considered severely increased KDIGO. (2013). KDIGO 2012 Clinical Practice Guideline for the Evaluation and Management of Chronic Kidney Disease. Official Journal of the International Society of Nephrology, 3(1), 1-150. Performed By: #### U ACR ####[facility] LABCLIA [id number] [place] [address] [place] Creatinine (U) [Mass/Vol] 152.1 mg/dL Normal 20.0-300.0 [facility] Comment on above: Order Comment: Speci men Type: URINE SPECIMENOrdering Facility: [facility] Address: [address] [place] [address] Performed By: #### U ACR ####[facility] LABCLIA [id number] [address] [place] CBC panel Auto (Bld)on 04-13 Erythrocyte distribution width (RBC) [Ratio] 12.9 % Normal 11.5-15.0 [facility] Comment on above: Order Comment: Speci men Type: BLOOD SPECIMENOrdering Facility: [facility] Address: [address] [place] [address] Performed By: #### 5 8410-2 ####[facility] DEBRALANDON [id number] [place] [address] [place] Hematocrit (Bld) [Volume fraction] 47.1 % Normal 39.0-51.0 [facility] Comment on above: Order Comment: Speci men Type: BLOOD SPECIMENOrdering Facility: [facility] Address: [address] [place] [address] Performed By: #### 5 8410-2 ####[facility]ENTERNCSAMANTHA [id number] [place] [address] [place] Hemoglobin (Bld) [Mass/Vol] 15.8 g/dL Normal 13.0-17.0 [facility] Comment on above: Order Comment: Speci men Type: BLOOD SPECIMENOrdering Facility: [facility] Address: [address] [place] [address] Performed By: #### 5 8410-2 ####[facility] CENTERADONISA [id number] [place] [address] [place] MCH (RBC) [Entitic mass] 30.5 pg Normal 26.0-34.0 [facility] Comment on above: Order Comment: Speci men Type: BLOOD SPECIMENOrdering Facility: [facility] Address: [address] [place] [address] Performed By: #### 5 8410-2 ####[facility]ENTERNCLIA [id number] [place] [address] [place] MCHC (RBC) [Mass/Vol] 33.5 g/dL Normal 30.5-36.0 [facility] Comment on above: Order Comment: Speci men Type: BLOOD SPECIMENOrdering Facility: [facility] Address: [address] [place] [address] Performed By: #### 5 8410-2 ####[facility]ENTERNCLIA [id number] [place] [address] [place] MCV (RBC) [Entitic vol] 90.9 fL Normal 80.0-100.0 [facility] Comment on above: Order Comment: Speci men Type: BLOOD SPECIMENOrdering Facility: [facility] Address: [address] [place] [address] Performed By: #### 5 8410-2 ####[facility] [id number] [place] [address] [place] Nucleated RBC (Bld) [#/Vol] 10*3/uL Normal <0.01 [facility] Comment on above: Order Comment: Speci men Type: BLOOD SPECIMENOrdering Facility: [facility] Address: [address] [place] [address] Performed By: #### 5 8410-2 ####[facility] [id number] [place] [address] [place] Platelet mean volume (Bld) [Entitic vol] 9.8 fL Normal 9.0-12.7 [facility] Comment on above: Order Comment: Speci men Type: BLOOD SPECIMENOrdering Facility: [facility] Address: [address] [place] [address] Performed By: #### 5 8410-2 ####[facility] [id number] [place] [address] [place] Platelets (Bld) [#/Vol] 213 10*3/uL Normal 150-400 [facility] Comment on above: Order Comment: Speci men Type: BLOOD SPECIMENOrdering Facility: [facility] Address: [address] [place] [address] Performed By: #### 5 8410-2 ####[facility]ALLI [id number] [place] [address] [place] RBC (Bld) [#/Vol] 5.18 10*6/uL Normal 4.20-6.00 [facility] Comment on above: Order Comment: Speci men Type: BLOOD SPECIMENOrdering Facility: [facility] Address: [address] [place] [address] Performed By: #### 5 8410-2 ####[facility]ENTERADONISLIA [id number] [place] [address] [place] WBC (Bld) [#/Vol] 6.55 10*3/uL Normal 3.70-11.00 [facility] Comment on above: Order Comment: Speci men Type: BLOOD SPECIMENOrdering Facility: [facility] Address: [address] [place] [address] Performed By: #### 5 8410-2 ####[facility] CENTERADONISXin [id number] [place] [address] [place] Comprehensive metabolic 2000 panelon 04-13-2024 Albumin [Mass/Vol] 4.4 g/dL Normal 3.9-4.9 [facility] Comment on above: Order Comment: Speci men Type: BLOOD SPECIMENOrdering Facility: [facility] Address: [address] [place] [address] Performed By: #### 2 4323-8 ####[facility] CENTERADONISA [id number] [place] [address] [place] ALP [Catalytic activity/Vol] 59 U/L Normal 38-113 [facility] Comment on above: Order Comment: Speci men Type: BLOOD SPECIMENOrdering Facility: [facility] Address: [address] [place] [address] Performed By: #### 2 4323-8 ####[facility]ENTERNCLIA [id number] [place] [address] [place] ALT [Catalytic activity/Vol] 57 U/L High 10-54 [facility] Comment on above: Order Comment: Speci men Type: BLOOD SPECIMENOrdering Facility: [facility] Address: [address] [place] [address] Performed By: #### 2 4323-8 ####[facility] CLAY COUNTYWNCLIA [id number] [place] [address] [place] Anion gap [Moles/Vol] 10 mmol/L Normal 8-15 [facility] Comment on above: Order Comment: Speci men Type: BLOOD SPECIMENOrdering Facility: [facility] Address: [address] [place] [address] Performed By: #### 2 4323-8 ####[facility] [id number] [place] [address] [place] AST [Catalytic activity/Vol] 38 U/L Normal 14-40 [facility] Comment on above: Order Comment: Speci men Type: BLOOD SPECIMENOrdering Facility: [facility] Address: [address] [place] [address] Performed By: #### 2 4323-8 ####[facility] FLORIDAA [id number] [place] [address] [place] Bilirubin [Mass/Vol] 0.6 mg/dL Normal 0.2-1.3 [facility] Comment on above: Order Comment: Speci men Type: BLOOD SPECIMENOrdering Facility: [facility] Address: [address] [place] [address] Performed By: #### 2 4323-8 ####[facility] [id number] [place] [address] [place] Calcium [Mass/Vol] 9.5 mg/dL Normal 8.5-10.2 [facility] Comment on above: Order Comment: Speci men Type: BLOOD SPECIMENOrdering Facility: [facility] Address: [address] [place] [address] Performed By: #### 2 4323-8 ####[facility] MILLWNCLIA [id number] [place] [address] [place] Chloride [Moles/Vol] 101 mmol/L Normal 98-107 [facility] Comment on above: Order Comment: Speci men Type: BLOOD SPECIMENOrdering Facility: [facility] Address: [address] [place] [address] Performed By: #### 2 4323-8 ####[facility] [id number] [place] [address] [place] CO2 [Moles/Vol] 25 mmol/L Normal 22-30 [facility] Comment on above: Order Comment: Speci men Type: BLOOD SPECIMENOrdering Facility: [facility] Address: [address] [place] [address] Performed By: #### 2 4323-8 ####[facility] [id number] [place] [address] [place] Creatinine [Mass/Vol] 0.84 mg/dL Normal 0.73-1.22 [facility] Comment on above: Order Comment: Speci men Type: BLOOD SPECIMENOrdering Facility: [facility] Address: [address] [place] [address] Performed By: #### 2 4323-8 ####[facility] [id number] [place] [address] [place] [facility] Creatinine and Glomerular filtration rate.predicted panel (S/P/Bld) 94 mL/min/1.73m??? Normal >=60 [facility] Comment on above: Order Comment: Speci men Type: BLOOD SPECIMENOrdering Facility: [facility] Address: [address] [place] [address] Result Comment: Mireya mated Glomerular Filtration Rate (eGFR) is calculated using the 2020 CKD-EPI creatinine equation. This equation utilizes serum creatinine, sex, and age as parameters. The creatinine assay has traceable calibration to isotope dilution-mass spectrometry. Refer to KDIGO guidelines for clinical interpretation. In patients with unstable renal function, e.g. those with acute kidney injury, the eGFR may not accurately reflect actual GFR. Performed By: #### 2 4323-8 ####[facility] CLAY COUNTYWADONISLIXin [id number] [place] [address] [place] Glucose [Mass/Vol] 121 mg/dL High 74-99 [facility] Comment on above: Order Comment: Specyvonne mills Type: BLOOD SPECIMENOrdering Facility: [facility] Address: [address] [place] [id number] Result Comment: The [place] Diabetes Association (ADA) provides guidance for cutoff values for fasting glucose and random glucose. The ADA defines fasting as no caloric intake for at least 8 hours. Fasting plasma glucose results between 100 to 125 mg/dL indicate increased risk for diabetes (prediabetes). Fasting plasma glucose results greater than or equal to 126 mg/dL meet the criteria for diagnosis of diabetes. In the absence of unequivocal hyperglycemia, results should be confirmed by repeat testing. In a patient with classic symptoms of hyperglycemia or hyperglycemic crisis, random plasma glucose results greater than or equal to 200 mg/dL meet the criteria for diagnosis of diabetes. Reference: Standards of Medical Care in Diabetes 2016, [place] Diabetes Association. Diabetes Care. 2016.39(Suppl 1). Performed By: #### 2 4323-8 ####[facility] FLORIDAA [id number] [place] [address] [place] Potassium [Moles/Vol] 4.2 mmol/L Normal 3.7-5.1 [facility] Comment on above: Order Comment: Anika men Type: BLOOD SPECIMENOrdering Facility: [facility] Address: [address] [place] [address] Performed By: #### 2 4323-8 ####[facility] CENTERNCLIXin [id number] [place] [address] [place] Protein [Mass/Vol] 7.3 g/dL Normal 6.3-8.0 [facility] Comment on above: Order Comment: Speci men Type: BLOOD SPECIMENOrdering Facility: [facility] Address: [address] [place] [address] Performed By: #### 2 4323-8 ####[facility] [id number] [place] [address] [place] Sodium [Moles/Vol] 136 mmol/L Normal 136-144 [facility] Comment on above: Order Comment: Speci men Type: BLOOD SPECIMENOrdering Facility: [facility] Address: [address] [place] [address] Performed By: #### 2 4323-8 ####[facility] [id number] [place] [address] [place] Urea nitrogen [Mass/Vol] 13 mg/dL Normal 9-24 [facility] Comment on above: Order Comment: Speci men Type: BLOOD SPECIMENOrdering Facility: [facility] Address: [address] [place] [address] Performed By: #### 2 4323-8 ####[facility] [id number] [place] [address] [place] HbA1c (Bld)on 04-13-2024 Average glucose Estimated from glycated hemoglobin (Bld) [Mass/Vol] 143 mg/dL Normal [facility] Comment on above: Order Comment: Speci men Type: BLOOD SPECIMENOrdering Facility: [facility] Address: [address] [place] [address] Result Comment: eAG: (Estimated average glucose) is a calculated value from HgbA1c and is branch sales and service representative of the average blood glucose level in the last 2-3 month period. Performed By: #### 5 5454-3 ####[facility] LABCLIA [id number] [facility] [id number] [place] [address] [place] HbA1c (Bld) [Mass fraction] 6.6 % High 4.3-5.6 [facility] Comment on above: Order Comment: Anika lina Type: BLOOD SPECIMENOrdering Facility: [facility] Address: [address] [place] [address] Result Comment: Amer ican Diabetes Association guidelines indicate that patients with HgbA1c in the range 5.7-6.4% are at increased risk for development of diabetes, and intervention by lifestyle modification may be beneficial. HgbA1c greater or equal to 6.5% is considered diagnostic of diabetes. Performed By: #### 5 5454-3 ####[facility] LABCLIA [id number] [place] [address] [place] Lipid 1996 panelon 4 Cholesterol [Mass/Vol] 143 mg/dL Normal <200 [facility] Comment on above: Order Comment: Anika lina Type: BLOOD SPECIMENOrdering Facility: [facility] Address: [address] [place] [address] Result Comment: <200 mg/dL, Desirable 200-239 mg/dL, Borderline high >239 mg/dL, High Performed By: #### 2 4331-1 ####[facility] LABCLIA [id number] [id number] [place] [address] [place] Cholesterol in HDL [Mass/Vol] 46 mg/dL Normal >39 [facility] Comment on above: Order Comment: Anika lina Type: BLOOD SPECIMENOrdering Facility: [facility] Address: [address] [place] [address] Result Comment: 40-5 9 mg/dL, Acceptable >59 mg/dL, High: Negative risk factor for coronary heart disease <40 mg/dL, Low: Positive risk factor for coronary heart disease Performed By: #### 2 4331-1 ####[facility] LABCLIA [id number] [address] [id number] [place] [address] [place] Cholesterol in LDL [Mass/Vol] 66 mg/dL Normal <100 [facility] Comment on above: Order Comment: Speci men Type: BLOOD SPECIMENOrdering Facility: [facility] Address: [address] [place] [address] Result Comment: <100 mg/dL, Optimal 100-129 mg/dL, Near optimal/above optimal 130-159 mg/dL, Borderline high 160-189 mg/dL, High >189 mg/dL, Very high Secondary prevention optimal LDL Cholesterol levels are recommended to be < 70 mg/dL Performed By: #### 2 4331-1 ####[facility] LABCLIA [id number] [address] [id number] [place] [address] [place] Cholesterol in LDL/Cholesterol in HDL [Mass ratio] 1.43 {ratio} Normal <2.54 [facility] Comment on above: Order Comment: Speci men Type: BLOOD SPECIMENOrdering Facility: [facility] Address: [address] [place] [address] Result Comment: Betsey alvarez: 1. National Cholesterol Education Program ATP III Guideline At-A-Glance Quick Desk Reference: National Heart, Lung, and Blood [place]. National Institutes of Health. 2001: NIH Publication No. 01-3305. 2. An International Atherosclerosis Society position paper: global recommendations for the management of dyslipidemia: executive summary, Atherosclerosis. 2014: 232(2):410-413. Performed By: #### 2 4331-1 ####[facility] LABCLIA [id number] [address] [id number] [place] [address] [place] Cholesterol in VLDL [Mass/Vol] 31 mg/dL High <30 [facility] Comment on above: Order Comment: Speci men Type: BLOOD SPECIMENOrdering Facility: [facility] Address: [address] [place] [address] Performed By: #### 2 4331-1 ####[facility] LABCLIA [id number] [address] [id number] [place] [address] [place] Cholesterol non HDL [Mass/Vol] 97 mg/dL Normal <130 [facility] Comment on above: Order Comment: Speci men Type: BLOOD SPECIMENOrdering Facility: [facility] Address: [address] [place] [address] Result Comment: <130 mg/dL, Optimal 130-159 mg/dL, Near optimal/above optimal 160-189 mg/dL, Borderline high 190-219 mg/dL, High >219 mg/dL, Very high Secondary prevention optimal non HDL Cholesterol levels are recommended to be <100 mg/dL Performed By: #### 2 4331-1 ####[facility] LABCLIA [id number] [address] [id number] [place] [address] [place] Cholesterol.total/ Cholesterol in HDL [Mass ratio] 3.11 {ratio} Normal <5.10 [facility] Comment on above: Order Comment: Speci men Type: BLOOD SPECIMENOrdering Facility: [facility] Address: [address] [place] [address] Performed By: #### 2 4331-1 ####[facility] LABCLIA [id number] [address] [id number] [place] [address] [place] FASTING TIME 12 hrs Normal [facility] Comment on above: Order Comment: Speci men Type: BLOOD SPECIMENOrdering Facility: [facility] Address: [address] [id number] Performed By: #### 2 4331-1 ####[facility] LABCLIA [id number] [place] [id number] [facility] [id number] [place] [address] [place] Triglyceride [Mass/Vol] 154 mg/dL High <150 [facility] Comment on above: Order Comment: Speci men Type: BLOOD SPECIMENOrdering Facility: [facility] Address: [address] [place] [address] Result Comment: <150 mg/dL, Normal 150-199 mg/dL, Borderline high 200-499 mg/dL, High >499 mg/dL, Very high Performed By: #### 2 4331-1 ####[facility] LABCLIA [id number] [place] [id number] [facility] [id number] [address] [place] CNOVon 01-28-2024 CNOV Office Visit (UROLWS ) ABISAI ARAYA ([id number]) 1955 M Date Time Provider Department 01/28/24 10:30 AM GREY HERNANDEZ During your visit today, we recorded the following information about you: Temperature Pulse Respiration Blood pressure 97.4 degrees 80/minute 16/minute 138/86 Weight Height 136.1 kg 1.88 m Socorro Newberry LPN 01/28/2024 5:26 PM Signed Verified name and date of . CC Post Void Residual HPI: Abisai Chichi Marshal is a 68 year old male. The patient is here now for an appointment with ROGER Whitley, STEVEN MCCULLOUGH. Procedure: Explained procedure to patient and verbalizes understanding. Performed a PVR. Patient urinated and instructed to empty bladder as much as possible just prior to having PVR done using bladder ultrasound scanner. Results of scan: 280 mL The patient tolerated the procedure well. Plan: Appointment with Grey. Grey Hernandez PA-C 01/28/2024 5:26 PM Signed [facility] ESTABLISHED PATIENT CLINIC NOTE Some elements copied from his previous note, which have been updated where appropriate, and all reflect current medical decision making from date of this visit. NAME: Abisai Araya CHIEF COMPLAINT: BPH Follow-up HISTORY OF PRESENT ILLNESS: Abisai Araya is a 68 year old male an established patient following up for BPH and PSA check The patient reports no new LUTS and was started on on Proscar 5 mg and his PVR is mildly elevated But had much lower PVR's , he has trouble urinating when in public His renal function labs remain great so not concerned with PVR LUTS: No new LUTS LABS: PSA (ng/mL) Date Value 01/23/2024 1.43 PSA Screening (ng/mL) Date Value 11/06/2022 0.98 11/09/2020 2.46 Creatinine Date Value Ref Range Status 09/10/2023 0.90 0.73 - 1.22 mg/dL Final 04/17/2023 0.88 0.73 - 1.22 mg/dL Final 11/06/2022 1.01 0.73 - 1.22 mg/dL Final 05/15/2022 0.97 0.73 - 1.22 mg/dL Final MEDICATIONS: semaglutide (OZEMPIC) 0.25 mg or 0.5 mg (2 mg/3 mL) pen Inject 0.5 mg subcutaneously one time a week. azelastine 0.1% nasal spray Use 2 Sprays in each nostril two times a day. (Patient taking differently: Use 2 Sprays in each nostril two times a day. Two sprays each nostril at night, one spray each nostril in morning.) amLODIPine (NORVASC) 5 mg tablet Take 1 tablet by mouth once daily. finasteride (PROSCAR) 5 mg tablet Take 1 tablet by mouth once daily. Fenofibrate (LOFIBRA) 54 mg tablet Take 1 tablet by mouth once daily. fluticasone (FLONASE) 50 mcg/actuation nasal spray Use 2 Sprays in each nostril once daily. Rinse mouth after use. (Patient taking differently: Use 2 Sprays in each nostril once daily. Rinse mouth after use. Uses two sprays each nostril at bedtime, one spray each nostril in morning.) rosuvastatin (CRESTOR) 5 mg tablet Take 1 tablet by mouth daily at bedtime. tamsulosin (FLOMAX) 0.4 mg TAKE 1 CAPSULE DAILY AT BEDTIME famotidine (PEPCID) 20 mg tablet Take 1 tablet by mouth at bedtime as needed. Fluocinolone Acetonide 0.01 % external oil Apply 0.1 % to affected area every 2 weeks. Zinc 50 mg tab Take 22 mg by mouth once daily. ketoconazole (NIZORAL) 2 % shampoo Apply to affected area as directed. MULTI-VITAMIN ORAL Take by mouth once daily. Ascorbic Acid (VITAMIN C) 1,000 mg tablet Take 1,000 mg by mouth once daily. [place]-3 Fatty Acids-Vitamin E (FISH OIL) 1,000 mg cap Take 1 capsule by mouth once daily. Cholecalciferol, Vitamin D3, (VITAMIN D) 1,000 unit cap Take 1,000 Units by mouth once daily. amLODIPine (NORVASC) 5 mg tablet Take 1 tablet by mouth once daily. (Patient not taking: Reported on 01/28/2024) tamsulosin (FLOMAX) 0.4 mg Take 1 capsule by mouth daily at bedtime. (Patient not taking: Reported on 01/28/2024) PAST MEDICAL HISTORY: PAST MEDICAL HISTORY No date: Allergic rhinitis, cause unspecified No date: Anxiety state, unspecified No date: Arthritis No date: Backache, unspecified No date: BPH (benign prostatic hyperplasia) No date: Essential hypertension, benign No date: Headache(784.0) No date: Hypertrophy of prostate without urinary obstruction and other lower urinary tract symptoms (LUTS) No date: Nontoxic uninodular goiter No date: Olecranon bursitis No date: Other and unspecified hyperlipidemia No date: Other chronic nonalcoholic liver disease No date: Shortness of breath No date: Symptom of bladder outlet obstruction No date: Unspecified hemorrhoids with other complication No date: Unspecified hereditary and idiopathic peripheral neuropathy No date: Urine retention REVIEW OF SYSTEMS: GENERAL: No fever, chills, weight loss, or fatigue. All other systems reviewed and are negative PHYSICAL EXAMINATION: Blood pressure 138/86, pulse 80, temperature 36.3 ?C (97.4 ?F), temperature source (more content not included)... Normal [facility] UA DIP, URINE (POC)on 2023 BILIRUBIN UA (POCT) Negative Negative [facility] CLARITY UA (POCT) Slightly Cloudy Cl [facility] COLOR UA (POCT) Dark yellow [facility] GLUCOSE UA (POCT) 100 mg/dL Abnormal Negative [facility] nd [facility] Hemoglobin Ql (U) Negative Negative [facility] Interpretation and review of laboratory results Abnormal [facility] KETONE UA (POCT) Negative Negative mg/dL [facility] LEUKOCYTES UA (POCT) Negative Negative [facility] NITRITE UA (POCT) Negative Negative [facility] PH UA (POCT) 5.5 4.5 - 8.0 [facility] Protein Ql (U) Negative Negative mg/dL [facility] SPECIFIC GRAVITY UA (POCT) >=1.030 1.005 - 1.030 [facility] UROBILINOGEN UA (POCT) 0.2 Normal E.U./dL [facility] Location:[facility], [address] [facility], [place], [place], [id number] [place] [address] POINT OF CARE [facility] PSA SerPl-ncon 01-23-2024 Prostate specific Ag [Mass/Vol] 1.43 ng/mL Normal <2.60 [facility] Comment on above: Order Comment: Speci men Type: BLOOD SPECIMENOrdering Facility: [facility] Address: [address] [place] [id number] Result Comment: Samantha salmeron PSA test methodology used is the Electrochemiluminescence Immunoassay by [employer]. Total PSA values by differing methodologies cannot be interchanged. Performed By: #### 2 [id number] ####[facility] [id number] [facility] [id number] [place] [address] [place] CNPNon 12-30-2023 CNPN Telephone (INTMWS) ABISAI ARAYA ([id number]) 1955 M Date Time Provider Department 12/30/23 MARQUITA CALVERT INTWS During your visit today, we recorded the following information about you: Joy Soriano LPN 12/30/2023 1:24 PM Signed Fax rec'd from [facility] and completed for ozempic. This was completed and faxed back. They have approved the ozempic when new rx is sent. Allergies As of Date: 12/30/2023 Noted Allergy Reaction LISINOPRIL 07/25/2023 2 - Rash LOSARTAN 12/07/2022 14 - Other: See Comments Comments: Patient was constipated with the medication Date Reviewed: 10/17/2023 Reviewed by: Nadiya Lebron MA - Fully Assessed Reason for Visit: Insurance Authorization [[id number]] Prescriptions as of 12/30/2023 - azelastine 0.1% nasal spray Use 2 Sprays in each nostril two times a day. - amLODIPine (NORVASC) 5 mg tablet Take 1 tablet by mouth once daily. - amLODIPine (NORVASC) 5 mg tablet Take 1 tablet by mouth once daily. - finasteride (PROSCAR) 5 mg tablet Take 1 tablet by mouth once daily. - Fenofibrate (LOFIBRA) 54 mg tablet Take 1 tablet by mouth once daily. - dulaglutide (TRULICITY) 1.5 mg/0.5 mL pen injector Inject 1.5 mg subcutaneously one time a week. - fluticasone (FLONASE) 50 mcg/actuation nasal spray Use 2 Sprays in each nostril once daily. Rinse mouth after use. - rosuvastatin (CRESTOR) 5 mg tablet Take 1 tablet by mouth daily at bedtime. - tamsulosin (FLOMAX) 0.4 mg TAKE 1 CAPSULE DAILY AT BEDTIME - tamsulosin (FLOMAX) 0.4 mg Take 1 capsule by mouth daily at bedtime. - famotidine (PEPCID) 20 mg tablet Take 1 tablet by mouth at bedtime as needed. - Fluocinolone Acetonide 0.01 % external oil Apply 0.1 % to affected area every 2 weeks. - Zinc 50 mg tab Take 22 mg by mouth once daily. - ketoconazole (NIZORAL) 2 % shampoo Apply to affected area as directed. - MULTI-VITAMIN ORAL Take by mouth once daily. - Ascorbic Acid (VITAMIN C) 1,000 mg tablet Take 1,000 mg by mouth once daily. - [place]-3 Fatty Acids-Vitamin E (FISH OIL) 1,000 mg cap Take 1 capsule by mouth once daily. - Cholecalciferol, Vitamin D3, (VITAMIN D) 1,000 unit cap Take 1,000 Units by mouth once daily. Problem List As Of Date 12/30/2023 Noted Resolved Nontoxic multinodular goiter [E04.2] 08/11/2014 Mixed hyperlipidemia [E78.2] 11/09/2020 Essential hypertension [I10] 11/09/2020 Hypertriglyceridemia [E78.1] 11/09/2020 Morbid obesity (HCC) [E66.01] 11/09/2020 Prostate cancer screening [Z12.5] 11/09/2020 Type 2 diabetes mellitus with peripheral neurop*08/17/2021 Chronic bronchitis, unspecified chronic bronchi*11/13/2022 Encounter Status:Closed by JOY SORIANO on 12/30/23 [facility] Telephone (INTMWS) ABISAI ARAYA ([id number]) 1955 M Date Time Provider Department 12/30/23 MARQUITA CALVERT INTJoseWS During your visit today, we recorded the following information about you: Joy Soriano LPN 12/30/2023 11:37 AM Signed Fax rec'd from [employer] noting that an exception has already been granted for the trulicity. Allergies As of Date: 12/30/2023 Noted Allergy Reaction LISINOPRIL 07/25/2023 2 - Rash LOSARTAN 12/07/2022 14 - Other: See Comments Comments: Patient was constipated with the medication Date Reviewed: 10/17/2023 Reviewed by: Nadiya Lebron MA - Fully Assessed Reason for Visit: Medication Problem [65] Prescriptions as of 12/30/2023 - azelastine 0.1% nasal spray Use 2 Sprays in each nostril two times a day. - amLODIPine (NORVASC) 5 mg tablet Take 1 tablet by mouth once daily. - amLODIPine (NORVASC) 5 mg tablet Take 1 tablet by mouth once daily. - finasteride (PROSCAR) 5 mg tablet Take 1 tablet by mouth once daily. - Fenofibrate (LOFIBRA) 54 mg tablet Take 1 tablet by mouth once daily. - dulaglutide (TRULICITY) 1.5 mg/0.5 mL pen injector Inject 1.5 mg subcutaneously one time a week. - fluticasone (FLONASE) 50 mcg/actuation nasal spray Use 2 Sprays in each nostril once daily. Rinse mouth after use. - rosuvastatin (CRESTOR) 5 mg tablet Take 1 tablet by mouth daily at bedtime. - tamsulosin (FLOMAX) 0.4 mg TAKE 1 CAPSULE DAILY AT BEDTIME - tamsulosin (FLOMAX) 0.4 mg Take 1 capsule by mouth daily at bedtime. - famotidine (PEPCID) 20 mg tablet Take 1 tablet by mouth at bedtime as needed. - Fluocinolone Acetonide 0.01 % external oil Apply 0.1 % to affected area every 2 weeks. - Zinc 50 mg tab Take 22 mg by mouth once daily. - ketoconazole (NIZORAL) 2 % shampoo Apply to affected area as directed. - MULTI-VITAMIN ORAL Take by mouth once daily. - Ascorbic Acid (VITAMIN C) 1,000 mg tablet Take 1,000 mg by mouth once daily. - [place]-3 Fatty Acids-Vitamin E (FISH OIL) 1,000 mg cap Take 1 capsule by mouth once daily. - Cholecalciferol, Vitamin D3, (VITAMIN D) 1,000 unit cap Take 1,000 Units by mouth once daily. Problem List As Of Date 12/30/2023 Noted Resolved Nontoxic multinodular goiter [E04.2] 08/11/2014 Mixed hyperlipidemia [E78.2] 11/09/2020 Essential hypertension [I10] 11/09/2020 Hypertriglyceridemia [E78.1] 11/09/2020 Morbid obesity (HCC) [E66.01] 11/09/2020 Prostate cancer screening [Z12.5] 11/09/2020 Type 2 diabetes mellitus with peripheral neurop*08/17/2021 Chronic bronchitis, unspecified chronic bronchi*11/13/2022 Encounter Status:Closed by JOY SORIANO on 12/30/23 Normal [facility] Basic metabolic 2000 panelon 09-11-2023 Anion gap [Moles/Vol] 15 mmol/L 9 - 18 mmol/L [facility] Calcium [Mass/Vol] 9.9 mg/dL 8.5 - 10. 2 mg/dL [facility] Chloride [Moles/Vol] 103 mmol/L 97 - 105 mmol/L [facility] CO2 [Moles/Vol] 22 mmol/L 22 - 30 mmol/L [facility] Creatinine [Mass/Vol] 0.90 mg/dL 0.73 - 1.22 mg/dL [facility] Estimated Glomerular Filtration Rate 92 mL/min/1.73m >=60 mL/min/1.73m [facility] Glucose [Mass/Vol] 114 mg/dL High 74 - 99 mg/dL [facility] Potassium [Moles/Vol] 4.4 mmol/L 3.7 - 5.1 mmol/L [facility] Sodium [Moles/Vol] 140 mmol/L 136 - 144 mmol/L [facility] Urea nitrogen [Mass/Vol] 14 mg/dL 9 - 24 mg/dL [facility] MAGNESIUM [facility] 09-11-2023 Magnesium [Mass/Vol] 2.0 mg/dL 1.7 - 2.3 mg/dL [facility] TSH [facility] 09-11-2023 TSH Qn 2.010 m[IU]/L 0.270 - 4.200 mIU/L [facility] CBC panel Auto (Bld)on 09-09 Erythrocyte distribution width (RBC) [Ratio] 13.3 % 11.5 - 15.0 % [facility] Hematocrit (Bld) [Volume fraction] 50.1 % 39.0 - 51.0 % [facility] Hemoglobin (Bld) [Mass/Vol] 16.7 g/dL 13.0 - 17.0 g/dL [facility] MCH (RBC) [Entitic mass] 30.8 pg 26.0 - 34.0 pg [facility] MCHC (RBC) [Mass/Vol] 33.3 g/dL 30.5 - 36.0 g/dL [facility] MCV (RBC) [Entitic vol] 92.4 fL 80.0 - 100.0 fL [facility] Nucleated RBC (Bld) [#/Vol] <0.01 k/uL [facility] Platelet mean volume (Bld) [Entitic vol] 11.1 fL 9.0 - 12.7 fL [facility] Platelets (Bld) [#/Vol] 217 10*3/uL 150 - 400 k/uL [facility] RBC (Bld) [#/Vol] 5.42 10*6/uL 4.20 - 6.0 0 m/uL [facility] WBC (Bld) [#/Vol] 6.35 10*3/uL 3.70 - 11. 00 k/uL [facility] ALLIED HEALTHon 07-29-2023 [facility] HNO ID: [id number] Author: EDMUNDO SEAY Tech Service: Radiology Author Type: Tire Worker Type: Allied Health Filed: 07/29/2023 13:34 Note Text: Radiology Service Progress Note PATIENT NAME: Abisai Araya DATE OF SERVICE: July 29, 2023 TIME: 1:34 PM PATIENT IDENTITY VERIFICATION COMPLETED USING TWO (2) IDENTIFIERS: Name and Date of confirmed by patient verbally and Name and Date of confirmed by identification band. FALL SCREENING: Has the patient had 2 falls in the last year or 1 fall with injury or currently using an Ambulatory Assistive Device (Walker, Cane, Wheelchair, Crutches, etc.)? 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 Other Hearing Aids RADIOLOGY DEPARTMENT: Biopsy and Ultrasound PERIPHERAL IV DATA: Not applicable SIGNED BY: Bonnie Abdullahi July 29, 2023 1:34 PM [facility] CYTOLOGY NON-GYNon CASE REPORT Normal [facility] Comment on above: Order Comment: Anika mills Type: FLUID SPECIMEN [facility]ing Facility[facility] Address: [address] [place] [address] Result Comment: [facility] Cytology Report Case: [id number] Authorizing Provider: Russ Tucker DO, Collected: 07/29/2023 01:06 PM Ordering Location: [facility] Radiology Received: 07/29/2023 02:15 PM Pathologist: Diana Dumont MD Specimens: A) - THYROID LEFT FINE NEEDLE ASPIRATION, LEFT MIDPOLE THYROID NODULE B) - THYROID LEFT FINE NEEDLE ASPIRATION, LEFT LOWER POLE THYROID NODULE Performed By: #### C YTONON #### [facility] CLIA [id number] [address] [place], [place] [address]NA LABORATORY CLIA [id number] [address] CLINICAL HISTORY Thyroid Nodule Normal [facility] Comment on above: Order Comment: Anika mills Type: FLUID SPECIMEN [facility]ing Facility[facility] Address: [address] [place] [address] Result Comment: Luis keller requested for both parts A & B. Performed By: #### C YTONON #### [facility] CLIA [id number] [address] [place] [address] [facility] CLIA [id number] [address] FINAL DIAGNOSIS Normal [facility] Comment on above: Order Comment: Anika mills Type: FLUID SPECIMEN Ordering Facility[facility] Address: [address] [place] [address] Result Comment: A - THYROID LEFT FINE NEEDLE ASPIRATION - LEFT MIDPOLE THYROID NODULE Benign. Benign follicular cells and colloid. B - THYROID LEFT FINE NEEDLE ASPIRATION - LEFT LOWER POLE THYROID NODULE Benign. Benign follicular cells. The following cell blocks were associated with this case: A1 Cell Block, Alcohol Fixed B1 Cell Block, Alcohol Fixed Performed By: #### C YTONON #### [facility] CLIA [id number] [address] [place] [address] [facility] CLIA [id number] [address] OF [facility] FINAL PERFORMING LAB [facility] Comment on above: Order Comment: Speci men Type: FLUID SPECIMEN Ordering Facility: [facility] Address: [address] [place] [address] Result Comment: Tech nical component, pipe caulker screening performed at [facility], [address] [place] [address] CLIA# [id number] Diagnostic interpretation performed at [facility], [address] [place], [place] [id number] CLIA# [id number] Or Nurse Manager: Migel Ryan M.D. Performed By: #### C YTONON #### [facility] CLIA [id number] [address] [place], [place] [address]NA LABORATORY CLIA [id number] [address] GROSS DESCRIPTION [facility] Comment on above: Order Comment: Speci men Type: FLUID SPECIMEN Ordering Facility[facility] Address: [address] [place] [address] Result Comment: A. T HYROID LEFT FINE NEEDLE ASPIRATION 30 cc clear pink CytoLyt with particles. ThinPrep and Cell Block prepared. Afirma sample received. B. THYROID LEFT FINE NEEDLE ASPIRATION 30 cc cloudy red CytoLyt with particles. ThinPrep and Cell Block prepared. Afirma sample received. Performed By: #### C YTONON #### [facility] CLIA [id number] [address] [place] [address] OF [place] [facility] CLIA [id number] [address] [place] [address] [place] US FNA THYROID WO CORE BXon 07-29-2023 US FNA THYROID WO CORE BX * * *Final Report* * * DATE OF EXAM: Jul 29 2023 1:43PM MDU 1236 - US FNA THYROID WO CORE BX / PROCEDURE REASON: Consult * * * * Physician Interpretation * * * * PROCEDURE PERFORMED: ULTRASOUND GUIDED FINE NEEDLE ASPIRATION BIOPSY OF TWO LEFT THYROID NODULES INDICATION FOR PROCEDURE: 68 years old Male with Nontoxic multinodular goiter. 2 areas of the left thyroid STAFF RADIOLOGIST: Dr. Russ Tucker CONSENT: The risks, benefits, treatment options, potential complications and personnel involved were discussed with the patient. All questions were answered and consent was obtained. The patient indicated he was willing to proceed. The staff physician personally verified consent. TIME OUT: A time out was performed immediately prior to procedure start with the nursing and interventional team, correctly identifying the patient name, date of , procedure, anatomy (including marking of site and side), patient position, procedure consent form, relevant diagnostic and radiology test results, antibiotic administration, safety precautions, and procedure-specific equipment needs. RESULT: PROCEDURE: After performing the time out, the LEFT midpole thyroid nodule was localized with ultrasound. Anterior lower neck was prepped and draped in the usual sterile fashion. Under ultrasound guidance, fine needle aspiration biopsy of the LEFT midpole thyroid nodule was performed using multiple 25 gauge needles noting that fine-needle aspiration biopsy of this nodule was difficult due to suboptimal visualization. A total of 4 passes were made. Next, the LEFT lower pole thyroid nodule was localized with ultrasound. Under ultrasound guidance, fine needle aspiration biopsy of the LEFT lower pole thyroid nodule was performed using multiple 25 gauge needles. A total of 4 passes were made. Local anesthesia was achieved utilizing 3 mL 1% percent lidocaine. START TIME/TIMEOUT TIME: 1314 END TIME: 1330 PATIENT MONITORING: I personally supervised and directed an independent trained observer who assisted in monitoring the patient?s level of consciousness and physiological status throughout the procedure. COMPLICATIONS: None SIGN-OUT DISCUSSION: Completed ESTIMATED BLOOD LOSS: None SPECIMENS: 1 FNA specimen was placed in Afirma and 3 FNA specimens were placed in Cytolyt solution from each nodule and sent for surgical pathology. BIOPSY DEVICE: Multiple 25-gauge needles. IMPRESSION: Ultrasound-guided fine-needle aspiration biopsy of two LEFT thyroid nodules as described. Operating Theatre Technician: ROBIN Transcribe Date/Time: Jul 29 2023 5:36P Dictated by : RUSS TUCKER DO This examination was interpreted and the report reviewed and electronically signed by: RUSS TUCKER DO on Jul 30 2023 9:53AM EST [id number] [facility] US FNA THYROID WO CORE BX AD DLon 07-29-2023 US FNA THYROID WO CORE BX ADDL * * *Final Report* * * DATE OF EXAM: Jul 29 2023 9:45AM MDU 1235 - US FNA THYROID WO CORE BX ADDL / PROCEDURE REASON: Consult * * * * Physician Interpretation * * * * PROCEDURE PERFORMED: ULTRASOUND GUIDED FINE NEEDLE ASPIRATION BIOPSY OF TWO LEFT THYROID NODULES INDICATION FOR PROCEDURE: 68 years old Male with Nontoxic multinodular goiter. 2 areas of the left thyroid STAFF RADIOLOGIST: Dr. Russ Tucker CONSENT: The risks, benefits, treatment options, potential complications and personnel involved were discussed with the patient. All questions were answered and consent was obtained. The patient indicated he was willing to proceed. The staff physician personally verified consent. TIME OUT: A time out was performed immediately prior to procedure start with the nursing and interventional team, correctly identifying the patient name, date of , procedure, anatomy (including marking of site and side), patient position, procedure consent form, relevant diagnostic and radiology test results, antibiotic administration, safety precautions, and procedure-specific equipment needs. RESULT: PROCEDURE: After performing the time out, the LEFT midpole thyroid nodule was localized with ultrasound. Anterior lower neck was prepped and draped in the usual sterile fashion. Under ultrasound guidance, fine needle aspiration biopsy of the LEFT midpole thyroid nodule was performed using multiple 25 gauge needles noting that fine-needle aspiration biopsy of this nodule was difficult due to suboptimal visualization. A total of 4 passes were made. Next, the LEFT lower pole thyroid nodule was localized with ultrasound. Under ultrasound guidance, fine needle aspiration biopsy of the LEFT lower pole thyroid nodule was performed using multiple 25 gauge needles. A total of 4 passes were made. Local anesthesia was achieved utilizing 3 mL 1% percent lidocaine. START TIME/TIMEOUT TIME: 1314 END TIME: 1330 PATIENT MONITORING: I personally supervised and directed an independent trained observer who assisted in monitoring the patient?s level of consciousness and physiological status throughout the procedure. COMPLICATIONS: None SIGN-OUT DISCUSSION: Completed ESTIMATED BLOOD LOSS: None SPECIMENS: 1 FNA specimen was placed in Afirma and 3 FNA specimens were placed in Cytolyt solution from each nodule and sent for surgical pathology. BIOPSY DEVICE: Multiple 25-gauge needles. IMPRESSION: Ultrasound-guided fine-needle aspiration biopsy of two LEFT thyroid nodules as described. Operating Theatre Technician: ROBIN Transcribe Date/Time: Jul 29 2023 5:36P Dictated by : RUSS TUCKER DO This examination was interpreted and the report reviewed and electronically signed by: RUSS TUCKER DO on Jul 30 2023 9:53AM EST [id number] Normal [facility] HEMOGLOBIN A1C (POC)on 07-25 HbA1c (Bld) [Mass fraction] 6.9 % Abnormal 4.3 - 5.6 % [facility] CNPNon 07-15-2023 CNPN Telephone ([place]) ABISAI ARAYA ([id number]) 1955 M Date Time Provider Department 07/15/23 JOEL MULLEN ([facility]) [place] During your visit today, we recorded the following information about you: Joel Mullen 07/15/2023 12:52 PM Signed Received request for thyroid biopsy at [place]. Sending to radiologist for approval. Allergies As of Date: 07/15/2023 Noted Allergy Reaction LOSARTAN 12/07/2022 14 - Other: See Comments Comments: Patient was constipated with the medication Date Reviewed: 07/11/2023 Reviewed by: Eladia Obrien LPN - Fully Assessed Reason for Visit: Scheduling [3921] Cmt: Thyroid Biopsy Prescriptions as of 08/30/2023 - amLODIPine (NORVASC) 5 mg tablet Take 1 tablet by mouth once daily. - finasteride (PROSCAR) 5 mg tablet Take 1 tablet by mouth once daily. - Fenofibrate (LOFIBRA) 54 mg tablet Take 1 tablet by mouth once daily. - dulaglutide (TRULICITY) 1.5 mg/0.5 mL pen injector Inject 1.5 mg subcutaneously one time a week. - fluticasone (FLONASE) 50 mcg/actuation nasal spray Use 2 Sprays in each nostril once daily. Rinse mouth after use. - rosuvastatin (CRESTOR) 5 mg tablet Take 1 tablet by mouth daily at bedtime. - azelastine 0.1% nasal spray Use 2 Sprays in each nostril two times a day. - tamsulosin (FLOMAX) 0.4 mg TAKE 1 CAPSULE DAILY AT BEDTIME - tamsulosin (FLOMAX) 0.4 mg Take 1 capsule by mouth daily at bedtime. - famotidine (PEPCID) 20 mg tablet Take 1 tablet by mouth at bedtime as needed. - Fluocinolone Acetonide 0.01 % external oil Apply 0.1 % to affected area every 2 weeks. - Zinc 50 mg tab Take 22 mg by mouth once daily. - ketoconazole (NIZORAL) 2 % shampoo Apply to affected area as directed. - MULTI-VITAMIN ORAL Take by mouth once daily. - Ascorbic Acid (VITAMIN C) 1,000 mg tablet Take 1,000 mg by mouth once daily. - [place]-3 Fatty Acids-Vitamin E (FISH OIL) 1,000 mg cap Take 1 capsule by mouth once daily. - Cholecalciferol, Vitamin D3, (VITAMIN D) 1,000 unit cap Take 1,000 Units by mouth once daily. 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*08/17/2021 Chronic bronchitis, unspecified chronic bronchi*11/13/2022 Encounter Status:Closed by JOEL MULLEN on 08/30/23 [facility] THYROID/PARATHYROIDon [facility] UA DIP, URINE (POC)on 2022 BILIRUBIN UA (POCT) Negative Negative [facility] CLARITY UA (POCT) Clear [facility] COLOR UA (POCT) [facility] GLUCOSE UA (POCT) Negative Negative mg/dL [facility] HEMOGLOBIN/BLOOD UA (POCT) Negative Negative [facility] KETONE UA (POCT) Negative Negative mg/dL [facility] LEUKOCYTES UA (POCT) Negative Negative [facility] NITRITE UA (POCT) Negative Negative [facility] PH UA (POCT) 5.5 4.5 - 8.0 [facility] Protein Ql (U) Negative Negative mg/dL [facility] SPECIFIC GRAVITY UA (POCT) >=1.030 1.005 - 1.030 [facility] UROBILINOGEN UA (POCT) 0.2 E.U./dL Normal E.U./dL [facility] XR Lumbar spine 3 Viewson IMPRESSION: 1. Degenerative changes as described. 2. Mild Schmorl's nodes formation versus mild superior endplate compression deformity of the superior endplate of L1. Operating Theatre Technician: ROBIN Transcribe Date/Time: May 03 2021 1:38P Dictated by : ITALO ARGUETA MD This examination was interpreted and the report reviewed and electronically signed by: ITALO ARGUETA MD on May 03 2021 1:40PM [facility] DIVISION OF RADIOLOGY * * *Final Report* * * DATE OF EXAM: May 03 2021 1:35PM WOX [id number] - XR LUMBAR 3V AP/LAT/L5-S1 / PROCEDURE REASON: multiple diagnoses * * * * Physician Interpretation * * * * CLINICAL INDICATION: Back pain TECHNIQUE: 3 view radiographic study of the lumbar spine COMPARISON: None FINDINGS: There are 5 nonrib-bearing lumbar vertebral bodies. There is mild Schmorl's nodes formation versus mild superior endplate compression deformity of the superior endplate of L1. There is mild to space narrowing with Schmorl's nodes formation at L1/L2 with small marginal osteophyte formation. There is mild disc space narrowing at L2/L3 and L3/L4. There is moderate disc space narrowing at L5/S1. There is minimal grade 1 anterolisthesis of L5 on S1. There is facet joint arthrosis which is most pronounced in the lower lumbar spine. There is atherosclerotic calcification of the vasculature. Surgical clip in the pelvis. Large stool burden. DIVISION OF RADIOLOGY Provider, barrington Rinaldi [facility] - 05/03/2021 * * *Final Report* * * DATE OF EXAM: May 03 2021 1:35PM WOX [id number] - XR LUMBAR 3V AP/LAT/L5-S1 / PROCEDURE REASON: multiple diagnoses * * * * Physician Interpretation * * * * CLINICAL INDICATION: Back pain TECHNIQUE: 3 view radiographic study of the lumbar spine COMPARISON: None FINDINGS: There are 5 nonrib-bearing lumbar vertebral bodies. There is mild Schmorl's nodes formation versus mild superior endplate compression deformity of the superior endplate of L1. There is mild to space narrowing with Schmorl's nodes formation at L1/L2 with small marginal osteophyte formation. There is mild disc space narrowing at L2/L3 and L3/L4. There is moderate disc space narrowing at L5/S1. There is minimal grade 1 anterolisthesis of L5 on S1. There is facet joint arthrosis which is most pronounced in the lower lumbar spine. There is atherosclerotic calcification of the vasculature. Surgical clip in the pelvis. Large stool burden. IMPRESSION IMPRESSION: 1. Degenerative changes as described. 2. Mild Schmorl's nodes formation versus mild superior endplate compression deformity of the superior endplate of L1. Operating Theatre Technician: PSCB Transcribe Date/Time: May 03 2021 1:38P Dictated by : ITALO ARGUETA MD This examination was interpreted and the report reviewed and electronically signed by: ITALO ARGUETA MD on May 03 2021 1:40PM EST [facility] Radiology Study observation (narrative) [facility] XR Lumbar spine 3 ViewsOrder ed By: Ccf Provider on 05-03-2021 [facility] Vital Signs Date Time Vital Sign Value Performing Clinician Facility 12-09-2024 21:52-0400 Body temperature 98.2 [degF] Dr. Marquita Calvert MD Work Phone: [facility] 12-09-2024 21:52-0400 Diastolic blood pressure 78 mm[Hg] Dr. Marquita Calvert MD Work Phone: [facility] 12-09-2024 21:52-0400 Heart rate 78 /min Dr. Marquita Calvert MD Work Phone: [facility] 12-09-2024 21:52-0400 Respiratory rate 18 /min Dr. Marquita Calvert MD Work Phone: [phone] [place] [address] 12-09-2024 21:52-0400 SaO2% (BldA) [Mass fraction] 100 % Dr. Marquita Calvert MD Work Phone: [phone] [place] [address] 12-09-2024 21:52-0400 Systolic blood pressure 145 mm[Hg] Dr. Marquita Calvert MD Work Phone: [phone] [place] [address] 12-09-2024 20:46-0400 Body height 187.[address] Marquita Calvert MD Work Phone: 6([phone] [place] [address] 12-09-2024 20:46-0400 Body mass index (BMI) [Ratio] 38.4 kg/m2 Dr. Marquita Calvert MD Work Phone: [phone] [place] [address] 12-09-2024 20:46-0400 Body weight 135.[address] Marquita Calvert MD Work Phone: [phone] [place] [address] 11-24-2024 11:30-0400 Body mass index (BMI) [Ratio] 40.93 kg/m2 Vish Peterson MD Work Phone: [facility] 11-24-2024 11:30-0400 Body weight 136.9 kg Vish Peterson MD Work Phone: [facility] 11-24-2024 11:30-0400 Diastolic blood pressure 80 mm[Hg] Vish Peterson MD Work Phone: [facility] 11-24-2024 11:30-0400 Heart rate 75 /min Vish Peterson MD Work Phone: [facility] 11-24-2024 11:30-0400 Respiratory rate 14 /min Vish Peterson MD Work Phone: [facility] 11-24-2024 11:30-0400 SaO2% (BldA) [Mass fraction] 98 % Vish Peterson MD Work Phone: [facility] 11-24-2024 11:30-0400 Systolic blood pressure 146 mm[Hg] Vish Peterson MD Work Phone: [facility] 10-21-2024 14:15-0400 Body mass index (BMI) [Ratio] 40.96 kg/m2 Daria Older DICE DEALER.PEST CONTROL OPERATOR Work Phone: [facility] 10-21-2024 14:15-0400 Body weight 136.99 kg Daria Older DICE DEALER.PEST CONTROL OPERATOR Work Phone: [facility] 10-21-2024 14:15-0400 Diastolic blood pressure 72 mm[Hg] Daria Older DICE DEALER.PEST CONTROL OPERATOR Work Phone: [facility] 10-21-2024 14:15-0400 Heart rate 70 /min Daria Older DICE DEALER.PEST CONTROL OPERATOR Work Phone: [facility] 10-21-2024 14:15-0400 Respiratory rate 16 /min Daria Older DICE DEALER.PEST CONTROL OPERATOR Work Phone: [facility] 10-21-2024 14:15-0400 SaO2% (BldA) [Mass fraction] 96 % Daria Older DICE DEALER.PEST CONTROL OPERATOR Work Phone: [facility] 10-21-2024 14:15-0400 Systolic blood pressure 128 mm[Hg] Daria Older DICE DEALER.PEST CONTROL OPERATOR Work Phone: [facility] 09-14-2024 14:12-0400 Body mass index (BMI) [Ratio] 40.82 kg/m2 Daria Older DICE DEALER.PEST CONTROL OPERATOR Work Phone: [facility] 09-14-2024 14:12-0400 Body weight 136.53 kg Daria Older DICE DEALER.PEST CONTROL OPERATOR Work Phone: [facility] 09-14-2024 14:12-0400 Diastolic blood pressure 68 mm[Hg] Daria Older DICE DEALER.PEST CONTROL OPERATOR Work Phone: [facility] 09-14-2024 14:12-0400 Heart rate 70 /min Daria Older DICE DEALER.PEST CONTROL OPERATOR Work Phone: [facility] 09-14-2024 14:12-0400 Respiratory rate 16 /min Daria Older DICE DEALER.PEST CONTROL OPERATOR Work Phone: [facility] 09-14-2024 14:12-0400 SaO2% (BldA) [Mass fraction] 94 % Daria Older DICE DEALER.PEST CONTROL OPERATOR Work Phone: [facility] 09-14-2024 14:12-0400 Systolic blood pressure 128 mm[Hg] Daria Older DICE DEALER.PEST CONTROL OPERATOR Work Phone: [facility] 08-24-2024 13:47-0500 Body height 182.9 cm Jerry Suh MD Work Phone: [facility] 08-24-2024 13:47-0500 Body mass index (BMI) [Ratio] 40.69 kg/m2 Jerry Suh MD Work Phone: [facility] 08-24-2024 13:47-0500 Body weight 136.08 kg Jerry Suh MD Work Phone: [facility] 07-29-2024 11:14-0500 Body height 188 cm Pema Duong PA-C Work Phone: [facility] 07-29-2024 11:14-0500 Body mass index (BMI) [Ratio] 38.61 kg/m2 Pema Duong PA-C Work Phone: [facility] 07-29-2024 11:14-0500 Body weight 136.4 kg Pema SLATER-C Work Phone: [facility] 07-29-2024 11:14-0500 Diastolic blood pressure 71 mm[Hg] Pema SLATER-C Work Phone: [facility] 07-29-2024 11:14-0500 Heart rate 69 /min Pema SLATER-C Work Phone: [facility] 07-29-2024 11:14-0500 SaO2% (BldA) [Mass fraction] 95 % Pema SLATER-C Work Phone: [facility] 07-29-2024 11:14-0500 Systolic blood pressure 121 mm[Hg] Pema Duong PA-C Work Phone: [facility] 06-25-2024 07:44-0500 Body mass index (BMI) [Ratio] 39.12 kg/m2 Robert Barone APRN.PEST CONTROL OPERATOR Work Phone: [facility] 06-25-2024 07:44-0500 Body temperature 98.71 [degF] Robert Barone APRN.PEST CONTROL OPERATOR Work Phone: [facility] 06-25-2024 07:44-0500 Body weight 138.2 kg Robert Barone APRN.PEST CONTROL OPERATOR Work Phone: [facility] 06-25-2024 07:44-0500 Diastolic blood pressure 85 mm[Hg] Robert Barone APRN.PEST CONTROL OPERATOR Work Phone: [facility] 06-25-2024 07:44-0500 Heart rate 83 /min Robert Barone APRN.PEST CONTROL OPERATOR Work Phone: [facility] 06-25-2024 07:44-0500 Respiratory rate 18 /min Robert Barone APRN.PEST CONTROL OPERATOR Work Phone: [facility] 06-25-2024 07:44-0500 SaO2% (BldA) [Mass fraction] 94 % Robert Barone APRN.PEST CONTROL OPERATOR Work Phone: [facility] 06-25-2024 07:44-0500 Systolic blood pressure 151 mm[Hg] Robert Barone APRN.PEST CONTROL OPERATOR Work Phone: [facility] 04-24-2024 14:13-0400 Diastolic blood pressure 68 mm[Hg] Daria Park DICE DEALER.PEST CONTROL OPERATOR Work Phone: [facility] 04-24-2024 14:13-0400 Systolic blood pressure 128 mm[Hg] Daria Older DICE DEALER.PEST CONTROL OPERATOR Work Phone: [facility] 04-24-2024 13:38-0400 Body mass index (BMI) [Ratio] 38.9 kg/m2 Daria Park APRN.PEST CONTROL OPERATOR Work Phone: [facility] 04-24-2024 13:38-0400 Body weight 137.44 kg Daria Older DICE DEALER.PEST CONTROL OPERATOR Work Phone: [facility] 04-24-2024 13:38-0400 Heart rate 80 /min Daria Older DICE DEALER.PEST CONTROL OPERATOR Work Phone: [facility] 04-24-2024 13:38-0400 Respiratory rate 16 /min Daria Older DICE DEALER.PEST CONTROL OPERATOR Work Phone: [facility] 04-24-2024 13:38-0400 SaO2% (BldA) [Mass fraction] 96 % Daria Older DICE DEALER.PEST CONTROL OPERATOR Work Phone: [facility] 01-28-2024 10:14-0400 Body height 188 cm Grey Hernandez PA-C Work Phone: [facility] 01-28-2024 10:14-0400 Body mass index (BMI) [Ratio] 38.52 kg/m2 Grey Hernandez PA-C Work Phone: [facility] 01-28-2024 10:14-0400 Body temperature 97.39 [degF] Grey Hernandez PA-C Work Phone: [facility] 01-28-2024 10:140400 Body weight 136.08 kg Grey Hernandez PA-C Work Phone: [facility] 01-28-2024 10:14-0400 Diastolic blood pressure 86 mm[Hg] Grey Hernandez PA-C Work Phone: [facility] 01-28-2024 10:14-0400 Heart rate 80 /min Grey Hernandez PA-C Work Phone: [facility] 01-28-2024 10:14-0400 Respiratory rate 16 /min Grey Hernandez PA-C Work Phone: [facility] 01-28-2024 10:14-0400 SaO2% (BldA) [Mass fraction] 95 % Grey Hernandez PA-C Work Phone: [facility] 01-28-2024 10:14-0400 Systolic blood pressure 138 mm[Hg] Grey Hernandez PA-C Work Phone: [facility] 10-17-2023 14:24-0400 Diastolic blood pressure 82 mm[Hg] Daria Older DICE DEALER.PEST CONTROL OPERATOR Work Phone: [facility] 10-17-2023 14:24-0400 Systolic blood pressure 132 mm[Hg] Daria Older DICE DEALER.PEST CONTROL OPERATOR Work Phone: [facility] 10-17-2023 14:04-0400 Body mass index (BMI) [Ratio] 37.75 kg/m2 Daria Older DICE DEALER.PEST CONTROL OPERATOR Work Phone: [facility] 10-17-2023 14:04-0400 Body weight 133.36 kg Daria Older DICE DEALER.PEST CONTROL OPERATOR Work Phone: [facility] 10-17-2023 14:04-0400 Heart rate 80 /min Daria Older DICE DEALER.PEST CONTROL OPERATOR Work Phone: [facility] 10-17-2023 14:04-0400 Respiratory rate 16 /min Daria Older DICE DEALER.PEST CONTROL OPERATOR Work Phone: [facility] 10-17-2023 14:04-0400 SaO2% (BldA) [Mass fraction] 96 % Daria Older DICE DEALER.PEST CONTROL OPERATOR Work Phone: [facility] 09-10-2023 12:05-0400 Diastolic blood pressure 82 mm[Hg] Daria Older DICE DEALER.PEST CONTROL OPERATOR Work Phone: [facility] 09-10-2023 12:05-0400 Heart rate 78 /min Daria Older DICE DEALER.PEST CONTROL OPERATOR Work Phone: [facility] 09-10-2023 12:05-0400 Systolic blood pressure 126 mm[Hg] Daria Older DICE DEALER.PEST CONTROL OPERATOR Work Phone: [facility] 09-10-2023 11:23-0400 Body weight 135.72 kg Daria Older DICE DEALER.PEST CONTROL OPERATOR Work Phone: [facility] 09-10-2023 11:23-0400 Respiratory rate 18 /min Daria Older DICE DEALER.PEST CONTROL OPERATOR Work Phone: [facility] 07-25-2023 11:16-0500 Body weight 134.26 kg Daria Older DICE DEALER.PEST CONTROL OPERATOR Work Phone: [facility] 07-25-2023 11:16-0500 Diastolic blood pressure 90 mm[Hg] Daria Older DICE DEALER.PEST CONTROL OPERATOR Work Phone: [facility] 07-25-2023 11:16-0500 Heart rate 84 /min Daria Older DICE DEALER.PEST CONTROL OPERATOR Work Phone: [facility] 07-25-2023 11:16-0500 Respiratory rate 16 /min Daria Older DICE DEALER.PEST CONTROL OPERATOR Work Phone: [facility] 07-25-2023 11:16-0500 SaO2% (BldA) [Mass fraction] 96 % Older DICE DEALER.PEST CONTROL OPERATOR Work Phone: [facility] 07-25-2023 11:16-0500 Systolic blood pressure 142 mm[Hg] DICE DEALER.PEST CONTROL OPERATOR Work Phone: [facility] 01-22-2023 09:50-0400 Body height 188 cm Grey Hernandez PA-C Work Phone: [facility] 01-22-2023 09:50-0400 Body temperature 97.3 [degF] Grey Hernandez PA-C Work Phone: [facility] 01-22-2023 09:50-0400 Body weight 135.81 kg Grey Hernandez PA-C Work Phone: [facility] 01-22-2023 09:50-0400 Diastolic blood pressure 84 mm[Hg] Grey Hernandez PA-C Work Phone: [facility] 01-22-2023 09:50-0400 Heart rate 80 /min Grey Hernandez PA-C Work Phone: [facility] 01-22-2023 09:50-0400 Respiratory rate 14 /min Grey Hernandez PA-C Work Phone: [facility] 01-22-2023 09:50-0400 SaO2% (BldA) [Mass fraction] 95 % Grey Hernandez PA-C Work Phone: [facility] 01-22-2023 09:50-0400 Systolic blood pressure 138 mm[Hg] Grey Hernandez PA-C Work Phone: [facility] 12-12-2022 19:12-0400 Body height 188 cm Marquita Calvert MD Work Phone: [facility] 12-12-2022 19:12-0400 Body temperature 97.59 [degF] Marquita Calvert MD Work Phone: [facility] 12-12-2022 19:12-0400 Body weight 134.26 kg Marquita Calvert MD Work Phone: [facility] 12-12-2022 19:12-0400 Diastolic blood pressure 86 mm[Hg] Marquita Calvert MD Work Phone: [facility] 12-12-2022 19:12-0400 Heart rate 83 /min Marquita Calvert MD Work Phone: [facility] 12-12-2022 19:12-0400 Respiratory rate 12 /min Marquita Calvert MD Work Phone: [facility] 12-12-2022 19:12-0400 SaO2% (BldA) [Mass fraction] 95 % Marquita Calvert MD Work Phone: [facility] 12-12-2022 19:12-0400 Systolic blood pressure 152 mm[Hg] Marquita Calvert MD Work Phone: [facility] 05-21-2022 11:01-0500 Body weight 136.08 kg Daria Older DICE DEALER.PEST CONTROL OPERATOR Work Phone: [facility] 05-21-2022 11:01-0500 Diastolic blood pressure 74 mm[Hg] Daria Older DICE DEALER.PEST CONTROL OPERATOR Work Phone: [facility] 05-21-2022 11:01-0500 Heart rate 76 /min Daria Older DICE DEALER.PEST CONTROL OPERATOR Work Phone: [facility] 05-21-2022 11:01-0500 Respiratory rate 16 /min Daria Older DICE DEALER.PEST CONTROL OPERATOR Work Phone: [facility] 05-21-2022 11:01-0500 Systolic blood pressure 142 mm[Hg] Daria Older DICE DEALER.PEST CONTROL OPERATOR Work Phone: [facility] 11-16-2021 12:45-0400 Body weight 136.08 kg Daria Older DICE DEALER.PEST CONTROL OPERATOR Work Phone: [facility] 11-16-2021 12:45-0400 Diastolic blood pressure 78 mm[Hg] Daria Older DICE DEALER.PEST CONTROL OPERATOR Work Phone: [facility] 11-16-2021 12:45-0400 Heart rate 78 /min Daria Older DICE DEALER.PEST CONTROL OPERATOR Work Phone: [facility] 11-16-2021 12:45-0400 Respiratory rate 14 /min Daria Older DICE DEALER.PEST CONTROL OPERATOR Work Phone: [facility] 11-16-2021 12:45-0400 Systolic blood pressure 140 mm[Hg] Daria Older DICE DEALER.PEST CONTROL OPERATOR Work Phone: [facility] Encounters Encounter Date Encounter Type Care Provider Facility Start: 12-09-2024 End: 12-09-2024 Emergency department patient visit Dr. Marquita Calvert MD Work Phone: -Emergency Department Work Phone: Start: 11-30-2024 End: 11-30-2024 Telephone encounter Marquita Calvert MD Work Phone: [facility] [place] Comment on above: Insurance Authorizat ion Start: 11-24-2024 End: 11-24-2024 Patient encounter procedure Vish Peterson MD Work Phone: General Surgery Comment on above: Nontoxic multinodula r goiter (Primary Dx); Thyroid nodule Start: 11-24-2024 End: 11-24-2024 ambulatory VISH PETERSON Facility:[facility] Start: 11-23-2024 End: 11-25-2024 ambulatory Daria Older DICE DEALER.PEST CONTROL OPERATOR Work Phone: [facility] [place] Start: 11-23-2024 End: 11-25-2024 Patient encounter procedure Daria Park DICE DEALER.PAT Work Phone: [facility] [place] Comment on above: Referral Start: 11-09-2024 End: 11-09-2024 ambulatory Rima Bowen RN Gear Repairer Management Comment on above: Bi-Weekly Outreach ( Recurring) for Chronic Disease Management Start: 11-04-2024 End: 11-04-2024 Refill Daria Park APRN.CNP Work Phone: [facility] [place] Comment on above: Refill Request Start: 11-02-2024 End: 11-06-2024 Follow-up encounter Daria Park APRN.CNP Work Phone: [facility] [place] Comment on above: Results Start: 10-28-2024 End: 10-28-2024 Patient encounter procedure Enrico Hollis PA-C Work Phone: Orthopaedics Comment on above: Primary osteoarthrit is of left knee (Primary Dx) Start: 10-28-2024 End: 10-28-2024 ambulatory ENRICO HOLLIS Facility:[facility] Start: 10-27-2024 ambulatory DARIA [facility] Facility:[facility] Start: 10-27-2024 End: 10-27-2024 Subsequent hospital visit by physician [facility] Work Phone: Radiology Comment on above: Thyroid nodule [E04. 1] Start: 10-23-2024 End: 10-23-2024 ambulatory Rima Bowen RN Gear Repairer Management Comment on above: Bi-Weekly Outreach ( Recurring) for Chronic Disease Management Start: 10-21-2024 End: 10-21-2024 ambulatory DARIA PARK Facility:[facility] Start: 10-21-2024 End: 10-21-2024 Patient encounter procedure Daria Park DICE DEALER.PAT Work Phone: Internal Medicine [facility] Comment on above: Medicare annual well ness visit, subsequent (Primary Dx); Type 2 diabetes mellitus without complication, without long-term current use of insulin (HCC); Essential (primary) hypertension; Constipation, unspecified constipation type; Thyroid nodule; Encounter for screening examination for other mental health and behavioral disorders; Screening for depression Start: 10-15-2024 End: 10-15-2024 ambulatory DARIA [facility] Facility:[facility] Start: 10-08-2024 End: 10-12-2024 ambulatory Jerry Suh MD Work Phone: Orthopaedics Comment on above: Left knee pain and i mmobility Start: 10-05-2024 End: 10-05-2024 ambulatory Rima Bowen RN Gear Repairer Management Comment on above: Initial enrollment o bharat for Chronic Disease Management Start: 09-14-2024 End: 09-14-2024 ambulatory DARIA [facility] Facility:[facility] Start: 09-14-2024 End: 09-14-2024 Patient encounter procedure Daria Xavier VELASQUEZ Work Phone: [facility] Medicine [place] Comment on above: Drug-induced constip ation (Primary Dx); Hypertriglyceridemia; Type 2 diabetes mellitus with peripheral neuropathy (HCC) Start: 08-24-2024 End: 08-24-2024 Patient encounter procedure Jerry Suh MD Work Phone: Orthopaedics Comment on above: Primary osteoarthrit is of left knee (Primary Dx) Start: 08-24-2024 End: 08-24-2024 ambulatory JERRY SUH Facility:[facility] Start: 08-24-2024 End: 08-24-2024 Subsequent hospital visit by physician Orth General Xray A21 Radiology Comment on above: Pain [R52] Start: 08-13-2024 End: 08-13-2024 ambulatory Varun Quick [facility] Start: 08-13-2024 End: 08-13-2024 Patient encounter procedure Varun Quick MA [facility] Comment on above: Population Health Na vigation Outreach ([employer] High Risk - 1st attempt/) Start: 07-29-2024 End: 07-29-2024 ambulatory PEMA DUONG Facility:[facility] Start: 07-29-2024 End: 07-29-2024 Patient encounter procedure Pema Duong PAElverC Work Phone: [facility] [place] Comment on above: Mechanical low back pain (Primary Dx); Lumbar spondylosis Start: 07-12-2024 End: 07-12-2024 Emergency department patient visit Vish Herron Facility:[facility] Start: 07-12-2024 End: 07-12-2024 Patient encounter procedure Ella Aaron APRN.PEST CONTROL OPERATOR Work Phone: [facility] Comment on above: Left lower quadrant abdominal pain (Primary Dx) Start: 07-12-2024 End: 07-12-2024 ambulatory [facility] Facility:[facility] Start: 07-08-2024 End: 07-08-2024 Patient encounter procedure Enrico Hollis PA-C Work Phone: Orthopaedics Comment on above: Pain in left hip (Pr imary Dx); Primary osteoarthritis of left hip; Tendinopathy of left gluteal region Start: 07-08-2024 End: 07-08-2024 ambulatory UNKNOWN PROVIDER Facility:[facility] Start: 07-08-2024 End: 07-08-2024 Subsequent hospital visit by physician [facility] Work Phone: Radiology Comment on above: Pain in left hip [M2 5.552] Start: 07-05-2024 End: 07-06-2024 Refill Marquita Calvert MD Work Phone: [facility] Medicine [place] Comment on above: Refill Request Start: 06-25-2024 End: 06-25-2024 Telephone encounter Tricia SLATER Work Phone: [facility] Comment on above: Results Start: 06-25-2024 End: 06-25-2024 Subsequent hospital visit by physician Ann-Marie [facility] [place] Work Phone: Radiology Comment on above: Acute cough [R05.1] Start: 06-25-2024 End: 06-25-2024 ambulatory [facility] Facility:[facility] Start: 06-25-2024 End: 06-25-2024 Patient encounter procedure Robert Barone APRN.PEST CONTROL OPERATOR Work Phone: [place] [facility] Comment on above: Acute cough (Primary Dx); URI, acute Start: 06-22-2024 End: 06-22-2024 Orders Only Enrico Hollis PA-C Work Phone: [facility] [place] Comment on above: Pain (Primary Dx) Start: 05-05-2024 End: 05-06-2024 Telephone encounter Marquita Calvert MD Work Phone: [facility] [place] Comment on above: Rx refill; discontin ued medication Start: 05-04-2024 End: 05-07-2024 Admission to same day surgery center Vish Peterson MD Work Phone: General Surgery Comment on above: Recommendation Start: 05-04-2024 End: 05-07-2024 ambulatory Vish Peterson MD Work Phone: General Surgery Start: 04-24-2024 End: 04-24-2024 Patient encounter procedure Daria Park DICE DEALER.PEST CONTROL OPERATOR Work Phone: [facility] [place] Comment on above: Type 2 diabetes guillermo itus with peripheral neuropathy (HCC) (Primary Dx); Essential hypertension; Mixed hyperlipidemia; Heartburn Start: 04-24-2024 End: 04-24-2024 [facility] Facility:[facility] Start: 04-13-2024 End: 04-13-2024 [facility] Facility:[facility] Start: 03-31-2024 End: 04-06-2024 Refill Gery Hernandez PA-C Work Phone: Urology Comment on above: Refill Request Start: 03-27-2024 End: 03-27-2024 ambulatory [facility] [place] Work Phone: [facility] [place] Start: 03-27-2024 End: 03-27-2024 Patient encounter procedure [facility] [place] Work Phone: [facility] [place] Start: 02-24-2024 End: 02-26-2024 ambulatory Daria Older DICE DEALER.PEST CONTROL OPERATOR Work Phone: [facility] [place] Comment on above: Ozempic Start: 02-22-2024 End: 02-27-2024 ambulatory Daria Older DICE DEALER.PEST CONTROL OPERATOR Work Phone: [facility] [place] Comment on above: Vaccines Start: 02-11-2024 End: 02-11-2024 Refill Daria Older DICE DEALER.PEST CONTROL OPERATOR Work Phone: [facility] [place] Comment on above: Refill Request Start: 01-28-2024 End: 01-28-2024 ambulatory GREY HERNANDEZ Facility:[facility] Start: 01-28-2024 End: 01-28-2024 Patient encounter procedure Grey Hernandez PA-C Work Phone: Urology Comment on above: BPH with urinary obs truction (Primary Dx); Prostate cancer screening Start: 01-23-2024 End: 01-23-2024 ambulatory GREY HERNANDEZ Facility:[facility] Start: 12-30-2023 Telephone encounter Marquita valle MD Work Phone: [facility] [place] Comment on above: Medication Problem Insurance Authorizat ion Start: 12-29-2023 ambulatory Daria Older DICE DEALER .PEST CONTROL OPERATOR Work Phone: [facility] [place] Comment on above: Trulicity - Ozempic Start: 12-23-2023 ambulatory Daria Older DICE DEALER .PEST CONTROL OPERATOR Work Phone: [facility] [place] Comment on above: Azelastine nose spra y Start: 11-11-2023 Refill Daria Older DICE DEALER .PEST CONTROL OPERATOR Work Phone: [facility] [place] Comment on above: Refill Request Start: 11-08-2023 Refill Daria Older DICE DEALER .PEST CONTROL OPERATOR Work Phone: [facility] [place] Comment on above: Refill Request Start: 10-23-2023 ambulatory Daria Older DICE DEALER .PEST CONTROL OPERATOR Work Phone: [facility] [place] Comment on above: Irregular heartbeat Start: 10-17-2023 End: 10-17-2023 Patient encounter procedure Daria Older DICE DEALER.PEST CONTROL OPERATOR Work Phone: [facility] [place] Comment on above: Constipation, unspec ified constipation type (Primary Dx); Palpitation; Essential hypertension; Immunization due; Type 2 diabetes mellitus with peripheral neuropathy (HCC); Mixed hyperlipidemia Start: 09-11-2023 ambulatory Daria Older DICE DEALER .PEST CONTROL OPERATOR Work Phone: [facility] [place] Comment on above: Amlodipine 5 mg Start: 09-10-2023 End: 09-10-2023 Patient encounter procedure Daria Older DICE DEALER.PEST CONTROL OPERATOR Work Phone: [facility] [place] Comment on above: Essential hypertensi on (Primary Dx); Constipation, unspecified constipation type; Dark urine; Dry skin; Palpitation Start: 08-21-2023 ambulatory Daria Older DICE DEALER .PEST CONTROL OPERATOR Work Phone: [facility] [place] Comment on above: Amlodipine Start: 08-20-2023 Refill Daria Older DICE DEALER .PEST CONTROL OPERATOR Work Phone: [facility] [place] Comment on above: Refill Request Start: 08-16-2023 Refill Grey Hernandez PA-C Work Phone: Urology Comment on above: Refill Request Start: 08-14-2023 Refill Daria Older DICE DEALER .PEST CONTROL OPERATOR Work Phone: [facility] [place] Comment on above: Refill Request Pseudoephedrine Start: 08-08-2023 Refill Breanna Lauren PRN.PEST CONTROL OPERATOR Work Phone: [facility] [place] Comment on above: Refill Request Start: 07-29-2023 ambulatory UNKNOWN PROVIDER Facili ty:[facility] Start: 07-29-2023 End: 07-29-2023 Subsequent hospital visit by physician Russ Tucker DO Work Phone: [facility] Radiology Comment on above: Nontoxic multinodula r goiter [E04.2] Start: 07-25-2023 End: 07-25-2023 Patient encounter procedure Daria Older DICE DEALER.PEST CONTROL OPERATOR Work Phone: [facility] [place] Comment on above: Essential hypertensi on (Primary Dx); Type 2 diabetes mellitus with peripheral neuropathy (HCC) Start: 07-15-2023 End: 04-28-2024 Telephone encounter Joel Soares) [facility] Radiology Comment on above: Scheduling (Thyroid Biopsy) Appointment Start: 05-28-2023 End: 05-28-2023 Nursing evaluation of patient and report Mi Nurse Work Phone: [facility] [place] Comment on above: Need for vaccination (Primary Dx) Start: 05-08-2023 ambulatory Daria Older DICE DEALER .PEST CONTROL OPERATOR Work Phone: [facility] [place] Comment on above: Hepatitis shot Start: 04-26-2023 Telephone encounter Daria Older DICE DEALER.PEST CONTROL OPERATOR Work Phone: [facility] [place] Comment on above: Orders Start: 04-14-2023 Refill Daria Older DICE DEALER .PEST CONTROL OPERATOR Work Phone: [facility] [place] Comment on above: Refill Request Start: 04-14-2023 Refill Daria Older DICE DEALER .PEST CONTROL OPERATOR Work Phone: [facility] [place] Comment on above: Refill Request Start: 02-28-2023 End: 02-28-2023 Subsequent hospital visit by physician [facility] Work Phone: Radiology Comment on above: Nontoxic multinodula r goiter [E04.2] Start: 02-26-2023 Refill Marquita Parikh Work Phone: [facility] [place] Comment on above: Refill Request Start: 02-22-2023 ambulatory Daria Older DICE DEALER .PEST CONTROL OPERATOR Work Phone: [facility] [place] Comment on above: Fenofibrate 54 mg Start: 02-17-2023 ambulatory Daria Older DICE DEALER .PEST CONTROL OPERATOR Work Phone: [facility] [place] Comment on above: Chest congestion Start: 02-12-2023 ambulatory Daria Older DICE DEALER .PEST CONTROL OPERATOR Work Phone: [facility] [place] Comment on above: Labs Start: 01-22-2023 End: 01-22-2023 Patient encounter procedure Grey Hernandez PA-C Work Phone: Urology Comment on above: BPH with urinary obs truction (Primary Dx) Start: 12-28-2022 ambulatory Daria Older DICE DEALER .PEST CONTROL OPERATOR Work Phone: [facility] [place] Comment on above: Lisinopril 10 mg Start: 12-12-2022 End: 12-12-2022 Patient encounter procedure Marquita Calvert MD Work Phone: [facility] [place] Comment on above: Essential hypertensi on (Primary Dx) Start: 12-12-2022 ambulatory Marquita Parikh Work Phone: [facility] [place] Comment on above: heart rate elevated Start: 11-23-2022 ambulatory Marquita Parikh Work Phone: [facility] [place] Comment on above: Losartan Potassium 2 5 Start: 10-18-2022 ambulatory Marquita Parikh Work Phone: [facility] [place] Comment on above: Covid vaccine Start: 10-08-2022 Get Medical Advice Grey Hernandez PA-C Work Phone: Urology Comment on above: Finasteride refill a nd office visit request Start: 10-07-2022 Refill Grey Hernandez PA-C Work Phone: Urology Comment on above: Refill Request Start: 09-03-2022 Refill Marquita Parikh Work Phone: [facility] [place] Comment on above: Refill Request Rosavustatin Flonase Start: 09-01-2022 Refill Daria RamírezPEST CONTROL OPERATOR Work Phone: [facility] [place] Comment on above: Refill Request Start: 08-15-2022 ambulatory Marquita Parikh Work Phone: [facility] [place] Comment on above: Bloodwork Start: 06-06-2022 ambulatory Grey Hernandez PA-C Work Phone: Urology Comment on above: Error Reply to Socorro goodman Refill Request Start: 06-06-2022 Telephone encounter Grey villar PA-C Work Phone: Urology Comment on above: Medication Problem; Patient Question Start: 05-21-2022 End: 05-21-2022 Patient encounter procedure Daria Park APRN.PEST CONTROL OPERATOR Work Phone: [facility] [place] Comment on above: Type 2 diabetes guillermo itus with other specified complication, without long-term current use of insulin (HCC) (Primary Dx); Essential hypertension; Mixed hyperlipidemia; Prostate cancer screening; Nontoxic multinodular goiter Start: 05-16-2022 Get Medical Advice Marquita henao MD Work Phone: [facility] [place] Comment on above: Refill Trulicity Start: 05-15-2022 Refill Marquita Ganta M D Work Phone: [facility] [place] Comment on above: Refill Request Start: 05-13-2022 Refill Marquita Ganta M D Work Phone: [facility] [place] Comment on above: Refill Request Start: 04-22-2022 Refill Marquita Ganta M D Work Phone: [facility] [place] Comment on above: Refill Request Start: 02-22-2022 Refill Marquita Ganta M D Work Phone: [facility] [place] Comment on above: Refill Request Start: 01-16-2022 End: 01-16-2022 Nursing evaluation of patient and report Nurse [facility] Work Phone: Urology Comment on above: BPH with urinary obs truction (Primary Dx) Start: 11-24-2021 Refill Marquita Ganta M D Work Phone: [facility] [place] Comment on above: Refill Request Start: 11-16-2021 End: 11-16-2021 Patient encounter procedure Daria Park APRN.CNP Work Phone: [facility] [place] Comment on above: Type 2 diabetes guillermo itus with other specified complication, without long-term current use of insulin (HCC) (Primary Dx); Mixed hyperlipidemia; Essential hypertension; Heartburn; Encounter for immunization; Vitamin D deficiency Start: 11-13-2021 ambulatory Janessa (Pss) Chilango miner [facility] Comment on above: Population Health Na vigation Outreach ([employer] gap ) Start: 10-23-2021 ambulatory Grey Hernandez PA-C Work Phone: Urology Comment on above: Finasteride 5mg Start: 10-17-2021 End: 10-17-2021 Nursing evaluation of patient and report Nurse [facility] Work Phone: Urology Comment on above: BPH with urinary obs truction (Primary Dx) Start: 10-08-2021 ambulatory Marquita Parikh Work Phone: [facility] [place] Comment on above: 2nd Covid Booster Start: 05-03-2021 End: 05-03-2021 Subsequent hospital visit by physician Xr [facility] [place] Work Phone: Radiology Comment on above: Chronic bilateral lo w back pain without sciatica [M54.50, G89.29] Procedures Date Procedure Procedure Detail Performing Clinician Start: 10-28-2024 Arthrocentesis aspir &/inj major jt/bursa w/o us Enrico Hollis PA-C Work Phone: Start: 10-21-2024 Adult depression scr eening assessment Daria Park DICE DEALER.PEST CONTROL OPERATOR Work Phone: Start: 08-24-2024 Radiologic exam knee complete 4/more views Jerry Suh MD Work Phone: Start: 06-25-2024 Radiologic exam ches t 2 views Robert Barone DICE DEALER.PEST CONTROL OPERATOR Work Phone: Start: 01-28-2024 Urnls dip stick/tabl et rgnt auto w/o microscopy Grey SLATER-C Work Phone: Start: 07-29-2023 End: 07-29-2023 Biopsy thyroid percutaneous core needle Russ Tucker DO Work Phone: Start: 07-25-2023 Hemoglobin A1c/Hemoglobin.total in Blood Daria Park DICE DEALER.PEST CONTROL OPERATOR Work Phone: Start: 02-28-2023 Us soft tissue head & neck real time imge docm Vish Peterson MD Work Phone: Start: 01-22-2023 Urnls dip stick/tabl et rgnt auto w/o microscopy Grey NAYLORC Work Phone: Start: 05-03-2021 Radex spine lumbosac ral 2/3 views Marquita Calvert MD Work Phone: Start: 04-28-2021 Adult depression scr eening assessment Marquita Calvert MD Work Phone: Start: 08-11-2020 Colonoscopy Marquita valle MD Work Phone: Plan of Treatment Date Care Activity Detail Author Start: 11-17-2031 Urine microalbumin profile [facility] Start: 11-07-2027 PROSTATE CANCER SCREENING DISCUSSION PROSTATE CANCER SCREENING DISCUSSION [facility] Start: 11-07-2027 Prostate specific antigen measurement Prostate Cancer Screening Discussion [facility] Start: 11-09-2025 PROSTATE CANCER SCREENING DISCUSSION PROSTATE CANCER SCREENING DISCUSSION [facility] Start: 10-21-2025 Annual PCP Team Chronic Disease Visit Annual PCP Team Chronic Disease Visit [facility] Start: 10-21-2025 Anxiety Screening Anxiety Screening [facility] Start: 10-21-2025 BP Controlled (<130/80) BP Controlled (<130/80) [facility] Start: 10-21-2025 Covid-19 Vaccine () Covid-19 Vaccine () [facility] Comment on above: Postponed from 05/29/2024 (Declined at t his time) Start: 10-21-2025 Depression Screening Depression Screening [facility] Start: 10-15-2025 Hepatitis B surface antibody level LDL Cholesterol [facility] Start: 09-14-2025 Annual PCP Team Chronic Disease Visit Annual PCP Team Chronic Disease Visit [facility] Start: 09-14-2025 BP Controlled (<130/80) BP Controlled (<130/80) [facility] Start: 08-11-2025 Colonoscopy COLONOSCOPY [facility] Start: 08-11-2025 COLORECTAL CANCER SCREENING COLORECTAL CANCER SCREENING [facility] Start: 08-11-2025 Screening for malignant neoplasm of colon [facility] Start: 07-29-2025 BP Controlled (<130/80) BP Controlled (<130/80) [facility] Start: 04-24-2025 Annual PCP Team Chronic Disease Visit Annual PCP Team Chronic Disease Visit [facility] Start: 04-24-2025 BP Controlled (<130/80) BP Controlled (<130/80) [facility] Start: 04-16-2025 Hemoglobin A1c measurement HbA1C [facility] Start: 04-13-2025 Hepatitis B screening Urine Albumin:Creatinine Ratio [facility] Start: 04-13-2025 Hepatitis B surface antibody level LDL Cholesterol [facility] Start: 03-08-2025 End: 03-08-2025 Patient encounter procedure 03/08/2025 11:45 AM EDT Office Visit Orthopaedics [address] [address] Jerry Suh MD [address] [place] [address] left knee 6 month f/u Orthopaedics Comment on above: left knee 6 month f/u Start: 02-04-2025 Diabetic foot examination Diabetic Foot Exam [facility] Start: 02-02-2025 End: 02-02-2025 Patient encounter procedure [facility] [place] Comment on above: 3 month follow up 1 yr follow up Start: 02-01-2025 End: 02-01-2025 Patient encounter procedure 02/01/2025 1:40 PM EDT Office Visit [facility] [place] [address] [place] [address] Marquita Calvert MD [address] [place] [address] 3 month follow up [facility] [place] Comment on above: 3 month follow up Start: 01-27-2025 End: 04-28-2025 Prostate specific Ag [Mass/volume] in Serum or Plasma PROSTATE-SPECIFIC ANTIGEN DIAGNOSTIC Lab Routine BPH with urinary obstruction Prostate cancer screening Expected: 01/27/2025 (Approximate), Expires: 04/28/2025 [facility] Comment on above: Expected: 01/27/2025 (Approximate), Expi res: 04/28/2025 Start: 01-26-2025 End: 01-26-2025 Patient encounter procedure 01/26/2025 10:30 AM EDT Office Visit Urology [address] [place] [address] Grey Hernandez PA-C [address] [place] [address] 1 yr follow up Urology Comment on above: 1 yr follow up Start: 01-21-2025 End: 01-21-2025 ambulatory 01/21/2025 11:00 AM EDT Results Only [facility] Laboratory [address] [place] [address] lab [place] [facility] Laboratory Comment on above: lab Start: 12-09-2024 [facility] Start: 12-07-2024 End: 12-07-2024 Admission to same day surgery center 12/07/2024 1:00 PM EDT - 12/07/2024 2:00 PM EDT Surgery [facility] Radiology [address] [place] [address] Abisai Garcias MD, MD [address] [place] [address] BIOPSY THYROID [facility] Radiology Comment on above: BIOPSY THYROID Start: 12-07-2024 End: 12-07-2024 Biopsy thyroid percutaneous core needle BIOPSY THYROID Nontoxic multinodular goiter 12/07/2024 1:00 PM EDT [facility] Start: 12-07-2024 Subsequent hospital visit by physician 12/07/2024 1:00 PM EDT Hospital Encounter [facility] Radiology [address] [place] [address] Abisai Garcias MD, MD [address] [place] [address] Nontoxic multinodular goiter [E04.2] [facility] Radiology Comment on above: Nontoxic multinodular goiter [E04.2] Start: 11-25-2024 Glaucoma screening Dilated Retinal Exam [facility] Start: 11-24-2024 End: 11-24-2024 Patient encounter procedure 11/24/2024 1:00 PM EDT Office Visit General Surgery [address] [facility] [address] [place] [address] Judy Barksdale MD [address] [facility] [address] [place] [address] Thyroid nodule [E04.1] General Surgery Comment on above: Thyroid nodule [E04.1] Start: 11-09-2024 End: 11-09-2024 Patient encounter procedure 11/09/2024 2:00 PM EDT Office Visit Orthopaedics [address] [address] Yakelin Kyle PA-C [address] [place] [address] left knee pain; patient requesting cortisone injection (see MyChart encounter from 10/08/2024) Orthopaedics Comment on above: left knee pain; patient requesting corti sone injection (see MyChart encounter from 10/08/2024) Start: 10-28-2024 End: 10-28-2024 Patient encounter procedure Orthopaedics Comment on above: cortisone injection knee Knee CSI (07/08/19) Start: 10-27-2024 End: 10-27-2024 Patient encounter procedure 10/27/2024 1:45 PM EDT Appointment Radiology [address] [place] [address] x: Thyroid nodule [E04.1] Radiology Comment on above: x: Thyroid nodule [E04.1] Start: 10-21-2024 End: 10-21-2024 Patient encounter procedure 10/21/2024 2:20 PM EDT Office Visit [facility] [place] [address] [place] [address] Daria Park APRN.PEST CONTROL OPERATOR [address] [place] [address] Medicare Wellness [facility] [place] Comment on above: Medicare Wellness Start: 10-19-2024 End: 01-18-2025 Basic metabolic 2000 panel - Serum or Plasma BASIC METABOLIC PANEL Lab Routine Type 2 diabetes mellitus with peripheral neuropathy (HCC) Expected: 10/19/2024 (Approximate), Expires: 01/18/2025 [facility] Comment on above: Expected: 10/19/2024 (Approximate), Expi res: 01/18/2025 Start: 10-19-2024 End: 01-18-2025 Comprehensive metabolic 2000 panel - Serum or Plasma COMPREHENSIVE METABOLIC PANEL Lab Routine Hypertriglyceridemia Expected: 10/19/2024, Expires: 01/18/2025 [facility] Comment on above: Expected: 10/19/2024, Expires: Start: 10-19-2024 End: 01-18-2025 Hemoglobin A1c in Blood [facility] Work Phone: Comment on above: Expected: 10/19/2024 (Approximate), Expi res: 01/18/2025 Expected: 10/19/2024 , Expires: 01/18/2025 Start: 10-19-2024 End: 01-18-2025 Lipid 1996 panel - Serum or Plasma LIPID PANEL, FASTING Lab Routine Hypertriglyceridemia Expected: 10/19/2024, Expires: 01/18/2025 [facility] Work Phone: Comment on above: Expected: 10/19/2024, Expires: Start: 10-16-2024 Annual PCP Team Chronic Disease Visit Annual PCP Team Chronic Disease Visit [facility] Start: 10-15-2024 End: 10-15-2024 ambulatory 10/15/2024 11:00 AM EDT Results Only [facility] [address] [place] [address] LABS [facility] Comment on above: LABS Start: 10-12-2024 Hemoglobin A1c measurement HbA1C [facility] Start: 10-07-2024 End: 10-07-2024 Patient encounter procedure 10/07/2024 11:20 AM EDT Office Visit [facility] Medicine [place] [address] [facility] [place] [address] Daria Park APRN.PEST CONTROL OPERATOR [address] [facility] [place] [address] Medicare Wellness [facility] [place] Comment on above: Medicare Wellness Start: 10-01-2024 End: 10-01-2024 ambulatory 10/01/2024 11:00 AM EDT Results Only [facility] [address] [place], [place] [id number] LABS [facility] Laboratory Comment on above: LABS Start: 09-09-2024 Annual PCP Team Chronic Disease Visit Annual PCP Team Chronic Disease Visit [facility] Start: 08-24-2024 End: 08-24-2024 Patient encounter procedure Radiology Comment on above: xr left knee consult Start: 07-29-2024 End: 07-29-2024 Patient encounter procedure 07/29/2024 11:00 AM EST Office Visit [facility] [place] [address] [address] Pema Duong PA-C [address] [place] [address] low back [facility] [place] Comment on above: low back Start: 07-25-2024 Annual PCP Team Chronic Disease Visit Annual PCP Team Chronic Disease Visit [facility] Start: 07-08-2024 End: 07-08-2024 Patient encounter procedure Radiology Comment on above: lft hip hip lft L hip Start: 06-24-2024 Advance Directive Discussion Advance Directive Discussion [facility] Start: 05-29-2024 Covid-19 Vaccine ( season) Covid-19 Vaccine () [facility] Start: 04-24-2024 3 comp foot exam completed Diabetic Foot Exam [facility] Start: 04-24-2024 Annual PCP Team Chronic Disease Visit Annual PCP Team Chronic Disease Visit [facility] Start: 04-24-2024 Diabetic foot examination Diabetic Foot Exam [facility] Start: 04-17-2024 Hepatitis B surface antibody level LDL Cholesterol [facility] Start: 04-17-2024 End: 04-17-2024 Patient encounter procedure 04/17/2024 1:40 PM EDT Office Visit [facility] [place] [address] [place], [place] [id number] Daria Park APRN.PEST CONTROL OPERATOR [address] [place], [place] [address] 6 month follow up [facility] Medicine [place] Comment on above: 6 month follow up Start: 04-13-2024 End: 07-13-2024 CBC panel - Blood by Automated count COMPLETE BLOOD COUNT Lab Routine Type 2 diabetes mellitus with peripheral neuropathy (HCC) Essential hypertension Expected: 04/13/2024 (Approximate), Expires: 07/13/2024 [facility] Comment on above: Expected: 04/13/2024 (Approximate), Expi res: 07/13/2024 Start: 04-13-2024 End: 07-13-2024 Comprehensive metabolic 2000 panel - Serum or Plasma COMPREHENSIVE METABOLIC PANEL Lab Routine Type 2 diabetes mellitus with peripheral neuropathy (HCC) Mixed hyperlipidemia Essential hypertension Expected: 04/13/2024 (Approximate), Expires: 07/13/2024 [facility] Comment on above: Expected: 04/13/2024 (Approximate), Expi res: 07/13/2024 Start: 04-13-2024 End: 07-13-2024 Hemoglobin A1c in Blood HEMOGLOBIN A1C Lab Routine Type 2 diabetes mellitus with peripheral neuropathy (HCC) Expected: 04/13/2024 (Approximate), Expires: 07/13/2024 [facility] Comment on above: Expected: 04/13/2024 (Approximate), Expi res: 07/13/2024 Start: 04-13-2024 End: 07-13-2024 Lipid 1996 panel - Serum or Plasma LIPID PANEL BASIC Lab Routine Mixed hyperlipidemia Expected: 04/13/2024 (Approximate), Expires: 07/13/2024 [facility] Work Phone: Comment on above: Expected: 04/13/2024 (Approximate), Expi res: 07/13/2024 Start: 04-13-2024 End: 07-13-2024 Microalbumin/Creatinin e [Mass Ratio] in Urine ALBUMIN/CREATININE RATIO, URINE Lab Routine Type 2 diabetes mellitus with peripheral neuropathy (HCC) Expected: 04/13/2024 (Approximate), Expires: 07/13/2024 [facility] Comment on above: Expected: 04/13/2024 (Approximate), Expi res: 07/13/2024 Start: 04-13-2024 End: 04-13-2024 ambulatory [facility] Comment on above: Mixed hyperlipidemia [E78.2] Start: 03-27-2024 End: 03-27-2024 Patient encounter procedure 03/27/2024 11:00 AM EDT Immunization [facility] [place] [address] [place] [address] [place], Immunization Clinic Nurse [address] [place] [address] Just get the shot [facility] [place] Comment on above: Just get the shot Start: 02-23-2024 Covid-19 Vaccine ( season) Covid-19 Vaccine () [facility] Start: 02-23-2024 Covid-19 Vaccine () Covid-19 Vaccine () [facility] Start: 02-23-2024 Influenza vaccination Influenza Vaccine (#1) [facility] Start: 01-28-2024 End: 01-28-2024 Patient encounter procedure 01/28/2024 10:30 AM EDT Office Visit Urology [address] [place] [address] Grey Hernandez PA-C [address] [place] [address] 1 YR BPH Urology Comment on above: 1 YR BPH Start: 01-23-2024 Hemoglobin A1c measurement HbA1C [facility] Start: 01-23-2024 End: 03-24-2024 Prostate specific Ag [Mass/volume] in Serum or Plasma PSA/PROSTSPECAG DIAG Lab Routine BPH with urinary obstruction Expected: 01/23/2024 (Approximate), Expires: 03/24/2024 [facility] Work Phone: Comment on above: Expected: 01/23/2024 (Approximate), Expi res: 03/24/2024 Start: 01-23-2024 End: 01-23-2024 ambulatory 01/23/2024 11:00 AM EDT Results Only [place] [facility] Laboratory [address] [place] [address] [place] [facility] Start: 12-13-2023 ANNUAL PCP TEAM CHRONIC DISEASE VISIT ANNUAL PCP TEAM CHRONIC DISEASE VISIT [facility] Start: 11-14-2023 ANNUAL PCP TEAM CHRONIC DISEASE VISIT ANNUAL PCP TEAM CHRONIC DISEASE VISIT [facility] Start: 11-07-2023 Hepatitis B screening URINE ALBUMIN:CREATININE RATIO [facility] Start: 11-07-2023 Hepatitis B surface antibody level LDL CHOLESTEROL [facility] Start: 10-17-2023 Hemoglobin A1c/Hemoglobin.total in Blood HbA1C [facility] Start: 09-10-2023 End: 12-10-2023 Urinalysis complete panel - Urine [facility] Work Phone: Comment on above: Expected: 09/10/2023, Expires: Start: 07-18-2023 Covid-19 Vaccine () Covid-19 Vaccine () [facility] Start: 06-24-2023 Advance Directive Discussion Advance Directive Discussion [facility] Start: 06-24-2023 Behavioral Health Screening Behavioral Health Screening [facility] Start: 06-24-2023 Depression Assessment Depression Assessment [facility] Start: 05-22-2023 Hepatitis B Vaccine (2 of 3 - Risk 3-dose series) Hepatitis B Vaccine (2 of 3 - Risk 3-dose series) [facility] Start: 05-21-2023 ANNUAL PCP TEAM CHRONIC DISEASE VISIT ANNUAL PCP TEAM CHRONIC DISEASE VISIT [facility] Start: 05-21-2023 BP CONTROLLED (<130/80) BP CONTROLLED (<130/80) [facility] Start: 05-09-2023 Hemoglobin A1c/Hemoglobin.total in Blood HBA1C [facility] Start: 03-25-2023 End: 05-25-2023 CBC panel - Blood by Automated count CBC Lab Routine Type 2 diabetes mellitus with peripheral neuropathy (HCC) Essential hypertension Expected: 03/25/2023 (Approximate), Expires: 05/25/2023 [facility] Work Phone: Comment on above: Expected: 03/25/2023 (Approximate), Expi res: 05/25/2023 Start: 03-25-2023 End: 05-25-2023 Comprehensive metabolic 2000 panel - Serum or Plasma COMP METABOLIC PANEL Lab Routine Type 2 diabetes mellitus with peripheral neuropathy (HCC) Mixed hyperlipidemia Essential hypertension Expected: 03/25/2023 (Approximate), Expires: 05/25/2023 [facility] Work Phone: Comment on above: Expected: 03/25/2023 (Approximate), Expi res: 05/25/2023 Start: 03-25-2023 End: 05-25-2023 Hemoglobin A1c in Blood HGB A1C Lab Routine Type 2 diabetes mellitus with peripheral neuropathy (HCC) Expected: 03/25/2023 (Approximate), Expires: 05/25/2023 [facility] Work Phone: Comment on above: Expected: 03/25/2023 (Approximate), Expi res: 05/25/2023 Start: 03-25-2023 End: 05-25-2023 Lipid 1996 panel - Serum or Plasma LIPID PANEL BASIC Lab Routine Mixed hyperlipidemia Expected: 03/25/2023 (Approximate), Expires: 05/25/2023 [facility] Work Phone: Comment on above: Expected: 03/25/2023 (Approximate), Expi res: 05/25/2023 Start: 02-22-2023 Covid-19 Vaccine (2022- season) Covid-19 Vaccine (2022-) [facility] Start: 02-22-2023 Influenza vaccination [facility] Start: 11-28-2022 Glaucoma screening Dilated Retinal Exam [facility] Start: 11-28-2022 Hepatitis C antibody, confirmatory test DILATED RETINAL EXAM [facility] Start: 11-22-2022 End: 01-22-2023 ALBUMIN/CREAT RATIO RND UR ALBUMIN/CREAT RATIO RND UR Lab Routine Type 2 diabetes mellitus with other specified complication, without long-term current use of insulin (HCC) Expected: 11/22/2022 (Approximate), Expires: 01/22/2023 [facility] Work Phone: Comment on above: Expected: 11/22/2022 (Approximate), Expi res: 01/22/2023 Start: 11-22-2022 End: 01-22-2023 CBC W Auto Differential panel - Blood CBC + DIFF Lab Routine Essential hypertension Type 2 diabetes mellitus with other specified complication, without long-term current use of insulin (HCC) Expected: 11/22/2022 (Approximate), Expires: 01/22/2023 [facility] Work Phone: Comment on above: Expected: 11/22/2022 (Approximate), Expi res: 01/22/2023 Start: 11-22-2022 End: 01-22-2023 Comprehensive metabolic 2000 panel - Serum or Plasma COMP METABOLIC PANEL Lab Routine Mixed hyperlipidemia Essential hypertension Type 2 diabetes mellitus with other specified complication, without long-term current use of insulin (HCC) Expected: 11/22/2022 (Approximate), Expires: 01/22/2023 [facility] Work Phone: Comment on above: Expected: 11/22/2022 (Approximate), Expi res: 01/22/2023 Start: 11-22-2022 End: 01-22-2023 Hemoglobin A1c in Blood HGB A1C Lab Routine Type 2 diabetes mellitus with other specified complication, without long-term current use of insulin (HCC) Expected: 11/22/2022 (Approximate), Expires: 01/22/2023 [facility] Work Phone: Comment on above: Expected: 11/22/2022 (Approximate), Expi res: 01/22/2023 Start: 11-22-2022 End: 01-22-2023 Lipid 1996 panel - Serum or Plasma LIPID PANEL BASIC Lab Routine Mixed hyperlipidemia Expected: 11/22/2022 (Approximate), Expires: 01/22/2023 [facility] Work Phone: Comment on above: Expected: 11/22/2022 (Approximate), Expi res: 01/22/2023 Start: 11-22-2022 End: 01-22-2023 PSA/PROSTSPECAG SCRN PSA/PROSTSPECAG SCRN Lab Routine Prostate cancer screening Expected: 11/22/2022 (Approximate), Expires: 01/22/2023 [facility] Work Phone: Comment on above: Expected: 11/22/2022 (Approximate), Expi res: 01/22/2023 Start: 11-22-2022 End: 01-22-2023 Thyrotropin [Units/volume] in Serum or Plasma TSH BLD Lab Routine Nontoxic multinodular goiter Expected: 11/22/2022 (Approximate), Expires: 01/22/2023 [facility] Work Phone: Comment on above: Expected: 11/22/2022 (Approximate), Expi res: 01/22/2023 Start: 11-16-2022 ABDOMINAL AORTIC ANEURYSM SCREENING ABDOMINAL AORTIC ANEURYSM SCREENING [facility] Comment on above: Postponed from 1955 (Declined at t his time) Start: 11-16-2022 ANNUAL PCP TEAM CHRONIC DISEASE VISIT ANNUAL PCP TEAM CHRONIC DISEASE VISIT [facility] Start: 11-16-2022 COVID-19 VACCINE (4 - Booster for Moderna series) COVID-19 VACCINE (4 - Booster for Moderna series) [facility] Comment on above: Postponed from 08/18/2021 (Declined at t his time) Postponed from 06/12 (Declined at this time) Start: 11-13-2022 Hepatitis B surface antibody level LDL CHOLESTEROL [facility] Start: 11-12-2022 Hemoglobin A1c/Hemoglobin.total in Blood HBA1C [facility] Start: 08-29-2022 3 comp foot exam completed DIABETIC FOOT EXAM [facility] Start: 08-17-2022 ANNUAL PCP TEAM CHRONIC DISEASE VISIT ANNUAL PCP TEAM CHRONIC DISEASE VISIT [facility] Start: 08-15-2022 Hepatitis B screening URINE ALBUMIN:CREATININE RATIO [facility] Start: 08-07-2022 COVID-19 VACCINE (5 - Moderna series) COVID-19 VACCINE (5 - Moderna series) [facility] Start: 06-24-2022 ADVANCE DIRECTIVE DISCUSSION ADVANCE DIRECTIVE DISCUSSION [facility] Start: 06-24-2022 DEPRESSION ASSESSMENT DEPRESSION ASSESSMENT [facility] Start: 05-16-2022 Hemoglobin A1c/Hemoglobin.total in Blood HBA1C [facility] Start: 05-09-2022 End: 07-09-2022 Basic metabolic 2000 panel - Serum or Plasma BASIC METABOLIC PNL Lab Routine Type 2 diabetes mellitus with other specified complication, without long-term current use of insulin (HCC) Expected: 05/09/2022 (Approximate), Expires: 07/09/2022 [facility] Work Phone: Comment on above: Expected: 05/09/2022 (Approximate), Expi res: 07/09/2022 Start: 05-09-2022 End: 07-09-2022 Hemoglobin A1c/Hemoglobin.total in Blood HGB A1C Lab Routine Type 2 diabetes mellitus with other specified complication, without long-term current use of insulin (HCC) Expected: 05/09/2022 (Approximate), Expires: 07/09/2022 [facility] Work Phone: Comment on above: Expected: 05/09/2022 (Approximate), Expi res: 07/09/2022 Start: 05-09-2022 End: 07-09-2022 VITAMIN D 25 HYDROXY VITAMIN D 25 HYDROXY Lab Routine Vitamin D deficiency Expected: 05/09/2022 (Approximate), Expires: 07/09/2022 [facility] Work Phone: Comment on above: Expected: 05/09/2022 (Approximate), Expi res: 07/09/2022 Start: 05-02-2022 Hepatitis B surface antibody level LDL CHOLESTEROL [facility] Start: 04-28-2022 Adult depression screening assessment DEPRESSION SCREENING [facility] Start: 03-07-2022 PNEUMOCOCCAL: 65+ (2 - PCV) PNEUMOCOCCAL: 65+ (2 - PCV) [facility] Start: 02-22-2022 Influenza vaccination INFLUENZA (#1) [facility] Start: 02-12-2022 Hemoglobin A1c/Hemoglobin.total in Blood HBA1C [facility] Start: 11-01-2021 Hepatitis C antibody, confirmatory test DILATED RETINAL EXAM [facility] Start: 08-18-2021 COVID-19 VACCINE (4 - Booster for Moderna series) COVID-19 VACCINE (4 - Booster for Moderna series) [facility] Start: 06-24-2021 ADVANCE DIRECTIVE DISCUSSION ADVANCE DIRECTIVE DISCUSSION [facility] Start: 06-24-2021 DEPRESSION ASSESSMENT DEPRESSION ASSESSMENT [facility] Start: 2014 Hepatitis B Vaccine (1 of 3 - Risk 3-dose series) Hepatitis B Vaccine (1 of 3 - Risk 3-dose series) [facility] Start: 2014 RSV Vaccine (1 - 1-dose 60+ series) RSV Vaccine (1 - 1-dose 60+ series) [facility] Start: 1999 COLOGUARD (FIT-DNA) COLOGUARD (FIT-DNA) [facility] Start: [address] COLONOGRAPHY [facility] Start: 1999 FECAL OCCULT BLOOD FECAL OCCULT BLOOD [facility] Start: 1999 Screening for malignant neoplasm of colon [facility] Start: 1999 SIGMOIDOSCOPY SIGMOIDOSCOPY [facility] Start: 1973 Urine microalbumin profile DTAP,TDAP,TD (1 - Tdap) [facility] Start: 1972 Anxiety Screening Anxiety Screening [facility] Start: 1972 BP CONTROLLED (<130/80) BP CONTROLLED (<130/80) [facility] Start: 1972 Depression Screening Depression Screening [facility] Start: 1972 HEPATITIS C SCREENING HEPATITIS C SCREENING [facility] Start: 1954 ABDOMINAL AORTIC ANEURYSM SCREENING ABDOMINAL AORTIC ANEURYSM SCREENING [facility] COVID & INFLUENZA A/ B & RSV PCR, ROUTINE COVID & INFLUENZA A/B & RSV PCR, ROUTINE Microbiology Routine URI, acute Ordered: 06/25/2024 [facility] Work Phone: Comment on above: Ordered: 06/25/2024 End: 07-29-2023 CYTOLOGY NON-SHIRT SEWER [facility] Work Phone: Comment on above: ONCE for 1 Occurrences starting 07/29/19 24 until 07/29/2023, 1 completed Guidance for percutaneous biopsy.core needle of Thyroid gland IMAGING GUIDED BIOPSY THYROID Radiology Routine Nontoxic multinodular goiter Ordered: 11/24/2024 [facility] Work Phone: Comment on above: Ordered: 11/24/2024 Patient Education ED Dental Pain [facility] Work Phone: Patient referral [facility] Work Phone: POST VOID RESIDUAL POST VOID RES IDUAL Procedures Routine BPH with urinary obstruction Ordered: 10/17/2021 [facility] Work Phone: Comment on above: Ordered: 10/17/2021 POST VOID RESIDUAL POST VOID RES IDUAL Procedures Routine BPH with urinary obstruction Ordered: 01/16/2022 [facility] Work Phone: Comment on above: Ordered: 01/16/2022 POST VOID RESIDUAL POST VOID RES IDUAL Procedures Routine BPH with urinary obstruction Ordered: 01/22/2023 [facility] Work Phone: Comment on above: Ordered: 01/22/2023 POST VOID RESIDUAL POST VOID RES IDUAL Procedures Routine BPH with urinary obstruction Ordered: 01/28/2024 [facility] Work Phone: Comment on above: Ordered: 01/28/2024 End: 11-20-2025 US Thyroid gland US THYROID/PARATHYROID Radiology Routine Thyroid nodule 1 Occurrences starting 10/21/2024 until 11/20/2025 [facility] Work Phone: Comment on above: 1 Occurrences starting 10/21/2024 until 11/20/2025 US Thyroid gland US THYROID/PARA THYROID Radiology Routine Thyroid nodule 10/27/2024 2:05 PM EDT [facility] Work Phone: End: 07-22-2025 XR Pelvis and Hip - left AP and Lateral frog XR HIP GENERAL 3V PELV/AP/LAT LEFT Radiology Routine Pain 1 Occurrences starting 06/22/2024 until 07/22/2025 [facility] Work Phone: Comment on above: 1 Occurrences starting 06/22/2024 until 07/22/2025 End: 08-06-2025 XR Pelvis and Hip - left AP and Lateral frog XR HIP GENERAL 3V PELV/AP/LAT LEFT Radiology Routine Pain in left hip 1 Occurrences starting 2024 until 08/06/2025 [facility] Work Phone: Comment on above: 1 Occurrences starting 2024 until 08/06/2025 XR Pelvis and Hip - left AP and Lateral frog XR HIP GENERAL 3V PELV/AP/LAT LEFT Radiology Routine Pain in left hip 07/08/2024 10:16 AM EST [facility] Immunizations Immunization Date Immunization Notes Care Provider Alva soares 04-03-2024 COVID-19 original vaccine, age 12+ yr, monovalent (PFIZER-BIONTECH - PEDROZA TOP) Daria Older DICE DEALER.PEST CONTROL OPERATOR Work Phone: [facility] 03-27-2024 influenza, high dose seasonal, preservative-free Immunization [place] Work Phone: [facility] 10-17-2023 hepatitis B vaccine, adult dosage Daria Older DICE DEALER.PEST CONTROL OPERATOR Work Phone: [facility] 05-28-2023 hepatitis B vaccine, adult dosage Mi Nurse Work Phone: [facility] Work Phone: 04-24-2023 hepatitis B vaccine, adult dosage Daria Older DICE DEALER.PEST CONTROL OPERATOR Work Phone: [facility] 03-11-2023 influenza virus vaccine, unspecified formulation Daria Older DICE DEALER.PEST CONTROL OPERATOR Work Phone: [facility] 03-08-2022 pneumococcal (PCV20) vaccine, 20 valent (PREVNAR 20) Daria Older DICE DEALER.PEST CONTROL OPERATOR Work Phone: [facility] Work Phone: 03-08-2022 influenza virus vaccine, unspecified formulation Daria Older DICE DEALER.PEST CONTROL OPERATOR Work Phone: [facility] 11-16-2021 tetanus toxoid, redu tavia diphtheria toxoid, and acellular pertussis vaccine, adsorbed Daria Older DICE DEALER.PEST CONTROL OPERATOR Work Phone: [facility] 04-17-2021 COVID-19 vaccine, booster dose (MODERNA) Marquita Calvert MD Work Phone: [facility] 03-07-2021 pneumococcal polysaccharide vaccine, 23 valent Marquita Calevrt MD Work Phone: [facility] Work Phone: 02-22-2021 influenza, high dose seasonal, preservative-free Marquita Calvert MD Work Phone: [facility] 09-14-2020 COVID-19 vaccine, fu ll dose (MODERNA) Marquita Calvert MD Work Phone: [facility] 08-17-2020 COVID-19 vaccine, fu ll dose (MODERNA) Marquita Calvert MD Work Phone: [facility] 06-14-2020 zoster vaccine recombinant Marquita Calvert MD Work Phone: [facility] Payers Date Payer Category Payer Self-pay 2021 Medicare AETNA MEDICARE A ETNA MEDICARE PPO [id number] 2021-Present [phone] [address] [place] [address] [facility] [id number] 2021 Medicare (Managed Care) AETNA [place] DICARE [id number] 2021 Medicare [id number] 2019 Medicare [id number] 2016 Unknown [facility] [id number] Medicare MEDICARE PART A B [id number] Unknown [id number] Social History Date Type Detail Facility Start: 08-13-2019 End: 04-24-2024 Tobacco smoking status NHIS Ex-smoker [facility] End: 06-24-1997 History of tobacco use Current smoker [facility] Start: 08-17-2021 End: 10-28-2024 Alcohol intake Current drinker of alcohol (finding) [facility] Start: 03-10-2020 End: 11-06-2022 History SDOH Alcohol Frequency 5 [facility] Start: 03-10-2020 End: 11-06-2022 History SDOH Alcohol Std Drinks 1 [facility] Start: 08-13-2019 History SDOH Alcohol Comment wine and beer every other day [facility] Start: 03-10-2020 End: 11-06-2022 History SDOH Social Connections Phone 4 [facility] Start: 03-10-2020 End: 11-06-2022 History SDOH Social Connections Get Together 3 [facility] Start: 03-10-2020 End: 11-06-2022 History SDOH Social Connections Membership 2 [facility] Start: 03-09-2020 Education 16 [facility] Start: 1955 Sex Assigned At Not on file C [facility] Start: 09-19-2021 End: 05-15-2022 Exposure to SARS-CoV-2 (event) Not sure [facility] End: 06-24-1997 History of tobacco use Cigarette Smoker [facility] Work Phone: Start: 08-13-2019 End: 04-24-2024 Tobacco use and exposure Smokeless tobacco non-user [facility] Work Phone: Start: 11-06-2022 History SDOH Physica l Activity MPS 6 [facility] Start: 11-06-2022 End: 10-05-2024 History of Social function [facility] Start: 11-06-2022 End: 10-05-2024 Social connection and isolation panel [facility] Do you belong to any clubs or organizations such as methodist groups, unions, fraternal or athletic groups, or school groups? No [facility] Are you now , , , , never or living with a partner? [facility] How often to you hav e a drink containing alcohol? 2-3 time sa week [facility] How many standard dr inks containing alcohol do you have on a typical day? 1 or 2 [facility] How often do you hav e 6 or more drinks on 1 occasion? Never [facility] How hard is it for y ou to pay for the very basics like food, housing, medical care, and heating Not hard at all [facility] Do you feel stress - tense, restless, nervous, or anxious, or unable to sleep at night because your mind is troubled all the time - these days [OSQ] Not at all [facility] (I/We) worried wheth er (my/our) food would run out before (I/we) got money to buy more. Never true [facility] Start: 07-05-2020 Gender identity Identifies as male gender (finding) [facility] How often to you hav e a drink containing alcohol? 4 or more times a week [facility] Do you feel stress - tense, restless, nervous, or anxious, or unable to sleep at night because your mind is troubled all the time - these days [OSQ] Only a little [facility] How hard is it for y ou to pay for the very basics like food, housing, medical care, and heating Not very hard [facility] Start: 12-09-2024 [facility] Start: 1955 Sex Assigned At Male W [facility] Functional Status Date Assessment Result Facility 09-01-2014 Are you deaf, or do you have serious difficulty hearing No 09/01/2014 2:47 PM Elieser Hudson [facility] 09-01-2014 Are you blind, or do you have serious difficulty seeing, even when wearing glasses No 09/01/2014 2:47 PM Elieser Hudson [facility] 09-01-2014 Do you have serious difficulty walking or climbing stairs No 09/01/2014 2:47 PM Elieser Hudson [facility] 09-01-2014 Do you have difficul ty dressing or bathing No 09/01/2014 2:47 PM Elieser Hudson [facility] 09-01-2014 Because of a physica l, mental, or emotional condition, do you have difficulty doing errands alone such as visiting a physician's office or shopping No 09/01/2014 2:47 PM Elieser Hudson [facility] Mental Status Date Assessment Result Facility 09-01-2014 Because of a physica l, mental, or emotional condition, do you have serious difficulty concentrating, remembering, or making decisions No 09/01/2014 2:47 PM EDT Elieser Marrufo [facility] Clinical Notes 05-03-2021 to 12-09-2024 Note Date & Type Note Facility 12-09-2024 Discharge summary [facility] 12-09-2024 Discharge summary Note Date/Time December 09, 2024 9:47pm [facility] Medical Records Department [address] [place] [address] Emergency Department Summary 12/09/24 MR#: [id number] Acct: [id number] Name: ABISAI ARAYA Rep #:[id number] : 1955 69 From: Malachi Friedman MD PCP: Dr. Marquita Calvert MD Status:PRE E R Location: ED HPI History of Present Illness Chief Complaint: Dental Detail of Chief Complaint: Dental pain right lower molar Informant: patient Onset/Context/Timing Onset: Weeks Context: Sudden Onset Timing: Intermittent Quality: Pain Location: Tooth #31 Current Severity: Mild Maximum Severity: Severe Worsened by: Cold liquids Relieved by: - (Nothing) Associated Symptoms Assocated Symptom - Dental: cold sensitivity; Negative for fever, jaw swelling, face swelling or hot sensitivity Narrative Narrative: Patient is a 69-year-old male. Patient presents with pain involving tooth #31. He saw his dentist a week ago and had x-rays because tooth #30 is an implant. X-rays revealed no abnormality. Patient did contact his integrity specialist. He stateshe needs a referral. He denies fever, chills night sweats. He denies history of medic fever, heart murmur, SBE or mitral valve prolapse. Patient denies difficulty opening closes mouth. He had no trouble with swallowing. No change in his voice or speech. Drinking hot liquids does not make the pain worse. Prior similar symptoms: No Recent Illness/Hospitalization: No PFSH PFSH Medical History BPH (benign prostatic hyperplasia) Hypercholesterolemia Hypertriglyceridemia Diabetes Home Medications ?Medication ?Instructions ?Recorded ?Last Taken ?Type benzonatate 200 mg capsule 200 mg PO BID PRN cough #14 caps 06/25/21 Unknown Rx dulaglutide 0.75 mg/0.5 mL 0.5 mg subcut DAILY 2 Unknown History subcutaneous pen injector (Trulicity) famotidine 20 mg tablet 20 mg PO DAILY 06/25/21 Unkn own History rosuvastatin 5 mg tablet 5 mg PO DAILY 06/25/21 Unkno wn History tamsulosin 0.4 mg capsule 0.4 mg PO DAILY 06/25/21 Unk nown History naproxen 500 mg tablet 500 mg PO BID #14 tabs 12/09 Unknown Rx oxycodone-acetaminophen 5 mg-325 1 tab PO Q6H PRN PRN pain 5 days 12/09/24 Unknown Rx mg tablet #20 TABLETS Allergy/AdvReac Type Severity Reaction Status Date / Time No Known Allergies Allergy Verified 12/09/24 20:48 Surgical History History of cholecystectomy Social History Smoking Status: Never smoker ROS ROS ED Constitutional Constitutional ED: Denies chills, fever(s), subjective or sweats Eyes Eyes: Denies blurry vision or change in vision ENT ENT ED: Denies sore throat Cardiovascular Cardiovascular: Reports other Details: HPI narrative ; Denies chest pain or palpitations Respiratory/Chest Respiratory/Chest: Denies dyspnea or dyspnea on exertion Integumentary Denies rash Neurologic Neurologic: Denies headache(s) EXAM Physical Exam Const Vital Signs: 12/09/24 20:46 Temperature 98.6 F Temperature Source Temporal Pulse Rate 80 Respiratory Rate 17 Blood Pressure 163/82 H Blood Pressure Mean 109 Pulse Ox 95 Oxygen Delivery Method Room Air Positive well nourished and well developed General Appearance ED: well developed and NAD HEENT HEENT Narrative: Patient has no tenderness with tapping of tooth #31. There is a large filling noted. Tooth #30 is a prosthetic tooth/implant. There is no swelling of the gingiva. There is no submandibular swelling noted. There is no evidence of Ludewig's angina. He has no trismus. There is no dysphonia or drooling. Mouth ED: Yes lips normal, Yes tongue normal, Yes salivary gland normal and No mouth trauma Mouth: lips normal, tongue normal, salivary gland normal and No mouth trauma Teeth and Gingiva: Negative for caries, gingiva abnormal or poor dentition Eyes PERRL and EOMs intact bilaterally Neck no lymphadenopathy, supple and no JVD General: normal visual inspection; Negative for anterior neck swelling or tenderness Resp normal respiratory effort Cardio regular rate, regular rhythm, S1 normal heart sound, S2 normal heart sound and no murmurs Neuro oriented x3 and CN's II-XII intact bilaterally Sensorium / Orientation: alert Psych mental status grossly normal Skin Skin Narrative: There is no evidence of facial cellulitis. MDM MDM MDM Narrative Medical decision making narrative: With sensitivity to cold that would indicate reversible pulpitis however with symptoms for 3 weeks this would be considered irreversible pulpitis. Since he had recent dental x-ray that showed no evidence infection he was treated with NSAID and opiate analgesia. Recommend that he see his integrity specialist. Discharge Plan Triage Chief Complaint: Dental ED Provider: Malachi Friedman Dx/Rx/DC Orders Clinical Impression: Symptomatic irreversible pulpitis, History of renal hypertension, Elevated blood pressure reading with diagnosis of hypertension Instructions: ED Dental Pain Prescriptions: New oxycodone-acetaminophen 5-325 mg tablet 1 tab PO Q6H PRN PRN (Reason: pain) 5 Days Qty: 20 0RF naproxen 500 mg tablet 500 mg PO BID Qty: 14 0RF No Action famotidine 20 mg tablet 20 mg PO DAILY tamsulosin 0.4 mg capsule 0.4 mg PO DAILY Patient Comments: take 1 capsule by mouth at bedtime rosuvastatin 5 mg tablet 5 mg PO DAILY Trulicity 0.75 mg/0.5 mL pen injector 0.5 mg SUBCUT DAILY Patient Comments: inject 0.5 milliliters ( 0.75 milligrams ) subcutaneously every week DISCARD PEN AFTER benzonatate 200 mg capsule 200 mg PO BID PRN (Reason: cough) Qty: 14 0RF Primary Care Provider: Marquita Calvert Referrals: Marquita Calvert MD [Primary Care Provider] - Activity Restrictions/Additional Instructions: 1. Recommend that you follow-up with your integrity specialist. You can tell your integrity specialist in my opinion you have irreversible pulpitis. 2. Take pain medicine as prescribed 3. Avoid cold liquids 4. If you develop temperature greater than 100, swelling of your face, difficulty opening closing her mouth return to the emergency department or see the integrity specialist immediately Print Language: [place] Disposition Disposition: Home, Self Care What to do if you have Problems For any increased pain, shortness of breath, bleeding, nausea or vomiting, chestpain, or any unexpected problems, contact your Primary Care Provider. Call [facility] ([phone]) or report to the closest Emergency Room. Call 911 if necessary. [id number] <Electronically signed by Malachi Friedman MD> Cosigner Signature (if applicable): CC: Dr. Marquita Calvert MD ~ Signed [facility] Work Phone: 1(619) 401-377006-09-2025 Telephone encounter Note* Telephone Encounter - Jyo Soriano LPN - 11/30/2024 11:52 AM EDT Images from the original note were not included. Covermymeds PA rec'd for trulicity. This was completed electronically. Prior authorization approved Payer: [facility] [place] [phone] Approval Details Authorized from June 24, 2024 to November 30, 2025 Electronic appeal: Not supported View History Notes Time User Attachment Attachment received from payer. 11/30/2024 11:47 AM Cchs, Rx Priorauth In Document Medication Being Authorized dulaglutide (TRULICITY) 0.75 mg/0.5 mL pen injector Inject 0.75 mg subcutaneously one time a week. Dispense: 2 mL Refills: 1 Start: 11/27/2024 Class: Normal Diagnoses: Type 2 diabetes mellitus without complication, without long-term current use of insulin (HCC) This order has been released to its destination. To be filled at: [facility] [address] [place] [id number] [id number] [facility] [phone] [facility] notified. [facility]06-09-2025 Miscellaneous Notes* Telephone Encounter - Joy Soriano LPN - 11/30/2024 11:52 AM EDT Images from the original note were not included. Justo SLATER rec'd for trulicity. This was completed electronically. Prior authorization approved Payer: STALIN Gonzales [phone] Approval Details Authorized from June 24, 2024 to November 30, 2025 Electronic appeal: Not supported View History Notes Time User Attachment Attachment received from payer. 11/30/2024 11:47 AM Cchs, Rx Priorauth In Document Medication Being Authorized dulaglutide (TRULICITY) 0.75 mg/0.5 mL pen injector Inject 0.75 mg subcutaneously one time a week. Dispense: 2 mL Refills: 1 Start: 11/27/2024 Class: Normal Diagnoses: Type 2 diabetes mellitus without complication, without long-term current use of insulin (HCC) This order has been released to its destination. To be filled at: [address] [address] [place] [address] Pharmacy notified. [facility] Telephone encounter Note * Telephone Encounter - Naidya Lebron MA - 11/25/2024 2:38 PM EDT Referral faxed. [facility]06-04-2025 Miscellaneous Notes* Telephone Encounter - Nadiya Lebron MA - 11/25/2024 2:38 PM EDT Referral faxed. * Telephone Encounter - Daria Park APRN.CNP - 11/25/2024 1:58 PM EDT Please fax consult to Dr. Snyder at [facility] as requested by patient. Please update patientwhen completed. Thank you Daria Park APRN.CNP documented in [facility]High[facility] Telephone encounter Note * Telephone Encounter - Daria Park APRN.CNP - 11/25/2024 1:58 PM EDT Please fax consult to Dr. Snyder at [facility] as requested by patient. Please update patientwhen completed. Thank you Daria Park APRN.CNP [facility]06-03-2025 NoteHNO ID: [id number] Author: VISH PETERSON MD Service: ? Author Type: Physician Type: Progress Notes Filed: 11/24/2024 13:36 Note Text: HISTORY AND PHYSICAL Abisai Araya 1955 REFERRING PHYSICIAN: Daria Park APRN.CNP CHIEF COMPLAINT: Thyroid Nodule (Has, three nodules on his thyroid, has had for years.) HPI: The patient is a 69 year old male with a complaint of evaluation of an abnormal thyroid ultrasound. NODULE 1: Location: Right mid Size: 1.2 x 0.8 x 0.9 cm Characteristics: Composition: Solid or almost completely solid, 2 points Echogenicity: Hypoechoic, 2 points Shape: Cilea-lpox-uyas, 0 points Margin: Smooth, 0 points Echogenic foci (add points for all that apply): Punctate echogenic foci, 3 points Internal vascularity: absent Interval growth: Grossly similar but not discretely measured on the prior study TI-RADS Category: TR5 ACR Recommendation: TI-RADS 5 nodule. FNA is advised. NODULE 2: Location: Left mid Size: 1.8 x 1.2 x 1.5 cm (previously 2.4 x 1.4 x 1.9 cm) Characteristics: Composition: Solid or almost completely solid, 2 points Echogenicity: Very hypoechoic, 3 points Shape: Ycjmy-ksld-czgy, 0 points Margin: Smooth, 0 points Echogenic foci (add points for all that apply): Macrocalcifications, 1 point Internal vascularity: absent Interval growth: No significant growth given differences in technique TI-RADS Category: TR4 ACR Recommendation: TI-RADS 4 nodule. FNA is recommended. NODULE 3: Location: Left lower pole Size: 3.6 x 2.5 x 2.8 cm (previously 2.5 x 1.9 x 2.6 cm) Characteristics: Composition: Solid or almost completely solid, 2 points Echogenicity: Peripherally isoechoic with hypoechoic center, 2 points Shape: Ueeth-vutl-nmbh, 0 points Margin: Smooth, 0 points Echogenic foci (add points for all that apply): None, 0 points Internal vascularity: absent Interval growth: Significant interval growth (20% increase in at least two nodule dimensions and a minimal increase of 2 mm, or a 50% or greater increase in volume). TI-RADS Category: TR4 ACR Recommendation: TI-RADS 4 nodule. FNA is recommended. Patient had a fine-needle aspiration of both the left and right side done last year which came back benign. However the left inferior 1 has grown significantly The patient is being seen by me today at the request of Dr. Park for my opinion and advice regarding Nontoxic multinodular goiter (primary encounter diagnosis) Thyroid nodule. PAST MEDICAL HISTORY Diagnosis Date Allergic rhinitis, cause unspecified Anxiety state, unspecified Arthritis Backache, unspecified BPH (benign prostatic hyperplasia) Essential hypertension, benign Headache(784.0) Hypertrophy of prostate without urinary obstruction and other lower urinary tract symptoms (LUTS) Nontoxic uninodular goiter Olecranon bursitis Other and unspecified hyperlipidemia Other chronic nonalcoholic liver disease Shortness of breath Symptom of bladder outlet obstruction Unspecified hemorrhoids with other complication Unspecified hereditary and idiopathic peripheral neuropathy Urine retention PAST SURGICAL HISTORY Procedure Laterality Date CHOLECYSTECTOMY HX 2002 COLONOSCOPY 2004 COLONOSCOPY 2019 THYROID FINE NEEDLE ASPIRATION 07/29/2023 Left midpole and left lower pole of the thyroid Current Outpatient Medications Medication Sig amLODIPine (NORVASC) 5 mg tablet Take 1 tablet by mouth once daily. azelastine 0.1% nasal spray 2 Sprays two times a day. fluticasone propionate (FLONASE NASAL) Use in the nose two times a day. finasteride (PROSCAR) 5 mg tablet Take 1 tablet by mouth once daily. famotidine (PEPCID) 20 mg tablet Take 1 tablet by mouth at bedtime as needed. tamsulosin (FLOMAX) 0.4 mg Take 1 capsule by mouth daily at bedtime. rosuvastatin (CRESTOR) 5 mg tablet Take 1 tablet by mouth daily at bedtime. semaglutide (OZEMPIC) 0.25 mg or 0.5 mg (2 mg/3 mL) pen Inject 0.5 mg subcutaneously one time a week. Fluocinolone Acetonide 0.01 % external oil Apply 0.1 % to affected area every 2 weeks. Zinc 50 mg tab Take 22 mg by mouth once daily. ketoconazole (NIZORAL) 2 % shampoo Apply to affected area as directed. MULTI-VITAMIN ORAL Take by mouth once daily. Ascorbic Acid (VITAMIN C) 1,000 mg tablet Take 1,000 mg by mouth once daily. Cholecalciferol, Vitamin D3, (VITAMIN D) 1,000 unit cap Take 1,000 Units by mouth once daily. [place]-3 Fatty Acids-Vitamin E (FISH OIL) 1,000 mg cap Take 1 capsule by mouth once daily. No current facility-administered medications for this visit. ALLERGIES: Lisinopril and Losartan PERSONAL HISTORY: Social History Tobacco Use Smoking status: Former Current packs/day: 0.00 Types: Cigarettes Quit date: 06/24/1997 Years since quittin.4 Smokeless tobacco: Never Vaping Use Vaping status: Never Used Substance Use Topics Alcohol use: Yes Alcohol/week: 7.0 standard drinks of al (more content not included)...[facility]06-03-2025 History of Present illness Narrative* Vish Peterson MD - 11/24/2024 1:32 PM EDT HISTORY AND PHYSICAL Abisai Araya 1955 REFERRING PHYSICIAN: Daria Park APRN.PEST CONTROL OPERATOR CHIEF COMPLAINT: Thyroid Nodule (Has, three nodules on his thyroid, has had for years.) HPI: The patient is a 69 year old male with a complaint of evaluation of an abnormal thyroid ultrasound. NODULE 1: Location: Right mid Size: 1.2 x 0.8 x 0.9 cm Characteristics: Composition: Solid or almost completely solid, 2 points Echogenicity: Hypoechoic, 2 points Shape: Jkbki-ljgn-hqhq, 0 points Margin: Smooth, 0 points Echogenic foci (add points for all that apply): Punctate echogenic foci, 3 points Internal vascularity: absent Interval growth: Grossly similar but not discretely measured on the prior study TI-RADS Category: TR5 ACR Recommendation: TI-RADS 5 nodule. FNA is advised. NODULE 2: Location: Left mid Size: 1.8 x 1.2 x 1.5 cm (previously 2.4 x 1.4 x 1.9 cm) Characteristics: Composition: Solid or almost completely solid, 2 points Echogenicity: Very hypoechoic, 3 points Shape: Ohiuy-bcud-jnjf, 0 points Margin: Smooth, 0 points Echogenic foci (add points for all that apply): Macrocalcifications, 1 point Internal vascularity: absent Interval growth: No significant growth given differences in technique TI-RADS Category: TR4 ACR Recommendation: TI-RADS 4 nodule. FNA is recommended. NODULE 3: Location: Left lower pole Size: 3.6 x 2.5 x 2.8 cm (previously 2.5 x 1.9 x 2.6 cm) Characteristics: Composition: Solid or almost completely solid, 2 points Echogenicity: Peripherally isoechoic with hypoechoic center, 2 points Shape: Tvmkc-iego-eysq, 0 points Margin: Smooth, 0 points Echogenic foci (add points for all that apply): None, 0 points Internal vascularity: absent Interval growth: Significant interval growth (20% increase in at least two nodule dimensions and a minimal increase of 2 mm, or a 50% or greater increase in volume). TI-RADS Category: TR4 ACR Recommendation: TI-RADS 4 nodule. FNA is recommended. Patient had a fine-needle aspiration of both the left and right side done last year which came backbenign. However the left inferior 1 has grown significantly The patient is being seen by me today at the request of Dr. Park for my opinion and advice regarding Nontoxic multinodular goiter (primary encounter diagnosis) Thyroid nodule. PAST MEDICAL HISTORY Diagnosis Date Allergic rhinitis, cause unspecified Anxiety state, unspecified Arthritis Backache, unspecified BPH (benign prostatic hyperplasia) Essential hypertension, benign Headache(784.0) Hypertrophy of prostate without urinary obstruction and other lower urinary tract symptoms (LUTS) Nontoxic uninodular goiter Olecranon bursitis Other and unspecified hyperlipidemia Other chronic nonalcoholic liver disease Shortness of breath Symptom of bladder outlet obstruction Unspecified hemorrhoids with other complication Unspecified hereditary and idiopathic peripheral neuropathy Urine retention PAST SURGICAL HISTORY Procedure Laterality Date CHOLECYSTECTOMY HX 2002 COLONOSCOPY 2004 COLONOSCOPY 2019 THYROID FINE NEEDLE ASPIRATION 07/29/2023 Left midpole and left lower pole of the thyroid Current Outpatient Medications Medication Sig amLODIPine (NORVASC) 5 mg tablet Take 1 tablet by mouth once daily. azelastine 0.1% nasal spray 2 Sprays two times a day. fluticasone propionate (FLONASE NASAL) Use in the nose two times a day. finasteride (PROSCAR) 5 mg tablet Take 1 tablet by mouth once daily. famotidine (PEPCID) 20 mg tablet Take 1 tablet by mouth at bedtime as needed. tamsulosin (FLOMAX) 0.4 mg Take 1 capsule by mouth daily at bedtime. rosuvastatin (CRESTOR) 5 mg tablet Take 1 tablet by mouth daily at bedtime. semaglutide (OZEMPIC) 0.25 mg or 0.5 mg (2 mg/3 mL) pen Inject 0.5 mg subcutaneously one time a week. Fluocinolone Acetonide 0.01 % external oil Apply 0.1 % to affected area every 2 weeks. Zinc 50 mg tab Take 22 mg by mouth once daily. ketoconazole (NIZORAL) 2 % shampoo Apply to affected area as directed. MULTI-VITAMIN ORAL Take by mouth once daily. Ascorbic Acid (VITAMIN C) 1,000 mg tablet Take 1,000 mg by mouth once daily. Cholecalciferol, Vitamin D3, (VITAMIN D) 1,000 unit cap Take 1,000 Units by mouth once daily. [place]-3 Fatty Acids-Vitamin E (FISH OIL) 1,000 mg cap Take 1 capsule by mouth once daily. No current facility-administered medications for this visit. ALLERGIES: Lisinopril and Losartan PERSONAL HISTORY: Social History Tobacco Use Smoking status: Former Current packs/day: 0.00 Types: Cigarettes Quit date: 06/24/1997 Years since quittin.4 Smokeless tobacco: Never Vaping Use Vaping status: Never Used Substance Use Topics Alcohol use: Yes Alcohol/week: 7.0 standard drinks of alcohol Types: 4 Glasses of wine, 1 Cans of beer, 1 Shots of liquor, 1 Standard drinks or equivalent per week Drug use: Not Currently Types: Marijuana FAMILY HISTORY: FAMILY HISTORY Problem Relation Age of Onset Goiter Mother Alcohol/Drug Father Diabetes Father Coronary Artery Disease Father Heart Father Hypertension Father Lipids Father No Known Problems Sister No Known Problems Sister No Known Problems Brother No Known Problems Maternal Grandmother No Known Problems Maternal Grandfather No Known Problems Paternal Grandmother Lung Cancer Paternal Grandfather REVIEW OF SYMPTOMS: The review of systems data was entered by the nurse and reviewed by me There are no exam notes on file for this visit. PHYSICAL EXAMINATION: General: The patient is 69 year old male, well nourished, well hydrated in no acute distress. The patient is oriented to time, place, and person. VITALS: Blood pressure 146/80, pulse 75, resp. rate 14, weight (!) 136.9 kg (301 lb 12.8 oz), SpO2 98%. HEENT: Normal cephalic, ataumatic, pupils are equally round, sclera are anicteric, mucous membranesare moist, oropharynx is clear. Neck has no masses, asymmetry or lymphadenopathy. Thyroid is unremarkable. Respiratory: Clear to auscultation and percussion. Normal respiratory excursion and pattern. Cardiac: Examination is regular rate and rhythm. Abdominal exam: Soft, nontender, with no palpable masses. No hepatosplenomegaly. No palpable hernias. Rectal exam: exam deferred Extremities: no clubbing, cyanosis or edema. No adenopathy. Other: LABORATORY VALUES: As Noted RADIOLOGIC STUDIES: As Noted Assessment IMPRESSION: Nontoxic multinodular goiter (primary encounter diagnosis) Thyroid nodule PLAN: Going to get him scheduled to have a repeat fine-needle aspiration of the left inferior thyroid nodule in [place] Diagnoses: (E04.2) Nontoxic multinodular goiter (primary encounter diagnosis) (E04.1) Thyroid nodule My findings have been communicated to Dr. Park via shared medical record. This note will be forwarded to Dr. Marquita Calvert MD. Return to Clinic: The patient is instructed to follow-up with me after the testing has been completed. Vish Peterson III, MD * Heather Groves RN - 11/24/2024 11:54 AM EDT REVIEW OF SYSTEMS: General: The patient denies fatigue, denies weight loss, denies weight gain, denies feeling hot, and denies feelings of cold. Eyes: The patient denies glaucoma, denies eye injury/surgery, does not wear glasses or contacts. Ear/Nose/Throat: The patient denies allergies, denies hayfever, denies ear infections, and denies bloody noses. Cardiovascular: The patient denies chest pain, denies heart disease, denies high blood pressure,denies cardiac stent, denies prior heart attack, denies irregular heart beat, denies high cholesterol, denies poor circulation, denies heart failure, other cardiac issues, denies claudication, denies cold feet, denies peripheral arterial stent. Respiratory: The patient denies tuberculosis, denies pneumonia, denies frequent cough, denies pulmonary embolism, denies shortness of breath, and denies coughing up blood. Gastrointestinal: The patient denies difficulty swallowing, denies acid reflux, denies ulcers, denies vomiting, denies jaundice/hepatitis, denies gallbladder problems, denies black or tarry stools, denies hemorrhoids, denies bleeding from rectum, denies diverticulitis, notes constipation, denies diarrhea, denies loss of stool control, and denies hernias. Kidney/Bladder: The patient denies kidney stones, denies urine infections, and denies bloody urine. Skin: The patient denies a history of skin cancer, denies bleeding/changing moles, and denies a history of skin rash. Neurologic: The patient denies a history of epilepsy/convulsions, denies headaches, denies head/spinal injuries, and denies stroke/TIA. Psychiatric: The patient denies psychiatric medications, denies depression, and denies voices, denies substance abuse. Endocrine: The patient denies thyroid disorders, notes diabetes, and denies hormonal problems. Hematologic: The patient denies a history of bruising, denies bleeding, and denies anemia, denies blood clots. Infections: The patient denies a history of measles and mumps, denies rheumatic fever, and denies sexually transmitted diseases. Musculoskeletal: The patient denies back pain/injury, notes back problems, denies sciatica, notes knee/foot trouble, denies arthritis, or denies gout. When was patient's last Mammogram screening? N/A Last Colonoscopy: 2019 Heather Groves RN documented in [facility] NoteHNO ID: [id number] Author: HEATHER GROVES RN Service: ? Author Type: Registered Nurse Type: Progress Notes Filed: 11/24/2024 13:36 Note Text: REVIEW OF SYSTEMS: General: The patient denies fatigue, denies weight loss, denies weight gain, denies feeling hot, and denies feelings of cold. Eyes: The patient denies glaucoma, denies eye injury/surgery, does not wear glasses or contacts. Ear/Nose/Throat: The patient denies allergies, denies hayfever, denies ear infections, and denies bloody noses. Cardiovascular: The patient denies chest pain, denies heart disease, denies high blood pressure,denies cardiac stent, denies prior heart attack, denies irregular heart beat, denies high cholesterol, denies poor circulation, denies heart failure, other cardiac issues, denies claudication, denies cold feet, denies peripheral arterial stent. Respiratory: The patient denies tuberculosis, denies pneumonia, denies frequent cough, denies pulmonary embolism, denies shortness of breath, and denies coughing up blood. Gastrointestinal: The patient denies difficulty swallowing, denies acid reflux, denies ulcers, denies vomiting, denies jaundice/hepatitis, denies gallbladder problems, denies black or tarry stools, denies hemorrhoids, denies bleeding from rectum, denies diverticulitis, notes constipation, denies diarrhea, denies loss of stool control, and denies hernias. Kidney/Bladder: The patient denies kidney stones, denies urine infections, and denies bloody urine. Skin: The patient denies a history of skin cancer, denies bleeding/changing moles, and denies a history of skin rash. Neurologic: The patient denies a history of epilepsy/convulsions, denies headaches, denies head/spinal injuries, and denies stroke/TIA. Psychiatric: The patient denies psychiatric medications, denies depression, and denies voices, denies substance abuse. Endocrine: The patient denies thyroid disorders, notes diabetes, and denies hormonal problems. Hematologic: The patient denies a history of bruising, denies bleeding, and denies anemia, denies blood clots. Infections: The patient denies a history of measles and mumps, denies rheumatic fever, and denies sexually transmitted diseases. Musculoskeletal: The patient denies back pain/injury, notes back problems, denies sciatica, notes knee/foot trouble, denies arthritis, or denies gout. When was patient's last Mammogram screening? N/A Last Colonoscopy: 2019 [facility] NoteHNO ID: [id number] Author: RIMA BOWEN RN Service: ? Author Type: Registered Nurse Type: Progress Notes Filed: 11/09/2024 14:24 Note Text: CDM Care Path Telephonic Outreach Provider Action/FYI N/A Patient identified by Name and Date of . Discussed care with patient. CDM Update Spoke with the pt. At this time. Things have been going good for him He had a visit with his HORSE SHOW JUDGE to review all labs and discuss everything. Sathish is on 0.25 of ozempic currently- Would like to talk about increasing but wants to get his bowels in check first as he has been struggling with constipation. He is taking colace and a probiotic to help him with his bowel regimen He did not have this issue with the trulicity before Also doing an herbal colon cleanse Sathish checks his blood sugars about 3X/week at home and is usually between 130-150. These readings are a little higher than he would like them to be. He checks his blood pressures several days a week as well but he does feel his blood pressure monitor is old and not as accurate anymore. He said it usually runs much higher at home than in the office. Sathish is asking to keep our calls monthly at this time as he has a lot going on and feels we can consolidate our calls although he is very appreciative of the check ins. Will plan our next call accordingly. Program Details Chronic Disease Management Status: Enrolled Effective Dates: 10/05/2024 - present Responsible Staff: Rima Bowen RN Support and Services: Hypertension, Diabetes Program Goals Targets Target Due Completed Completed By Outcome Comprehensive Diabetes education provided 01/04/2025 -- -- -- Comprehensive HTN education provided 01/04/2025 -- -- -- Patient-stated goal addressed (add comment) 01/04/2025 -- -- -- I would like to continue to walk a few miles a week outside Annual Medicare Wellness visit addressed 01/04/2025 10/23/2024 Rima Bowen RN Complete/Scheduled Biannual PCP visit addressed 01/04/2025 10/23/2024 Rima Bowen RN Complete/Scheduled Diabetes lab care gaps addressed 01/04/2025 10/23/2024 Rima Bowen RN Complete/Scheduled HTN lab care gaps addressed 01/04/2025 10/23/2024 Rima Bowen RN Complete/Scheduled General education provided (managing stress, where to go/how to contact, etc.) 11/04/2024 10/05/2024 Rima Bowen RN Complete H@H # given Intake assessments completed: ADLs, Fall Risk, SDOH 11/04/2024 10/05/2024 Rima Bowen RN Complete Assessments CDM Assessment Medications: Do you have any questions about taking your medications or which medications you should be taking?: No Do you need any medication refills at this time, including any of the medication you might take only when needed?: No Social: It can be normal to feel anxious or down during a time like this. Would you like to talk to a mental health professional about how you have been feeling?: No Symptoms: Are you experiencing any new or worsening symptoms that you need to talk about today?: No ADLs No documentation this encounter Fall Risk No documentation this encounter SDOH No documentation this encounter Interventions The following were addressed during this visit: - Month 1: Review Individual Blood Pressure Target (If established by provider) - Month 1: Provide HTN Education: What is High Blood Pressure - Month 1: Provide Diabetes Education: How to: Blood Sugar Monitoring - Month 1: Provide General Education: Managing Stress AND Anxiety - Bi-Weekly Outreach (Recurring) Disposition Based on tongue and groove machine operator, the following disposition is advised: No action needed Rima Bowen RN November 09, 2024 2:09 [facility]05-19-2025 History of Present illness Narrative* Rima Bowen RN - 11/09/2024 2:09 PM EDT Images from the original note were not included. CDM Care Path Telephonic Outreach Provider Action/FYI N/A Patient identified by Name and Date of . Discussed care with patient. CDM Update Spoke with the pt. At this time. Things have been going good for him He had a visit with his HORSE SHOW JUDGE to review all labs and discuss everything. Sathish is on 0.25 of ozempic currently- Would like to talk about increasing but wants to get his bowels in check first as he has been struggling with constipation. He is taking colace and a probiotic to help him with his bowel regimen He did not have this issue with the trulicity before Also doing an herbal colon cleanse Sathish checks his blood sugars about 3X/week at home and is usually between 130-150. These readings are a little higher than he would like them to be. He checks his blood pressures several days a week as well but he does feel his blood pressure monitor is old and not as accurate anymore. He said it usually runs much higher at home than in the office. Sathish is asking to keep our calls monthly at this time as he has a lot going on and feels we can consolidate our calls although he is very appreciative of the check ins. Will plan our next call accordingly. Program Details Chronic Disease Management Status: Enrolled Effective Dates: 10/05/2024 - present Responsible Staff: Rima Bowen RN Support and Services: Hypertension, Diabetes Program Goals Targets Target Due Completed Completed By Outcome Comprehensive Diabetes education provided 01/04/2025 -- -- -- Comprehensive HTN education provided 01/04/2025 -- -- -- Patient-stated goal addressed (add comment) 01/04/2025 -- -- -- I would like to continue to walk a few miles a week outside Annual Medicare Wellness visit addressed 01/04/2025 10/23/2024 Rima Bowen RN Complete/Scheduled Biannual PCP visit addressed 01/04/2025 10/23/2024 Rima Bowen RN Complete/Scheduled Diabetes lab care gaps addressed 01/04/2025 10/23/2024 Rima Bowen RN Complete/Scheduled HTN lab care gaps addressed 01/04/2025 10/23/2024 Rmia Bowen RN Complete/Scheduled General education provided (managing stress, where to go/how to contact, etc.) 11/04/2024 10/05/2024 Rima Bowen RN Complete H@H # given Intake assessments completed: ADLs, Fall Risk, SDOH 11/04/2024 10/05/2024 Rima Bowen RN Complete Assessments CDM Assessment Medications: Do you have any questions about taking your medications or which medications you should be taking?:No Do you need any medication refills at this time, including any of the medication you might take only when needed?: No Social: It can be normal to feel anxious or down during a time like this. Would you like to talk to a mental health professional about how you have been feeling?: No Symptoms: Are you experiencing any new or worsening symptoms that you need to talk about today?: No ADLs No documentation this encounter Fall Risk No documentation this encounter SDOH No documentation this encounter Interventions The following were addressed during this visit: - Month 1: Review Individual Blood Pressure Target (If established by provider) - Month 1: Provide HTN Education: What is High Blood Pressure - Month 1: Provide Diabetes Education: How to: Blood Sugar Monitoring - Month 1: Provide General Education: Managing Stress & Anxiety - Bi-Weekly Outreach (Recurring) Disposition Based on tongue and groove machine operator, the following disposition is advised: No action needed Rima Bowen RN November 09, 2024 2:09 PM documented [facility] NotePatient Outreach ([facility]) ABISAI ARAYA ([id number]) 1955 M Date Time Provider Department 11/09/24 RIMA BOWEN During your visit today, we recorded the following information about you: Rima Bowen RN 11/09/2024 2:24 PM Signed CD Care Path Telephonic Outreach Provider Action/PAULINE N/A Patient identified by Name and Date of . Discussed care with patient. CDM Update Spoke with the pt. At this time. Things have been going good for him He had a visit with his HORSE SHOW JUDGE to review all labs and discuss everything. Sathish is on 0.25 of ozempic currently- Would like to talk about increasing but wants to get his bowels in check first as he has been struggling with constipation. He is taking colace and a probiotic to help him with his bowel regimen He did not have this issue with the trulicity before Also doing an herbal colon cleanse Sathish checks his blood sugars about 3X/week at home and is usually between 130-150. These readings are a little higher than he would like them to be. He checks his blood pressures several days a week as well but he does feel his blood pressure monitor is old and not as accurate anymore. He said it usually runs much higher at home than in the office. Sathish is asking to keep our calls monthly at this time as he has a lot going on and feels we can consolidate our calls although he is very appreciative of the check ins. Will plan our next call accordingly. Program Details Chronic Disease Management Status: Enrolled Effective Dates: 10/05/2024 - present Responsible Staff: Rima Bowen RN Support and Services: Hypertension, Diabetes Program Goals Targets Target Due Completed Completed By Outcome Comprehensive Diabetes education provided 01/04/2025 -- -- -- Comprehensive HTN education provided 01/04/2025 -- -- -- Patient-stated goal addressed (add comment) 01/04/2025 -- -- -- I would like to continue to walk a few miles a week outside Annual Medicare Wellness visit addressed 01/04/2025 10/23/2024 Rima Bowen RN Complete/Scheduled Biannual PCP visit addressed 01/04/2025 10/23/2024 Rima Bowen RN Complete/Scheduled Diabetes lab care gaps addressed 01/04/2025 10/23/2024 Rima Bowen RN Complete/Scheduled HTN lab care gaps addressed 01/04/2025 10/23/2024 Rima Bowen RN Complete/Scheduled General education provided (managing stress, where to go/how to contact, etc.) 11/04/2024 10/05/2024 Rima Bowen RN Complete H@H # given Intake assessments completed: ADLs, Fall Risk, SDOH 11/04/2024 10/05/2024 Rima Bowen RN Complete Assessments CDM Assessment Medications: Do you have any questions about taking your medications or which medications you should be taking?: No Do you need any medication refills at this time, including any of the medication you might take only when needed?: No Social: It can be normal to feel anxious or down during a time like this. Would you like to talk to a mental health professional about how you have been feeling?: No Symptoms: Are you experiencing any new or worsening symptoms that you need to talk about today?: No ADLs No documentation this encounter Fall Risk No documentation this encounter SDOH No documentation this encounter Interventions The following were addressed during this visit: - Month 1: Review Individual Blood Pressure Target (If established by provider) - Month 1: Provide HTN Education: What is High Blood Pressure - Month 1: Provide Diabetes Education: How to: Blood Sugar Monitoring - Month 1: Provide General Education: Managing Stress AND Anxiety - Bi-Weekly Outreach (Recurring) Disposition Based on tongue and groove machine operator, the following disposition is advised: No action needed Rima Bowen RN November 09, 2024 2:09 PM Allergies As of Date: 11/09/2024 Noted Allergy Reaction LISINOPRIL 07/25/2023 2 - Rash LOSARTAN 12/07/2022 8 - GI Upset Comments: Constipation Date Reviewed: 10/28/2024 Reviewed by: Eloise Meredith LPN - Fully Assessed Prescriptions as of 11/09/2024 - amLODIPine (NORVASC) 5 mg tablet Take 1 tablet by mouth once daily. - azelastine 0.1% nasal spray 2 Sprays two times a day. - fluticasone propionate (FLONASE NASAL) Use in the nose two times a day. - finasteride (PROSCAR) 5 mg tablet Take 1 tablet by mouth once daily. - famotidine (PEPCID) 20 mg tablet Take 1 tablet by mouth at bedtime as needed. - tamsulosin (FLOMAX) 0.4 mg Take 1 capsule by mouth daily at bedtime. - rosuvastatin (CRESTOR) 5 mg tablet Take 1 tablet by mouth daily at bedtime. - semaglutide (OZEMPIC) 0.25 mg or 0.5 mg (2 mg/3 mL) pen Inject 0.5 mg subcutaneously one time a week. - Fluocinolone Acetonide 0.01 % external oil Apply 0.1 % to affected area every 2 weeks. - Zinc 50 mg tab Take 22 mg by mouth once daily. - ketoconazole (NIZORAL) 2 % shampoo Apply to affected area as directed. - MULTI-VITAMIN O (more content not included)...[facility] 11-06-2024 Telephone encounter Note* Telephone Encounter - Daria Park APRN.CNP - 11/06/2024 3:18 PM EDT See my chart encounter Daria Park APRN.CNP [facility]05-16-2025 Miscellaneous Notes* Telephone Encounter - Daria Park APRN.CNP - 11/06/2024 3:18 PM EDT See my chart encounter Daria Park APRN.CNP * Telephone Encounter - Janessa Biggs RN - 11/02/2024 3:57 PM EDT Pt called and is notified of providers results and instructions. Pt voices understanding, but states they did 8 biopsies so he would thinks they would have done aspirations on all three of them. He states for now he will set up appointment with General Surgery, but he will get in contact with provider to make sure it wasn't done. Transferred to scheduled to set up appt with General Surgery. Janessa Biggs RN * Telephone Encounter - Nadiya Lebron MA - 11/02/2024 10:18 AM EDT Left message for return call. * Telephone Encounter - Daria Park APRN.CNP - 11/02/2024 8:08 AM EDT Only 2 of the 3 were recommended for fine needle aspiration last year and this year the third is recommended as well. I am going to send him back to general surgery since the third nodule was not aspirated last year. Thank you Daria Park APRN.PEST CONTROL OPERATOR documented in this encounterHigh[facility]05-[facility] Telephone encounter Note * Telephone Encounter - Chetna Martino LPN - 11/04/2024 3:26 PM EDT Patient notified, he will contact [facility]. Duplicate request. Amlodipine refilled 10/21/2024, x90 tablets, 3 refills. Chetna Martino LPN [facility]05-14-2025 Miscellaneous Notes* Telephone Encounter - Chetna Martino LPN - 11/04/2024 3:26 PM EDT Patient notified, he will contact [facility]. Duplicate request. Amlodipine refilled 10/21/2024, x90 tablets, 3 refills. Chetna Martino LPN documented in this encounterHigh[facility]05-12-2025 Telephone encounter Note * Telephone Encounter - Janessa Biggs RN - 11/02/2024 3:57 PM EDT Pt called and is notified of providers results and instructions. Pt voices understanding, but states they did 8 biopsies so he would thinks they would have done aspirations on all three of them. He states for now he will set up appointment with General Surgery, but he will get in contact with provider to make sure it wasn't done. Transferred to scheduled to set up appt with General Surgery. Janessa Biggs RN [facility]05-12-2025 Telephone encounter Note* Telephone Encounter - Nadiya Lberon MA - 11/02/2024 10:18 AM EDT Left message for return call. [facility]05-12-2025 Telephone encounter Note* Telephone Encounter - Daria Park APRN.CNP - 11/02/2024 8:08 AM EDT Only 2 of the 3 were recommended for fine needle aspiration last year and this year the third is recommended as well. I am going to send him back to general surgery since the third nodule was not aspirated last year. Thank you Daria Park APRN.PAT [facility]05-07-2025 History of Present illness Narrative* Enrico Hollis PA-C - 10/28/2024 1:30 PM EDTAssociated Order(s): Large Joint Arthro/Inj: L knee joint Post-Procedure Diagnose(s): Primary osteoarthritis of left knee Established Patient Ortho Knee Consult Note ASSESSMENT AND PLAN Sathish is a 69-year-old male who presents the office today for left knee pain. He states that he has an appointment in February with Dr. Jerry Suh to discuss possible knee replacement surgery. Patient would like to have this done around July or August of next year. He is here today requesting cortisone injection. He has not had any prior injections in this knee. No other concerns today. Follow-up with Dr. Suh in February for surgical consult. Impression: Left Knee Severe Degenerative Osteoarthritis, Primary After discussion with Abisai Araya, continued non-operative management of injection(s) was chosen. The patient currently has had six months of unsuccessful non-operative treatment as outlined in the HPI below and progressive symptoms. Progressive Symptoms Include: Pain worsened by weight bearing. The patient has been ordered: No orders placed today. CONSULTS: Patient does not require consults for optimization at this time. ACTIVE PROBLEM LIST Nontoxic Multinodular Goiter Mixed Hyperlipidemia Essential Hypertension Hypertriglyceridemia Morbid Obesity (Hcc) Prostate Cancer Screening Type 2 Diabetes Mellitus With Peripheral Neuropathy (Hcc) Chronic Bronchitis, Unspecified Chronic Bronchitis Type (Hcc) SUBJECTIVE CHIEF COMPLAINT: Knee Pain HPI: Abisai Araya is a 69 year old patient here for evaluation and management of left knee pain. Patient has had progressive problems with the knee(s) most of the day over the past 1 year(s) interfering with activities which include walking. The problem began limiting activities 1-3 years ago. Currently the pain in the joint is rated at 4 out of 10 with minimal activity. The pain is chronic and constant and is located along the inside aspect and in the front. The pain is described as aching, dull, and sharp. Relieving factors include rest and over the counter medication. There is no specific incident that brought about this pain. Patient has no additional complaints. Total Joint Athroplasty - Risk Calculator PREVIOUS TREATMENTS: Attempted Weight Loss Medical Treatments: OTC NSAIDS for 3 Months or Greater (Ibuprofen) Risk Factors for Total Joint Arthroplasty (TJA) Obesity High Risk High: BMI > 40 Moderate: BMI 30-40 Normal: BMI < 30 Diabetes Moderate Risk High: A1C > 8 Moderate: A1C 7-8 Normal: A1C < 7 Smoking normal High: Current smoker Normal: Non smoker Anemia normal High: Hgb < 13 (men) N/A: Hgb >= 13 (men) Nutritional Status normal High: Alb<3.4, or prealb<15, or serum transferrin<200, or total lymphocyte count<1500 Normal: normal labs COPD normal High: dx of COPD Normal: no dx of COPD MRSA normal High: dx of MRSA or positive lab test Normal: no MRSA CKD normal High: eGFR<60 Moderate: eGFR 60-89 Normal: eGFR>90 Hx of DVT / PE normal High: dx of DVT / PE Normal: no dx of DVT / PE Narcotics Use normal High:NarxCare >=300 Moderate: 100-299 Normal: 0-99 REYNALDO normal High: dx of REYNALDO N/A: no dx of REYNALDO Coagulation normal High:PT Sec>13, or PT INR>1.3, or APTT>32.4, or Plt ct<150k Moderate: on anticoag but none of the above Normal: none Obesity: Weight management and obesity medicine (bariatric) program recommended BMI Readings from Last 3 Encounters: 10/21/24 : 40.96 kg/m 09/14/24 : 40.82 kg/m 08/24/24 : 40.69 kg/m Diabetes: Well controlled - Abisai has been diagnosed with Type 2 Diabetes. His last Hemoglobin A1C was 6.5 - 10/15/2024. Pt is followed by Daria Park for Type 2 Diabetes - last seen on 10/21/2024. Other Risk Factors None PHYSICAL EXAM: There were no vitals taken for this visit. All other systems deferred. GENERAL: Appears healthy, well-nourished, no deformities. HABITUS: Obese GAIT: Antalgic to the left KNEE EXAM: Left: Alignment: Varus deformity, Correctable Range of motion is lacking a few degrees secondary to tight hamstrings degrees in extension and 120 degrees of flexion. Extension La degrees Pain with ROM: Yes Effusion: Slight Tender to the palpation of Medial femoral condyle and Medial joint line Pain with patellar compression: No Stability: Anterior/Posterior stable and Varus/Valgus stable Hip Exam: flexion to 100+ degrees, full extension, internal/external rotation adequate, and no painwith log roll Neurovascular Status: Sensation Intact, Moves foot and ankle up & down, and 2+ dorsalis pedis DATA: Diagnostic tests reviewed for today's visit: Left knee X-Ray: Severe tri-compartmental degeneration and Bone on bone contact of the medial jointspace(s) Large Joint Arthro/Inj: L knee joint 10/28/2024 2:01 PM The procedure site was prepped in the usual sterile fashion. Site: L knee joint Medications: 80 mg triamcinolone acetonide 40 mg/mL Anesthetics: 3 mL lidocaine (PF) 10 mg/mL (1 %) Outcome: Tolerated well, no immediate complications Post-injection instructions were reviewed with the patient and the patient voiced understanding of these instructions. Informed Consent Consent Obtained: Verbal [place] Protocol A moment to CARE was completed. SIGN IN Personnel directly involved with the procedure wore the appropriate PPE. Special Equipment: N/A Patient/Surrogate Stated/Verified: Patient name, Date of , Relevant allergies and Intended procedure TIME OUT Relevant labs, photos, and/or imaging studies have been reviewed. Intended patient and procedure match source documents. Consent obtained and matches the intended procedure. Correct side/site marked and visible. Medications required for procedure verified. No fire risk assessment and interventions applicable. No implant(s) inserted. SIGN OUT No specimen collected. All instruments, equipment, possible retained foreign bodies accounted for. The post-procedure POC has been communicated to the patient or surrogate. No post-procedure POC communication to the patient's multidisciplinary team (including the bedside nurse for hospitalized patients) applicable. I spent a total of approximately 25 minutes on the date of the service which included preparing to see the patient, [id number] patient care, completing clinical documentation, obtaining and/or reviewing separately obtained history, performing a medically appropriate examination, counseling and educating the patient/family/caregiver, ordering medications, tests, or procedures, independently interpreting results (not separately reported), communicating results to the patient/family/caregiver, and care coordination (not separately reported). SIGNATURE: Enrico Hollis PA-C PATIENT NAME: Abisai Araya DATE: October 28, 2024 TIME: 7:52 AM documented in this encounterHighland District Hospital05-07-2025 NoteHNO ID: [id number] Author: ENRICO HOLLIS PA-C Service: ? Author Type: Physician Emergency Service Restorer Type: Progress Notes Filed: 10/28/2024 14:23 Note Text: Established Patient Ortho Knee Consult Note ASSESSMENT AND PLAN Sathish is a 69-year-old male who presents the office today for left knee pain. He states that he has an appointment in February with Dr. Jerry Suh to discuss possible knee replacement surgery. Patient would like to have this done around July or August of next year. He is here today requesting cortisone injection. He has not had any prior injections in this knee. No other concerns today. Follow-up with Dr. Suh in February for surgical consult. Impression: Left Knee Severe Degenerative Osteoarthritis, Primary After discussion with Abisai Araya, continued non-operative management of injection(s) was chosen. The patient currently has had six months of unsuccessful non-operative treatment as outlined in the HPI below and progressive symptoms. Progressive Symptoms Include: Pain worsened by weight bearing. The patient has been ordered: No orders placed today. CONSULTS: Patient does not require consults for optimization at this time. ACTIVE PROBLEM LIST Nontoxic Multinodular Goiter Mixed Hyperlipidemia Essential Hypertension Hypertriglyceridemia Morbid Obesity (Hcc) Prostate Cancer Screening Type 2 Diabetes Mellitus With Peripheral Neuropathy (Hcc) Chronic Bronchitis, Unspecified Chronic Bronchitis Type (Hcc) SUBJECTIVE CHIEF COMPLAINT: Knee Pain HPI: Abisai Araya is a 69 year old patient here for evaluation and management of left knee pain. Patient has had progressive problems with the knee(s) most of the day over the past 1 year(s) interfering with activities which include walking. The problem began limiting activities 1-3 years ago. Currently the pain in the joint is rated at 4 out of 10 with minimal activity. The pain is chronic and constant and is located along the inside aspect and in the front. The pain is described as aching, dull, and sharp. Relieving factors include rest and over the counter medication. There is no specific incident that brought about this pain. Patient has no additional complaints. Total Joint Athroplasty - Risk Calculator PREVIOUS TREATMENTS: Attempted Weight Loss Medical Treatments: OTC NSAIDS for 3 Months or Greater (Ibuprofen) Risk Factors for Total Joint Arthroplasty (TJA) Obesity High Risk High: BMI > 40 Moderate: BMI 30-40 Normal: BMI < 30 Diabetes Moderate Risk High: A1C > 8 Moderate: A1C 7-8 Normal: A1C < 7 Smoking normal High: Current smoker Normal: Non smoker Anemia normal High: Hgb < 13 (men) N/A: Hgb >= 13 (men) Nutritional Status normal High: Alb<3.4, or prealb<15, or serum transferrin<200, or total lymphocyte count<1500 Normal: normal labs COPD normal High: dx of COPD Normal: no dx of COPD MRSA normal High: dx of MRSA or positive lab test Normal: no MRSA CKD normal High: eGFR<60 Moderate: eGFR 60-89 Normal: eGFR>90 Hx of DVT / PE normal High: dx of DVT / PE Normal: no dx of DVT / PE Narcotics Use normal High:NarxCare >=300 Moderate: 100-299 Normal: 0-99 REYNALDO normal High: dx of REYNALDO N/A: no dx of REYNALDO Coagulation normal High:PT Sec>13, or PT INR>1.3, or APTT>32.4, or Plt ct<150k Moderate: on anticoag but none of the above Normal: none Obesity: Weight management and obesity medicine (bariatric) program recommended BMI Readings from Last 3 Encounters: 10/21/24 : 40.96 kg/m? 09/14/24 : 40.82 kg/m? 08/24/24 : 40.69 kg/m? Diabetes: Well controlled - Abisai has been diagnosed with Type 2 Diabetes. His last Hemoglobin A1C was 6.5 - 10/15/2024. Pt is followed by Daria Park for Type 2 Diabetes - last seen on 10/21/2024. Other Risk Factors None PHYSICAL EXAM: There were no vitals taken for this visit. All other systems deferred. GENERAL: Appears healthy, well-nourished, no deformities. HABITUS: Obese GAIT: Antalgic to the left KNEE EXAM: Left: Alignment: Varus deformity, Correctable Range of motion is lacking a few degrees secondary to tight hamstrings degrees in extension and 120 degrees of flexion. Extension La degrees Pain with ROM: Yes Effusion: Slight Tender to the palpation of Medial femoral condyle and Medial joint line Pain with patellar compression: No Stability: Anterior/Posterior stable and Varus/Valgus stable Hip Exam: flexion to 100+ degrees, full extension, internal/external rotation adequate, and no pain with log roll Neurovascular Status: Sensation Intact, Moves foot and ankle up AND down, and 2+ dorsalis pedis DATA: Diagnostic tests reviewed for today's visit: Left knee X-Ray: Severe tri-compartmental degeneration and Bone on bone contact of the medial joint space(s) Large Joint Arthro/Inj: L knee joint 10/28/2024 2:01 PM The procedure site was prepped in the usual sterile fashion. Site: L knee joint Medications: 80 mg triamc (more content not included)...[facility]05-06-2025 History of Present illness Narrative* Ella Falcon RDMS - 10/27/2024 1:45 PM EDT Radiology Service Progress Note PATIENT NAME: Abisai Araya DATE OF SERVICE: October 27, 2024 TIME: 2:16 PM PATIENT IDENTITY VERIFICATION COMPLETED USING TWO (2) IDENTIFIERS: Name and Date of confirmedby patient verbally. FALL SCREENING: Has the patient had 2 falls in the last year or 1 fall with injury or currently using an Ambulatory Assistive Device (Walker, Cane, Wheelchair, Crutches, etc.)? No PATIENT GENDER DATA: Assigned male at PATIENT RELEVANT IMPLANT DATA REVIEWED: Not Applicable PATIENT PRESENTS WITH AN IMPLANTABLE OR ATTACHED TERRA COTTA MOLD MAKER: No RADIOLOGY DEPARTMENT: Ultrasound PERIPHERAL IV DATA: Not applicable SIGNED BY: Ella Falcon RDMS RVT October 27, 2024 2:16 PM documented in this encounterHighland District [facility] NoteHNO ID: [id number] Author: ELLA FALCON RDMS Service: ? Author Type: Tone Cabinet Assembler Type: Progress Notes Filed: 10/27/2024 14:16 Note Text: Radiology Service Progress Note PATIENT NAME: Abisai Araya DATE OF SERVICE: October 27, 2024 TIME: 2:16 PM PATIENT IDENTITY VERIFICATION COMPLETED USING TWO (2) IDENTIFIERS: Name and Date of confirmed by patient verbally. FALL SCREENING: Has the patient had 2 falls in the last year or 1 fall with injury or currently using an Ambulatory Assistive Device (Walker, Cane, Wheelchair, Crutches, etc.)? No PATIENT GENDER DATA: Assigned male at PATIENT RELEVANT IMPLANT DATA REVIEWED: Not Applicable PATIENT PRESENTS WITH AN IMPLANTABLE OR ATTACHED TERRA COTTA MOLD MAKER: No RADIOLOGY DEPARTMENT: Ultrasound PERIPHERAL IV DATA: Not applicable SIGNED BY: Ella Falcon RDMS RVT October 27, 2024 2:16 [facility]05-02-2025 NoteHNO ID: [id number] Author: RIMA BOWEN RN Service: ? Author Type: Registered Nurse Type: Progress Notes Filed: 10/23/2024 14:35 Note Text: CDM Care Path Telephonic Outreach Provider Action/FYI N/A Patient identified by Name and Date of . Discussed care with patient. CDM Update Briefly spoke with the pt. At this time- He was out at a wine bar with his but he was agreeable to talk for a few minutes. He has been doing good lately He recently went in for his Medicare Wellness visit He has been walking a few miles a week outside now that the weather is getting nicer. Last A1C was 6.5 most recently and his cholesterol levels are improving as well He is really happy with all of this and feels things are going well. Annually sees crab backer- Next visit in November I would like to continue to walk a few miles a week outside Program Details Chronic Disease Management Status: Enrolled Effective Dates: 10/05/2024 - present Responsible Staff: Rima Bowen RN Support and Services: Hypertension, Diabetes Program Goals Targets Target Due Completed Completed By Outcome Annual Medicare Wellness visit addressed 01/04/2025 -- -- -- Biannual PCP visit addressed 01/04/2025 -- -- -- Comprehensive Diabetes education provided 01/04/2025 -- -- -- Comprehensive HTN education provided 01/04/2025 -- -- -- Diabetes lab care gaps addressed 01/04/2025 -- -- -- HTN lab care gaps addressed 01/04/2025 -- -- -- Patient-stated goal addressed (add comment) 01/04/2025 -- -- -- General education provided (managing stress, where to go/how to contact, etc.) 11/04/2024 10/05/2024 Rima Bowen RN Complete H@H # given Intake assessments completed: ADLs, Fall Risk, SDOH 11/04/2024 10/05/2024 Rima Bowen RN Complete Assessments No documentation this encounter Interventions The following were addressed during this visit: - Month 3: Schedule/Order BMP Lab - Month 1: Schedule/Order HbA1C Lab - Month 1: Schedule/Order Lipid Panel Lab - Month 1: Schedule Diabetes Eye Exam - Evaluate for Referral to Pharmacy for Diabetes Medication Management - Schedule Biannual PCP Appointment - Schedule Annual Wellness Visit Rima Bowen RN October 23, 2024 2:[facility] of Present illness Narrative* Rima Bowen RN - 10/23/2024 2:25 PM EDT Images from the original note were not included. [facility] Care Path Telephonic Outreach Provider Action/FYI N/A Patient identified by Name and Date of . Discussed care with patient. [facility] Update Briefly spoke with the pt. At this time- He was out at a wine bar with his but he was agreeable to talk for a few minutes. He has been doing good lately He recently went in for his Medicare Wellness visit He has been walking a few miles a week outside now that the weather is getting nicer. Last A1C was 6.5 most recently and his cholesterol levels are improving as well He is really happy with all of this and feels things are going well. Annually sees crab backer- Next visit in November I would like to continue to walk a few miles a week outside Program Details Chronic Disease Management Status: Enrolled Effective Dates: 10/05/2024 - present Responsible Staff: Rima Bowen RN Support and Services: Hypertension, Diabetes Program Goals Targets Target Due Completed Completed By Outcome Annual Medicare Wellness visit addressed 01/04/2025 -- -- -- Biannual PCP visit addressed 01/04/2025 -- -- -- Comprehensive Diabetes education provided 01/04/2025 -- -- -- Comprehensive HTN education provided 01/04/2025 -- -- -- Diabetes lab care gaps addressed 01/04/2025 -- -- -- HTN lab care gaps addressed 01/04/2025 -- -- -- Patient-stated goal addressed (add comment) 01/04/2025 -- -- -- General education provided (managing stress, where to go/how to contact, etc.) 11/04/2024 10/05/2024 Rima Bowen RN Complete H@H # given Intake assessments completed: ADLs, Fall Risk, SDOH 11/04/2024 10/05/2024 Rima Bowen RN Complete Assessments No documentation this encounter Interventions The following were addressed during this visit: - Month 3: Schedule/Order BMP Lab - Month 1: Schedule/Order HbA1C Lab - Month 1: Schedule/Order Lipid Panel Lab - Month 1: Schedule Diabetes Eye Exam - Evaluate for Referral to Pharmacy for Diabetes Medication Management - Schedule Biannual PCP Appointment - Schedule Annual Wellness Visit Rima Bowen RN October 23, 2024 2:25 PM [facility] NotePatient Outreach ([facility]) ABISAI ARAYA ([id number]) 1955 M Date Time Provider Department 10/23/24 RIMA BOWEN [facility] During your visit today, we recorded the following information about you: Rima Bowen, KEITH 10/23/2024 2:35 PM Signed CDM Care Path Telephonic Outreach Provider Action/PAULINE N/A Patient identified by Name and Date of . Discussed care with patient. CDM Update Briefly spoke with the pt. At this time- He was out at a wine bar with his but he was agreeable to talk for a few minutes. He has been doing good lately He recently went in for his Medicare Wellness visit He has been walking a few miles a week outside now that the weather is getting nicer. Last A1C was 6.5 most recently and his cholesterol levels are improving as well He is really happy with all of this and feels things are going well. Annually sees crab backer- Next visit in November I would like to continue to walk a few miles a week outside Program Details Chronic Disease Management Status: Enrolled Effective Dates: 10/05/2024 - present Responsible Staff: Rima Bowen RN Support and Services: Hypertension, Diabetes Program Goals Targets Target Due Completed Completed By Outcome Annual Medicare Wellness visit addressed 01/04/2025 -- -- -- Biannual PCP visit addressed 01/04/2025 -- -- -- Comprehensive Diabetes education provided 01/04/2025 -- -- -- Comprehensive HTN education provided 01/04/2025 -- -- -- Diabetes lab care gaps addressed 01/04/2025 -- -- -- HTN lab care gaps addressed 01/04/2025 -- -- -- Patient-stated goal addressed (add comment) 01/04/2025 -- -- -- General education provided (managing stress, where to go/how to contact, etc.) 11/04/2024 10/05/2024 Rima Bowen RN Complete H@H # given Intake assessments completed: ADLs, Fall Risk, SDOH 11/04/2024 10/05/2024 Rima Bowen RN Complete Assessments No documentation this encounter Interventions The following were addressed during this visit: - Month 3: Schedule/Order BMP Lab - Month 1: Schedule/Order HbA1C Lab - Month 1: Schedule/Order Lipid Panel Lab - Month 1: Schedule Diabetes Eye Exam - Evaluate for Referral to Pharmacy for Diabetes Medication Management - Schedule Biannual PCP Appointment - Schedule Annual Wellness Visit Rima Bowen RN October 23, 2024 2:25 PM Allergies As of Date: 10/23/2024 Noted Allergy Reaction LISINOPRIL 07/25/2023 2 - Rash LOSARTAN 12/07/2022 8 - GI Upset Comments: Constipation Date Reviewed: 10/21/2024 Reviewed by: Daria Park APRN.PEST CONTROL OPERATOR - Fully Assessed Prescriptions as of 10/23/2024 - amLODIPine (NORVASC) 5 mg tablet Take 1 tablet by mouth once daily. - azelastine 0.1% nasal spray 2 Sprays two times a day. - fluticasone propionate (FLONASE NASAL) Use in the nose two times a day. - finasteride (PROSCAR) 5 mg tablet Take 1 tablet by mouth once daily. - famotidine (PEPCID) 20 mg tablet Take 1 tablet by mouth at bedtime as needed. - tamsulosin (FLOMAX) 0.4 mg Take 1 capsule by mouth daily at bedtime. - rosuvastatin (CRESTOR) 5 mg tablet Take 1 tablet by mouth daily at bedtime. - semaglutide (OZEMPIC) 0.25 mg or 0.5 mg (2 mg/3 mL) pen Inject 0.5 mg subcutaneously one time a week. - Fluocinolone Acetonide 0.01 % external oil Apply 0.1 % to affected area every 2 weeks. - Zinc 50 mg tab Take 22 mg by mouth once daily. - ketoconazole (NIZORAL) 2 % shampoo Apply to affected area as directed. - MULTI-VITAMIN ORAL Take by mouth once daily. - Ascorbic Acid (VITAMIN C) 1,000 mg tablet Take 1,000 mg by mouth once daily. - [place]-3 Fatty Acids-Vitamin E (FISH OIL) 1,000 mg cap Take 1 capsule by mouth once daily. - Cholecalciferol, Vitamin D3, (VITAMIN D) 1,000 unit cap Take 1,000 Units by mouth once daily. Problem List As Of Date 10/23/2024 Noted Resolved Nontoxic multinodular goiter [E04.2] 08/11/2014 Mixed hyperlipidemia [E78.2] 11/09/2020 Essential hypertension [I10] 11/09/2020 Hypertriglyceridemia [E78.1] 11/09/2020 Morbid obesity (HCC) [E66.01] 11/09/2020 Prostate cancer screening [Z12.5] 11/09/2020 Type 2 diabetes mellitus with peripheral neurop*08/17/2021 Chronic bronchitis, unspecified chronic bronchi*11/13/2022 Encounter Status:Closed by RIMA BOWEN on 10/23/24[facility] Instructions* Patient Instructions* Daria Park APRN.PEST CONTROL OPERATOR - 10/21/2024 2:34 PM EDT Continue your current Ozempic (semaglutide 0.25 mg) injections as prescribed; you have 15 weeks remaining. Keep taking Colace as needed to help manage the occasional constipation from Ozempic. Your amlodipine refill has been sent via [facility]; continue taking it as directed for blood pressure management. Continue with your rosuvastatin 5 mg for cholesterol control. Its ok to stop the fish oil supplement since you re now getting more fish in your diet. A thyroid ultrasound has been ordered; please schedule this test before you leave today. No colonoscopy is scheduled now--you have opted to wait until closer to the next recommended time. Expect periodic calls from the transitional care attendant (Rima Olvera) regarding your chronic disease management. Follow up in 3 months; during that office visit, an in-office hemoglobin A1c will be checked to help guide if any adjustments to your diabetes treatment are needed. Screening schedule The following prevention plan is recommended: Depression Screening Never done Anxiety Screening Never done Advance Directive Discussion due on 06/24/2024 WHAT YOU CAN DO TO PREVENT FALLS Many falls can be prevented. By making some changes, you can lower your chances of falling. Four things YOU can do to prevent falls for you* and your caregiver 1. Begin a regular exercise program Exercise is one of the most important ways to lower your chances of falling. It makes you stronger and helps you feel better. Exercises that improve balance and coordination (like Uri Chi) are the most helpful. Lack of exercise leads to weakness and increases your chances of falling. Ask your doctor or health care provider about the best type of exercise program for you. 2. Have your health care provider review your medicines Have your doctor or pharmacist review all the medicines you take, even [id number] medicines. As you get older, the way medicines work in your body can change. Some medicines, or combinations of medicines, can make you sleepy or dizzy andcan cause you to fall. 3. Have your vision checked Have your eyes checked by an eye doctor at least once a year. You may be wearing the wrong glasses or have a condition like glaucoma or cataracts that limits your vision. Poor vision can increase your chances of falling. 4. Make your home safer About half of all falls happen at home. To make your home safer: Remove things you can trip over (like papers, books, clothes, and shoes) from stairs and places where you walk. Remove small throw rugs or use double-sided tape to keep the rugs from slipping. Keep items you use often in cabinets you can reach easily without using a step stool. Have grab bars put in next to your toilet and in the tub or shower. Use non-slip mats in the bathtub and on shower floors. Improve the lighting in your home. As you get older, you need brighter lights to see well. Hang light-weight curtains or shades to reduce glare. Have handrails and lights put in on all staircases. Wear shoes both inside and outside the house. Avoid going barefoot or wearing slippers. For more information, contact: Centers for Disease Control and Prevention www.cdc.gov/injury * This information may not apply if you have certain medical conditions. documented in this encounterHigh[facility]-30-[facility]25 NoteHNO ID: [id number] Author: DARIA PARK APRN.CNP Service: ? Author Type: Nurse Practitioner Type: Progress Notes Filed: 11/05/2024 13:07 Note Text: Abisai Araya is a 69 year old male here for a Medicare wellness visit. Medicare Health Risk Assessment General Health Very good Exercise: Minutes/Day 40 min Exercise: Days/Week 4 days Alcohol: Daily Use 2-3 times a week Alcohol: Drinks/Day 1 or 2 Alcohol: 6 or more drinks Never Feel off balance Mild but not concerning to pt Concerns: Teeth/Dentures denies Concerns: Sexual function denies Troubled by feelings denies Frequency: Eating healthy diet 95% of the time ADLs requiring help denies Safety precautions in home/vehicle Wears seatbelt in the car, steps have handrails, floors are clutter free, and has grab bars in the bathrooms Smoke, vape, chews tobacco former Difficulty hearing Wears hearing aides but needs adjusted. Difficulty seeing Wears Glasses Current Providers Specialists: I have reviewed specialist-related care of the patient in the medical record. Sleep Medicine - Dr. Hunter ENT/Audiology - Dr. PelletierAlexis Dentistry/Gum specialist Dermatology - Dr. Rae Orthopedics - Dr. Suh Optometry - sees Dr. Wright annually Medical/Family history review Reviewed and updated problem list, medical/surgical/family/social history, medications, and allergies. Opioid use review Opioid Medications (last 90 days) No data to display Anxiety/Depression screening PHQ-2 Score: 0 (Lower risk for depression) VANESSA-7 Score: 3 (Minimal Anxiety) Recommendation: no further intervention at this time Cognitive screening Mini Cog Score: 4 Cognitive screening reviewed and No further action needed (score 3-5). Functional Observation Was the patient's Timed Up AND Go test unsteady or >= 12 seconds? No Advance Care Planning Surrogate decision maker documented and/or advance directives scanned in chart Measurements BP 128/72 Pulse 70 Resp 16 Wt (!) 137 kg (302 lb) SpO2 96% BMI 40.96 kg/m? Vision Screening: Follows with optometry/ophthalmology Assessment/Plan Medicare annual wellness visit, subsequent (Z00.00) - Counseled on healthy diet and regular exercise - Fall avoidance information provided - Personalized prevention plan provided - Discussed need for and benefit of weight loss. BMI 40.96 kg/(m2) - Counseled patient on alcohol intake and associated health risks CC: Patient presents with: Medicare Wellness Exam: Annual Medicare Wellness HPI Abisai Araya is a 69 year old male who presents today for medicare wellness and review of chronic conditions. Recording using [employer] software for draft documentation of the visit was discussed with the patient/authorized branch sales and service representative; all questions welcomed and answered. Patient/authorized branch sales and service representative agreed to proceed Type 2 Diabetes Mellitus w/ BMI > 40: - Recent HbA1c decreased from 6.6% to 6.5%. - Home glucose readings in the 130s. - Denies hypoglycemic episodes, dizziness, lightheadedness, diaphoresis, polydipsia, polyphagia, polyuria, chest pain, or dyspnea. - Taking Ozempic 0.25 mg; tolerating well with no abdominal pain or bowel changes. - Reports constipation managed with Colace as needed. - Followed by a foot clinic; sees Dr. Fox. Hyperlipidemia: - Recent labs show triglycerides at 155 mg/dL, HDL at 45 mg/dL, and LDL at 75 mg/dL. - Taking rosuvastatin 5 mg. - Consuming more fish, considering discontinuing fish oil supplements. Hypertension: - Taking amlodipine; requests a refill. - Home blood pressure readings approximately 20 points higher than office readings, with a recent reading of 142/90 mmHg but does tend to put the BP cuff on at home very tight which may be giving incorrect high readings. . - Denies chest pain, headaches, edema, or dyspnea. Thyroid Nodule: - Biopsy in July of last year; advised to have an annual thyroid ultrasound by Dr. Peterson. REVIEW OF SYSTEMS See HPI PAST MEDICAL HISTORY Diagnosis Date Allergic rhinitis, cause unspecified Anxiety state, unspecified Arthritis Backache, unspecified BPH (benign prostatic hyperplasia) Essential hypertension, benign Headache(784.0) Hypertrophy of prostate without urinary obstruction and other lower urinary tract symptoms (LUTS) Nontoxic uninodular goiter Olecranon bursitis Other and unspecified hyperlipidemia Other chronic nonalcoholic liver disease Shortness of breath Symptom of bladder outlet obstruction Unspecified hemorrhoids with other complication Unspecified hereditary and idiopathic peripheral neuropathy Urine retention PAST SURGICAL HISTORY Procedure Laterality Date CHOLECYSTECTOMY HX 2002 COLONOSCOPY 2004 COLONOSCOPY 2019 THYROID FINE NEEDLE ASPIRATION 07/29/2023 Left midpole and left lower pole of the thyroid ALLERGIES Lisinopril and Losartan MEDICATIONS amLODIPine (NORVASC) 5 mg tablet Ta (more content not included)...[facility]04-30-2025 History of Present illness Narrative* Daria Park APRN.PEST CONTROL OPERATOR - 10/21/2024 2:30 PM EDT Images from the original note were not included. Abisai Araya is a 69 year old male here for a Medicare wellness visit. Medicare Health Risk Assessment General Health Very good Exercise: Minutes/Day 40 min Exercise: Days/Week 4 days Alcohol: Daily Use 2-3 times a week Alcohol: Drinks/Day 1 or 2 Alcohol: 6 or more drinks Never Feel off balance Mild but not concerning to pt Concerns: Teeth/Dentures denies Concerns: Sexual function denies Troubled by feelings denies Frequency: Eating healthy diet 95% of the time ADLs requiring help denies Safety precautions in home/vehicle Wears seatbelt in the car, steps have handrails, floors are clutter free, and has grab bars in the bathrooms Smoke, vape, chews tobacco former Difficulty hearing Wears hearing aides but needs adjusted. Difficulty seeing Wears Glasses Current Providers Specialists: I have reviewed specialist-related care of the patient in the medical record. Sleep Medicine - Dr. Hunter ENT/Audiology - Dr. PelletierAlexis Dentistry/Gum specialist Dermatology - Dr. Rae Orthopedics - Dr. Suh Optometry - sees Dr. Wright annually Medical/Family history review Reviewed and updated problem list, medical/surgical/family/social history, medications, and allergies. Opioid use review Opioid Medications (last 90 days) No data to display Anxiety/Depression screening PHQ-2 Score: 0 (Lower risk for depression) VANESSA-7 Score: 3 (Minimal Anxiety) Recommendation: no further intervention at this time Cognitive screening Mini Cog Score: 4 Cognitive screening reviewed and No further action needed (score 3-5). Functional Observation Was the patient's Timed Up & Go test unsteady or >= 12 seconds? No Advance Care Planning Surrogate decision maker documented and/or advance directives scanned in chart Measurements BP 128/72 Pulse 70 Resp 16 Wt (!) 137 kg (302 lb) SpO2 96% BMI 40.96 kg/m Vision Screening: Follows with optometry/ophthalmology Assessment/Plan Medicare annual wellness visit, subsequent (Z00.00) - Counseled on healthy diet and regular exercise - Fall avoidance information provided - Personalized prevention plan provided - Discussed need for and benefit of weight loss. BMI 40.96 kg/(m^2) - Counseled patient on alcohol intake and associated health risks CC: Patient presents with: Medicare Wellness Exam: Annual Medicare Wellness HPI Abisai Araya is a 69 year old male who presents today for medicare wellness and review of chronic conditions. Recording using [employer] software for draft documentation of the visit was discussed with the patient/authorized branch sales and service representative; all questions welcomed and answered. Patient/authorized branch sales and service representative agreed to proceed Type 2 Diabetes Mellitus: - Recent HbA1c decreased from 6.6% to 6.5%. - Home glucose readings in the 130s. - Denies hypoglycemic episodes, dizziness, lightheadedness, diaphoresis, polydipsia, polyphagia, polyuria, chest pain, or dyspnea. - Taking Ozempic 0.25 mg; tolerating well with no abdominal pain or bowel changes. - Reports constipation managed with Colace as needed. - Followed by a foot clinic; sees Dr. Fox. Hyperlipidemia: - Recent labs show triglycerides at 155 mg/dL, HDL at 45 mg/dL, and LDL at 75 mg/dL. - Taking rosuvastatin 5 mg. - Consuming more fish, considering discontinuing fish oil supplements. Hypertension: - Taking amlodipine; requests a refill. - Home blood pressure readings approximately 20 points higher than office readings, with a recent reading of 142/90 mmHg but does tend to put the BP cuff on at home very tight which may be giving incorrect high readings. . - Denies chest pain, headaches, edema, or dyspnea. Thyroid Nodule: - Biopsy in July of last year; advised to have an annual thyroid ultrasound by Dr. Peterson. REVIEW OF SYSTEMS See HPI PAST MEDICAL HISTORY Diagnosis Date Allergic rhinitis, cause unspecified Anxiety state, unspecified Arthritis Backache, unspecified BPH (benign prostatic hyperplasia) Essential hypertension, benign Headache(784.0) Hypertrophy of prostate without urinary obstruction and other lower urinary tract symptoms (LUTS) Nontoxic uninodular goiter Olecranon bursitis Other and unspecified hyperlipidemia Other chronic nonalcoholic liver disease Shortness of breath Symptom of bladder outlet obstruction Unspecified hemorrhoids with other complication Unspecified hereditary and idiopathic peripheral neuropathy Urine retention PAST SURGICAL HISTORY Procedure Laterality Date CHOLECYSTECTOMY HX 2002 COLONOSCOPY 2004 COLONOSCOPY 2019 THYROID FINE NEEDLE ASPIRATION 07/29/2023 Left midpole and left lower pole of the thyroid ALLERGIES Lisinopril and Losartan MEDICATIONS amLODIPine (NORVASC) 5 mg tablet Take 1 tablet by mouth once daily. azelastine 0.1% nasal spray 2 Sprays two times a day. fluticasone propionate (FLONASE NASAL) Use in the nose two times a day. finasteride (PROSCAR) 5 mg tablet Take 1 tablet by mouth once daily. famotidine (PEPCID) 20 mg tablet Take 1 tablet by mouth at bedtime as needed. tamsulosin (FLOMAX) 0.4 mg Take 1 capsule by mouth daily at bedtime. rosuvastatin (CRESTOR) 5 mg tablet Take 1 tablet by mouth daily at bedtime. semaglutide (OZEMPIC) 0.25 mg or 0.5 mg (2 mg/3 mL) pen Inject 0.5 mg subcutaneously one time a week. Fluocinolone Acetonide 0.01 % external oil Apply 0.1 % to affected area every 2 weeks. Zinc 50 mg tab Take 22 mg by mouth once daily. ketoconazole (NIZORAL) 2 % shampoo Apply to affected area as directed. MULTI-VITAMIN ORAL Take by mouth once daily. Ascorbic Acid (VITAMIN C) 1,000 mg tablet Take 1,000 mg by mouth once daily. [place]-3 Fatty Acids-Vitamin E (FISH OIL) 1,000 mg cap Take 1 capsule by mouth once daily. Cholecalciferol, Vitamin D3, (VITAMIN D) 1,000 unit cap Take 1,000 Units by mouth once daily. FAMILY HISTORY Problem Relation Age of Onset Goiter Mother Alcohol/Drug Father Diabetes Father Coronary Artery Disease Father Heart Father Hypertension Father Lipids Father No Known Problems Sister No Known Problems Sister No Known Problems Brother No Known Problems Maternal Grandmother No Known Problems Maternal Grandfather No Known Problems Paternal Grandmother Lung Cancer Paternal Grandfather Social History Tobacco Use Smoking status: Former Current packs/day: 0.00 Types: Cigarettes Quit date: 06/24/1997 Years since quittin.3 Smokeless tobacco: Never Vaping Use Vaping status: Never Used Substance Use Topics Alcohol use: Yes Alcohol/week: 7.0 standard drinks of alcohol Types: 4 Glasses of wine, 1 Cans of beer, 1 Shots of liquor, 1 Standard drinks or equivalent per week Drug use: Not Currently Types: Marijuana PHYSICAL EXAM BP 128/72 Pulse 70 Resp 16 Wt (!) 137 kg (302 lb) SpO2 96% BMI 40.96 kg/m General Appearance: well appearing, in no acute distress, alert Eyes: conjunctiva pink and moist, no icterus, sclera white, non-injected Lungs: Lungs clear to auscultation. No wheezing, rhonchi, rales. Heart: RRR without murmur, gallop, or rubs. No ectopy Health maintenance reviewed with patient: Covid-19 Vaccine(7 - 2024-25 season) due on 10/21/2025 Dilated Retinal Exam due on 11/25/2024 Diabetic Foot Exam due on 02/04/2025 Urine Albumin:Creatinine Ratio due on 04/13/2025 HbA1C due on 04/16/2025 Colorectal Cancer Screening due on 08/11/2025 LDL Cholesterol due on 10/15/2025 Annual PCP Team Chronic Disease Visit due on 10/21/2025 Depression Screening due on 10/21/2025 Anxiety Screening due on 10/21/2025 BP Controlled (<130/80) due on 10/21/2025 DTaP,Tdap,Td Vaccine(2 - Td or Tdap) due on 11/17/2031 Abdominal Aortic Aneurysm Screening Completed Influenza Vaccine Completed Advance Directive Discussion Completed RSV Vaccine Completed Hepatitis C Screening Completed Shingrix Vaccine Completed Pneumococcal Vaccine: 50+ Completed DATA REVIEWED: Most recent labs Labs: - Hemoglobin A1c: 6.5% (previously 6.6%) - Lipid Panel: - Triglycerides: 155 mg/dL (previously 154 mg/dL) - HDL: 45 mg/dL - LDL: 75 mg/dL Tests: - (July) Thyroid Biopsy: No abnormal findings Assessment/Plan 1. Medicare annual wellness visit, subsequent (00.00) - Comprehensive review of patient's current health status, including management of chronic conditions and preventive care. - Discussed recent lab results and current medications. - Scheduled follow-up in 3 months. 2. Type 2 diabetes mellitus without complication, without long-term current use of insulin (HCC) (E11.9) - Hemoglobin A1c decreased from 6.6% to 6.5%, indicating stable glycemic control. - Home glucose readings averaging in the 130s, no episodes of hypoglycemia or hyperglycemia reported. - Continue semaglutide 0.25 mg; patient tolerating well with minimal side effects. - Discussed potential switch to tirzepatide if gastrointestinal side effects worsen, though patientprefers to continue current regimen. - Follow-up in 3 months with in-office A1c testing to assess need for medication adjustment. Plans to improve regular physical exercise to help improve glucose control as well. 3. Essential (primary) hypertension (I10) - Blood pressure readings in office are well-controlled. - Home readings reportedly higher, averaging around 142/90 mmHg but patient educated on correct wayto obtain BP - Continue amlodipine; refill sent to [facility]. - Advised patient to ensure proper cuff size and placement during home monitoring. - low salt diet, regular exercise, and continued weight loss will help to naturally improve weight loss as well. 4. Constipation, unspecified constipation type (K59.00) - Mild constipation managed with Colace; patient reports improvement. - Advised to maintain hydration and dietary fiber intake. - increase physical activity and regular walking to improve bowel habits as well. 5. Thyroid nodule (E04.1) - Previous biopsy in July of last year showed no malignancy. - Ordered annual thyroid ultrasound; patient to schedule before leaving today. 6. Encounter for screening examination for other mental health and behavioral disorders (Z13.39) 7. Screening for depression (Z13.31) - No current symptoms of depression or other mental health disorders reported. - Discussed importance of regular mental health screenings as part of overall wellness. Prescription instructions reviewed with patient as applicable. Potential red flag symptoms discussed with the patient. Reviewed appropriate action plan to take if red flag symptoms occur. Patient agreeable to treatment plan. Daria Park APRN.CNP documented in this [facility]04[facility]25 NoteHNO ID: [id number] Author: RIMA BOWEN RN Service: ? Author Type: Registered Nurse Type: Progress Notes Filed: 10/05/2024 16:44 Note Text: CDM ENROLLMENT Provider Action / FYI: N/A Patient identified by name and date of . Discussed care with patient. CDM Update Feels his HORSE SHOW JUDGE has a really good handle on his diabetes management. She works with him and feels like it is pretty well managed but he was open to ongoing outreach phone calls. Knee bothers him- may decide if he needs left knee replacement when he sees orthopedics again in February Likes to walk outdoors a few miles every other day- Noticed that his knee is sore and inflamed after- takes naproxen which helps relieve this but he does think he could benefit from having the knee replaced Quit eating red meat recently- Feels like this helps his numbers BS numbers are stubborn- Takes ozempic (low dose)- Feels it might not be high enough but it is causing some constipation for him. He does take colace to help with this but wants to talk to his PCP at his upcoming appt to see what other options are available. H@H # given to the pt. At this time Where to go for care sent to him in as well Program Details Chronic Disease Management Status: Identified Start Date: 09/28/2024 Responsible Staff: Rima Bowen RN Support and Services: Assessments No documentation this encounter Interventions No checklist tasks for this episode were completed during this visit, and no tasks for this episode are pending completion. Rima Bowen RN October 05, 2024 4:17 [facility]04-14-2025 History of Present illness Narrative* Riam Bowen RN - 10/05/2024 4:17 PM EDT CD ENROLLMENT Provider Action / FYI: N/A Patient identified by name and date of . Discussed care with patient. CDM Update Feels his HORSE SHOW JUDGE has a really good handle on his diabetes management. She works with him and feels like it is pretty well managed but he was open to ongoing outreach phone calls. Knee bothers him- may decide if he needs left knee replacement when he sees orthopedics again in February Likes to walk outdoors a few miles every other day- Noticed that his knee is sore and inflamed after- takes naproxen which helps relieve this but he does think he could benefit from having the knee replaced Quit eating red meat recently- Feels like this helps his numbers BS numbers are stubborn- Takes ozempic (low dose)- Feels it might not be high enough but it is causing some constipation for him. He does take colace to help with this but wants to talk to his PCP at his upcoming appt to see whatother options are available. H@H # given to the pt. At this time Where to go for care sent to him in as well Program Details Chronic Disease Management Status: Identified Start Date: 09/28/2024 Responsible Staff: Rima Bowen RN Support and Services: Assessments No documentation this encounter Interventions No checklist tasks for this episode were completed during this visit, and no tasks for this episodeare pending completion. Rima Bowen RN October 05, 2024 4:17 PM documented in this encounterHigh[facility]04-14-2025 NotePatient Outreach ([facility]) ABISAI ARAYA ([id number]) 1955 M Date Time Provider Department 10/05/24 RMIA BOWEN AMBLIZZIE During your visit today, we recorded the following information about you: Rima Bowen RN 10/05/2024 4:44 PM Signed CDM ENROLLMENT Provider Action / FYI: N/A Patient identified by name and date of . Discussed care with patient. CDM Update Feels his HORSE SHOW JUDGE has a really good handle on his diabetes management. She works with him and feels like it is pretty well managed but he was open to ongoing outreach phone calls. Knee bothers him- may decide if he needs left knee replacement when he sees orthopedics again in February Likes to walk outdoors a few miles every other day- Noticed that his knee is sore and inflamed after- takes naproxen which helps relieve this but he does think he could benefit from having the knee replaced Quit eating red meat recently- Feels like this helps his numbers BS numbers are stubborn- Takes ozempic (low dose)- Feels it might not be high enough but it is causing some constipation for him. He does take colace to help with this but wants to talk to his PCP at his upcoming appt to see what other options are available. H@H # given to the pt. At this time Where to go for care sent to him in as well Program Details Chronic Disease Management Status: Identified Start Date: 09/28/2024 Responsible Staff: Rima Bowen, RN Support and Services: Assessments No documentation this encounter Interventions No checklist tasks for this episode were completed during this visit, and no tasks for this episode are pending completion. Rima Bowen RN October 05, 2024 4:17 PM Allergies As of Date: 10/05/2024 Noted Allergy Reaction LISINOPRIL 07/25/2023 2 - Rash LOSARTAN 12/07/2022 8 - GI Upset Comments: Constipation Date Reviewed: 09/14/2024 Reviewed by: Nadiya Lebron MA - Fully Assessed Prescriptions as of 10/05/2024 - azelastine 0.1% nasal spray 2 Sprays two times a day. - fluticasone propionate (FLONASE NASAL) Use in the nose two times a day. - finasteride (PROSCAR) 5 mg tablet Take 1 tablet by mouth once daily. - amLODIPine (NORVASC) 5 mg tablet Take 1 tablet by mouth once daily. - famotidine (PEPCID) 20 mg tablet Take 1 tablet by mouth at bedtime as needed. - tamsulosin (FLOMAX) 0.4 mg Take 1 capsule by mouth daily at bedtime. - rosuvastatin (CRESTOR) 5 mg tablet Take 1 tablet by mouth daily at bedtime. - semaglutide (OZEMPIC) 0.25 mg or 0.5 mg (2 mg/3 mL) pen Inject 0.5 mg subcutaneously one time a week. - Fluocinolone Acetonide 0.01 % external oil Apply 0.1 % to affected area every 2 weeks. - Zinc 50 mg tab Take 22 mg by mouth once daily. - ketoconazole (NIZORAL) 2 % shampoo Apply to affected area as directed. - MULTI-VITAMIN ORAL Take by mouth once daily. - Ascorbic Acid (VITAMIN C) 1,000 mg tablet Take 1,000 mg by mouth once daily. - [place]-3 Fatty Acids-Vitamin E (FISH OIL) 1,000 mg cap Take 1 capsule by mouth once daily. - Cholecalciferol, Vitamin D3, (VITAMIN D) 1,000 unit cap Take 1,000 Units by mouth once daily. Problem List As Of Date 10/05/2024 Noted Resolved Nontoxic multinodular goiter [E04.2] 08/11/2014 Mixed hyperlipidemia [E78.2] 11/09/2020 Essential hypertension [I10] 11/09/2020 Hypertriglyceridemia [E78.1] 11/09/2020 Morbid obesity (HCC) [E66.01] 11/09/2020 Prostate cancer screening [Z12.5] 11/09/2020 Type 2 diabetes mellitus with peripheral neurop*08/17/2021 Chronic bronchitis, unspecified chronic bronchi*11/13/2022 Encounter Status:Closed by RIMA BOWEN on 10/05/24[facility] Instructions* Patient Instructions* Daria Park APRN.CNP - 09/14/2024 2:28 PM EDT Colace documented in this encounterHigh[facility]03-24-2025 NoteHNO ID: [id number] Author: DARIA PARK APRN.CNP Service: ? Author Type: Nurse Practitioner Type: Progress Notes Filed: 09/14/2024 16:28 Note Text: CC: Patient presents with: Recheck: Medication follow up HPI Abisai Araya is a 69 year old male who presents today for ongoing constipation. For months has had intermittent constipation. Once he notices he is getting constipated, which is every few days, hew will take a laxative stool softener which resolves this. Would like to review his medications. Realizes the ozempic causes constipation as well but would like to try stopping the fenofibrate first. Has been on fenofibrate for years, even prior to being our patient was on this for elevated triglycerides. Would like to consider stopping this. Denies abdominal pain (outside of cramping with constipation and having a BM, nausea, vomiting, fever, chills, chest pain, or shortness of breath. REVIEW OF SYSTEMS See HPI PAST MEDICAL HISTORY Diagnosis Date Allergic rhinitis, cause unspecified Anxiety state, unspecified Arthritis Backache, unspecified BPH (benign prostatic hyperplasia) Essential hypertension, benign Headache(784.0) Hypertrophy of prostate without urinary obstruction and other lower urinary tract symptoms (LUTS) Nontoxic uninodular goiter Olecranon bursitis Other and unspecified hyperlipidemia Other chronic nonalcoholic liver disease Shortness of breath Symptom of bladder outlet obstruction Unspecified hemorrhoids with other complication Unspecified hereditary and idiopathic peripheral neuropathy Urine retention PAST SURGICAL HISTORY Procedure Laterality Date CHOLECYSTECTOMY HX 2002 COLONOSCOPY 2004 COLONOSCOPY 2019 THYROID FINE NEEDLE ASPIRATION 07/29/2023 Left midpole and left lower pole of the thyroid ALLERGIES Lisinopril and Losartan MEDICATIONS azelastine 0.1% nasal spray 2 Sprays two times a day. fluticasone propionate (FLONASE NASAL) Use in the nose two times a day. finasteride (PROSCAR) 5 mg tablet Take 1 tablet by mouth once daily. amLODIPine (NORVASC) 5 mg tablet Take 1 tablet by mouth once daily. famotidine (PEPCID) 20 mg tablet Take 1 tablet by mouth at bedtime as needed. tamsulosin (FLOMAX) 0.4 mg Take 1 capsule by mouth daily at bedtime. rosuvastatin (CRESTOR) 5 mg tablet Take 1 tablet by mouth daily at bedtime. tamsulosin (FLOMAX) 0.4 mg Take 1 capsule by mouth daily at bedtime. (Patient not taking: Reported on 07/29/2024) semaglutide (OZEMPIC) 0.25 mg or 0.5 mg (2 mg/3 mL) pen Inject 0.5 mg subcutaneously one time a week. Fenofibrate (LOFIBRA) 54 mg tablet Take 1 tablet by mouth once daily. Fluocinolone Acetonide 0.01 % external oil Apply 0.1 % to affected area every 2 weeks. Zinc 50 mg tab Take 22 mg by mouth once daily. ketoconazole (NIZORAL) 2 % shampoo Apply to affected area as directed. MULTI-VITAMIN ORAL Take by mouth once daily. Ascorbic Acid (VITAMIN C) 1,000 mg tablet Take 1,000 mg by mouth once daily. [place]-3 Fatty Acids-Vitamin E (FISH OIL) 1,000 mg cap Take 1 capsule by mouth once daily. Cholecalciferol, Vitamin D3, (VITAMIN D) 1,000 unit cap Take 1,000 Units by mouth once daily. FAMILY HISTORY Problem Relation Age of Onset Goiter Mother Alcohol/Drug Father Diabetes Father Coronary Artery Disease Father Heart Father Hypertension Father Lipids Father No Known Problems Sister No Known Problems Sister No Known Problems Brother No Known Problems Maternal Grandmother No Known Problems Maternal Grandfather No Known Problems Paternal Grandmother Lung Cancer Paternal Grandfather Social History Tobacco Use Smoking status: Former Current packs/day: 0.00 Types: Cigarettes Quit date: 06/24/1997 Years since quittin.2 Smokeless tobacco: Never Vaping Use Vaping status: Never Used Substance Use Topics Alcohol use: Yes Alcohol/week: 7.0 standard drinks of alcohol Types: 4 Glasses of wine, 1 Cans of beer, 1 Shots of liquor, 1 Standard drinks or equivalent per week Drug use: Not Currently Types: Marijuana PHYSICAL EXAM BP 128/68 Pulse 70 Resp 16 Wt (!) 136.5 kg (301 lb) SpO2 94% BMI 40.82 kg/m? General Appearance: well appearing, in no acute distress, alert Lungs: Lungs clear to auscultation. No wheezing, rhonchi, rales. Heart: RRR without murmur, gallop, or rubs. No ectopy Abdomen: Abdomen soft, non-tender. Bowel sounds normal. No masses, organomegaly Health maintenance reviewed with patient: Depression Screening Never done Anxiety Screening Never done Covid-19 Vaccine() due on 05/29/2024 Advance Directive Discussion due on 06/24/2024 HbA1C due on 10/12/2024 Dilated Retinal Exam due on 11/25/2024 Diabetic Foot Exam due on 02/04/2025 Urine Albumin:Creatinine Ratio due on 04/13/2025 LDL Cholesterol due on 04/13/2025 Annual PCP Team Chronic Disease Visit due on 04/24/2025 BP Controlled (<130/80) due on 07/29/2025 [place] (more content not included)...[facility]03-24-2025 History of Present illness Narrative* Daria Park APRN.PEST CONTROL OPERATOR - 09/14/2024 2:13 PM EDT CC: Patient presents with: Recheck: Medication follow up HPI Abisai Araya is a 69 year old male who presents today for ongoing constipation. For months has had intermittent constipation. Once he notices he is getting constipated, which is every few days, hew will take a laxative stool softener which resolves this. Would like to review hismedications. Realizes the ozempic causes constipation as well but would like to try stopping the fenofibrate first. Has been on fenofibrate for years, even prior to being our patient was on this for elevated triglycerides. Would like to consider stopping this. Denies abdominal pain (outside of cramping with constipation and having a BM, nausea, vomiting, fever, chills, chest pain, or shortness of breath. REVIEW OF SYSTEMS See HPI PAST MEDICAL HISTORY Diagnosis Date Allergic rhinitis, cause unspecified Anxiety state, unspecified Arthritis Backache, unspecified BPH (benign prostatic hyperplasia) Essential hypertension, benign Headache(784.0) Hypertrophy of prostate without urinary obstruction and other lower urinary tract symptoms (LUTS) Nontoxic uninodular goiter Olecranon bursitis Other and unspecified hyperlipidemia Other chronic nonalcoholic liver disease Shortness of breath Symptom of bladder outlet obstruction Unspecified hemorrhoids with other complication Unspecified hereditary and idiopathic peripheral neuropathy Urine retention PAST SURGICAL HISTORY Procedure Laterality Date CHOLECYSTECTOMY HX 2002 COLONOSCOPY 2004 COLONOSCOPY 2019 THYROID FINE NEEDLE ASPIRATION 07/29/2023 Left midpole and left lower pole of the thyroid ALLERGIES Lisinopril and Losartan MEDICATIONS azelastine 0.1% nasal spray 2 Sprays two times a day. fluticasone propionate (FLONASE NASAL) Use in the nose two times a day. finasteride (PROSCAR) 5 mg tablet Take 1 tablet by mouth once daily. amLODIPine (NORVASC) 5 mg tablet Take 1 tablet by mouth once daily. famotidine (PEPCID) 20 mg tablet Take 1 tablet by mouth at bedtime as needed. tamsulosin (FLOMAX) 0.4 mg Take 1 capsule by mouth daily at bedtime. rosuvastatin (CRESTOR) 5 mg tablet Take 1 tablet by mouth daily at bedtime. tamsulosin (FLOMAX) 0.4 mg Take 1 capsule by mouth daily at bedtime. (Patient not taking: Reported on 07/29/2024) semaglutide (OZEMPIC) 0.25 mg or 0.5 mg (2 mg/3 mL) pen Inject 0.5 mg subcutaneously one time a week. Fenofibrate (LOFIBRA) 54 mg tablet Take 1 tablet by mouth once daily. Fluocinolone Acetonide 0.01 % external oil Apply 0.1 % to affected area every 2 weeks. Zinc 50 mg tab Take 22 mg by mouth once daily. ketoconazole (NIZORAL) 2 % shampoo Apply to affected area as directed. MULTI-VITAMIN ORAL Take by mouth once daily. Ascorbic Acid (VITAMIN C) 1,000 mg tablet Take 1,000 mg by mouth once daily. [place]-3 Fatty Acids-Vitamin E (FISH OIL) 1,000 mg cap Take 1 capsule by mouth once daily. Cholecalciferol, Vitamin D3, (VITAMIN D) 1,000 unit cap Take 1,000 Units by mouth once daily. FAMILY HISTORY Problem Relation Age of Onset Goiter Mother Alcohol/Drug Father Diabetes Father Coronary Artery Disease Father Heart Father Hypertension Father Lipids Father No Known Problems Sister No Known Problems Sister No Known Problems Brother No Known Problems Maternal Grandmother No Known Problems Maternal Grandfather No Known Problems Paternal Grandmother Lung Cancer Paternal Grandfather Social History Tobacco Use Smoking status: Former Current packs/day: 0.00 Types: Cigarettes Quit date: 06/24/1997 Years since quittin.2 Smokeless tobacco: Never Vaping Use Vaping status: Never Used Substance Use Topics Alcohol use: Yes Alcohol/week: 7.0 standard drinks of alcohol Types: 4 Glasses of wine, 1 Cans of beer, 1 Shots of liquor, 1 Standard drinks or equivalent per week Drug use: Not Currently Types: Marijuana PHYSICAL EXAM BP 128/68 Pulse 70 Resp 16 Wt (!) 136.5 kg (301 lb) SpO2 94% BMI 40.82 kg/m General Appearance: well appearing, in no acute distress, alert Lungs: Lungs clear to auscultation. No wheezing, rhonchi, rales. Heart: RRR without murmur, gallop, or rubs. No ectopy Abdomen: Abdomen soft, non-tender. Bowel sounds normal. No masses, organomegaly Health maintenance reviewed with patient: Depression Screening Never done Anxiety Screening Never done Covid-19 Vaccine() due on 05/29/2024 Advance Directive Discussion due on 06/24/2024 HbA1C due on 10/12/2024 Dilated Retinal Exam due on 11/25/2024 Diabetic Foot Exam due on 02/04/2025 Urine Albumin:Creatinine Ratio due on 04/13/2025 LDL Cholesterol due on 04/13/2025 Annual PCP Team Chronic Disease Visit due on 04/24/2025 BP Controlled (<130/80) due on 07/29/2025 Colorectal Cancer Screening due on 08/11/2025 DTaP,Tdap,Td Vaccine(2 - Td or Tdap) due on 11/17/2031 Abdominal Aortic Aneurysm Screening Completed Influenza Vaccine Completed RSV Vaccine Completed Hepatitis C Screening Completed Shingrix Vaccine Completed Pneumococcal Vaccine: 50+ Completed DATA REVIEWED: No new labs ASSESSMENT/PLAN: 1. Drug-induced constipation - ICD9: 564.09, E980.5, ICD10: K59.03 (primary diagnosis) Quite possibly from the ozempic vs the fenofibrate but will stop the fenofibrate first and have pt see if this helps and then recheck lipids in 4-6 weeks Can use stool softeners as needed until bowels start moving more regularly. If no improvement will need to back off of the ozempic Follow up in 4-6 weeks or earlier if needed 2. Hypertriglyceridemia - ICD9: 272.1, ICD10: E78.1 As above - FENOFIBRATE 54 MG TABLET - LIPID PANEL, FASTING - COMPREHENSIVE METABOLIC PANEL 3. Type 2 diabetes mellitus with peripheral neuropathy (HCC) - ICD9: 250.60, 357.2, ICD10: E11.42 See #1 - HEMOGLOBIN A1C Prescription instructions reviewed with patient as applicable. Potential red flag symptoms discussed with the patient. Reviewed appropriate action plan to take if red flag symptoms occur. Patient agreeable to treatment plan. Daria Park APRN.CNP documented in this [facility]High[facility]03-[facility]-2025 NoteHNO ID: [id number] Author: JERRY SUH MD Service: ? Author Type: Physician Type: Progress Notes Filed: 08/24/2024 15:46 Note Text: CONSULT ORTHOPAEDIC: [facility]NEE PRIMARY CARE PHYSICIAN: Marquita Calvert MD REFERRING PROVIDER: No referring provider defined for this encounter. ASSESSMENT AND PLAN Impression: Left Knee Severe Degenerative Osteoarthritis, Primary Will RTC in to schedule in TKA in winter Diagnoses: No diagnosis found. Abisai Araya has radiograph and physical exam evidence of degenerative joint disease and wishes to consider options before making a decision for surgery. This patient appears to have sufficient symptoms to warrant surgical intervention and is an appropriate candidate for left Primary Total Knee Arthroplasty as evidenced by six months of unsuccessful non-operative treatment as outlined in the HPI below. We had a lengthy discussion regarding the risk and benefit of surgery, the alternatives, limitations and personnel involved. These included but were not limited to infection, persistent pain, instability, nerve injury, blood clots, and medical complications. We also discussed the pre-operative course, surgery itself and rehabilitation. Lucero-operative blood management and transfusion issues were discussed, and options clearly outlined. The patient has consented to the use of the banked allogenic blood if medically necessary. The patient has elected to schedule surgery in the winter; we will see the patient this fall for reevaluation. Shared decision making occurred while obtaining informed consent. The patient will be scheduled for a pre-operative education class at which time they will have their nasal swab completed and will be given CHG cloths along with the verbal and written instructions for their use. Patient has been instructed and has been scheduled or will call to schedule attendence in one of the total joint perioperative classes offered prior to proceeding with TKA. The patient has been ordered: No orders found for this visit on 08/24/24. None today CONSULTS: IMPACT/PACE Consult for preoperative clearance. Total Joint Arthroplasty: Risk Calculator Abisai Araya has a 9.53% chance of NOT returning home at discharge for a Primary total Knee replacement. Abisai's estimated Length of Stay is 1 day (Outpatient candidate). Abisai's 30 day chance of readmission is . Estimated LOS 1 day Discharge Disposition Probability D/C to Home 90.47 % D/C to SNF 9.53 % These calculations are based on the following factors: - 69 years of age - sex is male - BMI of 40.69 kg/m2 - 0 hospitalizations in the last 12 months - no history of heart disease - history of diabetes - no history of COPD - no history of anemia - preoperative ambulation: independent community distances - 5 step(s) to enter home - bed location is NOT on the first floor - bath location is NOT on the first floor - caregiver is consistent - home is not more than 150 miles away - PROMIS-10 Mental Health T score 41-49 - Marital status: Risk Factors for Total Knee Arthroplasty (TKA) Major Risk Factors Obesity High Risk High: BMI > 40 Moderate: BMI 30-40 Normal: BMI < 30 Diabetes Moderate Risk High: A1C > 8 Moderate: A1C 7-8 Normal: A1C < 7 Hx of DVT / PE normal High: dx of DVT / PE Normal: no dx of DVT / PE Smoking normal High: Current smoker Normal: Non smoker Narcotics Use normal High:NarxCare >=300 Moderate: 100-299 Normal: 0-99 Depression normal High: PHQ-9 >14 Moderate: PHQ-9 5-14 Normal: PHQ-9 < 5 Area Deprivation Index (NEFTALI) Unknown Risk High: NEFTALI Score > 75 Moderate: NEFTALI 50-75 Normal: NEFTALI < 50 Obesity: Weight management and obesity medicine (bariatric) program recommended BMI Readings from Last 3 Encounters: 08/24/24 : 40.69 kg/m? 07/29/24 : 38.61 kg/m? 06/25/24 : 39.12 kg/m? Diabetes: Well controlled - Abisai has been diagnosed with Type 2 Diabetes. His last Hemoglobin A1C was 6.6 (04/13/2024). Pt is followed by [facility] for Type 2 Diabetes - last seen on 04/24/2024. Area Deprivation Index (NEFTALI) 11/16/2021 11/06/2022 NEFTALI Score National Score 64 66 Patient Health Questionnaire (PHQ-9) 07/04/2024 07/26/2024 08/23/2024 PHQ-9 PHQ-2 Score 0 0 2 PHQ-9 Score 1 (0-4) minimal depression, (5-9) mild depression, (10-14) moderate depression, (15-19) moderately severe depression, (20-27) severe depression Bone Density Risk Screen Abisai Araya is at risk for bone loss and has not had a bone densitometry scan in the last 2 years (date of last scan: None on file). Recommend a bone densitometry scan and if indicated on the bone density results, a consult to a bone health specialist (Rheumatology, Endocrinology, or Women's Health) for bone assessment. Risk Factors: Chronic Liver Disease Additional Risk Factors Malnutrition: No Malnutrition Screening Tool (MST) score on file- please complete the MST screening (more content not included)...[facility]03-03-2025 History of Present illness Narrative* Jerry Suh MD - 08/24/2024 1:48 PM EST Images from the original note were not included. CONSULT ORTHOPAEDIC: KNEE PRIMARY CARE PHYSICIAN: Marquita Calvert MD REFERRING PROVIDER: No referring provider defined for this encounter. ASSESSMENT & PLAN Impression: Left Knee Severe Degenerative Osteoarthritis, Primary Will RTC in to schedule in TKA in winter Diagnoses: No diagnosis found. Abisai Araya has radiograph and physical exam evidence of degenerative joint disease and wishesto consider options before making a decision for surgery. This patient appears to have sufficient symptoms to warrant surgical intervention and is an appropriate candidate for left Primary Total Knee Arthroplasty as evidenced by six months of unsuccessful non-operative treatment as outlined in the HPI below. We had a lengthy discussion regarding the risk and benefit of surgery, the alternatives, limitations and personnel involved. These included but were not limited to infection, persistent pain, instability, nerve injury, blood clots, and medical complications. We also discussed the pre-operative course, surgery itself and rehabilitation. Lucero-operative blood management and transfusion issues were discussed, and options clearly outlined. The patient has consented to the use of the banked allogenic blood if medically necessary. The patient has elected to schedule surgery in the winter; we will see the patient this fall for reevaluation. Shared decision making occurred while obtaining informed consent. The patient will be scheduled for a pre-operative education class at which time they will have their nasal swab completed and will be given CHG cloths along with the verbal and written instructions for their use. Patient has been instructed and has been scheduled or will call to schedule attendence in one of the total joint perioperative classes offered prior to proceeding with TKA. The patient has been ordered: No orders found for this visit on 08/24/24. None today CONSULTS: IMPACT/PACE Consult for preoperative clearance. Total Joint Arthroplasty: Risk Calculator Abisai Araya has a 9.53% chance of NOT returning home at discharge for a Primary total Knee replacement. Abisai's estimated Length of Stay is 1 day (Outpatient candidate). Abisai's 30 day chance ofreadmission is . Estimated LOS 1 day Discharge Disposition Probability D/C to Home 90.47 % D/C to SNF 9.53 % These calculations are based on the following factors: - 69 years of age - sex is male - BMI of 40.69 kg/m2 - 0 hospitalizations in the last 12 months - no history of heart disease - history of diabetes - no history of COPD - no history of anemia - preoperative ambulation: independent community distances - 5 step(s) to enter home - bed location is NOT on the first floor - bath location is NOT on the first floor - caregiver is consistent - home is not more than 150 miles away - PROMIS-10 Mental Health T score 41-49 - Marital status: Risk Factors for Total Knee Arthroplasty (TKA) Major Risk Factors Obesity High Risk High: BMI > 40 Moderate: BMI 30-40 Normal: BMI < 30 Diabetes Moderate Risk High: A1C > 8 Moderate: A1C 7-8 Normal: A1C < 7 Hx of DVT / PE normal High: dx of DVT / PE Normal: no dx of DVT / PE Smoking normal High: Current smoker Normal: Non smoker Narcotics Use normal High:NarxCare >=300 Moderate: 100-299 Normal: 0-99 Depression normal High: PHQ-9 >14 Moderate: PHQ-9 5-14 Normal: PHQ-9 < 5 Area Deprivation Index (NEFTALI) Unknown Risk High: NEFTALI Score > 75 Moderate: NEFTALI 50-75 Normal: NEFTALI < 50 Obesity: Weight management and obesity medicine (bariatric) program recommended BMI Readings from Last 3 Encounters: 08/24/24 : 40.69 kg/m 07/29/24 : 38.61 kg/m 06/25/24 : 39.12 kg/m Diabetes: Well controlled - Abisai has been diagnosed with Type 2 Diabetes. His last Hemoglobin A1C was 6.6 (04/13/2024). Pt is followed by [facility] for Type 2 Diabetes - last seen on 04/24/2024. Area Deprivation Index (NEFTALI) 11/16/2021 11/06/2022 NEFTALI Score National Score 64 66 Patient Health Questionnaire (PHQ-9) 07/04/2024 07/26/2024 08/23/2024 PHQ-9 PHQ-2 Score 0 0 2 PHQ-9 Score 1 (0-4) minimal depression, (5-9) mild depression, (10-14) moderate depression, (15-19) moderately severe depression, (20-27) severe depression Bone Density Risk Screen Abisai Araya is at risk for bone loss and has not had a bone densitometry scan in the last 2 years (date of last scan: None on file). Recommend a bone densitometry scan and if indicated on the bone density results, a consult to a bone health specialist (Rheumatology, Endocrinology, or Women's Health) for bone assessment. Risk Factors: Chronic Liver Disease Additional Risk Factors Malnutrition: No Malnutrition Screening Tool (MST) score on file- please complete the MST screeningtool (click here to open) and refresh the note. ACTIVE PROBLEM LIST Nontoxic Multinodular Goiter Mixed Hyperlipidemia Essential Hypertension Hypertriglyceridemia Morbid Obesity (Hcc) Prostate Cancer Screening Type 2 Diabetes Mellitus With Peripheral Neuropathy (Hcc) Chronic Bronchitis, Unspecified Chronic Bronchitis Type (Hcc) SUBJECTIVE CHIEF COMPLAINT: Knee Pain HPI: Abisai Araya is a 69 year old patient . Abisai Araya has had progressive problems with the knee(s) constantly over the past 2 year(s) interfering with activities which include exercise. The problem began limiting activities 1-3 years ago. Abisai reports a current pain level of 3 (Knee-Left). He describes the pain as Aching, Sharp. The pain is Continuous, and has lasted for 2 Months. Interventions tried include Medication. Stretching. FALL RISK: Abisai is not currently at risk for falls. PROMIS Physical Function Score Descriptive Summary for PROMIS Physical Function T-score = 41 (Percentile 18) Much difficulty - Do 2 hours of physical labor. Some difficulty - Walk more than a mile (1.6 km). 07/04/2024 08/23/2024 PROMIS CAT Physical Function T-Score 46 (within normal limits) 41 (mild dysfunction) Percentile 34 18* FUNCTIONAL STATUS: Walk a block or two on level ground (2.75 METs) PREVIOUS TREATMENTS: Current Anti-Inflammatory medications: naproxen Past anti-inflammatory medications (not necessarily for this reason for visit): naproxen Attempted Weight Loss Medical Treatments: OTC NSAIDS for 3 Months or Greater (Ibuprofen) REVIEW OF SYSTEMS: PAIN ASSESSMENT: See HPI. MUSCULOSKELETAL: See HPI. No data to display PAST MEDICAL HISTORY Diagnosis Date Allergic rhinitis, cause unspecified Anxiety state, unspecified Arthritis Backache, unspecified BPH (benign prostatic hyperplasia) Essential hypertension, benign Headache(784.0) Hypertrophy of prostate without urinary obstruction and other lower urinary tract symptoms (LUTS) Nontoxic uninodular goiter Olecranon bursitis Other and unspecified hyperlipidemia Other chronic nonalcoholic liver disease Shortness of breath Symptom of bladder outlet obstruction Unspecified hemorrhoids with other complication Unspecified hereditary and idiopathic peripheral neuropathy Urine retention PAST SURGICAL HISTORY Procedure Laterality Date CHOLECYSTECTOMY HX 2002 COLONOSCOPY 2004 COLONOSCOPY 2019 THYROID FINE NEEDLE ASPIRATION 07/29/2023 Left midpole and left lower pole of the thyroid FAMILY HISTORY Problem Relation Age of Onset Goiter Mother Alcohol/Drug Father Diabetes Father Coronary Artery Disease Father Heart Father Hypertension Father Lipids Father No Known Problems Sister No Known Problems Sister No Known Problems Brother No Known Problems Maternal Grandmother No Known Problems Maternal Grandfather No Known Problems Paternal Grandmother Lung Cancer Paternal Grandfather Social History Tobacco Use Smoking status: Former Current packs/day: 0.00 Types: Cigarettes Quit date: 06/24/1997 Years since quittin.1 Smokeless tobacco: Never Vaping Use Vaping status: Never Used Substance Use Topics Alcohol use: Yes Alcohol/week: 7.0 standard drinks of alcohol Types: 4 Glasses of wine, 1 Cans of beer, 1 Shots of liquor, 1 Standard drinks or equivalent per week Drug use: Not Currently Types: Marijuana ALLERGIES: Lisinopril and Losartan MEDICATIONS: azelastine 0.1% nasal spray 2 Sprays two times a day. fluticasone propionate (FLONASE NASAL) Use in the nose two times a day. naproxen (NAPROSYN) 500 mg tablet Take 1 tablet by mouth two times a day with meals. finasteride (PROSCAR) 5 mg tablet Take 1 tablet by mouth once daily. amLODIPine (NORVASC) 5 mg tablet Take 1 tablet by mouth once daily. famotidine (PEPCID) 20 mg tablet Take 1 tablet by mouth at bedtime as needed. tamsulosin (FLOMAX) 0.4 mg Take 1 capsule by mouth daily at bedtime. rosuvastatin (CRESTOR) 5 mg tablet Take 1 tablet by mouth daily at bedtime. tamsulosin (FLOMAX) 0.4 mg Take 1 capsule by mouth daily at bedtime. (Patient not taking: Reported on 07/29/2024) semaglutide (OZEMPIC) 0.25 mg or 0.5 mg (2 mg/3 mL) pen Inject 0.5 mg subcutaneously one time a week. Fenofibrate (LOFIBRA) 54 mg tablet Take 1 tablet by mouth once daily. Fluocinolone Acetonide 0.01 % external oil Apply 0.1 % to affected area every 2 weeks. Zinc 50 mg tab Take 22 mg by mouth once daily. ketoconazole (NIZORAL) 2 % shampoo Apply to affected area as directed. MULTI-VITAMIN ORAL Take by mouth once daily. Ascorbic Acid (VITAMIN C) 1,000 mg tablet Take 1,000 mg by mouth once daily. [place]-3 Fatty Acids-Vitamin E (FISH OIL) 1,000 mg cap Take 1 capsule by mouth once daily. Cholecalciferol, Vitamin D3, (VITAMIN D) 1,000 unit cap Take 1,000 Units by mouth once daily. OBJECTIVE PHYSICAL EXAM: Ht 182.9 cm (6') Wt 136.1 kg (300 lb) BMI 40.69 kg/m All other systems deferred. GENERAL: Appears healthy, well-nourished, no deformities. HABITUS: Normal GAIT: Normal, the patient did not have trouble getting onto the exam table. KNEE EXAM: Left: Alignment: Neutral Range of motion is 0 degrees in extension and 130 degrees of flexion. Extension La degrees Pain with ROM: No Effusion: None Tender to the palpation of medial joint line Pain with patellar compression: No Stability: Anterior/Posterior stable and Varus/Valgus stable Hip Exam: flexion to 100+ degrees, full extension, internal/external rotation adequate and no pain with log roll Neurovascular Status: Sensation Intact and Moves foot and ankle up & down DATA: Diagnostic tests reviewed for today's visit: Left knee X-Ray: Medial joint space noted to have severe degenerative changes The following conditions were addressed during the office visit today: NA SIGNATURE: Jerry Suh MD PATIENT NAME: Abisai Araya DATE: August 24, 2024 TIME: 2:02 PM I personally evaluated this patient and agree with the note from the nurse/resident/fellow including PMH, PSH, SH, meds, allergies, and review of systems. I completed the HPI and performed the physical exam. Additionally I reviewed available imaging and wrote my interpretation. I wrote the Assessment and Plan. [facility] History of Present illness Narrative* Debra Jacinto, RT(R) - 08/24/2024 1:00 PM EST Radiology Service Progress Note PATIENT NAME: Abisai Araya DATE OF SERVICE: August 24, 2024 TIME: 1:23 PM PATIENT IDENTITY VERIFICATION COMPLETED USING TWO (2) IDENTIFIERS: Name and Date of confirmedby patient verbally. FALL SCREENING: Has the patient had 2 falls in the last year or 1 fall with injury or currently using an Ambulatory Assistive Device (Walker, Cane, Wheelchair, Crutches, etc.)? No PATIENT GENDER DATA: Assigned male at PATIENT RELEVANT IMPLANT DATA REVIEWED: Not Applicable PATIENT PRESENTS WITH AN IMPLANTABLE OR ATTACHED TERRA COTTA MOLD MAKER: No RADIOLOGY DEPARTMENT: General X-ray: Exam(s) Completed: Lower Extremity X- Ray(s): Knee, AP / Lat / Tunne / Merchant Left and Wt. Bearing PERIPHERAL IV DATA: Not applicable SIGNED BY: RT Margarita(R) August 24, 2024 1:23 PM documented in [facility]High[facility]25 NoteHNO ID: [id number] Author: DEBRA JACINTO RT(Angelina) Service: ? Author Type: Technologist Type: Progress Notes Filed: 08/24/2024 13:23 Note Text: Radiology Service Progress Note PATIENT NAME: Abisai Araya DATE OF SERVICE: August 24, 2024 TIME: 1:23 PM PATIENT IDENTITY VERIFICATION COMPLETED USING TWO (2) IDENTIFIERS: Name and Date of confirmed by patient verbally. FALL SCREENING: Has the patient had 2 falls in the last year or 1 fall with injury or currently using an Ambulatory Assistive Device (Walker, Cane, Wheelchair, Crutches, etc.)? No PATIENT GENDER DATA: Assigned male at PATIENT RELEVANT IMPLANT DATA REVIEWED: Not Applicable PATIENT PRESENTS WITH AN IMPLANTABLE OR ATTACHED TERRA COTTA MOLD MAKER: No RADIOLOGY DEPARTMENT: General X-ray: Exam(s) Completed: Lower Extremity X-Ray(s): Knee, AP / Lat / Tunne / Merchant Left and Wt. Bearing PERIPHERAL IV DATA: Not applicable SIGNED BY: RT Margarita(R) August 24, 2024 1:23 [facility]02-21-2025 NoteHNO ID: [id number] Author: VARUN QUICK MA Service: ? Author Type: Superintendent Electric Power Type: Progress Notes Filed: 08/14/2024 10:58 Note Text: POPULATION HEALTH NAVIGATION OUTREACH Action/FYI - [employer] High Risk Pt responds via Mychart and declines scheduling appt: Marshal Sathish Varun Moreno MA Hi, A few things. First, I have not seen Dr Calvert for over 2 years now. I see PAT Park and I feel she it move involved in my health and does a fine job. Secondly, I see Ms Older every 6 months or more, I will see her in September after having seen her in March, and I feel she is thorough, detailed and competent for my health needs. I see no reason for this visit you are suggesting, but thank you for your consideration and the offer. Mychart message sent thanking pt for response. Reason for Outreach Returned Call/MyChart Patient Contacted: Spoke to patient/parent/or legal guardian Patient identified by name and date of : Yes Returned call/MyChart actions taken: MyChart message sent Navigation Signature: Varun Quick MA August 14, 2024 10:[address] [facility]02-20-2025 NoteHNO ID: [id number] Author: VARUN QUICK MA Service: ? Author Type: Superintendent Electric Power Type: Progress Notes Filed: 08/13/2024 10:42 Note Text: POPULATION HEALTH NAVIGATION OUTREACH Action/FYI - [employer] High Risk - 1st attempt Next AWV: 10/07/24 No Health Maintenance Voicemail message left and Mychart message sent offering to assist in scheduling 6 mo follow up in March. Reason for Outreach Care Gap/HCC or Scheduling Wellness Visits Care Gaps due: Follow-up Appointment Patient Contacted: Unable or unnecessary to reach patient: Left message MyChart message sent Navigation Signature: Varun Quick MA August 13, 2024 10:[address] [facility]02-20-2025 History of Present illness Narrative* Varun Quick MA - 08/13/2024 10:35 AM EST POPULATION HEALTH NAVIGATION OUTREACH Action/FYI - [employer] High Risk - 1st attempt Next AWV: 10/07/24 No Health Maintenance Voicemail message left and Mychart message sent offering to assist in scheduling 6 mo follow up in March. Reason for Outreach Care Gap/HCC or Scheduling Wellness Visits Care Gaps due: Follow-up Appointment Patient Contacted: Unable or unnecessary to reach patient: Left message MyChart message sent Navigation Signature: Varun Quick MA August 13, 2024 10:35 AM documented in this encounterHigh[facility]02-[facility]25 NotePatient Outreach (NETNAV) ABISAI ARAYA ([id number]) 1955 Date Time Provider Department 08/13/24 VARUN QUICKV During your visit today, we recorded the following information about you: Varun Quick MA 08/13/2024 10:42 AM Signed POPULATION HEALTH NAVIGATION OUTREACH Action/PAULINE - Osmany High Risk - 1st attempt Next AWV: 10/07/24 No Health Maintenance Voicemail message left and Mychart message sent offering to assist in scheduling 6 mo follow up in March. Reason for Outreach Care Gap/HCC or Scheduling Wellness Visits Care Gaps due: Follow-up Appointment Patient Contacted: Unable or unnecessary to reach patient: Left message Scream Entertainmenthart message sent Navigation Signature: Varun Quick MA August 13, 2024 10:35 AM Varun Quick MA 08/14/2024 10:58 AM Signed POPULATION HEALTH NAVIGATION OUTREACH Action/PAULINE - [place] High Risk Pt responds via [email or web address] and declines scheduling appt: Sathish Araya Laura, [place] Hi, A few things. First, I have not seen Dr Calvert for over 2 years now. I see PAT Park and I feel she it move involved in my health and does a fine job. Secondly, I see Ms Older every 6 months or more, I will see her in September after having seen her in March, and I feel she is thorough, detailed and competent for my health needs. I see no reason for this visit you are suggesting, but thank you for your consideration and the offer. Shiny[employer] message sent thanking pt for response. Reason for Outreach Returned Call/MyChart Patient Contacted: Spoke to patient/parent/or legal guardian Patient identified by name and date of : Yes Returned call/MyChart actions taken: Scre[employer] Entertainment[employer] message sent Navigation Signature: Varun Quick MA August 14, 2024 10:55 AM Allergies As of Date: 08/13/2024 Noted Allergy Reaction LISINOPRIL 07/25/2023 2 - Rash LOSARTAN 12/07/2022 8 - GI Upset Comments: Constipation Date Reviewed: 07/29/2024 Reviewed by: Samira Dewitt MA - Fully Assessed Reason for Visit: Population Health Navigation Outreach [3910] Cmt: Osmany High Risk - 1st attempt Prescriptions as of 08/14/2024 - azelastine 0.1% nasal spray 2 Sprays two times a day. - fluticasone propionate (FLONASE NASAL) Use in the nose two times a day. - naproxen (NAPROSYN) 500 mg tablet Take 1 tablet by mouth two times a day with meals. - finasteride (PROSCAR) 5 mg tablet Take 1 tablet by mouth once daily. - amLODIPine (NORVASC) 5 mg tablet Take 1 tablet by mouth once daily. - famotidine (PEPCID) 20 mg tablet Take 1 tablet by mouth at bedtime as needed. - tamsulosin (FLOMAX) 0.4 mg Take 1 capsule by mouth daily at bedtime. - rosuvastatin (CRESTOR) 5 mg tablet Take 1 tablet by mouth daily at bedtime. - tamsulosin (FLOMAX) 0.4 mg Take 1 capsule by mouth daily at bedtime. - semaglutide (OZEMPIC) 0.25 mg or 0.5 mg (2 mg/3 mL) pen Inject 0.5 mg subcutaneously one time a week. - Fenofibrate (LOFIBRA) 54 mg tablet Take 1 tablet by mouth once daily. - Fluocinolone Acetonide 0.01 % external oil Apply 0.1 % to affected area every 2 weeks. - Zinc 50 mg tab Take 22 mg by mouth once daily. - ketoconazole (NIZORAL) 2 % shampoo Apply to affected area as directed. - MULTI-VITAMIN ORAL Take by mouth once daily. - Ascorbic Acid (VITAMIN C) 1,000 mg tablet Take 1,000 mg by mouth once daily. - [place]-3 Fatty Acids-Vitamin E (FISH OIL) 1,000 mg cap Take 1 capsule by mouth once daily. - Cholecalciferol, Vitamin D3, (VITAMIN D) 1,000 unit cap Take 1,000 Units by mouth once daily. 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 Author Type: Physician Emergency Service Restorer Type: Progress Notes Filed: 07/29/2024 12:07 Note Text: Pema Duong PA-C [facility] [address] [place] [address] 07/29/2024 ASSESSMENT AND PLAN: Assessment : Encounter Diagnosis ICD-10-CM 1. Mechanical low back pain M54.59 2. Lumbar spondylosis M47.816 Discussion: Mr. Araya is a very pleasant 69-year-old man here for evaluation of low back pain on an intermittent but frequent basis over the last few years. He has tried health care attorney and massage as, naproxen. Current episode has lasted for around 6 months and he even says that pain has awoken him in the past. Walking makes symptoms worse and stretching before going to bed seems to really help. Patient is diabetic He is obese but losing weight with current BMI of 38.6. He has LEFT knee OA and RIGHT hip issues as well. He has been holding off on a left knee surgery. EXAM Highlights: Slow to mobilize from sitting to standing. He has favoring of his RLE secondary to some right hip pain as he walks and the left leg acts as if it is slightly shorter because it does not fully straighten at the knee. There is LBP at the LS junction to palpation but it is mild. Motion is normal and neurologic function in terms of strength and reflexes are normal. He is globally hyporeflexic at 0/4 in both upper and lower extremities without the presence of any pathological reflexes. He does have distal sensory deficits secondary to diabetic peripheral polyneuropathy. Seated SLR's are negative bilaterally. IMAGING: We did review his most recent lumbar plain radiographs together during today's visit. These films were done on 05/03/2021. He has moderately severe DDD especially in lower lumbar segments and increase in lumbar lordosis which seems to place more weight on the facet joints of the lumbar region. He does not appear to have fracture or significant listhesis. SUMMARY/PLAN: We had a long talk today regarding overall spine health and wellness. Since he is already working hard on weight loss, I will have him continue that. He is benefited from PT in the past and he would consider redoing this in the future, but he will also focus on his other lower extremity orthopedic issues in the left knee. He seems to manage quite well with his current symptoms in the low back and I think that he has good reason based on x-ray findings for lumbosacral mechanical pain. He will check back in with me if he would like to go forward with supervised PT, health care attorney, acupuncture, osteopathic manipulation or if symptoms develop into more of a radiculopathy where we would want to proceed with MRI studies. Plan : ACTIVITY RECOMMENDATIONS: -The patient is encouraged to avoid bed rest and maintain normal activity. -The patient is encouraged to exercise regularly as tolerated. -The patient advised to avoid prolonged sitting. NUTRITION RECOMMENDATIONS: -The patient is carrying a significant amount of weight above an ideal BMI. We discussed how this impacts overall health and back pain. FOLLOW-UP: -The patient is instructed to return as needed. ADDITIONAL DISCUSSION: -We discussed the difference between hurt vs harm as it relates to chronic pain. This document has been created with the use of voice recognition technology. It may contain inaccuracies: (e.g. misspellings, inaccurate syntax or word sense) that have escaped review. Time spent: 47 minutes today with this patient visit. This includes nkuq-qm-riya time, review of chart records regarding conservative care history, spine-pertinent imaging, and communication/care coordination with referring provider, problem-specific history-taking and counseling/education regarding treatment options. cc: No referring provider defined for this encounter. Phone: N/A Fax: Results of consultation to be transmitted via electronic medical record for those providers who practice within [facility] or with access to [facility] via [facility], or via letter. ######################################################################## CHIEF COMPLAINT: Patient is here for the lower back pian, and left hip. Has this pain for years but in the last 6 months, pain started to get worse. Level of the pain is at 1/10. Pain is worse when sleeping. Walking makes pain worse. He's stretching before going to beg and it helps. HPI: see Discussion above History of bowel or bladder dysfunction (not IBS or constipation): No History of previous spinal surgery: No History of spinal fracture: No Work Status: retired NON-OPERATIVE CARE: Medication(s): He has tried the following for relief of his symptoms: Naproxen Physical Therapy: He has not had physical therapy (more content not included)... [facility]02-05-2025 History of Present illness Narrative* Pema Duong PA-C - 07/29/2024 10:54 AM EST Images from the original note were not included. Pema Duong PA-C [facility] [address] [address] 07/29/2024 ASSESSMENT AND PLAN: Assessment : Encounter Diagnosis ICD-10-CM 1. Mechanical low back pain M54.59 2. Lumbar spondylosis M47.816 Discussion: Mr. Araya is a very pleasant 69-year-old man here for evaluation of low back pain on an intermittent but frequent basis over the last few years. He has tried health care attorney and massage as, naproxen. Current episode has lasted for around 6 months and he even says that pain has awoken him in the past. Walking makes symptoms worse and stretching before going to bed seems to really help. Patient is diabetic He is obese but losing weight with current BMI of 38.6. He has LEFT knee OA and RIGHT hip issues as well. He has been holding off on a left knee surgery. EXAM Highlights: Slow to mobilize from sitting to standing. He has favoring of his RLE secondary tosome right hip pain as he walks and the left leg acts as if it is slightly shorter because it does not fully straighten at the knee. There is LBP at the LS junction to palpation but it is mild. Motion is normal and neurologic function in terms of strength and reflexes are normal. He is globally hyporeflexic at 0/4 in both upper and lower extremities without the presence of any pathological reflexes. He does have distal sensory deficits secondary to diabetic peripheral polyneuropathy. Seated SLR's are negative bilaterally. IMAGING: We did review his most recent lumbar plain radiographs together during today's visit. These films were done on 05/03/2021. He has moderately severe DDD especially in lower lumbar segments and increase in lumbar lordosis which seems to place more weight on the facet joints of the lumbar region. He does not appear to have fracture or significant listhesis. SUMMARY/PLAN: We had a long talk today regarding overall spine health and wellness. Since he is already working hard on weight loss, I will have him continue that. He is benefited from PT in the past and he would consider redoing this in the future, but he will also focus on his other lower extremity orthopedic issues in the left knee. He seems to manage quite well with his current symptoms in the low back and I think that he has good reason based on x-ray findings for lumbosacral mechanical pain. He will check back in with me if he would like to go forward with supervised PT, health care attorney,acupuncture, osteopathic manipulation or if symptoms develop into more of a radiculopathy where we would want to proceed with MRI studies. Plan : ACTIVITY RECOMMENDATIONS: -The patient is encouraged to avoid bed rest and maintain normal activity. -The patient is encouraged to exercise regularly as tolerated. -The patient advised to avoid prolonged sitting. NUTRITION RECOMMENDATIONS: -The patient is carrying a significant amount of weight above an ideal BMI. We discussed how this impacts overall health and back pain. FOLLOW-UP: -The patient is instructed to return as needed. ADDITIONAL DISCUSSION: -We discussed the difference between hurt vs harm as it relates to chronic pain. This document has been created with the use of voice recognition technology. It may contain inaccuracies: (e.g. misspellings, inaccurate syntax or word sense) that have escaped review. Time spent: 47 minutes today with this patient visit. This includes [id number] time, review of chart records regarding conservative care history, spine- pertinent imaging, and communication/care coordination with referring provider, problem-specific history-taking and counseling/education regarding treatment options. cc: No referring provider defined for this encounter. Phone: N/A Fax: Results of consultation to be transmitted via electronic medical record for those providers who practice within [facility] or with access to [facility] via [facility], or via letter. ######################################################################## CHIEF COMPLAINT: Patient is here for the lower back pian, and left hip. Has this pain for years butin the last 6 months, pain started to get worse. Level of the pain is at 1/10. Pain is worse when sleeping. Walking makes pain worse. He's stretching before going to beg and it helps. HPI: see Discussion above History of bowel or bladder dysfunction (not IBS or constipation): No History of previous spinal surgery: No History of spinal fracture: No Work Status: retired NON-OPERATIVE CARE: Medication(s): He has tried the following for relief of his symptoms: Naproxen Physical Therapy: He has not had physical therapy for his current symptoms. Spinal Injections: He has not gotten prior spinal injections. Other: Chiropractice care: Massage therapy TENS unit Current Outpatient Medications Medication Sig Dispense Refill azelastine 0.1% nasal spray 2 Sprays two times a day. fluticasone propionate (FLONASE NASAL) Use in the nose two times a day. naproxen (NAPROSYN) 500 mg tablet Take 1 tablet by mouth two times a day with meals. 60 tablet 1 finasteride (PROSCAR) 5 mg tablet Take 1 tablet by mouth once daily. 90 tablet 3 amLODIPine (NORVASC) 5 mg tablet Take 1 tablet by mouth once daily. 90 tablet 1 famotidine (PEPCID) 20 mg tablet Take 1 tablet by mouth at bedtime as needed. 90 tablet 3 tamsulosin (FLOMAX) 0.4 mg Take 1 capsule by mouth daily at bedtime. 90 capsule 3 rosuvastatin (CRESTOR) 5 mg tablet Take 1 tablet by mouth daily at bedtime. 90 tablet 3 semaglutide (OZEMPIC) 0.25 mg or 0.5 mg (2 mg/3 mL) pen Inject 0.5 mg subcutaneously one time a week. 9 mL 1 Fenofibrate (LOFIBRA) 54 mg tablet Take 1 tablet by mouth once daily. 90 tablet 3 Fluocinolone Acetonide 0.01 % external oil Apply 0.1 % to affected area every 2 weeks. Zinc 50 mg tab Take 22 mg by mouth once daily. ketoconazole (NIZORAL) 2 % shampoo Apply to affected area as directed. MULTI-VITAMIN ORAL Take by mouth once daily. Ascorbic Acid (VITAMIN C) 1,000 mg tablet Take 1,000 mg by mouth once daily. [place]-3 Fatty Acids-Vitamin E (FISH OIL) 1,000 mg cap Take 1 capsule by mouth once daily. Cholecalciferol, Vitamin D3, (VITAMIN D) 1,000 unit cap Take 1,000 Units by mouth once daily. tamsulosin (FLOMAX) 0.4 mg Take 1 capsule by mouth daily at bedtime. (Patient not taking: Reported on 07/29/2024) 90 capsule 3 No current facility-administered medications for this visit. Allergies: Lisinopril and Losartan PAST MEDICAL HISTORY Diagnosis Date Allergic rhinitis, cause unspecified Anxiety state, unspecified Arthritis Backache, unspecified BPH (benign prostatic hyperplasia) Essential hypertension, benign Headache(784.0) Hypertrophy of prostate without urinary obstruction and other lower urinary tract symptoms (LUTS) Nontoxic uninodular goiter Olecranon bursitis Other and unspecified hyperlipidemia Other chronic nonalcoholic liver disease Shortness of breath Symptom of bladder outlet obstruction Unspecified hemorrhoids with other complication Unspecified hereditary and idiopathic peripheral neuropathy Urine retention PAST SURGICAL HISTORY Procedure Laterality Date CHOLECYSTECTOMY HX 2002 COLONOSCOPY 2004 COLONOSCOPY 2019 THYROID FINE NEEDLE ASPIRATION 07/29/2023 Left midpole and left lower pole of the thyroid Social History Tobacco Use Smoking status: Former Current packs/day: 0.00 Types: Cigarettes Quit date: 06/24/1997 Years since quittin.1 Smokeless tobacco: Never Vaping Use Vaping status: Never Used Substance Use Topics Alcohol use: Yes Alcohol/week: 7.0 standard drinks of alcohol Types: 4 Glasses of wine, 1 Cans of beer, 1 Shots of liquor, 1 Standard drinks or equivalent per week Drug use: Not Currently Types: Marijuana FAMILY HISTORY Problem Relation Age of Onset Goiter Mother Alcohol/Drug Father Diabetes Father Coronary Artery Disease Father Heart Father Hypertension Father Lipids Father No Known Problems Sister No Known Problems Sister No Known Problems Brother No Known Problems Maternal Grandmother No Known Problems Maternal Grandfather No Known Problems Paternal Grandmother Lung Cancer Paternal Grandfather REVIEW OF SYSTEMS: Constitutional: (-) Fever/Chills (-) Night Sweats (-) Weight Gain (-) Weight Loss Gastrointestinal: (+) Abdominal Pain (-) Diarrhea (+) Constipation (-) Heart Burn Cardiovascular: (-) Chest Pain (-) Palpitations (-) Lightheadedness (-) Hx Heart Surgery/Stent Respiratory: (-) Short of Breath (+) Cough (+) Snoring CPAP Neurologic: (-) Headache (-) Blurry Vision (-) Fainting Skin: (+) Rashes (-) Itching (-) Other Lesions Psychiatric: (-) Depression (-) Anxiety (-) Suicidal Thoughts Genitourinary: (-) Frequency (-) Urgency Endocrine: (-) Thyroid Disorder (+) Diabetes Hematologic: (-) Prolonged Bleeding (-) Easy Bruising ################################################################################ ################################################# PHYSICAL EXAM: Blood pressure 121/71, pulse 69, height 188 cm (6' 2), weight (!) 136.4 kg (300 lb 11.3 oz), SpO2 95%. Body mass index is 38.61 kg/m . General: Patient is a(n) good historian. The patient appears approximately the recorded age and is sitting comfortably in the examining room. The patient is tall in stature and is obese in appearance. This individual has difficulty arising from a sitting position and does have difficulty acquiring a full, upright position when standing. Station and Gait: flexed posture and antalgic gait leaning forward and favoring the right lower extremity The patient is able to but has difficulty in attempting to walk in a tandem gait. MENTAL STATUS EXAMINATION: The patient was well groomed and casually attired. The patient had excellent eye contact and rapport was easy to establish. The patient appeared to be alert and oriented in all spheres. The patient'soverall medical judgment appeared to be good.The patient's motivation for treatment was judged based on today's encounter to be good. SPINE: Lumbar Lordosis: Increased Thoracic Kyphosis: Normal RANGE OF MOTION: Flexion: normal, as expected for age and weight Pain: No Extension: normal, as expected for age and weight Pain: No Lateral Bending: Right normal, as expected for age and weight Pain: No Left normal, as expected for age and weight Pain: No PALPATION TENDERNESS: Mild tenderness at: lumbar region and posterior pelvis Hyperesthesia present: No Regional symptoms present: No Increased pain with axial loading: No Distraction: Normal Pain responses: appropriate NEUROLOGIC EXAM: MOTOR: Walk on Toes: Right: Yes Left: Yes Walk on Heels: Right: Yes Left: Yes Requires verbal cues to minimize cog-wheel or give-way resistance: No Hip Flexor R: 5/5 L: 5/5 Hip Abductor R: 5/5 L: 5/5 Hip Adductor R: 5/5 L: 5/5 Knee Extension R: 5/5 L: 5/5 Foot Dorsiflexion R: 5/5 L: 5/5 Foot Plantar Flexion R: 5/5 L: 5/5 Ext Hallicus Longus R: 5/5 L: 5/5 Toe Extensors R: 5/5 L: 5/5 SENSATION to Light Touch: Lumbar: Stocking distribution (non-dermatomal) numbness affecting the bilateral toes. REFLEXES: Lower Extremity: Patella tendon: R: 0 L: 0 Achilles tendon: R: 0 L: 0 Clonus: R: 0 beats/Normal L: 0 beats/Normal Babinski Sign: Negative bilaterally. Upper Extremity: Brachioradialis: R: 0 inverted? No L: 0 inverted? No Biceps: R: 0 L: 0 Triceps: R: 0 L: 0 Silva's Sign: Negative bilaterally. VASCULAR: Skin appearance: Right: Warm/pink Left: Warm/pink Capillary refill: Right: brisk Left: brisk ADDITIONAL MUSCULOSKELETAL EXAM: HIP/PELVIS EXAM: Tenderness over the PSIS: Right: Yes Left: Yes Greater Trochanteric pain: Right: Yes Left: No SPECIAL TESTS: Straight Leg Raise: negative bilaterally Contralateral Straight Leg Raise: negative bilaterally IMAGING STUDIES: See discussion [facility] NoteHNO ID: [id number] Author: ELLA AARON APRN.PEST CONTROL OPERATOR Service: ? Author Type: Nurse Practitioner Type: Progress Notes Filed: 07/12/2024 10:06 Note Text: Called to triage patient by PSS 69 year old male presents with possible bowel obstruction Acute onset abdominal pain last night +LUQ and LLQ TTP Discussed limitations of express care. He denies prior history of bowel obstruction, but endorses the pain is so bad it has to be that No imaging and labs available on a Saturday morning [facility] of Present illness Narrative* Ella Aaron APRN.PEST CONTROL OPERATOR - 07/12/2024 10:04 AM EST Called to triage patient by PSS 69 year old male presents with possible bowel obstruction Acute onset abdominal pain last night +LUQ and LLQ TTP Discussed limitations of express care. He denies prior history of bowel obstruction, but endorses the pain is so bad it has to be that No imaging and labs available on a Saturday morning Referred to ED Declines [facility] NoteHNO ID: [id number] Author: ENRICO HOLLIS PA-C Service: ? Author Type: Physician Emergency Service Restorer Type: Progress Notes Filed: 07/08/2024 11:02 Note Text: HISTORY OF PRESENT ILLNESS: Abisai is a 69 year old male. He is here for evaluation of Left hip pain. Patient reports intermittent hip pain for approximately one year that is located in the posterior and lateral aspects of the hip. Denies groin pain. He reports that his left knee is [id number] and he has been told he needs TKA. Due to this, he primarily keeps his left knee extended when he walks to avoid pain in the knee. He also moved into a new house and has been exercising more with walking. He currently takes [id number] naproxen 1 to 2 tablets at night. Denies any numbness or tingling to the left lower extremity. No trauma or injury that may have precipitated this pain. PAIN EVALUATION 07/04/2024 2132 07/08/2024 1034 Pain Level: 3 2 Pain Location: Hip-Left Hip-Left Description: Aching;Dull;Sore Aching Duration Amount of Time: 2 1 Duration Units: Hours Years Frequency: Intermittent Intermittent Intervention/Comfort measure: Medication;Reposition;Relaxation;Pillow support;Other: See comment -- Comments: Stretching -- MEDICATIONS Current Outpatient Medications on File Prior to Visit Medication Sig finasteride (PROSCAR) 5 mg tablet Take 1 tablet by mouth once daily. amLODIPine (NORVASC) 5 mg tablet Take 1 tablet by mouth once daily. famotidine (PEPCID) 20 mg tablet Take 1 tablet by mouth at bedtime as needed. tamsulosin (FLOMAX) 0.4 mg Take 1 capsule by mouth daily at bedtime. rosuvastatin (CRESTOR) 5 mg tablet Take 1 tablet by mouth daily at bedtime. tamsulosin (FLOMAX) 0.4 mg Take 1 capsule by mouth daily at bedtime. semaglutide (OZEMPIC) 0.25 mg or 0.5 mg (2 mg/3 mL) pen Inject 0.5 mg subcutaneously one time a week. Fenofibrate (LOFIBRA) 54 mg tablet Take 1 tablet by mouth once daily. Fluocinolone Acetonide 0.01 % external oil Apply 0.1 % to affected area every 2 weeks. Zinc 50 mg tab Take 22 mg by mouth once daily. ketoconazole (NIZORAL) 2 % shampoo Apply to affected area as directed. MULTI-VITAMIN ORAL Take by mouth once daily. Ascorbic Acid (VITAMIN C) 1,000 mg tablet Take 1,000 mg by mouth once daily. [place]-3 Fatty Acids-Vitamin E (FISH OIL) 1,000 mg cap Take 1 capsule by mouth once daily. Cholecalciferol, Vitamin D3, (VITAMIN D) 1,000 unit cap Take 1,000 Units by mouth once daily. No current facility-administered medications on file prior to visit. ALLERGIES ALLERGIES Allergen Reactions Lisinopril Rash Losartan GI Upset Constipation PAST MEDICAL HISTORY PAST MEDICAL HISTORY Diagnosis Date Allergic rhinitis, cause unspecified Anxiety state, unspecified Arthritis Backache, unspecified BPH (benign prostatic hyperplasia) Essential hypertension, benign Headache(784.0) Hypertrophy of prostate without urinary obstruction and other lower urinary tract symptoms (LUTS) Nontoxic uninodular goiter Olecranon bursitis Other and unspecified hyperlipidemia Other chronic nonalcoholic liver disease Shortness of breath Symptom of bladder outlet obstruction Unspecified hemorrhoids with other complication Unspecified hereditary and idiopathic peripheral neuropathy Urine retention PAST SURGICAL HISTORY PAST SURGICAL HISTORY Procedure Laterality Date CHOLECYSTECTOMY HX 2002 COLONOSCOPY 2004 COLONOSCOPY 2019 THYROID FINE NEEDLE ASPIRATION 07/29/2023 Left midpole and left lower pole of the thyroid SOCIAL HISTORY Tobacco: Ex-smoker, quit 1997 FAMILY HISTORY Does a similar condition to what you are experiencing run in your family? No REVIEW OF SYSTEMS: All other systems negative. PHYSICAL EXAM: PE: All other systems deferred. GENERAL: Appears healthy, well-nourished, no deformities. HABITUS: Obese GAIT: Antalgic to the left SKIN: Normal Left: ROM: Extension: Normal Flexion: 110 degrees Internal Rotation: 20 degrees External Rotation: 35 degrees Abduction: 40 degrees Adduction: 30 degrees Strength: Abduction 5/5 and Flexion 5/5 Palpation: No tenderness Log roll: non-painful. Straight leg raise: Negative Neurovascular Status: Sensation Intact and Moves foot and ankle up AND down Mild pain with FADIR and RACQUEL testing RADIOGRAPHS (personally reviewed): moderate left hip osteoarthritis MRI: none DIAGNOSIS Encounter Diagnosis ICD-10-CM 1. Pain in left hip M25.552 XR HIP GENERAL 3V PELV/AP/LAT LEFT 2. Primary osteoarthritis of left hip M16.12 3. Tendinopathy of left gluteal region M67.952 PLAN Patient has moderate left hip osteoarthritis, however I believe that most of his symptoms are coming from the gluteal musculature and IT band tightness due to his lzku-yg-jumh knee arthritis on the left side. Exam today was mainly benign for hip pathology. Patient is set up with a spine provider as well as a total knee surgeon Dr. Vikash munguia (more content not included)...[facility]01[facility] History of Present illness Narrative* Enrico Hollis PA- C - 07/08/2024 10:55 AM EST Images from the original note were not included. HISTORY OF PRESENT ILLNESS: Abisai is a 69 year old male. He is here for evaluation of Left hip pain. Patient reports intermittent hip pain for approximately one year that is located in the posterior and lateral aspects of the hip. Denies groin pain. He reports that his left knee is [id number] and he has been told he needs TKA. Due to this, he primarily keeps his left knee extended when he walks to avoid pain in the knee. He also moved into a new house and has been exercising more with walking. He currently takes [id number] naproxen 1 to 2 tablets at night. Denies any numbness or tingling to the left lower extremity. No trauma or injury that may have precipitated this pain. PAIN EVALUATION 07/04/2024 2132 07/08/2024 1034 Pain Level: 3 2 Pain Location: Hip-Left Hip-Left Description: Aching;Dull;Sore Aching Duration Amount of Time: 2 1 Duration Units: Hours Years Frequency: Intermittent Intermittent Intervention/Comfort measure: Medication;Reposition;Relaxation;Pillow support;Other: See comment -- Comments: Stretching -- MEDICATIONS Current Outpatient Medications on File Prior to Visit Medication Sig finasteride (PROSCAR) 5 mg tablet Take 1 tablet by mouth once daily. amLODIPine (NORVASC) 5 mg tablet Take 1 tablet by mouth once daily. famotidine (PEPCID) 20 mg tablet Take 1 tablet by mouth at bedtime as needed. tamsulosin (FLOMAX) 0.4 mg Take 1 capsule by mouth daily at bedtime. rosuvastatin (CRESTOR) 5 mg tablet Take 1 tablet by mouth daily at bedtime. tamsulosin (FLOMAX) 0.4 mg Take 1 capsule by mouth daily at bedtime. semaglutide (OZEMPIC) 0.25 mg or 0.5 mg (2 mg/3 mL) pen Inject 0.5 mg subcutaneously one time a week. Fenofibrate (LOFIBRA) 54 mg tablet Take 1 tablet by mouth once daily. Fluocinolone Acetonide 0.01 % external oil Apply 0.1 % to affected area every 2 weeks. Zinc 50 mg tab Take 22 mg by mouth once daily. ketoconazole (NIZORAL) 2 % shampoo Apply to affected area as directed. MULTI-VITAMIN ORAL Take by mouth once daily. Ascorbic Acid (VITAMIN C) 1,000 mg tablet Take 1,000 mg by mouth once daily. [place]-3 Fatty Acids-Vitamin E (FISH OIL) 1,000 mg cap Take 1 capsule by mouth once daily. Cholecalciferol, Vitamin D3, (VITAMIN D) 1,000 unit cap Take 1,000 Units by mouth once daily. No current facility-administered medications on file prior to visit. ALLERGIES ALLERGIES Allergen Reactions Lisinopril Rash Losartan GI Upset Constipation PAST MEDICAL HISTORY PAST MEDICAL HISTORY Diagnosis Date Allergic rhinitis, cause unspecified Anxiety state, unspecified Arthritis Backache, unspecified BPH (benign prostatic hyperplasia) Essential hypertension, benign Headache(784.0) Hypertrophy of prostate without urinary obstruction and other lower urinary tract symptoms (LUTS) Nontoxic uninodular goiter Olecranon bursitis Other and unspecified hyperlipidemia Other chronic nonalcoholic liver disease Shortness of breath Symptom of bladder outlet obstruction Unspecified hemorrhoids with other complication Unspecified hereditary and idiopathic peripheral neuropathy Urine retention PAST SURGICAL HISTORY PAST SURGICAL HISTORY Procedure Laterality Date CHOLECYSTECTOMY HX 2002 COLONOSCOPY 2005 COLONOSCOPY 2019 THYROID FINE NEEDLE ASPIRATION 07/29/2023 Left midpole and left lower pole of the thyroid SOCIAL HISTORY Tobacco: Ex-smoker, quit 1997 FAMILY HISTORY Does a similar condition to what you are experiencing run in your family? No REVIEW OF SYSTEMS: All other systems negative. PHYSICAL EXAM: PE: All other systems deferred. GENERAL: Appears healthy, well-nourished, no deformities. HABITUS: Obese GAIT: Antalgic to the left SKIN: Normal Left: ROM: Extension: Normal Flexion: 110 degrees Internal Rotation: 20 degrees External Rotation: 35 degrees Abduction: 40 degrees Adduction: 30 degrees Strength: Abduction 5/5 and Flexion 5/5 Palpation: No tenderness Log roll: non-painful. Straight leg raise: Negative Neurovascular Status: Sensation Intact and Moves foot and ankle up & down Mild pain with FADIR and RACQUEL testing RADIOGRAPHS (personally reviewed): moderate left hip osteoarthritis MRI: none DIAGNOSIS Encounter Diagnosis ICD-10-CM 1. Pain in left hip M25.552 XR HIP GENERAL 3V PELV/AP/LAT LEFT 2. Primary osteoarthritis of left hip M16.12 3. Tendinopathy of left gluteal region M67.952 PLAN Patient has moderate left hip osteoarthritis, however I believe that most of his symptoms are coming from the gluteal musculature and IT band tightness due to his [id number] knee arthritis on theleft side. Exam today was mainly benign for hip pathology. Patient is set up with a spine provider as well as a total knee surgeon Dr. Suh to discuss possible total knee arthroplasty. We will start him on Naprosyn 500 mg and have him follow-up with his spine and orthopedic surgeon. I spent a total of 30 minutes on the date of the service which included preparing to see the patient, [id number] patient care, completing clinical documentation, obtaining and/or reviewing separately obtained history, performing a medically appropriate examination, counseling and educating the pat ient/family/caregiver, ordering medications, tests, or procedures, communicating with other HCPs (not separately reported), independently interpreting results (not separately reported), communicatingresults to the patient/family/caregiver, and care coordination (not separately reported). PROCEDURE: Procedures Enrico Hollis PA-C documented in this encounterHigh[facility]01-[facility]25 History of Present illness Narrative* Ella Trejo Tech - 07/08/2024 10:50 AM EST Radiology Service Progress Note PATIENT NAME: Abisai Araya DATE OF SERVICE: July 08, 2024 TIME: 10:16 AM PATIENT IDENTITY VERIFICATION COMPLETED USING TWO (2) IDENTIFIERS: Name and Date of confirmedby patient verbally. FALL SCREENING: Has the patient had 2 falls in the last year or 1 fall with injury or currently using an Ambulatory Assistive Device (Walker, Cane, Wheelchair, Crutches, etc.)? No PATIENT GENDER DATA: Assigned male at PATIENT RELEVANT IMPLANT DATA REVIEWED: Not Applicable PATIENT PRESENTS WITH AN IMPLANTABLE OR ATTACHED TERRA COTTA MOLD MAKER: No RADIOLOGY DEPARTMENT: General X-ray: Exam(s) Completed: Pelvis X-Ray: Pelvis with Hip Left and Wt. Bearing PERIPHERAL IV DATA: Not applicable SIGNED BY: Bonnie Castaneda July 08, 2024 10:16 AM documented in this encounterHighland District Hospital01-15-2025 NoteHNO ID: [id number] Author: ELLA TREJO Tech Service: Radiology Author Type: Tire Worker Type: Progress Notes Filed: 07/08/2024 10:16 Note Text: Radiology Service Progress Note PATIENT NAME: Abisai Araya DATE OF SERVICE: July 08, 2024 TIME: 10:16 AM PATIENT IDENTITY VERIFICATION COMPLETED USING TWO (2) IDENTIFIERS: Name and Date of confirmed by patient verbally. FALL SCREENING: Has the patient had 2 falls in the last year or 1 fall with injury or currently using an Ambulatory Assistive Device (Walker, Cane, Wheelchair, Crutches, etc.)? No PATIENT GENDER DATA: Assigned male at PATIENT RELEVANT IMPLANT DATA REVIEWED: Not Applicable PATIENT PRESENTS WITH AN IMPLANTABLE OR ATTACHED TERRA COTTA MOLD MAKER: No RADIOLOGY DEPARTMENT: General X-ray: Exam(s) Completed: Pelvis X-Ray: Pelvis with Hip Left and Wt. Bearing PERIPHERAL IV DATA: Not applicable SIGNED BY: Bonnie Castaneda July 08, 2024 10:16 AMSelect [facility] [id number] Telephone encounter Note* Telephone Encounter - Johana Chavarria LPN - 07/06/2024 2:49 PM EST Prescription Refill Information The patient has been identified by name and date of : Yes Caregiver verified no other encounters exist for this prescription request: Yes Caregiver confirmed with patient/requestor that no other refills are due, in the near future, with this provider at this time: Yes The last office visit in the department: 04/24/24 Does the patient have a future office visit with this provider/department: Yes 10/07/24 Requested Prescriptions Pending Prescriptions Disp Refills amLODIPine (NORVASC) 5 mg tablet 90 tablet 1 Sig: Take 1 tablet by mouth once daily. Johana Chavarria LPN July 06, 2024 2:49 PM [facility]01-[facility] Miscellaneous Notes* Telephone Encounter - Johana Chavarria LPN - 07/06/2024 2:49 PM EST Prescription Refill Information The patient has been identified by name and date of : Yes Caregiver verified no other encounters exist for this prescription request: Yes Caregiver confirmed with patient/requestor that no other refills are due, in the near future, with this provider at this time: Yes The last office visit in the department: 04/24/24 Does the patient have a future office visit with this provider/department: Yes 10/07/24 Requested Prescriptions Pending Prescriptions Disp Refills amLODIPine (NORVASC) 5 mg tablet 90 tablet 1 Sig: Take 1 tablet by mouth once daily. Johana Chavarria LPN July 06, 2024 2:49 PM documented in this encounterHighland [facility] Hospital01-13-2025 Telephone encounter Note * Telephone Encounter - Sorin Rios RN - 07/06/2024 9:27 AM EST [facility] 01/28/24 Patient phones requesting refills as follows: Requested Prescriptions Pending Prescriptions Disp Refills finasteride (PROSCAR) 5 mg tablet 90 tablet 3 Sig: Take 1 tablet by mouth once daily. Please review and advise. Sorin Rios RN [facility]01-13-[facility] Miscellaneous Notes* Telephone Encounter - Sorin Rios RN - 07/06/2024 9:27 AM EST [facility] 01/28/24 Patient phones requesting refills as follows: Requested Prescriptions Pending Prescriptions Disp Refills finasteride (PROSCAR) 5 mg tablet 90 tablet 3 Sig: Take 1 tablet by mouth once daily. Please review and advise. Sorin Rios RN documented in this encounterHighland [facility] Hospital01-02-2025 Telephone encounter Note * Telephone Encounter - Tricia Gilbert PA - 06/25/2024 7:42 PM EST Contacted patient. Positive for COVID. He is into the window and candidate for Paxlovid. Lab testing reviewed from 03/2024-eGFR 94. Discussed with patient side effects of medication versus benefits. Patient unsure if he wants to take it or not, but would like it sent to his pharmacy. Discussed he will need to start this within 5 days of symptoms-patient is on day 3. He will need to start this within the next 2 days. Did discuss he needs to stop taking Flomax and rosuvastatin while taking the medication and 3 to 5 days afterwards. Patient understands. [facility]01-[facility] Miscellaneous Notes* Telephone Encounter - Tricia Gilbert PA - 06/25/2024 7:42 PM EST Contacted patient. Positive for COVID. He is into the window and candidate for Paxlovid. Lab testing reviewed from 03/2024-eGFR 94. Discussed with patient side effects of medication versus benefits. Patient unsure if he wants to take it or not, but would like it sent to his pharmacy. Discussed he will need to start this within 5 days of symptoms-patient is on day 3. He will need to start this within the next 2 days. Did discuss he needs to stop taking Flomax and rosuvastatin while taking the medication and 3 to 5 days afterwards. Patient understands. documented in this encounterHighland [facility] Hospital01-02-2025 History of Present illness Narrative* Cale Carmichael, RT(R) - 06/25/2024 8:10 AM EST Radiology Service Progress Note PATIENT NAME: Abisai Araya DATE OF SERVICE: June 25, 2024 TIME: 8:05 AM PATIENT IDENTITY VERIFICATION COMPLETED USING TWO (2) IDENTIFIERS: Name and Date of confirmedby patient verbally. FALL SCREENING: Has the patient had 2 falls in the last year or 1 fall with injury or currently using an Ambulatory Assistive Device (Walker, Cane, Wheelchair, Crutches, etc.)? No PATIENT GENDER DATA: Male PATIENT RELEVANT IMPLANT DATA REVIEWED: Not Applicable PATIENT PRESENTS WITH AN IMPLANTABLE OR ATTACHED TERRA COTTA MOLD MAKER: No RADIOLOGY DEPARTMENT: General X-ray: Exam(s) Completed: Chest X-Ray PERIPHERAL IV DATA: Not applicable SIGNED BY: RT Roberta(R) June 25, 2024 8:05 AM documented in this encounterHighland [facility] Hospital01-02-2025 NoteHNO ID: [id number] Author: CALE CARMICHAEL RT(Angelina) Service: Radiology Author Type: Technologist Type: Progress Notes Filed: 06/25/2024 08:13 Note Text: Radiology Service Progress Note PATIENT NAME: Abisai Araya DATE OF SERVICE: June 25, 2024 TIME: 8:05 AM PATIENT IDENTITY VERIFICATION COMPLETED USING TWO (2) IDENTIFIERS: Name and Date of confirmed by patient verbally. FALL SCREENING: Has the patient had 2 falls in the last year or 1 fall with injury or currently using an Ambulatory Assistive Device (Walker, Cane, Wheelchair, Crutches, etc.)? No PATIENT GENDER DATA: Male PATIENT RELEVANT IMPLANT DATA REVIEWED: Not Applicable PATIENT PRESENTS WITH AN IMPLANTABLE OR ATTACHED TERRA COTTA MOLD MAKER: No RADIOLOGY DEPARTMENT: General X-ray: Exam(s) Completed: Chest X-Ray PERIPHERAL IV DATA: Not applicable SIGNED BY: RT Roberta(Angelina) June 25, 2024 8:[address] [facility]01-02-2025 NoteHNO ID: [id number] Author: ROBERT BARONE APRN.PEST CONTROL OPERATOR Service: ? Author Type: Nurse Practitioner Type: Progress Notes Filed: 06/25/2024 08:35 Note Text: CC: Patient presents with: Cough: Head and chest congestion, sinus drainage, NATARAJAN x3 days HPI: Abisai Araya is a 68 year old male who presents to the office with complaint of chest congestion, head congestion, and cough, nonproductive for a few days. Symptoms are staying the same. Associated symptoms includes dyspnea. Denies wheezing, nausea, vomiting , and diarrhea. Treatments tried include nothing so far. with no relief of symptoms. Sick contacts: unknown. History of asthma, frequent episodes of bronchitis, chronic bronchitis, bronchiectasis or COPD: No Smoker: No Seasonal/environmental allergies: No The ROS is otherwise negative. The patient's pmh, medications, allergies, and past visits are reviewed. PHYSICAL EXAM: BP 151/85 Pulse 83 Temp 37.1 ?C (98.7 ?F) Resp 18 Wt (!) 138.2 kg (304 lb 10.8 oz) SpO2 94% BMI 39.12 kg/m? General appearance: alert, cooperative, pleasant, in no acute distress Head: Normocephalic Eyes: EOM's intact, conjunctiva pink and moist, no icterus, sclera white, non-injected Ears: Right ear: External ear/canal- Normal, TM - clear with good landmarks. Left ear: External ear/canal- Normal, TM - clear with good landmarks Oropharynx:moist without lesions, No erythema, exudates or tonsillar hypertrophy. Heart: Negative. RRR without obvious murmur, gallop, or rubs. No ectopy. Lungs: clear to auscultation, without rales or wheeze, good air exchange PAST MEDICAL HISTORY Diagnosis Date Allergic rhinitis, cause unspecified Anxiety state, unspecified Arthritis Backache, unspecified BPH (benign prostatic hyperplasia) Essential hypertension, benign Headache(784.0) Hypertrophy of prostate without urinary obstruction and other lower urinary tract symptoms (LUTS) Nontoxic uninodular goiter Olecranon bursitis Other and unspecified hyperlipidemia Other chronic nonalcoholic liver disease Shortness of breath Symptom of bladder outlet obstruction Unspecified hemorrhoids with other complication Unspecified hereditary and idiopathic peripheral neuropathy Urine retention PAST SURGICAL HISTORY Procedure Laterality Date CHOLECYSTECTOMY HX 2002 COLONOSCOPY 2004 COLONOSCOPY 2019 THYROID FINE NEEDLE ASPIRATION 07/29/2023 Left midpole and left lower pole of the thyroid ALLERGIES Lisinopril and Losartan MEDICATIONS famotidine (PEPCID) 20 mg tablet Take 1 tablet by mouth at bedtime as needed. tamsulosin (FLOMAX) 0.4 mg Take 1 capsule by mouth daily at bedtime. rosuvastatin (CRESTOR) 5 mg tablet Take 1 tablet by mouth daily at bedtime. tamsulosin (FLOMAX) 0.4 mg Take 1 capsule by mouth daily at bedtime. semaglutide (OZEMPIC) 0.25 mg or 0.5 mg (2 mg/3 mL) pen Inject 0.5 mg subcutaneously one time a week. amLODIPine (NORVASC) 5 mg tablet Take 1 tablet by mouth once daily. finasteride (PROSCAR) 5 mg tablet Take 1 tablet by mouth once daily. Fenofibrate (LOFIBRA) 54 mg tablet Take 1 tablet by mouth once daily. Fluocinolone Acetonide 0.01 % external oil Apply 0.1 % to affected area every 2 weeks. Zinc 50 mg tab Take 22 mg by mouth once daily. ketoconazole (NIZORAL) 2 % shampoo Apply to affected area as directed. MULTI-VITAMIN ORAL Take by mouth once daily. Ascorbic Acid (VITAMIN C) 1,000 mg tablet Take 1,000 mg by mouth once daily. [place]-3 Fatty Acids-Vitamin E (FISH OIL) 1,000 mg cap Take 1 capsule by mouth once daily. Cholecalciferol, Vitamin D3, (VITAMIN D) 1,000 unit cap Take 1,000 Units by mouth once daily. FAMILY HISTORY Problem Relation Age of Onset Goiter Mother Alcohol/Drug Father Diabetes Father Coronary Artery Disease Father Heart Father Hypertension Father Lipids Father No Known Problems Sister No Known Problems Sister No Known Problems Brother No Known Problems Maternal Grandmother No Known Problems Maternal Grandfather No Known Problems Paternal Grandmother Lung Cancer Paternal Grandfather Social History Tobacco Use Smoking status: Former Current packs/day: 0.00 Types: Cigarettes Quit date: 06/24/1997 Years since quittin.0 Smokeless tobacco: Never Vaping Use Vaping status: Never Used Substance Use Topics Alcohol use: Yes Alcohol/week: 7.0 standard drinks of alcohol Types: 4 Glasses of wine, 1 Cans of beer, 1 Shots of liquor, 1 Standard drinks or equivalent per week Drug use: Not Currently Types: Marijuana ASSESSMENT/PLAN: 1. Acute cough - ICD9: 786.2, ICD10: R05.1 (primary diagnosis) - XR CHEST 2V FRONTAL/LAT * * * * Physician Interpretation * * * * EXAMINATION: CHEST RADIOGRAPH (2 VIEW FRONTAL AND LATERAL) CLINICAL HISTORY: Acute cough MQ: XC2_6 EXAM DATE/TIME: 06/25/2024 8:13 AM COMPARISON: No relevant prior studies available. RESULT: Lines, tubes, and devices: None. Lungs and pleura: Th (more content not included)...[facility] 06-25-2024 History of Present illness Narrative* Robert Barone APRN.PEST CONTROL OPERATOR - 06/25/2024 7:56 AM EST CC: Patient presents with: Cough: Head and chest congestion, sinus drainage, NATARAJAN x3 days HPI: Abisai Araya is a 68 year old male who presents to the office with complaint of chest congestion, head congestion, and cough, nonproductive for a few days. Symptoms are staying the same. Associated symptoms includes dyspnea. Denies wheezing, nausea, vomiting , and diarrhea. Treatments tried include nothing so far. with no relief of symptoms. Sick contacts: unknown. History of asthma, frequent episodes of bronchitis, chronic bronchitis, bronchiectasis or COPD: No Smoker: No Seasonal/environmental allergies: No The ROS is otherwise negative. The patient's pmh, medications, allergies, and past visits are reviewed. PHYSICAL EXAM: BP 151/85 Pulse 83 Temp 37.1 C (98.7 F) Resp 18 Wt (!) 138.2 kg (304 lb 10.8 oz) SpO2 94% BMI 39.12 kg/m General appearance: alert, cooperative, pleasant, in no acute distress Head: Normocephalic Eyes: EOM's intact, conjunctiva pink and moist, no icterus, sclera white, non-injected Ears: Right ear: External ear/canal- Normal, TM - clear with good landmarks. Left ear: External ear/canal- Normal, TM - clear with good landmarks Oropharynx:moist without lesions, No erythema, exudates or tonsillar hypertrophy. Heart: Negative. RRR without obvious murmur, gallop, or rubs. No ectopy. Lungs: clear to auscultation, without rales or wheeze, good air exchange PAST MEDICAL HISTORY Diagnosis Date Allergic rhinitis, cause unspecified Anxiety state, unspecified Arthritis Backache, unspecified BPH (benign prostatic hyperplasia) Essential hypertension, benign Headache(784.0) Hypertrophy of prostate without urinary obstruction and other lower urinary tract symptoms (LUTS) Nontoxic uninodular goiter Olecranon bursitis Other and unspecified hyperlipidemia Other chronic nonalcoholic liver disease Shortness of breath Symptom of bladder outlet obstruction Unspecified hemorrhoids with other complication Unspecified hereditary and idiopathic peripheral neuropathy Urine retention PAST SURGICAL HISTORY Procedure Laterality Date CHOLECYSTECTOMY HX 2002 COLONOSCOPY 2004 COLONOSCOPY 2019 THYROID FINE NEEDLE ASPIRATION 07/29/2023 Left midpole and left lower pole of the thyroid ALLERGIES Lisinopril and Losartan MEDICATIONS famotidine (PEPCID) 20 mg tablet Take 1 tablet by mouth at bedtime as needed. tamsulosin (FLOMAX) 0.4 mg Take 1 capsule by mouth daily at bedtime. rosuvastatin (CRESTOR) 5 mg tablet Take 1 tablet by mouth daily at bedtime. tamsulosin (FLOMAX) 0.4 mg Take 1 capsule by mouth daily at bedtime. semaglutide (OZEMPIC) 0.25 mg or 0.5 mg (2 mg/3 mL) pen Inject 0.5 mg subcutaneously one time a week. amLODIPine (NORVASC) 5 mg tablet Take 1 tablet by mouth once daily. finasteride (PROSCAR) 5 mg tablet Take 1 tablet by mouth once daily. Fenofibrate (LOFIBRA) 54 mg tablet Take 1 tablet by mouth once daily. Fluocinolone Acetonide 0.01 % external oil Apply 0.1 % to affected area every 2 weeks. Zinc 50 mg tab Take 22 mg by mouth once daily. ketoconazole (NIZORAL) 2 % shampoo Apply to affected area as directed. MULTI-VITAMIN ORAL Take by mouth once daily. Ascorbic Acid (VITAMIN C) 1,000 mg tablet Take 1,000 mg by mouth once daily. [place]-3 Fatty Acids-Vitamin E (FISH OIL) 1,000 mg cap Take 1 capsule by mouth once daily. Cholecalciferol, Vitamin D3, (VITAMIN D) 1,000 unit cap Take 1,000 Units by mouth once daily. FAMILY HISTORY Problem Relation Age of Onset Goiter Mother Alcohol/Drug Father Diabetes Father Coronary Artery Disease Father Heart Father Hypertension Father Lipids Father No Known Problems Sister No Known Problems Sister No Known Problems Brother No Known Problems Maternal Grandmother No Known Problems Maternal Grandfather No Known Problems Paternal Grandmother Lung Cancer Paternal Grandfather Social History Tobacco Use Smoking status: Former Current packs/day: 0.00 Types: Cigarettes Quit date: 06/24/1997 Years since quittin.0 Smokeless tobacco: Never Vaping Use Vaping status: Never Used Substance Use Topics Alcohol use: Yes Alcohol/week: 7.0 standard drinks of alcohol Types: 4 Glasses of wine, 1 Cans of beer, 1 Shots of liquor, 1 Standard drinks or equivalent per week Drug use: Not Currently Types: Marijuana ASSESSMENT/PLAN: 1. Acute cough - ICD9: 786.2, ICD10: R05.1 (primary diagnosis) - XR CHEST 2V FRONTAL/LAT * * * * Physician Interpretation * * * * EXAMINATION: CHEST RADIOGRAPH (2 VIEW FRONTAL & LATERAL) CLINICAL HISTORY: Acute cough MQ: XC2_6 EXAM DATE/TIME: 06/25/2024 8:13 AM COMPARISON: No relevant prior studies available. RESULT: Lines, tubes, and devices: None. Lungs and pleura: There is prominence of the pulmonary markings in the lower lungs. No definite consolidation. No lung mass. No pleural effusion. No pneumothorax. Cardiomediastinal silhouette: The cardiac silhouette is within normal limits. There is tortuosity or dilation of the thoracic aorta. Bones and soft tissues: The spine shows degenerative changes. IMPRESSION IMPRESSION: Prominence of the pulmonary markings in the lower lungs. Operating Theatre Technician: ROBIN Transcribe Date/Time: Jun 25 2024 8:14A Dictated by : ASHVIN ZUNIGA MD 2. URI, acute - ICD9: 465.9, ICD10: J06.9 - COVID & INFLUENZA A/B & RSV PCR, ROUTINE Tessalon pearls, otc meds for support. Discussed viral etiology. Prescription instructions reviewed with patient as applicable. Potential red flag symptoms discussed with the patient. Reviewed appropriate action plan to take if red flag symptoms occur. Patient agreeable to treatment plan. Robert Barone APRN.PEST CONTROL OPERATOR documented in this encounterHigh[facility]11-14-2024 Telephone encounter Note * Telephone Encounter - Paris Pretty RN - 05/07/2024 12:01 PM EST Spoke with patient directly. Paris Pretty RN [facility]11-14-2024 Miscellaneous Notes* Telephone Encounter - Paris Pretty RN - 05/07/2024 12:01 PM EST Spoke with patient directly. Paris Pretty RN * Telephone Encounter - Vish Peterson MD - 05/07/2024 11:16 AM EST Cesia is great he did both of mine. please let him know documented in this encounterHighland [facility] Hospital11-14-2024 Telephone encounter Note * Telephone Encounter - Vish Peterson MD - 05/07/2024 11:16 AM EST Cesia is great he did both of mine. please let him know [facility]11-13-2024 Telephone encounter Note* Telephone Encounter - Geraldo Ramsey RN - 05/06/2024 4:28 PM EST Called pt and states he does still use this medication but he has so much of it at home he does notwant anymore. He states he has told [employer] this several times. [facility]-13-[facility] Miscellaneous Notes* Telephone Encounter - Geraldo Ramsey RN - 05/06/2024 4:28 PM EST Called pt and states he does still use this medication but he has so much of it at home he does notwant anymore. He states he has told [employer] this several times. * Telephone Encounter - Johana Chavarria LPN - 05/05/2024 8:21 AM EST Message left asking patient to call office to confirm if taking/needing medication. * Telephone Encounter - Judy Hardin - 05/05/2024 8:04 AM EST kale Jaramillo, called to request a refill of axelastine 0.1% nasal spray. Noted as a discontinued medication. Please advise at [phone]; opt 2 Ref [id number] documented in this encounterHighland [facility] Hospital11-12-2024 Telephone encounter Note * Telephone Encounter - Johana Chavarria LPN - 05/05/2024 8:21 AM EST Message left asking patient to call office to confirm if taking/needing medication. [facility] Telephone encounter Note* Telephone Encounter - Judy Hardin - 05/05/2024 8:04 AM EST kale Jaramillo, called to request a refill of axelastine 0.1% nasal spray. Noted as a discontinued medication. Please advise at [phone]; opt 2 Ref [id number] [facility]11-01-2024 NoteHNO ID: [id number] Author: DARIA PARK APRN.PEST CONTROL OPERATOR Service: ? Author Type: Nurse Practitioner Type: Progress Notes Filed: 04/24/2024 14:49 Note Text: CC: Patient presents with: Recheck: 6 month follow up HPI Abisai Araya is a 68 year old male who presents today for routine follow up. DIABETES MELLITUS: Mr. Araya denies excessive thirst or increased frequency of urination, chest pain or dyspnea , new numbness, tingling or pain in extremities, new or unusual visual symptoms, low sugar/hypoglycemic reactions, weight loss/gain, lightheadedness/dizziness, and bowel changes/loose stools. Follows a diabetic diet most of the time. He is compliant with medication(s) and is tolerating med(s) without any side effects. He reports checking his glucose on a once a day but unsure recent readings as he has not checked din a week. Patient's last HgA1C was Hemoglobin A1C (%) Date Value 04/13/2024 6.6 04/17/2023 7.0 08/15/2021 6.7 05/02/2021 8.7 Hemoglobin A1C (POCT) (%) Date Value 07/25/2023 6.9 ) Last Ophthalmology exam was within the past 12 months Last Podiatry exam was within the past 3 months HTN and HLD: Mr. Araya indicates that he is feeling well and denies any symptoms referable to elevated blood pressure. Specifically denies headache, chest pain, palpitations, dyspnea, and peripheral edema. Patient denies any side effects of his medication(s) and is compliant with their regimen. He does check BP's away from this office with average BP's in the 140s/80s range. Abisai works out regularly 3-4 times per week with walking. He watches his diet for sodium, low fat and low cholesterol most of the time. Last 3 Encounter BP Readings: Date: BP: 04/24/2024 132/70 - 128/68 01/28/2024 138/86 10/17/2023 132/82 Heartburn: controlled with current treatment and if not taken will have issues with heartburn. Denies abdominal pain, difficulty swallowing, nausea, or vomiting. REVIEW OF SYSTEMS See HPI PAST MEDICAL HISTORY Diagnosis Date Allergic rhinitis, cause unspecified Anxiety state, unspecified Arthritis Backache, unspecified BPH (benign prostatic hyperplasia) Essential hypertension, benign Headache(784.0) Hypertrophy of prostate without urinary obstruction and other lower urinary tract symptoms (LUTS) Nontoxic uninodular goiter Olecranon bursitis Other and unspecified hyperlipidemia Other chronic nonalcoholic liver disease Shortness of breath Symptom of bladder outlet obstruction Unspecified hemorrhoids with other complication Unspecified hereditary and idiopathic peripheral neuropathy Urine retention PAST SURGICAL HISTORY Procedure Laterality Date CHOLECYSTECTOMY HX 2002 COLONOSCOPY 2004 COLONOSCOPY 2019 THYROID FINE NEEDLE ASPIRATION 07/29/2023 Left midpole and left lower pole of the thyroid ALLERGIES Lisinopril and Losartan MEDICATIONS amLODIPine (NORVASC) 5 mg tablet Take 1 tablet by mouth once daily. Fenofibrate (LOFIBRA) 54 mg tablet Take 1 tablet by mouth once daily. rosuvastatin (CRESTOR) 5 mg tablet Take 1 tablet by mouth daily at bedtime. tamsulosin (FLOMAX) 0.4 mg Take 1 capsule by mouth daily at bedtime. semaglutide (OZEMPIC) 0.25 mg or 0.5 mg (2 mg/3 mL) pen Inject 0.5 mg subcutaneously one time a week. finasteride (PROSCAR) 5 mg tablet Take 1 tablet by mouth once daily. tamsulosin (FLOMAX) 0.4 mg Take 1 capsule by mouth daily at bedtime. (Patient not taking: Reported on 01/28/2024) famotidine (PEPCID) 20 mg tablet Take 1 tablet by mouth at bedtime as needed. Fluocinolone Acetonide 0.01 % external oil Apply 0.1 % to affected area every 2 weeks. Zinc 50 mg tab Take 22 mg by mouth once daily. ketoconazole (NIZORAL) 2 % shampoo Apply to affected area as directed. MULTI-VITAMIN ORAL Take by mouth once daily. Ascorbic Acid (VITAMIN C) 1,000 mg tablet Take 1,000 mg by mouth once daily. [place]-3 Fatty Acids-Vitamin E (FISH OIL) 1,000 mg cap Take 1 capsule by mouth once daily. Cholecalciferol, Vitamin D3, (VITAMIN D) 1,000 unit cap Take 1,000 Units by mouth once daily. FAMILY HISTORY Problem Relation Age of Onset Goiter Mother Alcohol/Drug Father Diabetes Father Coronary Artery Disease Father Heart Father Hypertension Father Lipids Father No Known Problems Sister No Known Problems Sister No Known Problems Brother No Known Problems Maternal Grandmother No Known Problems Maternal Grandfather No Known Problems Paternal Grandmother Lung Cancer Paternal Grandfather Social History Tobacco Use Smoking status: Former Current packs/day: 0.00 Types: Cigarettes Quit date: 06/24/1997 Years since quittin.8 Smokeless tobacco: Never Vaping Use Vaping status: Never Used Substance Use Topics Alcohol use: Yes Alcohol/week: 7.0 standard drinks of alcohol Types: 4 Glasses of wine, 1 Cans of beer, 1 Shots of liquor, 1 Standard drinks or equivalent per week Drug use: Not Currently Types: (more content not included)...[facility]11-01-2024 History of Present illness Narrative* Xavier, RADHA HuffN.PEST CONTROL OPERATOR - 04/24/2024 1:47 PM EDT CC: Patient presents with: Recheck: 6 month follow up HPI Abisai Araya is a 68 year old male who presents today for routine follow up. DIABETES MELLITUS: Mr. Araya denies excessive thirst or increased frequency of urination, chest pain or dyspnea , new numbness, tingling or pain in extremities, new or unusual visual symptoms, lowsugar/hypoglycemic reactions, weight loss/gain, lightheadedness/dizziness, and bowel changes/loose stools. Follows a diabetic diet most of the time. He is compliant with medication(s) and is tolerating med(s) without any side effects. He reports checking his glucose on a once a day but unsure recent readings as he has not checked din a week. Patient's last HgA1C was Hemoglobin A1C (%) Date Value 04/13/2024 6.6 04/17/2023 7.0 08/15/2021 6.7 05/02/2021 8.7 Hemoglobin A1C (POCT) (%) Date Value 07/25/2023 6.9 ) Last Ophthalmology exam was within the past 12 months Last Podiatry exam was within the past 3 months HTN and HLD: Mr. Araya indicates that he is feeling well and denies any symptoms referable to elevated blood pressure. Specifically denies headache, chest pain, palpitations, dyspnea, and peripheral edema. Patient denies any side effects of his medication(s) and is compliant with their regimen. He does check BP's away from this office with average BP's in the 140s/80s range. Abisia works out regularly 3-4 times per week with walking. He watches his diet for sodium, low fat and low cholesterolmost of the time. Last 3 Encounter BP Readings: Date: BP: 04/24/2024 132/70 - 128/68 01/28/2024 138/86 10/17/2023 132/82 Heartburn: controlled with current treatment and if not taken will have issues with heartburn. Denies abdominal pain, difficulty swallowing, nausea, or vomiting. REVIEW OF SYSTEMS See HPI PAST MEDICAL HISTORY Diagnosis Date Allergic rhinitis, cause unspecified Anxiety state, unspecified Arthritis Backache, unspecified BPH (benign prostatic hyperplasia) Essential hypertension, benign Headache(784.0) Hypertrophy of prostate without urinary obstruction and other lower urinary tract symptoms (LUTS) Nontoxic uninodular goiter Olecranon bursitis Other and unspecified hyperlipidemia Other chronic nonalcoholic liver disease Shortness of breath Symptom of bladder outlet obstruction Unspecified hemorrhoids with other complication Unspecified hereditary and idiopathic peripheral neuropathy Urine retention PAST SURGICAL HISTORY Procedure Laterality Date CHOLECYSTECTOMY HX 2001 COLONOSCOPY 2004 COLONOSCOPY 2019 THYROID FINE NEEDLE ASPIRATION 07/29/2023 Left midpole and left lower pole of the thyroid ALLERGIES Lisinopril and Losartan MEDICATIONS amLODIPine (NORVASC) 5 mg tablet Take 1 tablet by mouth once daily. Fenofibrate (LOFIBRA) 54 mg tablet Take 1 tablet by mouth once daily. rosuvastatin (CRESTOR) 5 mg tablet Take 1 tablet by mouth daily at bedtime. tamsulosin (FLOMAX) 0.4 mg Take 1 capsule by mouth daily at bedtime. semaglutide (OZEMPIC) 0.25 mg or 0.5 mg (2 mg/3 mL) pen Inject 0.5 mg subcutaneously one time a week. finasteride (PROSCAR) 5 mg tablet Take 1 tablet by mouth once daily. tamsulosin (FLOMAX) 0.4 mg Take 1 capsule by mouth daily at bedtime. (Patient not taking: Reported on 01/28/2024) famotidine (PEPCID) 20 mg tablet Take 1 tablet by mouth at bedtime as needed. Fluocinolone Acetonide 0.01 % external oil Apply 0.1 % to affected area every 2 weeks. Zinc 50 mg tab Take 22 mg by mouth once daily. ketoconazole (NIZORAL) 2 % shampoo Apply to affected area as directed. MULTI-VITAMIN ORAL Take by mouth once daily. Ascorbic Acid (VITAMIN C) 1,000 mg tablet Take 1,000 mg by mouth once daily. [place]-3 Fatty Acids-Vitamin E (FISH OIL) 1,000 mg cap Take 1 capsule by mouth once daily. Cholecalciferol, Vitamin D3, (VITAMIN D) 1,000 unit cap Take 1,000 Units by mouth once daily. FAMILY HISTORY Problem Relation Age of Onset Goiter Mother Alcohol/Drug Father Diabetes Father Coronary Artery Disease Father Heart Father Hypertension Father Lipids Father No Known Problems Sister No Known Problems Sister No Known Problems Brother No Known Problems Maternal Grandmother No Known Problems Maternal Grandfather No Known Problems Paternal Grandmother Lung Cancer Paternal Grandfather Social History Tobacco Use Smoking status: Former Current packs/day: 0.00 Types: Cigarettes Quit date: 06/24/1997 Years since quittin.8 Smokeless tobacco: Never Vaping Use Vaping status: Never Used Substance Use Topics Alcohol use: Yes Alcohol/week: 7.0 standard drinks of alcohol Types: 4 Glasses of wine, 1 Cans of beer, 1 Shots of liquor, 1 Standard drinks or equivalent per week Drug use: Not Currently Types: Marijuana PHYSICAL EXAM BP 128/68 Pulse 80 Resp 16 Wt (!) 137.4 kg (303 lb) SpO2 96% BMI 38.90 kg/m General Appearance: well appearing, in no acute distress, alert Eyes: conjunctiva pink and moist, no icterus, sclera white, non-injected Lungs: Lungs clear to auscultation. No wheezing, rhonchi, rales. Heart: RRR without murmur, gallop, or rubs. No ectopy Health maintenance reviewed with patient: Depression Screening Never done Anxiety Screening Never done BP Controlled (<130/80) due on 05/21/2023 Covid-19 Vaccine( season) due on 05/29/2024 HbA1C due on 10/12/2024 Dilated Retinal Exam due on 11/25/2024 Diabetic Foot Exam due on 02/04/2025 Urine Albumin:Creatinine Ratio due on 04/13/2025 LDL Cholesterol due on 04/13/2025 Annual PCP Team Chronic Disease Visit due on 04/24/2025 Colorectal Cancer Screening due on 08/11/2025 DTaP,Tdap,Td Vaccine(2 - Td or Tdap) due on 11/17/2031 Abdominal Aortic Aneurysm Screening Completed Influenza Vaccine Completed Advance Directive Discussion Completed RSV Vaccine Completed Hepatitis C Screening Completed Shingrix Vaccine Completed Pneumococcal Vaccine: 65+ Completed DATA REVIEWED: Most recent labs ASSESSMENT/PLAN: 1. Type 2 diabetes mellitus with peripheral neuropathy (HCC) - ICD9: 250.60, 357.2, ICD10: E11.42 (primary diagnosis) - Improving control - would like to increase to 1mg of ozempic but patient reports he has a few boxes at home he would like to use prior to increase. Will message when ready for increase - Continue current medications - Blood glucose monitoring on a once daily schedule - Counseled on healthy diet and regular exercise - Discussed need for and benefit of weight loss. BMI 38.90 kg/(m^2) - HEMOGLOBIN A1C - BASIC METABOLIC PANEL 2. Essential hypertension - ICD9: 401.9, ICD10: I10 - Controlled - Continue current medications - Recommend home blood pressure monitoring, to bring results to next visit - Encouraged sodium restriction, DASH or Mediterranean diet - Recommend regular aerobic exercise 3. Mixed hyperlipidemia - ICD9: 272.2, ICD10: E78.2 - Controlled - Continue current medications - Counseled on healthy diet and regular exercise - Discussed need for and benefit of weight loss. BMI 38.90 kg/(m^2) 4. Heartburn - ICD9: 787.1, ICD10: R12 Controlled well with current treatment Prescription instructions reviewed with patient as applicable. Potential red flag symptoms discussed with the patient. Reviewed appropriate action plan to take if red flag symptoms occur. Patient agreeable to treatment plan. Daria Park APRN.PAT [facility] Telephone encounter Note * Telephone Encounter - Sorin Rios RN - 03/31/2024 1:40 PM EDT [facility] 01/28/24 Patient phones requesting refills as follows: Requested Prescriptions Pending Prescriptions Disp Refills tamsulosin (FLOMAX) 0.4 mg 90 capsule 3 Sig: Take 1 capsule by mouth daily at bedtime. Please review and advise. Sorin Rios RN [facility]10-08-2024 Miscellaneous Notes* Telephone Encounter - Sorin Rios RN - 03/31/2024 1:40 PM EDT [facility] 01/28/24 Patient phones requesting refills as follows: Requested Prescriptions Pending Prescriptions Disp Refills tamsulosin (FLOMAX) 0.4 mg 90 capsule 3 Sig: Take 1 capsule by mouth daily at bedtime. Please review and advise. Sorin Rios RN documented in this encounterHigh[facility]08-20-2024 Telephone encounter Note * Telephone Encounter - Micki Huang MA - 02/11/2024 11:57 AM EDT [facility]08-20-2024 Miscellaneous Notes* Telephone Encounter - Micki Huang MA - 02/11/2024 11:57 AM EDT documented in this encounterHigh[facility]08-06-2024 NoteHNO ID: [id number] Author: GREY HERNANDEZ PA-C Service: ? Author Type: Physician Emergency Service Restorer Type: Progress Notes Filed: 01/28/2024 17:26 Note Text: [facility] ESTABLISHED PATIENT CLINIC NOTE Some elements copied from his previous note, which have been updated where appropriate, and all reflect current medical decision making from date of this visit. NAME: Abisai Araya CHIEF COMPLAINT: BPH Follow-up HISTORY OF PRESENT ILLNESS: Abisai Araya is a 68 year old male an established patient following up for BPH and PSA check The patient reports no new LUTS and was started on on Proscar 5 mg and his PVR is mildly elevated But had much lower PVR's , he has trouble urinating when in public His renal function labs remain great so not concerned with PVR LUTS: No new LUTS LABS: PSA (ng/mL) Date Value 01/23/2024 1.43 PSA Screening (ng/mL) Date Value 11/06/2022 0.98 11/09/2020 2.46 Creatinine Date Value Ref Range Status 09/10/2023 0.90 0.73 - 1.22 mg/dL Final 04/17/2023 0.88 0.73 - 1.22 mg/dL Final 11/06/2022 1.01 0.73 - 1.22 mg/dL Final 05/15/2022 0.97 0.73 - 1.22 mg/dL Final MEDICATIONS: semaglutide (OZEMPIC) 0.25 mg or 0.5 mg (2 mg/3 mL) pen Inject 0.5 mg subcutaneously one time a week. azelastine 0.1% nasal spray Use 2 Sprays in each nostril two times a day. (Patient taking differently: Use 2 Sprays in each nostril two times a day. Two sprays each nostril at night, one spray each nostril in morning.) amLODIPine (NORVASC) 5 mg tablet Take 1 tablet by mouth once daily. finasteride (PROSCAR) 5 mg tablet Take 1 tablet by mouth once daily. Fenofibrate (LOFIBRA) 54 mg tablet Take 1 tablet by mouth once daily. fluticasone (FLONASE) 50 mcg/actuation nasal spray Use 2 Sprays in each nostril once daily. Rinse mouth after use. (Patient taking differently: Use 2 Sprays in each nostril once daily. Rinse mouth after use. Uses two sprays each nostril at bedtime, one spray each nostril in morning.) rosuvastatin (CRESTOR) 5 mg tablet Take 1 tablet by mouth daily at bedtime. tamsulosin (FLOMAX) 0.4 mg TAKE 1 CAPSULE DAILY AT BEDTIME famotidine (PEPCID) 20 mg tablet Take 1 tablet by mouth at bedtime as needed. Fluocinolone Acetonide 0.01 % external oil Apply 0.1 % to affected area every 2 weeks. Zinc 50 mg tab Take 22 mg by mouth once daily. ketoconazole (NIZORAL) 2 % shampoo Apply to affected area as directed. MULTI-VITAMIN ORAL Take by mouth once daily. Ascorbic Acid (VITAMIN C) 1,000 mg tablet Take 1,000 mg by mouth once daily. [place]-3 Fatty Acids-Vitamin E (FISH OIL) 1,000 mg cap Take 1 capsule by mouth once daily. Cholecalciferol, Vitamin D3, (VITAMIN D) 1,000 unit cap Take 1,000 Units by mouth once daily. amLODIPine (NORVASC) 5 mg tablet Take 1 tablet by mouth once daily. (Patient not taking: Reported on 01/28/2024) tamsulosin (FLOMAX) 0.4 mg Take 1 capsule by mouth daily at bedtime. (Patient not taking: Reported on 01/28/2024) PAST MEDICAL HISTORY: PAST MEDICAL HISTORY No date: Allergic rhinitis, cause unspecified No date: Anxiety state, unspecified No date: Arthritis No date: Backache, unspecified No date: BPH (benign prostatic hyperplasia) No date: Essential hypertension, benign No date: Headache(784.0) No date: Hypertrophy of prostate without urinary obstruction and other lower urinary tract symptoms (LUTS) No date: Nontoxic uninodular goiter No date: Olecranon bursitis No date: Other and unspecified hyperlipidemia No date: Other chronic nonalcoholic liver disease No date: Shortness of breath No date: Symptom of bladder outlet obstruction No date: Unspecified hemorrhoids with other complication No date: Unspecified hereditary and idiopathic peripheral neuropathy No date: Urine retention REVIEW OF SYSTEMS: GENERAL: No fever, chills, weight loss, or fatigue. All other systems reviewed and are negative PHYSICAL EXAMINATION: Blood pressure 138/86, pulse 80, temperature 36.3 ?C (97.4 ?F), temperature source Temporal, resp. rate 16, height 188 cm (6' 2), weight 136.1 kg (300 lb), SpO2 95%. GENERAL: WNL nutrition, no deformities, healthy appearing GENITOURINARY: MALE EXAM: Rectal Exam: Prostate: size (40 grams), symmetrical, nontender, w/o nodules. PROBLEM LIST REVIEW: Yes LABS: Results for orders placed or performed in visit on 01/28/24 UA DIP, URINE (POC) Result Value Ref Range GLUCOSE UA (POCT) 100 (A) Negative mg/dL BILIRUBIN UA (POCT) Negative Negative KETONE UA (POCT) Negative Negative mg/dL SPECIFIC GRAVITY UA (POCT) >=1.030 1.005 - 1.030 HEMOGLOBIN/BLOOD UA (POCT) Negative Negative PH UA (POCT) 5.5 4.5 - 8.0 PROTEIN UA (POCT) Negative Negative mg/dL UROBILINOGEN UA (POCT) 0.2 Normal E.U./dL NITRITE UA (POCT) Negative Negative LEUKOCYTES UA (POCT) Negative Negative COLOR UA (POCT) Dark yellow CLARITY UA (POCT) Slightly Cloudy (more content not included)...[facility]08-06-[facility] History of Present illness Narrative* Grey Hernandez PA-C - 01/28/2024 11:19 AM EDT Images from the original note were not included. [facility] ESTABLISHED PATIENT CLINIC NOTE Some elements copied from his previous note, which have been updated where appropriate, and all reflect current medical decision making from date of this visit. NAME: Abisai Araya CHIEF COMPLAINT: BPH Follow-up HISTORY OF PRESENT ILLNESS: Abisai Araya is a 68 year old male an established patient following up for BPH and PSA check The patient reports no new LUTS and was started on on Proscar 5 mg and his PVR is mildly elevated But had much lower PVR's , he has trouble urinating when in public His renal function labs remain great so not concerned with PVR LUTS: No new LUTS LABS: PSA (ng/mL) Date Value 01/23/2024 1.43 PSA Screening (ng/mL) Date Value 11/06/2022 0.98 11/09/2020 2.46 Creatinine Date Value Ref Range Status 09/10/2023 0.90 0.73 - 1.22 mg/dL Final 04/17/2023 0.88 0.73 - 1.22 mg/dL Final 11/06/2022 1.01 0.73 - 1.22 mg/dL Final 05/15/2022 0.97 0.73 - 1.22 mg/dL Final MEDICATIONS: semaglutide (OZEMPIC) 0.25 mg or 0.5 mg (2 mg/3 mL) pen Inject 0.5 mg subcutaneously one time a week. azelastine 0.1% nasal spray Use 2 Sprays in each nostril two times a day. (Patient taking differently: Use 2 Sprays in each nostril two times a day. Two sprays each nostril at night, one spray each nostril in morning.) amLODIPine (NORVASC) 5 mg tablet Take 1 tablet by mouth once daily. finasteride (PROSCAR) 5 mg tablet Take 1 tablet by mouth once daily. Fenofibrate (LOFIBRA) 54 mg tablet Take 1 tablet by mouth once daily. fluticasone (FLONASE) 50 mcg/actuation nasal spray Use 2 Sprays in each nostril once daily. Rinse mouth after use. (Patient taking differently: Use 2 Sprays in each nostril once daily. Rinse mouth after use. Uses two sprays each nostril at bedtime, one spray each nostril in morning.) rosuvastatin (CRESTOR) 5 mg tablet Take 1 tablet by mouth daily at bedtime. tamsulosin (FLOMAX) 0.4 mg TAKE 1 CAPSULE DAILY AT BEDTIME famotidine (PEPCID) 20 mg tablet Take 1 tablet by mouth at bedtime as needed. Fluocinolone Acetonide 0.01 % external oil Apply 0.1 % to affected area every 2 weeks. Zinc 50 mg tab Take 22 mg by mouth once daily. ketoconazole (NIZORAL) 2 % shampoo Apply to affected area as directed. MULTI-VITAMIN ORAL Take by mouth once daily. Ascorbic Acid (VITAMIN C) 1,000 mg tablet Take 1,000 mg by mouth once daily. [place]-3 Fatty Acids-Vitamin E (FISH OIL) 1,000 mg cap Take 1 capsule by mouth once daily. Cholecalciferol, Vitamin D3, (VITAMIN D) 1,000 unit cap Take 1,000 Units by mouth once daily. amLODIPine (NORVASC) 5 mg tablet Take 1 tablet by mouth once daily. (Patient not taking: Reported on 01/28/2024) tamsulosin (FLOMAX) 0.4 mg Take 1 capsule by mouth daily at bedtime. (Patient not taking: Reported on 01/28/2024) PAST MEDICAL HISTORY: PAST MEDICAL HISTORY No date: Allergic rhinitis, cause unspecified No date: Anxiety state, unspecified No date: Arthritis No date: Backache, unspecified No date: BPH (benign prostatic hyperplasia) No date: Essential hypertension, benign No date: Headache(784.0) No date: Hypertrophy of prostate without urinary obstruction and other lower urinary tract symptoms (LUTS) No date: Nontoxic uninodular goiter No date: Olecranon bursitis No date: Other and unspecified hyperlipidemia No date: Other chronic nonalcoholic liver disease No date: Shortness of breath No date: Symptom of bladder outlet obstruction No date: Unspecified hemorrhoids with other complication No date: Unspecified hereditary and idiopathic peripheral neuropathy No date: Urine retention REVIEW OF SYSTEMS: GENERAL: No fever, chills, weight loss, or fatigue. All other systems reviewed and are negative PHYSICAL EXAMINATION: Blood pressure 138/86, pulse 80, temperature 36.3 C (97.4 F), temperature source Temporal, resp. rate 16, height 188 cm (6' 2), weight 136.1 kg (300 lb), SpO2 95%. GENERAL: WNL nutrition, no deformities, healthy appearing GENITOURINARY: MALE EXAM: Rectal Exam: Prostate: size (40 grams), symmetrical, nontender, w/o nodules. PROBLEM LIST REVIEW: Yes LABS: Results for orders placed or performed in visit on 01/28/24 UA DIP, URINE (POC) Result Value Ref Range GLUCOSE UA (POCT) 100 (A) Negative mg/dL BILIRUBIN UA (POCT) Negative Negative KETONE UA (POCT) Negative Negative mg/dL SPECIFIC GRAVITY UA (POCT) >=1.030 1.005 - 1.030 HEMOGLOBIN/BLOOD UA (POCT) Negative Negative PH UA (POCT) 5.5 4.5 - 8.0 PROTEIN UA (POCT) Negative Negative mg/dL UROBILINOGEN UA (POCT) 0.2 Normal E.U./dL NITRITE UA (POCT) Negative Negative LEUKOCYTES UA (POCT) Negative Negative COLOR UA (POCT) Dark yellow CLARITY UA (POCT) Slightly Cloudy PROCEDURES: PVR: 280 ml IMAGING: IMPRESSION/PLAN: 67 year old male with 1. BPH with urinary obstruction - ICD9: 600.01, 599.69, ICD10: N40.1, N13.8 (primary diagnosis) 2. Prostate cancer screening - ICD9: V76.44, ICD10: Z12.5 > PSA - 1.43 > 1 year Appt w/ B. ROGER Hernandez MT, PA-C with PSA prior ROGER Whitley MT, PA-C * Socorro Newberry LPN - 01/28/2024 10:14 AM EDT Verified name and date of . CC Post Void Residual HPI: Abisai Araya is a 68 year old male. The patient is here now for an appointment with ROGER Whitley MT, PA-COV. Procedure: Explained procedure to patient and verbalizes understanding. Performed a PVR. Patient urinated and instructed to empty bladder as much as possible just prior to having PVR done using bladder ultrasound scanner. Results of scan: 280 mL The patient tolerated the procedure well. Plan: Appointment with Grey. documented in [facility] encounterHigh[facility] Instructions* Patient Instructions* Grey Hernandez PA-C - 01/28/2024 11:19 AM EDT > 1 year Appt w/ B. ROGER Hernandez MT, PA-C with PSA prior documented in this encounterHighland [facility] Hospital08-06-2024 NoteHNO ID: [id number] Author: SOCORRO NEWBERRY LPN Service: ? Author Type: LICENSED NURSE Type: Progress Notes Filed: 01/28/2024 17:26 Note Text: Verified name and date of . CC Post Void Residual HPI: Abisai Araya is a 68 year old male. The patient is here now for an appointment with ROGER Whitley MT, PA-COV. Procedure: Explained procedure to patient and verbalizes understanding. Performed a PVR. Patient urinated and instructed to empty bladder as much as possible just prior to having PVR done using bladder ultrasound scanner. Results of scan: 280 mL The patient tolerated the procedure well. Plan: Appointment with Grey.[facility]07-08-[facility] Telephone encounter Note* Telephone Encounter - Joy Soriano LPN - 12/30/2023 1:23 PM EDT Fax rec'd from [facility] and completed for ozempic. This was completed and faxed back. They haveapproved the ozempic when new rx is sent. [facility] Miscellaneous Notes* Telephone Encounter - Joy Soriano LPN - 12/30/2023 1:23 PM EDT Fax rec'd from [employer] and completed for ozempic. This was completed and faxed back. They haveapproved the ozempic when new rx is sent. documented in this encounterHighland [facility] Hospital07-[facility]-2024 Telephone encounter Note * Telephone Encounter - Joy Soriano LPN - 12/30/2023 11:36 AM EDT Fax rec'd from [employer] noting that an exception has already been granted for the trulicity. [facility] Miscellaneous Notes* Telephone Encounter - Joy Soriano LPN - 12/30/2023 11:36 AM EDT Fax rec'd from [facility] noting that an exception has already been granted for the trulicity. documented in this encounterHighland [facility] Hospital07-01-2024 Telephone encounter Note * Telephone Encounter - Micki Huang MA - 12/23/2023 8:31 AM EDT Prescription Refill Information The patient has been identified by name and date of : Yes Caregiver verified no other encounters exist for this prescription request: Yes Caregiver confirmed with patient/requestor that no other refills are due, in the near future, with this provider at this time: Yes The last office visit in the department: 10/17/23 Does the patient have a future office visit with this provider/department: Yes Requested Prescriptions Pending Prescriptions Disp Refills azelastine 0.1% nasal spray 90 mL 3 Sig: Use 2 Sprays in each nostril two times a day. Micki Huang MA December 23, 2023 8:31 AM [facility]07-01-2024 Miscellaneous Notes* Telephone Encounter - Micki Huang MA - 12/23/2023 8:31 AM EDT Prescription Refill Information The patient has been identified by name and date of : Yes Caregiver verified no other encounters exist for this prescription request: Yes Caregiver confirmed with patient/requestor that no other refills are due, in the near future, with this provider at this time: Yes The last office visit in the department: 10/17/23 Does the patient have a future office visit with this provider/department: Yes Requested Prescriptions Pending Prescriptions Disp Refills azelastine 0.1% nasal spray 90 mL 3 Sig: Use 2 Sprays in each nostril two times a day. Micki Huang MA December 23, 2023 8:31 AM documented in this encounter[facility] Telephone encounter Note * Telephone Encounter - Jean Pierre Felipe APRN.CNP - 11/11/2023 10:13 AM EDT The following approved medication requests have been transmitted electronically. Requested Prescriptions Pending Prescriptions Disp Refills amLODIPine (NORVASC) 5 mg tablet 90 tablet 1 Sig: Take 1 tablet by mouth once daily. Jean Pierre Felipe APRN.CNP [facility] Work Phone: 1(119) 100-638805-20-2024 Miscellaneous Notes* Telephone Encounter - Jean Pierre Felipe APRN.CNP - 11/11/2023 10:13 AM EDT The following approved medication requests have been transmitted electronically. Requested Prescriptions Pending Prescriptions Disp Refills amLODIPine (NORVASC) 5 mg tablet 90 tablet 1 Sig: Take 1 tablet by mouth once daily. Jean Pierre Matteo, DICE DEALER.PEST CONTROL OPERATOR * Telephone Encounter - Lacy Hdz LPN - 11/11/2023 10:11 AM EDT Patient has been identified by name and date of : No Patient phones for refill(s): Requested Prescriptions Pending Prescriptions Disp Refills amLODIPine (NORVASC) 5 mg tablet 90 tablet 1 Sig: Take 1 tablet by mouth once daily. Date of last office visit in primary care: 10/17/2023 Date of next office visit in primary care: 04/17/2024 Please advise. Thank you. Lacy Hdz LPN. documented in this encounterHigh[facility]24 Telephone encounter Note * Telephone Encounter - Lacy Hdz LPN - 11/11/2023 10:11 AM EDT Patient has been identified by name and date of : No Patient phones for refill(s): Requested Prescriptions Pending Prescriptions Disp Refills amLODIPine (NORVASC) 5 mg tablet 90 tablet 1 Sig: Take 1 tablet by mouth once daily. Date of last office visit in primary care: 10/17/2023 Date of next office visit in primary care: 04/17/2024 Please advise. Thank you. Lacy Hdz LPN. [facility]05-20-2024 Telephone encounter Note* Telephone Encounter - Yasmeen Welch LPN - 11/11/2023 9:13 AM EDT Spoke with pt and information listed below given. Pt verbalizes understanding. Yasmeen Welch LPN [facility]05-20-2024 Miscellaneous Notes* Telephone Encounter - Yasmeen Welch LPN - 11/11/2023 9:13 AM EDT Spoke with pt and information listed below given. Pt verbalizes understanding. Yasmeen Welch LPN * Telephone Encounter - Daria Park APRN.CNP - 11/11/2023 7:59 AM EDT Patient noted that the pharmacy reported I canceled previous prescription which I did not do. Please verify he wanted amlodipine to go to [employer] mail service. Thank you Daria Park APRN.CNP * Telephone Encounter - Lacy Hdz LPN - 11/11/2023 7:42 AM EDT Patient has been identified by name and date of : No Patient phones for refill(s): Requested Prescriptions Pending Prescriptions Disp Refills amLODIPine (NORVASC) 5 mg tablet 90 tablet 1 Sig: Take 1 tablet by mouth once daily. Date of last office visit in primary care: 10/17/2023 Date of next office visit in primary care: 04/17/2024 Please advise. Thank you. Lacy Hdz LPN. documented in this encounterHigh[facility]05-20-2024 Telephone encounter Note * Telephone Encounter - Daria Park APRN.CNP - 11/11/2023 7:59 AM EDT Patient noted that the pharmacy reported I canceled previous prescription which I did not do. Please verify he wanted amlodipine to go to [facility] mail [facility]. Thank you Daria Park APRN.CNP [facility]05-20-2024 Telephone encounter Note* Telephone Encounter - Lacy Hdz LPN - 11/11/2023 7:42 AM EDT Patient has been identified by name and date of : No Patient phones for refill(s): Requested Prescriptions Pending Prescriptions Disp Refills amLODIPine (NORVASC) 5 mg tablet 90 tablet 1 Sig: Take 1 tablet by mouth once daily. Date of last office visit in primary care: 10/17/2023 Date of next office visit in primary care: 04/17/2024 Please advise. Thank you. Lacy Hdz LPN. [facility]04-25-2024 History of Present illness Narrative* Daria Park APRN.PEST CONTROL OPERATOR - 10/17/2023 2:15 PM EDT CC: Patient presents with: Recheck: BP follow up HPI Abisai Araya is a 68 year old male who presents today for follow up on constipation and palpitations. Was seen 4 weeks ago and thought he may be constipated but unsure as to how often he was having a BM. Concern was that he is on trulicityf for his DM. Also stated he had chronic palpitations but could not find any previous workup. Constipation has resolved and having a BM every 1- 2 days.. Has had no palpitations and can't remember last time he felt them. HTN: Mr. Araya indicates that he is feeling well and denies any symptoms referable to elevated blood pressure. Specifically denies headache, chest pain, dyspnea, and peripheral edema. Patient denies any side effects of his medication(s) and is compliant with their regimen. He does check BP's away but states they vary greatly so unsure on accuracy. Abisai denies regular aerobic exercise. He watches his diet for sodium, low fat and low cholesterol most of the time. Last 3 Encounter BP Readings: Date: BP: 10/17/2023 132/82 09/10/2023 126/82[TruBP average[ 07/25/2023 142/90 Is due for 3rd Hepatitis B vaccine. Scheduled in a couple days with nurse visit but would like to just get vaccination in office today. REVIEW OF SYSTEMS See HPI PAST MEDICAL HISTORY Diagnosis Date Allergic rhinitis, cause unspecified Anxiety state, unspecified Arthritis Backache, unspecified BPH (benign prostatic hyperplasia) Essential hypertension, benign Headache(784.0) Hypertrophy of prostate without urinary obstruction and other lower urinary tract symptoms (LUTS) Nontoxic uninodular goiter Olecranon bursitis Other and unspecified hyperlipidemia Other chronic nonalcoholic liver disease Shortness of breath Symptom of bladder outlet obstruction Unspecified hemorrhoids with other complication Unspecified hereditary and idiopathic peripheral neuropathy Urine retention PAST SURGICAL HISTORY Procedure Laterality Date CHOLECYSTECTOMY HX 2002 COLONOSCOPY 2004 COLONOSCOPY 2019 THYROID FINE NEEDLE ASPIRATION 07/29/2023 Left midpole and left lower pole of the thyroid ALLERGIES Lisinopril and Losartan MEDICATIONS amLODIPine (NORVASC) 5 mg tablet Take 1 tablet by mouth once daily. finasteride (PROSCAR) 5 mg tablet Take 1 tablet by mouth once daily. Fenofibrate (LOFIBRA) 54 mg tablet Take 1 tablet by mouth once daily. dulaglutide (TRULICITY) 1.5 mg/0.5 mL pen injector Inject 1.5 mg subcutaneously one time a week. fluticasone (FLONASE) 50 mcg/actuation nasal spray Use 2 Sprays in each nostril once daily. Rinse mouth after use. rosuvastatin (CRESTOR) 5 mg tablet Take 1 tablet by mouth daily at bedtime. azelastine 0.1% nasal spray Use 2 Sprays in each nostril two times a day. tamsulosin (FLOMAX) 0.4 mg TAKE 1 CAPSULE DAILY AT BEDTIME tamsulosin (FLOMAX) 0.4 mg Take 1 capsule by mouth daily at bedtime. famotidine (PEPCID) 20 mg tablet Take 1 tablet by mouth at bedtime as needed. Fluocinolone Acetonide 0.01 % external oil Apply 0.1 % to affected area every 2 weeks. Zinc 50 mg tab Take 22 mg by mouth once daily. ketoconazole (NIZORAL) 2 % shampoo Apply to affected area as directed. MULTI-VITAMIN ORAL Take by mouth once daily. Ascorbic Acid (VITAMIN C) 1,000 mg tablet Take 1,000 mg by mouth once daily. [place]-3 Fatty Acids-Vitamin E (FISH OIL) 1,000 mg cap Take 1 capsule by mouth once daily. Cholecalciferol, Vitamin D3, (VITAMIN D) 1,000 unit cap Take 1,000 Units by mouth once daily. FAMILY HISTORY Problem Relation Age of Onset Goiter Mother Alcohol/Drug Father Diabetes Father Coronary Artery Disease Father Heart Father Hypertension Father Lipids Father No Known Problems Sister No Known Problems Sister No Known Problems Brother No Known Problems Maternal Grandmother No Known Problems Maternal Grandfather No Known Problems Paternal Grandmother Lung Cancer Paternal Grandfather Social History Tobacco Use Smoking status: Former Types: Cigarettes Quit date: 06/24/1997 Years since quittin.3 Smokeless tobacco: Never Vaping Use Vaping Use: Never used Substance Use Topics Alcohol use: Yes Alcohol/week: 7.0 standard drinks of alcohol Types: 4 Glasses of wine, 1 Cans of beer, 1 Shots of liquor, 1 Standard drinks or equivalent per week Drug use: Not Currently Types: Marijuana PHYSICAL EXAM BP 132/82 Pulse 80 Resp 16 Wt 133.4 kg (294 lb) SpO2 96% BMI 37.75 kg/m General Appearance: well appearing, in no acute distress, alert Pysch: mood and affect broad and appropriate Skin: Skin color, texture, turgor normal for age; Eyes: conjunctiva pink and moist, no icterus, sclera white, non-injected Lungs: Lungs clear to auscultation. No wheezing, rhonchi, rales. Heart: RRR without murmur, gallop, or rubs. No ectopy Health maintenance reviewed with patient: Dilated Retinal Exam due on 11/28/2022 BP Controlled (<130/80) due on 05/21/2023 Advance Directive Discussion due on 06/24/2023 Behavioral Health Screening Never done Urine Albumin:Creatinine Ratio due on 11/07/2023 HbA1C due on 01/23/2024 LDL Cholesterol due on 04/17/2024 Diabetic Foot Exam due on 04/24/2024 Annual PCP Team Chronic Disease Visit due on 09/09/2024 Colorectal Cancer Screening due on 08/11/2025 DTaP,Tdap,Td Vaccine(2 - Td or Tdap) due on 11/17/2031 Abdominal Aortic Aneurysm Screening Completed Influenza Vaccine Completed RSV Vaccine Completed Hepatitis C Screening Completed Shingrix Vaccine Completed Covid-19 Vaccine Completed Pneumococcal Vaccine: 65+ Completed DATA REVIEWED: No new labs ASSESSMENT/PLAN: 1. Constipation, unspecified constipation type - ICD9: 564.00, ICD10: K59.00 (primary diagnosis) Resolved Follow up for any further concerns 2. Palpitation - ICD9: 785.1, ICD10: R00.2 No previous workup but patient has decided it hasn't happened in a very long time so is not concerned. Follow up for any further concerns to get EKG, zio and possibly echo. 3. Essential hypertension - ICD9: 401.9, ICD10: I10 - Controlled - Continue current medications - Recommend home blood pressure monitoring, to bring results to next visit - Encouraged sodium restriction, DASH or Mediterranean diet - Recommend regular aerobic exercise - COMPREHENSIVE METABOLIC PANEL - COMPLETE BLOOD COUNT 4. Immunization due - ICD9: V05.9, ICD10: Z23 - HEP B VACCINE, 3-DOSE, AGE 20+ YR (ENGERIX-B, RECOMBIVAX HB) 5. Type 2 diabetes mellitus with peripheral neuropathy (HCC) - ICD9: 250.60, 357.2, ICD10: E11.42 Not discussed today - blood work ordered to be discussed at next appointment. - COMPREHENSIVE METABOLIC PANEL - COMPLETE BLOOD COUNT - HEMOGLOBIN A1C - ALBUMIN/CREATININE RATIO, URINE 6. Mixed hyperlipidemia - ICD9: 272.2, ICD10: E78.2 Not discussed today - blood work ordered to be discussed at next appointment. - LIPID PANEL BASIC - COMPREHENSIVE METABOLIC PANEL Prescription instructions reviewed with patient as applicable. Potential red flag symptoms discussed with the patient. Reviewed appropriate action plan to take if red flag symptoms occur. Patient agreeable to treatment plan. Daria Park APRN.CNP documented in this encounterHighland [facility] Hospital03-19-2024 History of Present illness Narrative* Daria Park APRN.CNP - 09/10/2023 11:29 AM EDT CC: Patient presents with: Follow Up: BP HPI Abisai Araya is a 68 year old male who presents today for blood pressure follow up. Was startedon amlodipine and had increased a few weeks ago to 5mg. HTN: Mr. Araya indicates that he is feeling well and denies any symptoms referable to elevated blood pressure. Specifically denies headache, chest pain, dyspnea, and peripheral edema. Patient denies any side effects of his medication(s) and is compliant with their regimen. He does check BP's away from this office with average BP's in the 130s/80s range but has not checked since last week. Chronic palpitations that randomly occur for a few seconds at rest. No increase or change in these. States had EKG and workup years ago that were normal. Last 3 Encounter BP Readings: Date: BP: 09/10/2023 138/82 - 126/82 07/25/2023 142/90 07/16/2023 134/76 Reports dark urine when he doesn't drink a lot (has been clear for the past few days), constipationbut unsure how often he really goes, and itchy skin. Has had this since his increase in Trulicity and started on amlodipine. Also under large amount of stress that is affecting his water intake. Denies change in chronic back pain, abdominal pain, vomiting, fever chills, difficulty urinating, or pain with urine. REVIEW OF SYSTEMS See HPI PAST MEDICAL HISTORY Diagnosis Date Allergic rhinitis, cause unspecified Anxiety state, unspecified Arthritis Backache, unspecified BPH (benign prostatic hyperplasia) Essential hypertension, benign Headache(784.0) Hypertrophy of prostate without urinary obstruction and other lower urinary tract symptoms (LUTS) Nontoxic uninodular goiter Olecranon bursitis Other and unspecified hyperlipidemia Other chronic nonalcoholic liver disease Shortness of breath Symptom of bladder outlet obstruction Unspecified hemorrhoids with other complication Unspecified hereditary and idiopathic peripheral neuropathy Urine retention PAST SURGICAL HISTORY Procedure Laterality Date CHOLECYSTECTOMY HX 2002 COLONOSCOPY 2004 COLONOSCOPY 2019 THYROID FINE NEEDLE ASPIRATION 07/29/2023 Left midpole and left lower pole of the thyroid ALLERGIES Lisinopril and Losartan MEDICATIONS finasteride (PROSCAR) 5 mg tablet Take 1 tablet by mouth once daily. Fenofibrate (LOFIBRA) 54 mg tablet Take 1 tablet by mouth once daily. dulaglutide (TRULICITY) 1.5 mg/0.5 mL pen injector Inject 1.5 mg subcutaneously one time a week. fluticasone (FLONASE) 50 mcg/actuation nasal spray Use 2 Sprays in each nostril once daily. Rinse mouth after use. rosuvastatin (CRESTOR) 5 mg tablet Take 1 tablet by mouth daily at bedtime. azelastine 0.1% nasal spray Use 2 Sprays in each nostril two times a day. tamsulosin (FLOMAX) 0.4 mg TAKE 1 CAPSULE DAILY AT BEDTIME tamsulosin (FLOMAX) 0.4 mg Take 1 capsule by mouth daily at bedtime. famotidine (PEPCID) 20 mg tablet Take 1 tablet by mouth at bedtime as needed. Fluocinolone Acetonide 0.01 % external oil Apply 0.1 % to affected area every 2 weeks. Zinc 50 mg tab Take 22 mg by mouth once daily. ketoconazole (NIZORAL) 2 % shampoo Apply to affected area as directed. MULTI-VITAMIN ORAL Take by mouth once daily. Ascorbic Acid (VITAMIN C) 1,000 mg tablet Take 1,000 mg by mouth once daily. [place]-3 Fatty Acids-Vitamin E (FISH OIL) 1,000 mg cap Take 1 capsule by mouth once daily. Cholecalciferol, Vitamin D3, (VITAMIN D) 1,000 unit cap Take 1,000 Units by mouth once daily. amLODIPine (NORVASC) 5 mg tablet Take 1 tablet by mouth once daily. FAMILY HISTORY Problem Relation Age of Onset Goiter Mother Alcohol/Drug Father Diabetes Father Coronary Artery Disease Father Heart Father Hypertension Father Lipids Father No Known Problems Sister No Known Problems Sister No Known Problems Brother No Known Problems Maternal Grandmother No Known Problems Maternal Grandfather No Known Problems Paternal Grandmother Lung Cancer Paternal Grandfather Social History Tobacco Use Smoking status: Former Types: Cigarettes Quit date: 06/24/1997 Years since quittin.2 Smokeless tobacco: Never Vaping Use Vaping Use: Never used Substance Use Topics Alcohol use: Yes Alcohol/week: 7.0 standard drinks of alcohol Types: 4 Glasses of wine, 1 Cans of beer, 1 Shots of liquor, 1 Standard drinks or equivalent per week Drug use: Not Currently Types: Marijuana PHYSICAL EXAM BP 126/82 (BP Site: Left Arm, BP Position: Sitting, BP Cuff Size: Regular Adult) Pulse 78 Resp 18 Wt 135.7 kg (299 lb 3.2 oz) BMI 38.42 kg/m General Appearance: well appearing, in no acute distress, alert Pysch: mood and affect broad and appropriate Skin: Skin color, texture, turgor normal for age; Eyes: conjunctiva pink and moist, no icterus, sclera white, non-injected Lungs: Lungs clear to auscultation. No wheezing, rhonchi, rales. Heart: RRR without murmur, gallop, or rubs. No ectopy Abdomen: Abdomen soft, non-tender. Bowel sounds normal. No masses, organomegaly Health maintenance reviewed with patient: Dilated Retinal Exam due on 11/28/2022 BP Controlled (<130/80) due on 05/21/2023 Advance Directive Discussion due on 06/24/2023 Depression Assessment due on 06/24/2023 Urine Albumin:Creatinine Ratio due on 11/07/2023 HbA1C due on 01/23/2024 LDL Cholesterol due on 04/17/2024 Diabetic Foot Exam due on 04/24/2024 Annual PCP Team Chronic Disease Visit due on 07/25/2024 Colorectal Cancer Screening due on 08/11/2025 DTaP,Tdap,Td Vaccine(2 - Td or Tdap) due on 11/17/2031 Abdominal Aortic Aneurysm Screening Completed Influenza Vaccine Completed RSV Vaccine Completed Hepatitis C Screening Completed Shingrix Vaccine Completed Covid-19 Vaccine Completed Pneumococcal Vaccine: 65+ Completed DATA REVIEWED: No new labs ASSESSMENT/PLAN: 1. Essential hypertension - ICD9: 401.9, ICD10: I10 (primary diagnosis) - Controlled - Continue current medications - Recommend home blood pressure monitoring, to bring results to next visit - Encouraged sodium restriction, DASH or Mediterranean diet - Recommend regular aerobic exercise 2. Constipation, unspecified constipation type - ICD9: 564.00, ICD10: K59.00 - possibly from trulicity but also not drinking as much water due to stress. - monitor to see how often you have a bowel movement. Increase water fruits and vegetables. - follow up if no improvement 3. Dark urine - ICD9: 791.9, ICD10: R82.998 - unable to urinate in office - CBC - BASIC METABOLIC PNL - URINALYSIS WITH MICROSCOPIC, REFLEX CULTURE 4. Dry skin - ICD9: 701.1, ICD10: L85.3 - CBC - BASIC METABOLIC PNL - TSH BLD 5. Palpitation - ICD9: 785.1, ICD10: R00.2 - unable to find previous workup, need to further discuss at follow up. - TSH BLD - MAGNESIUM BLD Prescription instructions reviewed with patient as applicable. Potential red flag symptoms discussed with the patient. Reviewed appropriate action plan to take if red flag symptoms occur. Patient agreeable to treatment plan. Daria Park APRN.CNP documented in this encounterHigh[facility]02-27-2024 Miscellaneous Notes* Telephone Encounter - Lacy Hdz LPN - 08/20/2023 9:33 AM EST Patient has been identified by name and date of : No Patient phones for refill(s): Requested Prescriptions Pending Prescriptions Disp Refills amLODIPine (NORVASC) 2.5 mg tablet 30 tablet 1 Sig: Take 1 tablet by mouth once daily. Date of last office visit in primary care: 07/25/2023 Date of next office visit in primary care: 09/04/2023 Please advise. Thank you. Lacy Hdz LPN. documented in this encounterHighland [facility] Hospital02-27-2024 Miscellaneous Notes* Telephone Encounter - Chetna Martino LPN - 08/20/2023 8:50 AM EST Patient viewed message from Daria Park NP. Appt scheduled 09/04/2023. Chetna Martino LPN documented in this encounterHighland [facility] Hospital02-23-2024 Miscellaneous Notes* Telephone Encounter - Sorin Rios RN - 08/16/2023 12:28 PM EST [facility] 01/22/23 Patient phones requesting refills as follows: Requested Prescriptions Pending Prescriptions Disp Refills finasteride (PROSCAR) 5 mg tablet 90 tablet 3 Sig: Take 1 tablet by mouth once daily. Please review and advise. Sorin Rios RN documented in this encounterHighland [facility] Hospital02-22-2024 Miscellaneous Notes* Telephone Encounter - Chetna Martino LPN - 08/15/2023 1:30 PM EST Sathish our office did get your refill request for Fluticasone (Flonase) however, a new prescription was sent 07/01/2023 to [facility]. Please check with your pharmacy. documented in this encounterHighland District Hospital02-16-2024 Miscellaneous Notes* Telephone Encounter - Lacy Hdz LPN - 08/09/2023 7:49 AM EST Patient has been identified by name and date of : No Patient phones for refill(s): Requested Prescriptions Pending Prescriptions Disp Refills Fenofibrate (LOFIBRA) 54 mg tablet 90 tablet 3 Sig: Take 1 tablet by mouth once daily. Date of last office visit in primary care: 07/25/2023 Date of next office visit in primary care: 09/04/2023 Please advise. Thank you. Lacy Hdz LPN. documented in this encounterHighland District Hospital02-05-2024 Miscellaneous Notes* [facility] - Edmundo Seay Tech - 07/29/2023 1:34 PM EST Radiology Service Progress Note PATIENT NAME: Abisai Araya DATE OF SERVICE: July 29, 2023 TIME: 1:34 PM PATIENT IDENTITY VERIFICATION COMPLETED USING TWO (2) IDENTIFIERS: Name and Date of confirmedby patient verbally and Name and Date of confirmed by identification band. FALL SCREENING: Has the patient had 2 falls in the last year or 1 fall with injury or currently using an Ambulatory Assistive Device (Walker, Cane, Wheelchair, Crutches, etc.)? 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 Other Hearing Aids RADIOLOGY DEPARTMENT: Biopsy and Ultrasound PERIPHERAL IV DATA: Not applicable SIGNED BY: Bonnie Abdullahi July 29, 2023 1:34 PM documented in this encounterHighland District Hospital02-01-2024 Instructions* Patient Instructions* Daria Park APRN.CNP - 07/25/2023 11:39 AM EST Colace/docusate sodium Miralax Fiber supplement documented in this encounterHighland District Hospital02-01-2024 History of Present illness Narrative* Daria Park APRN.PEST CONTROL OPERATOR - 07/25/2023 11:31 AM EST CC: Patient presents with: Recheck: 3 MONTH FOLLOW UP HPI Abisai Araya is a 68 year old male who presents today for routine follow up. HTN: Mr. Araya indicates that he is feeling well and denies any symptoms referable to elevated blood pressure. Specifically denies headache, chest pain, palpitations, dyspnea, and peripheral edema. Patient denies any side effects of his medication(s) and is compliant with their regimen. He does check BP's away from this office with average BP's in the 140s-160s/80s-90s range. Had a reaction tohis lisinopril so stopped it a few weeks ago. Abisai works out regularly 3-4 times per week with walking on treadmill. He watches his diet for sodium, low fat and low cholesterol most of the time. Also stopped his sudafed a week ago as he is using nasal lavage and it is working well. Last 3 Encounter BP Readings: Date: BP: 07/25/2023 142/90 07/16/2023 134/76 07/11/2023 130/58 Has been having constipation since having a reaction to the lisinopril but resolved with stool softener. DIABETES MELLITUS: Mr. Araya denies excessive thirst or increased frequency of urination, chest pain or dyspnea , numbness, tingling or pain in extremities, new or unusual visual symptoms, low sugar/hypoglycemic reactions, weight loss/gain, and lightheadedness/dizziness. Follows a diabetic diet most of the time. He is compliant with medication(s) and is tolerating med(s) without any side effects. He reports checking his glucose on a infrequent to not at all basis schedule. Patient's last HgA1C was Hemoglobin A1C (%) Date Value 04/17/2023 7.0 11/06/2022 6.4 08/15/2021 6.7 05/02/2021 8.7 ) Last Ophthalmology exam was within the past 6 months REVIEW OF SYSTEMS See HPI PAST MEDICAL HISTORY Diagnosis Date Allergic rhinitis, cause unspecified Anxiety state, unspecified Arthritis Backache, unspecified BPH (benign prostatic hyperplasia) Essential hypertension, benign Headache(784.0) Hypertrophy of prostate without urinary obstruction and other lower urinary tract symptoms (LUTS) Nontoxic uninodular goiter Olecranon bursitis Other and unspecified hyperlipidemia Other chronic nonalcoholic liver disease Shortness of breath Symptom of bladder outlet obstruction Unspecified hemorrhoids with other complication Unspecified hereditary and idiopathic peripheral neuropathy Urine retention PAST SURGICAL HISTORY Procedure Laterality Date CHOLECYSTECTOMY HX 2002 COLONOSCOPY 2004 COLONOSCOPY 2019 ALLERGIES Lisinopril and Losartan MEDICATIONS fluticasone (FLONASE) 50 mcg/actuation nasal spray Use 2 Sprays in each nostril once daily. Rinse mouth after use. rosuvastatin (CRESTOR) 5 mg tablet Take 1 tablet by mouth daily at bedtime. azelastine 0.1% nasal spray Use 2 Sprays in each nostril two times a day. tamsulosin (FLOMAX) 0.4 mg TAKE 1 CAPSULE DAILY AT BEDTIME tamsulosin (FLOMAX) 0.4 mg Take 1 capsule by mouth daily at bedtime. (Patient not taking: Reported on 07/11/2023) famotidine (PEPCID) 20 mg tablet Take 1 tablet by mouth at bedtime as needed. TRULICITY 0.75 mg/0.5 mL pen injector INJECT 0.75 MG DOSE UNDER THE SKIN ONCE A WEEK. DISCARD PEN AFTER Fenofibrate (LOFIBRA) 54 mg tablet Take 1 tablet by mouth once daily. lisinopril (ZESTRIL) 10 mg tablet Take 1 tablet by mouth once daily. finasteride (PROSCAR) 5 mg tablet TAKE 1 TABLET DAILY Fluocinolone Acetonide 0.01 % external oil Apply 0.1 % to affected area every 2 weeks. Zinc 50 mg tab Take 22 mg by mouth once daily. ketoconazole (NIZORAL) 2 % shampoo Apply to affected area as directed. MULTI-VITAMIN ORAL Take by mouth once daily. Ascorbic Acid (VITAMIN C) 1,000 mg tablet Take 1,000 mg by mouth once daily. [place]-3 Fatty Acids-Vitamin E (FISH OIL) 1,000 mg cap Take 1 capsule by mouth once daily. Cholecalciferol, Vitamin D3, (VITAMIN D) 1,000 unit cap Take 1,000 Units by mouth once daily. FAMILY HISTORY Problem Relation Age of Onset Goiter Mother Alcohol/Drug Father Diabetes Father Coronary Artery Disease Father Heart Father Hypertension Father Lipids Father No Known Problems Sister No Known Problems Sister No Known Problems Brother No Known Problems Maternal Grandmother No Known Problems Maternal Grandfather No Known Problems Paternal Grandmother Lung Cancer Paternal Grandfather Social History Tobacco Use Smoking status: Former Types: Cigarettes Quit date: 06/24/1997 Years since quittin.1 Smokeless tobacco: Never Vaping Use Vaping Use: Never used Substance Use Topics Alcohol use: Yes Alcohol/week: 7.0 standard drinks of alcohol Types: 4 Glasses of wine, 1 Cans of beer, 1 Shots of liquor, 1 Standard drinks or equivalent per week Drug use: Not Currently Types: Marijuana PHYSICAL EXAM BP 142/90 Pulse 84 Resp 16 Wt 134.3 kg (296 lb) SpO2 96% BMI 38.00 kg/m General Appearance: well appearing, in no acute distress, alert Pysch: mood and affect broad and appropriate Eyes: conjunctiva pink and moist, no icterus, sclera white, non-injected Lungs: Lungs clear to auscultation. No wheezing, rhonchi, rales. Heart: RRR without murmur, gallop, or rubs. No ectopy Health maintenance reviewed with patient: Dilated Retinal Exam due on 11/28/2022 BP Controlled (<130/80) due on 05/21/2023 Advance Directive Discussion due on 06/24/2023 Depression Assessment due on 06/24/2023 HbA1C due on 10/17/2023 Urine Albumin:Creatinine Ratio due on 11/07/2023 LDL Cholesterol due on 04/17/2024 Diabetic Foot Exam due on 04/24/2024 Annual PCP Team Chronic Disease Visit due on 04/24/2024 Colorectal Cancer Screening due on 08/11/2025 Prostate Cancer Screening Discussion due on 11/07/2027 DTaP,Tdap,Td Vaccine(2 - Td or Tdap) due on 11/17/2031 Abdominal Aortic Aneurysm Screening Completed Influenza Vaccine Completed RSV Vaccine Completed Hepatitis C Screening Completed Shingrix Vaccine Completed Covid-19 Vaccine Completed Pneumococcal Vaccine: 65+ Completed DATA REVIEWED: No new labs ASSESSMENT/PLAN: 1. Essential hypertension - ICD9: 401.9, ICD10: I10 (primary diagnosis) - suboptimal control but hopefully with stopping decongestant and continuing with healthy diet and weight loss this may continue to decrease. Follow up in 4 weeks, if still elevated will discuss starting low dose amlodipine. - Recommend home blood pressure monitoring, to bring results to next visit - Encouraged sodium restriction, DASH or Mediterranean diet - Recommend regular aerobic exercise 2. Type 2 diabetes mellitus with peripheral neuropathy (HCC) - ICD9: 250.60, 357.2, ICD10: E11.42 - Controlled - Continue current medications increasing trulicity. - Counseled on healthy diet and regular exercise - Discussed need for and benefit of weight loss. BMI 38.00 kg/(m^2) - HEMOGLOBIN A1C (POC) Prescription instructions reviewed with patient as applicable. Potential red flag symptoms discussed with the patient. Reviewed appropriate action plan to take if red flag symptoms occur. Patient agreeable to treatment plan. Daria Park APRN.CNP documented [facility]01-[facility]24 Miscellaneous Notes* Telephone Encounter - Joel Mullen - 07/15/2023 12:51 PM ESTSummary: Thyroid Biopsy Received request for thyroid biopsy at [place]. Sending to radiologist for approval. documented in this encounterHigh[facility]01-22-2024 Telephone encounter Note * Telephone Encounter - Kimberly Felix - 07/15/2023 11:[address] Peterson patient to have left thyroid ultrasound guided biopsy X2 with interventional radiology. Per protocol contact JAMIE Steward to have chart reviewed and reach out to patient to schedule accordingly. Patient aware he will be contacted to scheduled. Patient to call after procedure is scheduled to come back 1-2 weeks after to go over results with Dr. Peterson Patient given direct line for any further questions Kimberly Felix Water Supervisor [facility]01-22-2024 Miscellaneous Notes* Telephone Encounter - Kimberly Felix - 07/15/2023 11:[address] Peterson patient to have left thyroid ultrasound guided biopsy X2 with interventional radiology. Per protocol contact JAMIE Steward to have chart reviewed and reach out to patient to schedule accordingly. Patient aware he will be contacted to scheduled. Patient to call after procedure is scheduled to come back 1-2 weeks after to go over results with Dr. Peterson Patient given direct line for any further questions Kimberly Felix Water Supervisor documented in this encounterHigh[facility]12-05-2023 History of Present illness Narrative* Sherine Ragland LPN - 05/28/2023 11:21 AM EST Patient presents for Hepatitis B vaccine. Denies any problems at this time. Tolerated injection well. Sherien Ragland LPN documented in this encounterHigh[facility]11-09-2023 Miscellaneous Notes* Telephone Encounter - Daria Park APRN.CNP - 05/02/2023 12:51 PM EST See my chart encounter Daria Park APRN.CNP * Telephone Encounter - Micki Huang MA - 05/01/2023 2:47 PM EST Patient has not undergone any CTs for AAA screening. Only radiologic testing on patient is liver ultrasound, thyroid ultrasound, and CXRs. Micki Huang MA * Telephone Encounter - Daria Park APRN.CNP - 05/01/2023 1:04 PM EST [facility] I tried to get the results. Pleasecall and verify with their medical records why results are not available. Thank you Daria Park APRN.CNP * Telephone Encounter - Yasmeen Welch LPN - 04/29/2023 11:54 AM EST Pt called in and was given the message below. Pt has questions wants to know why needs to have the FNA done again. Pt reports he had this done before with Dr. Peterson. I gave the message again below that there are changes and he said what changes are there that requires to have another FNA done. Ptasking to speak to Daria. I tried to schedule pt an apt and he declined. Pt reports I had an apt with her already. Please advise pt. Pt does not have results of testing done at [place] (abdominal aortic aneurysm screening). Pt reports he thought Daria was getting the results. Yasmeen Welch LPN * Telephone Encounter - Nadiya Lebron Ma - 04/29/2023 9:47 AM EST Left message for return call. * Telephone Encounter - Daria Park APRN.CNP - 04/26/2023 5:07 PM EDT Please let patient know I reviewed his thyroid US results with old images and there appears to havebeen some small changes. I am consulting him back to general surgery for FNA. Also, I do not see any record of abdominal aortic aneurysm screening at [place]. Does he still have the results himself? Thank you Daria Park APRN.CNP documented in this encounterHigh[facility]10-24-2023 Miscellaneous Notes* Telephone Encounter - Martha Park APRN.CNP - 04/16/2023 3:14 PM EDT [facility]/15 Martha Park APRN.CNP * Telephone Encounter - Lacy Hdz - 04/15/2023 12:06 PM EDT Patient has been identified by name and date of : No Patient phones for refill(s): Requested Prescriptions Pending Prescriptions Disp Refills dulaglutide (TRULICITY) 0.75 mg/0.5 mL pen injector 12 Each 3 Sig: Inject 0.75 mg subcutaneously one time a week. Inject dose once per week. Discard Pen After Date of last office visit in primary care: 12/12/2022 Date of next office visit in primary care: 04/24/2023 Last 2 Encounter Wt Readings: Date: Wt: 01/22/2023 135.8 kg (299 lb 6.4 oz) 12/12/2022 134.3 kg (296 lb) Previous labs/tests for medication: Diabetes: Hemoglobin A1C (%) Date Value 11/06/2022 6.4 05/15/2022 6.3 08/15/2021 6.7 05/02/2021 8.7 Please advise. Thank you. Lacy Hdz. documented in this encounterHigh[facility]10-23-2023 Miscellaneous Notes* Telephone Encounter - Lacy Hdz - 04/15/2023 12:02 PM EDT Patient has been identified by name and date of : No Patient phones for refill(s): Requested Prescriptions Pending Prescriptions Disp Refills TRULICITY 0.75 mg/0.5 mL pen injector [Pharmacy Med Name: TRULICITY SD PEN 0.5ML 4'S 0.75MG 0.75MG]6 mL 3 Sig: INJECT 0.75 MG DOSE UNDER THE SKIN ONCE A WEEK. DISCARD PEN AFTER Date of last office visit in primary care: 12/12/2022 Date of next office visit in primary care: 04/14/2023 Last 2 Encounter Wt Readings: Date: Wt: 01/22/2023 135.8 kg (299 lb 6.4 oz) 12/12/2022 134.3 kg (296 lb) Previous labs/tests for medication: Diabetes: Hemoglobin A1C (%) Date Value 11/06/2022 6.4 05/15/2022 6.3 08/15/2021 6.7 05/02/2021 8.7 Please advise. Thank you. Lacy Hdz. documented in this encounterHigh[facility]09-07-2023 History of Present illness Narrative* Pretty Moctezuma RDMS - 02/28/2023 1:45 PM EDT Radiology Service Progress Note PATIENT NAME: Abisai Araya DATE OF SERVICE: February 28, 2023 TIME: 2:05 PM PATIENT IDENTITY VERIFICATION COMPLETED USING TWO (2) IDENTIFIERS: Name and Date of confirmedby patient verbally. FALL SCREENING: Has the patient had 2 falls in the last year or 1 fall with injury or currently using an Ambulatory Assistive Device (Walker, Cane, Wheelchair, Crutches, etc.)? No PATIENT GENDER DATA: Male PATIENT RELEVANT IMPLANT DATA REVIEWED: Not Applicable RADIOLOGY DEPARTMENT: Ultrasound PERIPHERAL IV DATA: Not applicable SIGNED BY: Pretty Moctezuma RDMS February 28, 2023 2:05 PM documented in this encounterHighland [facility] Hospital09-05-2023 Miscellaneous Notes* Telephone Encounter - Johana Chavarria LPN - 02/26/2023 10:01 AM EDT Last office visit: 12/12/22 Next appointment scheduled: 04/24/23 Patient phones requesting refills as follows: Requested Prescriptions Pending Prescriptions Disp Refills Fenofibrate (LOFIBRA) 54 mg tablet 90 tablet 3 Sig: Take 1 tablet by mouth once daily. Johana Chavarria LPN documented in this encounterHighland [facility]08-01-2023 Instructions* Patient Instructions* Grey Hernandez PA-C - 01/22/2023 10:23 AM EDT > 1 year Appt w/ B. ROGER Hernandez, NEYDA MCCULLOUGH with PSA prior documented in this encounterHighland [facility]08-01-2023 History of Present illness Narrative* Grey Hernandez PA-C - 01/22/2023 10:17 AM EDT Images from the original note were not included. [facility] ESTABLISHED PATIENT CLINIC NOTE Some elements copied from his previous note, which have been updated where appropriate, and all reflect current medical decision making from date of this visit. SERVICE DATE: 01/22/2023 SERVICE TIME: 10:19 AM NAME: Abisai Araya CHIEF COMPLAINT: BPH Follow-up HISTORY OF PRESENT ILLNESS: Abisai Araya is a 67 year old male an established patient following up for BPH and PSA check The patient reports no new LUTS and was started on on Proscar 5 mg and his PVR is mildly elevated But had much lower PVR's , he has trouble urinating when in public LUTS: No new LUTS Other symptoms: LABS: Hematocrit (%) Date Value 11/06/2022 46.9 11/13/2021 47.9 05/02/2021 49.8 11/01/2020 49.4 01/07/2020 50.5 PSA Screening (ng/mL) Date Value 11/06/2022 0.98 11/09/2020 2.46 No results found for: TESTOST PSA Screening (ng/mL) Date Value 11/06/2022 0.98 11/09/2020 2.46 Creatinine Date Value Ref Range Status 11/06/2022 1.01 0.73 - 1.22 mg/dL Final 05/15/2022 0.97 0.73 - 1.22 mg/dL Final 11/13/2021 0.90 0.73 - 1.22 mg/dL Final 05/02/2021 0.80 0.73 - 1.22 mg/dL Final MEDICATIONS: lisinopril (ZESTRIL) 10 mg tablet Take 1 tablet by mouth once daily. rosuvastatin (CRESTOR) 5 mg tablet Take 1 tablet by mouth daily at bedtime. finasteride (PROSCAR) 5 mg tablet TAKE 1 TABLET DAILY fluticasone (FLONASE) 50 mcg/actuation nasal spray Use 2 Sprays in each nostril once daily. Rinse mouth after use. tamsulosin (FLOMAX) 0.4 mg Take 1 capsule by mouth daily at bedtime. dulaglutide (TRULICITY) 0.75 mg/0.5 mL pen injector Inject 0.75 mg subcutaneously one time a week. Inject dose once per week. Discard Pen After famotidine (PEPCID) 20 mg tablet Take 1 tablet by mouth at bedtime as needed. azelastine (ASTELIN, ASTEPRO) 0.1% nasal spray Use 2 Sprays in each nostril twice daily. Fenofibrate (LOFIBRA) 54 mg tablet Take 1 tablet by mouth once daily. Fluocinolone Acetonide 0.01 % external oil Apply 0.1 % to affected area every 2 weeks. Zinc 50 mg tab Take 50 mg by mouth once daily. ketoconazole (NIZORAL) 2 % shampoo Apply to affected area as directed. MULTI-VITAMIN ORAL Take by mouth once daily. Ascorbic Acid (VITAMIN C) 1,000 mg tablet Take 1,000 mg by mouth once daily. [place]-3 Fatty Acids-Vitamin E (FISH OIL) 1,000 mg cap Take 1 capsule by mouth once daily. Cholecalciferol, Vitamin D3, (VITAMIN D) 1,000 unit cap Take 1,000 Units by mouth once daily. PAST MEDICAL HISTORY: PAST MEDICAL HISTORY Diagnosis Date Allergic rhinitis, cause unspecified Anxiety state, unspecified Arthritis Backache, unspecified BPH (benign prostatic hyperplasia) Essential hypertension, benign Headache(784.0) Hypertrophy of prostate without urinary obstruction and other lower urinary tract symptoms (LUTS) Nontoxic uninodular goiter Olecranon bursitis Other and unspecified hyperlipidemia Other chronic nonalcoholic liver disease Shortness of breath Symptom of bladder outlet obstruction Unspecified hemorrhoids with other complication Unspecified hereditary and idiopathic peripheral neuropathy Urine retention PAST SURGICAL HISTORY: PAST SURGICAL HISTORY Procedure Laterality Date CHOLECYSTECTOMY HX 2002 COLONOSCOPY 2004 COLONOSCOPY 2019 FAMILY HISTORY: FAMILY HISTORY Problem Relation Age of Onset Goiter Mother Alcohol/Drug Father Diabetes Father Coronary Artery Disease Father Heart Father Hypertension Father Lipids Father No Known Problems Sister No Known Problems Sister No Known Problems Brother No Known Problems Maternal Grandmother No Known Problems Maternal Grandfather No Known Problems Paternal Grandmother Lung Cancer Paternal Grandfather SOCIAL HISTORY: Social Connections: Moderately Integrated (11/06/2022) Social Connection and Isolation Panel [NHANES] Frequency of Communication with Friends and Family: Three times a week Frequency of Social Gatherings with Friends and Family: Three times a week Attends Mu-Ism Services: 1 to 4 times per year Active Member of Clubs or Organizations: No Attends Club or Organization Meetings: Never Marital Status: REVIEW OF SYSTEMS: GENERAL: No fever, chills, weight loss, or fatigue. All other systems reviewed and are negative PHYSICAL EXAMINATION: Blood pressure 138/84, pulse 80, temperature 36.3 C (97.3 F), temperature source Temporal, resp. rate 14, height 188 cm (6' 2), weight 135.8 kg (299 lb 6.4 oz), SpO2 95 %. GENERAL: WNL nutrition, no deformities, healthy appearing GENITOURINARY: MALE EXAM: Rectal Exam: Prostate: size (40 grams), symmetrical, nontender, w/o nodules. PROBLEM LIST REVIEW: Yes LABS: Results for orders placed or performed in visit on 01/22/23 UA DIP, URINE (POC) Result Value Ref Range GLUCOSE UA (POCT) Negative Negative mg/dL BILIRUBIN UA (POCT) Negative Negative KETONE UA (POCT) Negative Negative mg/dL SPECIFIC GRAVITY UA (POCT) >=1.030 1.005 - 1.030 HEMOGLOBIN/BLOOD UA (POCT) Negative Negative PH UA (POCT) 5.5 4.5 - 8.0 PROTEIN UA (POCT) Negative Negative mg/dL UROBILINOGEN UA (POCT) 0.2 Normal E.U./dL NITRITE UA (POCT) Negative Negative LEUKOCYTES UA (POCT) Negative Negative COLOR UA (POCT) Light yellow CLARITY UA (POCT) Clear PROCEDURES: PVR: 325 ml IMAGING: IMPRESSION/PLAN: 67 year old male with 1. BPH with urinary obstruction - ICD9: 600.01, 599.69, ICD10: N40.1, N13.8 > PSA 0.98 > 1 year Appt w/ ROGER Carmona MT, PA-C with PSA prior ROGER Whitley MT, PA-C * Socorro Newberry LPN - 01/22/2023 9:50 AM EDT Verified name and date of . CC Post Void Residual HPI: Abisai Araya is a 67 year old male. The patient is here now for an appointment with ROGER Whitley, MT, PA-COV. Procedure: Explained procedure to patient and verbalizes understanding. Performed a PVR. Patient urinated and instructed to empty bladder as much as possible just prior to having PVR done using bladder ultrasound scanner. Results of scan: 325 mL The patient tolerated the procedure well. Plan: Appointment with Grey. documented in this encounterHigh[facility]06-21-2023 History of Present illness Narrative* Marquita Calvert MD - 12/12/2022 7:29 PM EDT Reason for Visit Patient presents with: Same Day Appointment: elevated heart rate Abisai Araya is a 67 year old male who presents here today for Above Complaints.. Health Maintenance ABDOMINAL AORTIC ANEURYSM SCREENING ADVANCE DIRECTIVE DISCUSSION DEPRESSION ASSESSMENT DIABETIC FOOT EXAM DILATED RETINAL EXAM HPI We have time to control the patient's blood pressure. He was given losartan but that caused him to be constipated. I then gave him hydrochlorothiazide and triamterene but that dehydrated him and he developed palpitations. He did not want to consider that medicine at half dose also because of the side effects. He was bothered with the amount of times he had to go to the restroom. He notes that a lot of his friends have taken lisinopril the doing well on it and would like to try it. I completely agree with him. No problem-specific Assessment & Plan notes found for this encounter. PAST MEDICAL HISTORY Diagnosis Date Allergic rhinitis, cause unspecified Anxiety state, unspecified Arthritis Backache, unspecified Essential hypertension, benign Headache(784.0) Hypertrophy of prostate without urinary obstruction and other lower urinary tract symptoms (LUTS) Nontoxic uninodular goiter Olecranon bursitis Other and unspecified hyperlipidemia Other chronic nonalcoholic liver disease Shortness of breath Unspecified hemorrhoids with other complication Unspecified hereditary and idiopathic peripheral neuropathy PAST SURGICAL HISTORY Procedure Laterality Date CHOLECYSTECTOMY HX 2002 COLONOSCOPY 2004 COLONOSCOPY 2019 FAMILY HISTORY Problem Relation Age of Onset Goiter Mother Alcohol/Drug Father Diabetes Father Coronary Artery Disease Father Heart Father Hypertension Father Lipids Father No Known Problems Sister No Known Problems Sister No Known Problems Brother No Known Problems Maternal Grandmother No Known Problems Maternal Grandfather No Known Problems Paternal Grandmother Lung Cancer Paternal Grandfather Social History Tobacco Use Smoking status: Former Types: Cigarettes Quit date: 06/24/1997 Years since quittin.4 Smokeless tobacco: Never Vaping Use Vaping Use: Never used Substance Use Topics Alcohol use: Yes Comment: wine and beer every other day Drug use: Never Past medical history, appointments, medications, allergies reviewed. Pertinent Lab/Diagnostic Studies are reviewed and discussed today Current Outpatient Medications: triamterene-hydroCHLOROthiazide (MAXZIDE-25) 37.5-25 mg per tablet rosuvastatin (CRESTOR) 5 mg tablet losartan (COZAAR) 25 mg tablet finasteride (PROSCAR) 5 mg tablet fluticasone (FLONASE) 50 mcg/actuation nasal spray tamsulosin (FLOMAX) 0.4 mg dulaglutide (TRULICITY) 0.75 mg/0.5 mL pen injector famotidine (PEPCID) 20 mg tablet azelastine (ASTELIN, ASTEPRO) 0.1% nasal spray Fenofibrate (LOFIBRA) 54 mg tablet Fluocinolone Acetonide 0.01 % external oil Zinc 50 mg tab ketoconazole (NIZORAL) 2 % shampoo MULTI-VITAMIN ORAL Ascorbic Acid (VITAMIN C) 1,000 mg tablet [place]-3 Fatty Acids-Vitamin E (FISH OIL) 1,000 mg cap Cholecalciferol, Vitamin D3, (VITAMIN D) 1,000 unit cap Review of Systems CONSTITUTIONAL: No fevers, chills night sweats, unintended weight loss CARDIOVASCULAR: No chest pain, dyspnea, palpitations, orthopnea, PND, ankle edema. PULM: No dyspnea, unexplained cough. GI: No dysphagia/odynophagia, problematic reflux, constipation, diarrhea, changes in stool habits, hematochezia, melena. : No new urinary complaints, including dysuria, gross hematuria or pyuria. NEURO: No new balance problems, peripheral weakness/paresthesias or numbness of concern. Physical Exam BP 152/86 (BP Site: Right Arm, BP Position: Sitting, BP Cuff Size: Large Adult) Pulse 83 Temp 36.4 C (97.6 F) Resp 12 Ht 188 cm (6' 2) Wt 134.3 kg (296 lb) SpO2 95% BMI 38.00 kg/m General appearance: Well appearing, alert, in no acute distress, well nourished. Skin: Skin color, texture, turgor normal, no suspicious rashes or lesions Head: Normocephalic, no masses, lesions, tenderness or abnormalities Eyes: Anicteric sclera. Pupils are equally round and reactive to light. Extraocular movements are intact. Lungs: Lungs clear to auscultation. No wheezing, rhonchi, rales Heart: RRR without murmur, gallop, or rubs. Extremities: No deformities, edema, skin discoloration, clubbing or cyanosis. Good capillary refill. ASSESSMENT/PLAN: 1. Essential hypertension - ICD9: 401.9, ICD10: I10 Started lisinopril on him Went over the side effect profile for the drug with the patient, mentioned every one of it , discussed appropriate concerns , alternatives and benefits of the drug, Marquita Calvert MD documented in this encounterHigh[facility]06-21-2023 Miscellaneous Notes* Telephone Encounter - Juju Trivedi RN - 12/12/2022 1:41 PM EDT Patient call in for tachycardia. Patient states that heart rate has been elevated since starting triamterene-hydrochlorothiazide. Patient states that he has bene urinating more frequently. Patient has been only drinking water. Patient is concerned about electrolyte imbalance. Nurse Triage assessment completed with protocol recommending for disposition of See PCP in 4 hours.Patient scheduled an appointment with Dr. Calvert this evening. Care advice reviewed with patient, patient stated understanding. Reason for Disposition Taking water pill (i.e., diuretic) or heart medication (e.g., digoxin) Answer Assessment - Initial Assessment Questions 1. DESCRIPTION: Fast- resting pulse 105; just feeling lightheaded 2. ONSET: Shortly after taking new blood pressure medication 3. DURATION: How long does it last (e.g., seconds, minutes, hours) Patient states that pulse is high 4. PATTERN constant 5. HEART RATE: 105 6. RECURRENT SYMPTOM: Denies 8. CAUSE: New Medication started 9. CARDIAC HISTORY: Hypertension 10. OTHER SYMPTOMS: Lightheaded Protocols used: Heart Rate and Heartbeat [id number] documented in this [facility]06-16-2023 Miscellaneous Notes* Telephone Encounter - Marquita Calvert MD - 12/07/2022 12:59 PM EDT Yes I sent medication to Marquita Osorio MD * Telephone Encounter - Johana Chavarria LPN - 12/05/2022 7:26 AM EDT Should Sathish be taking something different for his blood pressure? documented in this [facility]04-17-2023 Miscellaneous Notes* Telephone Encounter - Grey Hernandez PA-C - 10/08/2022 3:31 PM EDT documented in this [facility]03-13-2023 Miscellaneous Notes* Telephone Encounter - Johana Chavarria LPN - 09/03/2022 12:57 PM EDT Last office visit: 05/21/22 Next appointment scheduled: 11/13/22 Last labs: 11/13/21 last lipid panel Patient phones requesting refills as follows: Requested Prescriptions Pending Prescriptions Disp Refills rosuvastatin (CRESTOR) 5 mg tablet 90 tablet 3 Sig: Take 1 tablet by mouth daily at bedtime. Please review and advise. Johana Chavarria LPN documented in this [facility]03-13-2023 Miscellaneous Notes* Telephone Encounter - Lacy Osorio LPN - 09/03/2022 10:15 AM EDT Patient has been identified by name and date of : No Patient phones for refill(s): Requested Prescriptions Pending Prescriptions Disp Refills fluticasone (FLONASE) 50 mcg/actuation nasal spray 4 Each 3 Sig: Use 2 Sprays in each nostril once daily. Rinse mouth after use. Date of last office visit in primary care: 05/21/22 Last 2 Encounter Wt Readings: Date: Wt: 05/21/2022 136.1 kg (300 lb) 11/16/2021 136.1 kg (300 lb) Previous labs/tests for medication: Not applicable Please advise. Thank you. Lacy Osorio LPN [facility] Miscellaneous Notes* Telephone Encounter - Yasmeen Akhtar - 06/06/2022 4:33 PM EST Patient phones requesting refills as follows: Requested Prescriptions Pending Prescriptions Disp Refills tamsulosin (FLOMAX) 0.4 mg 90 capsule 3 Sig: Take 1 capsule by mouth daily at bedtime. Please review and advise. Ysameen Akhtar documented [facility] this [facility]12[facility]14-2022 Miscellaneous Notes* Telephone Encounter - Tahira Medina Ma - 06/06/2022 4:20 PM EST Patient returned call. Patient given the message below. Patient states he has an appointment scheduled on January 16, 2023. * Telephone Encounter - Socorro Newberry LPN - 06/06/2022 3:39 PM EST Called patient. No answer- left message to call clinic. * Patient has been seen several times last year for PVR. Grey did talk with patient during a nurse visit in September (was not a planned visit with provider) but last actual office visit with Grey was in June. Grey will review the eMagin messages and address ordering the Flomax and office visit. Socorro Newberry LPN documented [facility] this [facility]11-28-2022 History of Present illness Narrative* Daria Park, DICE DEALER.PEST CONTROL OPERATOR - 05/21/2022 11:06 AM EST CC: Patient presents with: Recheck: 6 month follow up HPI Abisai Araya is a 66 year old male who presents today for routine exam. DIABETES MELLITUS: Mr. Araya denies excessive thirst or increased frequency of urination, chest pain or dyspnea , numbness, tingling or pain in extremities, new or unusual visual symptoms, low sugar/hypoglycemic reactions, weight loss/gain, lightheadedness/dizziness, and bowel changes/loose stools. Follows a diabetic diet most of the time. He is compliant with medication(s) and is tolerating med(s) without any side effects. He reports checking his glucose on a infrequent to not at all basis schedule. Patient's last HgA1C was Hemoglobin A1C (%) Date Value 05/15/2022 6.3 11/13/2021 6.3 08/15/2021 6.7 05/02/2021 8.7 ) Last Ophthalmology exam was within the past [address] Wright with [facility]. HTN and HLD: Mr. Araya indicates that he is feeling well and denies any symptoms referable to elevated blood pressure. Specifically denies headache, chest pain, palpitations, dyspnea, and peripheral edema. Patient denies any side effects of his medication(s) and is compliant with their regimen. He does check BP's away from this office with average BP's in the normal less than 130/80 range. Abisai works out regularly 3 times per week with walking and yard work. He watches his diet for sodium, low fat and low cholesterol most of the time. Last 3 Encounter BP Readings: Date: BP: 05/21/2022 142/74 11/16/2021 140/78 08/17/2021 136/74 REVIEW OF SYSTEMS General: no fevers, no chills, no night sweats, no recurrent infections, no change in appetite, no change in energy, and no significant changes in weight Respiratory: no cough, no wheezing, no shortness of breath, no hemoptysis Cardiovascular: no chest pain, no chest pressure, no palpitations, and no swelling GI: No nausea, vomiting, or diarrhea Psych: PHQ2 is 0 Endocrine: no fatigue, no cold intolerance, no heat intolerance, no polyuria, no polyphagia, and nopolydipsia Neurologic: No headache, weakness, numbness, tingling, neck stiffness, tremor, vertigo, dizziness, memory loss, syncope. PAST MEDICAL HISTORY Diagnosis Date Allergic rhinitis, cause unspecified Anxiety state, unspecified Arthritis Backache, unspecified Essential hypertension, benign Headache(784.0) Hypertrophy of prostate without urinary obstruction and other lower urinary tract symptoms (LUTS) Nontoxic uninodular goiter Olecranon bursitis Other and unspecified hyperlipidemia Other chronic nonalcoholic liver disease Shortness of breath Unspecified hemorrhoids with other complication Unspecified hereditary and idiopathic peripheral neuropathy PAST SURGICAL HISTORY Procedure Laterality Date CHOLECYSTECTOMY HX 2002 COLONOSCOPY 2004 COLONOSCOPY 2019 ALLERGIES Patient has no known allergies. MEDICATIONS dulaglutide (TRULICITY) 0.75 mg/0.5 mL pen injector Inject 0.75 mg subcutaneously one time a week. Inject dose once per week. Discard Pen After famotidine (PEPCID) 20 mg tablet Take 1 tablet by mouth at bedtime as needed. Fenofibrate (LOFIBRA) 54 mg tablet Take 1 tablet by mouth once daily. rosuvastatin (CRESTOR) 5 mg tablet Take 1 tablet by mouth daily at bedtime. finasteride (PROSCAR) 5 mg tablet Take 1 tablet by mouth once daily. azelastine (ASTELIN, ASTEPRO) 0.1% nasal spray Use 2 Sprays in each nostril twice daily. fluticasone (FLONASE) 50 mcg/actuation nasal spray Use 2 Sprays in each nostril once daily. Rinse mouth after use. Fluocinolone Acetonide 0.01 % external oil Apply 0.1 % to affected area every 2 weeks. Zinc 50 mg tab Take 50 mg by mouth once daily. tamsulosin (FLOMAX) 0.4 mg Take 1 capsule by mouth daily at bedtime. ketoconazole (NIZORAL) 2 % shampoo MULTI-VITAMIN ORAL Take by mouth. Ascorbic Acid (VITAMIN C) 1,000 mg tablet Take 1,000 mg by mouth once daily. [place]-3 Fatty Acids-Vitamin E (FISH OIL) 1,000 mg cap Take 1 capsule by mouth. Cholecalciferol, Vitamin D3, (VITAMIN D) 1,000 unit cap Take 1,000 Units by mouth once daily. FAMILY HISTORY Problem Relation Age of Onset Goiter Mother Alcohol/Drug Father Diabetes Father Coronary Artery Disease Father Heart Father Hypertension Father Lipids Father No Known Problems Sister No Known Problems Sister No Known Problems Brother No Known Problems Maternal Grandmother No Known Problems Maternal Grandfather No Known Problems Paternal Grandmother Lung Cancer Paternal Grandfather Social History Tobacco Use Smoking status: Former Types: Cigarettes Quit date: 06/24/1997 Years since quittin.9 Smokeless tobacco: Never Vaping Use Vaping Use: Never used Substance Use Topics Alcohol use: Yes Comment: wine and beer every other day Drug use: Never PHYSICAL EXAM BP 142/74 Pulse 76 Resp 16 Wt 136.1 kg (300 lb) BMI 38.52 kg/m General Appearance: well appearing, in no acute distress, alert Skin: Skin color, texture, turgor normal for age; Eyes: conjunctiva pink and moist, no icterus, sclera white, non-injected Lungs: Lungs clear to auscultation. No wheezing, rhonchi, rales. Heart: RRR without murmur, gallop, or rubs. No ectopy Health maintenance reviewed with patient: BP CONTROLLED (<130/80) Never done DEPRESSION ASSESSMENT Never done DILATED RETINAL EXAM due on 11/01/2021 PNEUMOCOCCAL: 65+(2 - PCV) due on 03/07/2022 ABDOMINAL AORTIC ANEURYSM SCREENING due on 11/16/2022 URINE ALBUMIN:CREATININE RATIO due on 08/15/2022 DIABETIC FOOT EXAM due on 08/29/2022 HBA1C due on 11/12/2022 LDL CHOLESTEROL due on 11/13/2022 ANNUAL PCP TEAM CHRONIC DISEASE VISIT due on 11/16/2022 COLORECTAL CANCER SCREENING due on 08/11/2025 PROSTATE CANCER SCREENING DISCUSSION due on 11/09/2025 DTAP,TDAP,TD(2 - Td or Tdap) due on 11/17/2031 INFLUENZA Completed ADVANCE DIRECTIVE DISCUSSION Completed HEPATITIS C SCREENING Completed SHINGRIX VACCINE Completed COVID-19 VACCINE Completed DATA REVIEWED: Most recent labs ASSESSMENT/PLAN: 1. Type 2 diabetes mellitus with other specified complication, without long-term current use of insulin (HCC) - ICD9: 250.80, ICD10: E11.69 (primary diagnosis) Controlled. - Continue current medications - Blood glucose monitoring on a once a day schedule - BP goal of <130/80 - LDL goal of <100 - CBC + DIFF - COMP METABOLIC PANEL - ALBUMIN/CREAT RATIO RND UR - HGB A1C 2. Essential hypertension - ICD9: 401.9, ICD10: I10 - good control - per readings at home - Continue current medication(s) - Encouraged dietary sodium restriction/DASH diet - Recommended regular aerobic exercise. - Recommend home blood pressure monitoring, to bring results in on next visit - Goal of BP <130/80 - CBC + DIFF - COMP METABOLIC PANEL 3. Mixed hyperlipidemia - ICD9: 272.2, ICD10: E78.2 - good control - Lab work to determine control - Encouraged following a low fat, low cholesterol diet. - Discussed the benefits of regular aerobic exercise and weight loss. - LIPID PANEL BASIC - COMP METABOLIC PANEL 4. Prostate cancer screening - ICD9: V76.44, ICD10: Z12.5 - PSA/PROSTSPECAG SCRN 5. Nontoxic multinodular goiter - ICD9: 241.1, ICD10: E04.2 - TSH BLD Prescription instructions reviewed with patient as applicable. Potential red flag symptoms discussed with the patient. Reviewed appropriate action plan to take if red flag symptoms occur. Patient agreeable to treatment plan. Daria Park APRN.CNP [facility]11[facility]2022 Miscellaneous Notes* Telephone Encounter - Christine Chavez LPN - 05/15/2022 10:42 AM EST Patient has been identified by name and date of : Yes Patient phones for refill(s): Requested Prescriptions Pending Prescriptions Disp Refills dulaglutide (TRULICITY) 0.75 mg/0.5 mL pen injector 12 Each 3 Sig: Inject 0.75 mg subcutaneously one time a week. Inject dose once per week. Discard Pen After Date of last office visit in primary care: 11/16/21 Last 2 Encounter Wt Readings: Date: Wt: 11/16/2021 136.1 kg (300 lb) 08/17/2021 134.7 kg (297 lb) Previous labs/tests for medication: Diabetes: Hemoglobin A1C (%) Date Value 11/13/2021 6.3 08/15/2021 6.7 05/02/2021 8.7 Please advise. Thank you. Christine Chavez LPN documented in this [facility]11-21-2022 Miscellaneous Notes* Telephone Encounter - Christine Potter Ma - 05/14/2022 11:24 AM EST Last OV: 11/16/21 Next OV: 05/21/22 documented in this [facility]10-31-2022 Miscellaneous Notes* Telephone Encounter - Lacy Osorio LPN - 04/23/2022 8:36 AM EDT Duplicate request. Lacy Osorio LPN documented in this [facility]09-01-2022 Miscellaneous Notes* Telephone Encounter - Christine Chavez LPN - 02/22/2022 11:30 AM EDT Patient has been identified by name and date of : Yes Patient phones for refill(s): Requested Prescriptions Pending Prescriptions Disp Refills azelastine (ASTELIN, ASTEPRO) 0.1% nasal spray Sig: Use 2 Sprays in each nostril twice daily. Fenofibrate (LOFIBRA) 54 mg tablet 90 tablet 3 Sig: Take 1 tablet by mouth once daily. Date of last office visit in primary care: 11/16/21 Next appointment scheduled 05/21/22 Please advise. Thank you. Christine Chavez LPN documented in this [facility]07-26-2022 History of Present illness Narrative* Socorro Rohith MISTRY - 01/16/2022 9:42 AM EDT CC Post Void Residual HPI: Abisai Araya is a 66 year old male. The patient is here now for an appointment with ROGER Whitley, SADIA, STEVEN. Procedure: Explained procedure to patient and verbalizes understanding. Performed a PVR. Patient urinated and instructed to empty bladder as much as possible just prior to having PVR done using bladder ultrasound scanner. Results of scan: 83 mL The patient tolerated the procedure well. Plan: Per Grey Hernandez PA-C follow up yearly, earlier if needed. documented [facility] this [facility]06-[facility]-2022 Miscellaneous Notes* Telephone Encounter - Lazaro Madden Ma - 11/24/2021 9:13 AM EDT SALAZAR: 11/16/2021 Last refill: 06/20/2021 QTY: 90 Refills: 3 Patient phones requesting refills as follows: Pending Prescriptions Disp Refills ROSUVASTATIN 5 MG TABLET 90 tablet 3 Sig: Take 1 tablet by mouth daily at bedtime. MUKESH: No Please review and advise. Lazaro Madden Ma documented in this [facility]05-26-2022 History of Present illness Narrative* Daria Park APRN.PAT - 11/16/2021 12:51 PM EDT CC: Patient presents with: F/U 3 Month HPI Abisai Araya is a 66 year old male who presents today for routine follow up, and hs been makingvery good healthy changes to better control his chronic conditions. HTN: Mr. Araya indicates that he is feeling well and denies any symptoms referable to elevated blood pressure. Specifically denies headache, chest pain, palpitations, dyspnea and peripheral edema.Patient denies any side effects of his medication(s) and is compliant with their regimen. He does check BP's away from this office with average BP's in the 120s/80s range. Abisai works out regularly 7times per week with walking and working in yard and yoga. He watches his diet for sodium, low fat and low cholesterol some of the time. Last 3 Encounter BP Readings: Date: BP: 11/16/2021 140/78 True BP per nurse was 137/82 08/17/2021 136/74 07/25/2021 126/70 HLD: Denies exercise intolerance, walked a 1/2 mile to appointment today without issue. Takes medications as prescribed. Getting healthy meals sent to them. Ingredients are sent to house and he and his cook them . DIABETES MELLITUS: Mr. Araya denies excessive thirst or increased frequency of urination, chest pain or dyspnea , numbness, tingling or pain in extremities, new or unusual visual symptoms, low sugar/hypoglycemic reactions, weight loss/gain, lightheadedness/dizziness and bowel changes/loose stools. Follows a diabetic diet some of the time. He is compliant with medication(s) and is tolerating med(s) without any side effects. He reports checking his glucose on a infrequent to not at all basis schedule . Patient's last HgA1C was Hemoglobin A1C (%) Date Value 11/13/2021 6.3 08/15/2021 6.7 05/02/2021 8.7 ) Last Ophthalmology exam was unsure when last visit occurred. Sees Dr. Wright. Has an appointment on November 28 Heartburn: Controlled with pepcid at night, denies heartburn, abdominal pain, or difficulty swallowing. REVIEW OF SYSTEMS General: no fevers, no chills, no night sweats, no recurrent infections, no change in appetite, no change in energy and no significant changes in weight Respiratory: no cough, no wheezing, no shortness of breath, no hemoptysis Cardiovascular: no chest pain, no chest pressure, no palpitations and no swelling GI: No nausea, vomiting, or diarrhea Endocrine: no fatigue, no cold intolerance, no heat intolerance, no polyuria, no polyphagia and no polydipsia Neurologic: No headache, weakness, numbness, tingling, dizziness, syncope. PAST MEDICAL HISTORY Diagnosis Date Allergic rhinitis, cause unspecified Anxiety state, unspecified Arthritis Backache, unspecified Essential hypertension, benign Headache(784.0) Hypertrophy of prostate without urinary obstruction and other lower urinary tract symptoms (LUTS) Nontoxic uninodular goiter Olecranon bursitis Other and unspecified hyperlipidemia Other chronic nonalcoholic liver disease Shortness of breath Unspecified hemorrhoids with other complication Unspecified hereditary and idiopathic peripheral neuropathy PAST SURGICAL HISTORY Procedure Laterality Date CHOLECYSTECTOMY HX 2002 COLONOSCOPY 2004 COLONOSCOPY 2019 ALLERGIES Patient has no known allergies. MEDICATIONS finasteride (PROSCAR) 5 mg tablet Take 1 tablet by mouth once daily. fluticasone (FLONASE) 50 mcg/actuation nasal spray Use 2 Sprays in each nostril once daily. Rinse mouth after use. Fluocinolone Acetonide 0.01 % external oil Apply 0.1 % to affected area every 2 weeks. Zinc 50 mg tab Take 50 mg by mouth once daily. rosuvastatin (CRESTOR) 5 mg tablet Take 1 tablet by mouth daily at bedtime. dulaglutide (TRULICITY) 0.75 mg/0.5 mL pen injector Inject 0.75 mg subcutaneously one time a week. Inject dose once per week. Discard Pen After tamsulosin (FLOMAX) 0.4 mg Take 1 capsule by mouth daily at bedtime. azelastine (ASTELIN) 0.1% nasal spray Use 2 Sprays in each nostril twice daily. Fenofibrate (LOFIBRA) 54 mg tablet Take 1 tablet by mouth once daily. famotidine (PEPCID) 20 mg tablet Take 1 tablet by mouth at bedtime as needed. ketoconazole (NIZORAL) 2 % shampoo MULTI-VITAMIN ORAL Take by mouth. Ascorbic Acid (VITAMIN C) 1,000 mg tablet Take 1,000 mg by mouth once daily. [place]-3 Fatty Acids-Vitamin E (FISH OIL) 1,000 mg cap Take 1 capsule by mouth. Cholecalciferol, Vitamin D3, (VITAMIN D) 1,000 unit cap Take 1,000 Units by mouth once daily. FAMILY HISTORY Problem Relation Age of Onset Goiter Mother Alcohol/Drug Father Diabetes Father Coronary Artery Disease Father Heart Father Hypertension Father Lipids Father No Known Problems Sister No Known Problems Sister No Known Problems Brother No Known Problems Maternal Grandmother No Known Problems Maternal Grandfather No Known Problems Paternal Grandmother Lung Cancer Paternal Grandfather Social History Tobacco Use Smoking status: Former Smoker Quit date: 06/24/1997 Years since quittin.4 Smokeless tobacco: Never Used Vaping Use Vaping Use: Never used Substance Use Topics Alcohol use: Yes Comment: wine and beer every other day Drug use: Never PHYSICAL EXAM BP 140/78 Pulse 78 Resp 14 Wt 136.1 kg (300 lb) BMI 38.52 kg/m General Appearance: well appearing, in no acute distress, alert Eyes: conjunctiva pink and moist, no icterus, sclera white, non-injected Neck: Thyroid normal size and symmetric without palpable nodules, No adenopathy Lymph nodes: No cervical lymphadenopathy and No supraclavicular lymphadenopathy Lungs: Lungs clear to auscultation. No wheezing, rhonchi, rales. Heart: RRR without murmur, gallop, or rubs. No ectopy Health maintenance reviewed with patient: ABDOMINAL AORTIC ANEURYSM SCREENING Never done HEPATITIS C SCREENING Never done BP CONTROLLED (<130/80) Never done DTAP,TDAP,TD(1 - Tdap) Never done ADVANCE DIRECTIVE DISCUSSION Never done COVID-19 VACCINE(4 - Booster for Moderna series) due on 08/18/2021 DILATED RETINAL EXAM due on 11/01/2021 PNEUMOCOCCAL: 65+(2 - PCV) due on 03/07/2022 DEPRESSION SCREENING due on 04/28/2022 HBA1C due on 05/16/2022 URINE ALBUMIN:CREATININE RATIO due on 08/15/2022 ANNUAL PCP TEAM CHRONIC DISEASE VISIT due on 08/17/2022 DIABETIC FOOT EXAM due on 08/29/2022 LDL CHOLESTEROL due on 11/13/2022 COLORECTAL CANCER SCREENING due on 08/11/2025 PROSTATE CANCER SCREENING DISCUSSION due on 11/09/2025 INFLUENZA Completed SHINGRIX VACCINE Completed DATA REVIEWED: Most recent labs ASSESSMENT/PLAN: 1. Type 2 diabetes mellitus with other specified complication, without long-term current use of insulin (HCC) - ICD9: 250.80, ICD10: E11.69 (primary diagnosis) Controlled. - Continue current medications - Blood glucose monitoring on a once a day schedule - Ophthalmology referral for eval/management of diabetic eye changes - Encouraged regular aerobic exercise and weight loss - BP goal of <130/80 - LDL goal of <100 - Follow up in 6 months 2. Mixed hyperlipidemia - ICD9: 272.2, ICD10: E78.2 - good control - Continue current medication. - Encouraged following a low fat, low cholesterol diet. - Discussed the benefits of regular aerobic exercise and weight loss. 3. Essential hypertension - ICD9: 401.9, ICD10: I10 - suboptimal control - 137/82 per nurse from True [facility], with patient's new diet change and exercise regimen, he feels this can be lowered even more - will keep checking BP at home and contact if any elevated blood pressures - Continue current medication(s) - Encouraged dietary sodium restriction/DASH diet - Recommended regular aerobic exercise. - Recommend home blood pressure monitoring, to bring results in on next visit - Discussed need and benefit for weight loss. - Goal of BP <130/80 - Follow up in 6 months or earlier if BP is elevated at home 4. Heartburn - ICD9: 787.1, ICD10: R12 - controlled with current treatment and with healthy diet and weight loss, this will continue to improve 5. Encounter for immunization - ICD9: V03.89, ICD10: Z23 - TDAP VACCINE AGE 7+ IM 6. Vitamin D deficiency - ICD9: 268.9, ICD10: E55.9 - VITAMIN D 25 HYDROXY Prescription instructions reviewed with patient as applicable. Potential red flag symptoms discussed with the patient. Reviewed appropriate action plan to take if red flag symptoms occur. Patient agreeable to treatment plan. Daria Park APRN.CNP documented in this [facility]05-[facility]-2022 History of Present illness Narrative* Janessa Rubin - 11/13/2021 4:17 PM EDT POPULATION HEALTH NAVIGATION OUTREACH Action/FYI Patient called me back and said that he has mentioned this multiple times to everyone who calls him. Patient says he sees Dr.Jeffry Wright at [facility]. He would like me to message his PCP to see if this can be removed from his health maintenance section because it is pulling up on his mychart as overdue. Sending msg to office. Pt identified by name and : YES, via phone Outreach Outcome/Action Spoke to patient or caregiver: Patient declined Message Sent to Practice: Yes Navigation Signature: Janessa Rubin November 13, 2021 4:17 PM * Janessa Rubin - 11/13/2021 3:48 PM EDT POPULATION HEALTH NAVIGATION OUTREACH Action/FYI Phone rang once and went to . Mychart msg sent Patient needs to schedule an overdue Dilated Retinal Exam. Will add to next office visit. Pt identified by name and : NO Outreach Outcome/Action Unable to reach patient: Left message MyChart message sent Reason for Outreach Care Gap or Scheduling/Wellness visits Payer: Payor: [employer] MEDICARE / Plan: [employer] MEDICARE PPO / Product Type: PPO / Care Gap Reviewed:: Diabetic Eye Exam Reminder: Reminder note to check Health Maintenance for items below Health Maintenance items due: ABDOMINAL AORTIC ANEURYSM SCREENING Never done HEPATITIS C SCREENING Never done BP CONTROLLED (<130/80) Never done DTAP,TDAP,TD(1 - Tdap) Never done ADVANCE DIRECTIVE DISCUSSION Never done COVID-19 VACCINE(4 - Booster for Moderna series) due on 08/18/2021 DILATED RETINAL EXAM due on 11/01/2021 Message Sent to Practice: No Navigation Signature: Janessa Rubin November 13, 2021 3:49 PM documented in this [facility]05-[facility]-2022 Miscellaneous Notes* Telephone Encounter - Socorro Newberry LPN - 10/23/2021 8:45 AM EDT Patient phones requesting refills as follows: Pending Prescriptions Disp Refills FINASTERIDE 5 MG TABLET 90 tablet 3 Sig: Take 1 tablet by mouth once daily. MUKESH: No Please review and advise. Socorro Newberry LPN documented in this [facility]High[facility]04-26-2022 History of Present illness Narrative* Grey Hernandez PA-C - 10/17/2021 10:22 AM EDT Images from the original note were not included. PATIENT INFO: Abisai Araya 65 year old ( ) REFERRING PROVIDER: Marquita Calvert PCP: Marquita Calvert MD HPI: Abisai Araya 66 year old male is here today for discussion urine retention and repeat PVR to see if increasing the Flomax helps him fully empty His bladder. His PVR is 328 ml then repeat was 201 ml, after he urinated at home due to his difficulty urinating at public restrooms. The chane to Flomax has not improved with more time, so discussed testing for possible TUR ,but I think 3-6 month trial of Proscar 5 mg should be tried and if no appreciative change then start the TUR testing Other symptoms: LABS: No results found for: TESTOST No results found for: TESTFREE PSA Screening (ng/mL) Date Value 11/09/2020 2.46 Hematocrit (%) Date Value 05/02/2021 49.8 11/01/2020 49.4 01/07/2020 50.5 MEDICATIONS: fluticasone (FLONASE) 50 mcg/actuation nasal spray Use 2 Sprays in each nostril once daily. Rinse mouth after use. Fluocinolone Acetonide 0.01 % external oil Apply 0.1 % to affected area every 2 weeks. Zinc 50 mg tab Take 50 mg by mouth once daily. rosuvastatin (CRESTOR) 5 mg tablet Take 1 tablet by mouth daily at bedtime. dulaglutide (TRULICITY) 0.75 mg/0.5 mL pen injector Inject 0.75 mg subcutaneously one time a week. Inject dose once per week. Discard Pen After tamsulosin (FLOMAX) 0.4 mg Take 1 capsule by mouth daily at bedtime. azelastine (ASTELIN) 0.1% nasal spray Use 2 Sprays in each nostril twice daily. Fenofibrate (LOFIBRA) 54 mg tablet Take 1 tablet by mouth once daily. famotidine (PEPCID) 20 mg tablet Take 1 tablet by mouth at bedtime as needed. ketoconazole (NIZORAL) 2 % shampoo naproxen sodium (ALEVE) 220 mg cap Take by mouth. MULTI-VITAMIN ORAL Take by mouth. Ascorbic Acid (VITAMIN C) 1,000 mg tablet Take 1,000 mg by mouth once daily. [place]-3 Fatty Acids-Vitamin E (FISH OIL) 1,000 mg cap Take 1 capsule by mouth. Cholecalciferol, Vitamin D3, (VITAMIN D) 1,000 unit cap Take 1,000 Units by mouth once daily. PAST MEDICAL HISTORY: PAST MEDICAL HISTORY Diagnosis Date Allergic rhinitis, cause unspecified Anxiety state, unspecified Arthritis Backache, unspecified Essential hypertension, benign Headache(784.0) Hypertrophy of prostate without urinary obstruction and other lower urinary tract symptoms (LUTS) Nontoxic uninodular goiter Olecranon bursitis Other and unspecified hyperlipidemia Other chronic nonalcoholic liver disease Shortness of breath Unspecified hemorrhoids with other complication Unspecified hereditary and idiopathic peripheral neuropathy REVIEW OF SYSTEMS: GENERAL: No fever, chills, weight loss, or fatigue. PHYSICAL EXAMINATION: There were no vitals taken for this visit. GENERAL: WNL nutrition, no deformities, healthy appearing PROBLEM LIST REVIEW: Yes LABS: PROCEDURES: PVR is 328 ml then repeat was 201 ml on Flomax 0.8 mg IMAGING: IMPRESSION/PLAN: 1. Symptom of bladder outlet obstruction > At times has difficulty emptying his bladder , no urgency or frequerncy > Flomax 0.8 mg - PVR today pvr 210 ml > FHx BPH > PVR - 210-328 ml > Continue Flomax 0.4m and start Proscar > 3 month with a PVR on Urol Nurse schedule > If not bellow 100 ml recommended testing for possible TURP ROGER Whitley, NEYDA MCCULLOUGH * Socorro Newberry LPN - 10/17/2021 10:06 AM EDT CC Post Void Residual HPI: Abisai Araya is a 66 year old male. The patient is here now for a post void residual appointment. Procedure: Explained procedure to patient and verbalizes understanding. Performed a PVR. Patient urinated and instructed to empty bladder as much as possible just prior to having PVR done using bladder ultrasound scanner. Results of scan: 328 mL The patient tolerated the procedure well. Plan: Advised Grey of PVR results and that patient verbalizes having taken Flomax 0.4 MG two tablets the night prior hoping it would help with results today. Grey speaking with patient at this time. Socorro Newberry LPN [facility] of Present illness Narrative* Cale Carmichael RT(R) - 05/03/2021 1:20 PM EST Radiology Service Progress Note PATIENT NAME: Abisai Araya DATE OF SERVICE: May 03, 2021 TIME: 1:18 PM PATIENT IDENTITY VERIFICATION COMPLETED USING TWO (2) IDENTIFIERS: Name and Date of confirmedby patient verbally. FALL SCREENING: Has the patient had 2 falls in the last year or 1 fall with injury or currently using an Ambulatory Assistive Device (Walker, Cane, Wheelchair, Crutches, etc.)? No PATIENT GENDER DATA: Male PATIENT RELEVANT IMPLANT DATA REVIEWED: Not Applicable RADIOLOGY DEPARTMENT: General X-ray: Exam(s) Completed: Spine X-Ray(s): Lumbar AP / LAT / L5-S1 PERIPHERAL IV DATA: Not applicable SIGNED BY: RT Roberta(R) May 03, 2021 1:18 PM [facility]* Diagnosis BPH with urinary obstruction- Primary Hypertrophy of prostate with urinary obstruction and other lower urinary tract symptoms (LUTS) [facility] Diagnosis Type 2 diabetes mellitus with other specified complication, without long-term current use of insulin (HCC)- Primary Mixed hyperlipidemia Essential hypertension Unspecified essential hypertension Heartburn Encounter for immunization Need for other specified prophylactic vaccination against single bacterial disease Vitamin D deficiency Unspecified vitamin D deficiency [facility]* Diagnosis BPH with urinary obstruction- Primary Hypertrophy of prostate with urinary obstruction and other lower urinary tract symptoms (LUTS) [facility]* Diagnosis Hypertriglyceridemia Pure hyperglyceridemia [facility]* Diagnosis Type 2 diabetes mellitus with other specified complication, without long-term current use of insulin (HCC)- Primary Essential hypertension Unspecified essential hypertension Mixed hyperlipidemia Prostate cancer screening Special screening for malignant neoplasm of prostate Nontoxic multinodular goiter [facility]* Diagnosis Essential hypertension- Primary Unspecified essential hypertension [facility]* Diagnosis Essential hypertension- Primary Unspecified essential hypertension [facility] Diagnosis BPH with urinary obstruction- Primary Hypertrophy of prostate with urinary obstruction and other lower urinary tract symptoms (LUTS) [facility]* Diagnosis Type 2 diabetes mellitus with peripheral neuropathy (HCC)- Primary Mixed hyperlipidemia Essential hypertension Unspecified essential hypertension [facility]* Diagnosis Hypertriglyceridemia Pure hyperglyceridemia [facility]* Diagnosis Nontoxic multinodular goiter [facility]* Diagnosis Thyroid nodule- Primary Nontoxic uninodular goiter documented [facility]* Diagnosis Need for vaccination- Primary Need for prophylactic vaccination and inoculation against unspecified single disease [facility]* Diagnosis Essential hypertension- Primary Unspecified essential hypertension Type 2 diabetes mellitus with peripheral neuropathy (HCC) Nontoxic multinodular goiter documented in this encounter [facility] note* Diagnosis Hypertriglyceridemia Pure hyperglyceridemia [facility]* Diagnosis Essential hypertension- Primary Unspecified essential hypertension Constipation, unspecified constipation type Dark urine Other nonspecific finding on examination of urine Dry skin Other specified disease of sebaceous glands Palpitation Palpitations documented [facility] this [facility]* Diagnosis Constipation, unspecified constipation type- Primary Palpitation Palpitations Essential hypertension Unspecified essential hypertension Immunization due Need for prophylactic vaccination and inoculation against unspecified single disease Type 2 diabetes mellitus with peripheral neuropathy (HCC) Mixed hyperlipidemia [facility]* Diagnosis Type 2 diabetes mellitus with peripheral neuropathy (HCC)- Primary [facility]* Diagnosis BPH with urinary obstruction- Primary Hypertrophy of prostate with urinary obstruction and other lower urinary tract symptoms (LUTS) Prostate cancer screening Special screening for malignant neoplasm of prostate [facility]* Diagnosis Type 2 diabetes mellitus with peripheral neuropathy (HCC) documented [facility] this [facility]* Diagnosis Chronic bilateral low back pain without sciatica documented [facility]* Diagnosis Type 2 diabetes mellitus with peripheral neuropathy (HCC)- Primary Essential hypertension Unspecified essential hypertension Mixed hyperlipidemia Heartburn documented [facility] this [facility]* Diagnosis Pain- Primary Generalized pain documented [facility] this [facility]* Diagnosis Acute cough- Primary URI, acute Acute upper respiratory infections of unspecified site Acute cough documented [facility] this [facility]* Diagnosis Acute cough [facility] this [facility]* Diagnosis Pain in left hip- Primary Pain in joint, pelvic region and thigh Primary osteoarthritis of left hip Primary localized osteoarthrosis, pelvic region and thigh Tendinopathy of left gluteal region [facility]* Diagnosis Pain in left hip Pain in joint, pelvic region and thigh documented [facility] this [facility]* Diagnosis Left lower quadrant abdominal pain- Primary [facility]* Diagnosis Mechanical low back pain- Primary Lumbago Lumbar spondylosis Lumbosacral spondylosis without myelopathy documented [facility] this [facility]* Diagnosis Primary osteoarthritis of left knee- Primary Primary localized osteoarthrosis, lower leg [facility]* Diagnosis Pain Generalized pain [facility]* Diagnosis Drug-induced constipation- Primary Other constipation Hypertriglyceridemia Pure hyperglyceridemia Type 2 diabetes mellitus with peripheral neuropathy (HCC) documented in this encounter [facility]* Diagnosis Medicare annual wellness visit, subsequent- Primary Routine general medical examination at a [facility] facility Type 2 diabetes mellitus without complication, without long-term current use of insulin (HCC) Essential (primary) hypertension Unspecified essential hypertension Constipation, unspecified constipation type Thyroid nodule Nontoxic uninodular goiter Encounter for screening examination for other mental health and behavioral disorders Screening for depression documented in this encounter [facility] note* Diagnosis Thyroid nodule Nontoxic uninodular goiter documented [facility] this encounter [facility]* Diagnosis Primary osteoarthritis of left knee- Primary Primary localized osteoarthrosis, lower leg [facility]* Diagnosis Thyroid nodule- Primary Nontoxic uninodular goiter documented [facility] this [facility]* Diagnosis BPH with urinary obstruction- Primary Hypertrophy of prostate with urinary obstruction and other lower urinary tract symptoms (LUTS) documented in this encounter [facility] note* Diagnosis Nontoxic multinodular goiter- Primary Thyroid nodule Nontoxic uninodular goiter documented in this encounter [facility] noteNo assessment information availableWSelect Medical [facility] Work Phone: Hospital Discharge instructions Additional Instructions 1. Recommend that you follow-up with your integrity specialist. You can tell your integrity specialist in my opinion you have irreversible pulpitis. 2. Take pain medicine as prescribed 3. Avoid cold liquids 4. If you develop temperature greater than 100, swelling of your face, difficulty opening closing her mouth return to the emergency department or see the integrity specialist immediately [facility] Work Phone: [facility] (narrative)* Diagnostic Procedure Only (Routine) - Closed Specialty Diagnoses / Procedures Referred By Contac t Referred To Contact US IMAGING Diagnoses Nontoxic multinodular goiter Procedures US THYROID/PARATHYROID US SOFT TISSUE HEAD & NECK REAL TIME IMGE Vish White MD [address] [place] [address] [place] [address] Referral ID Status Reason Start Date Expiration Date V isits Requested Visits Authorized [id number] Closed Auto-Generate d Referral 02/19/2023 03/20/2024 1 1 [facility] for referral (narrative)* Diagnostic Procedure Only (Routine) - Closed Specialty Diagnoses / Procedures Referred By Contac t Referred To Contact XR IMAGING Diagnoses Chronic bilateral low back pain without sciatica Procedures XR LUMBAR GENERAL 3V AP/LAT/L5-S1 X-RAY L-S SPINE AP/LATERAL Marquita Calvert MD [address] [place] [address] [place] [address] Referral ID Status Reason Start Date Expiration Date V isits Requested Visits Authorized [id number] Closed Auto-Generate d Referral 04/28/2021 05/28/2022 1 1 [facility] for referral (narrative)* Diagnostic Procedure Only (Routine) - Authorized Specialty Diagnoses / Procedures Referred By Contac t Referred To Contact XR IMAGING Diagnoses Pain Procedures XR HIP GENERAL 3V PELV/AP/LAT LEFT RADEX HIP UNILATERAL WITH PELVIS 2-3 VIEWS Enrico Hollis PA-C [address] [address] [place] [address] Referral ID Status Reason Start Date Expiration Date Visits Requested Visits Authorized [id number] Authorized Auto-Generat ed Referral 07/22/2025 1 1 [facility] for referral (narrative)* Diagnostic Procedure Only (Routine) - Closed Specialty Diagnoses / Procedures Referred By Contac t Referred To Contact XR IMAGING Diagnoses Pain in left hip Procedures XR HIP GENERAL 3V PELV/AP/LAT LEFT RADEX HIP UNILATERAL WITH PELVIS 2-3 VIEWS Enrico Hollis PA-C [address] [address] [place] [address] Referral ID Status Reason Start Date Expiration Date V isits Requested Visits Authorized [id number] Closed Auto-Generate d Referral 2024 08/06/2025 1 1 [facility] for referral (narrative)No reason for referral information availableWSelect [facility] Work Phone: [facility] Narrative* Diagnostic Procedure Only (Routine) - Closed Specialty Diagnoses / Procedures Referred By Contac t Referred To Contact XR IMAGING Diagnoses Chronic bilateral low back pain without sciatica Procedures XR LUMBAR GENERAL 3V AP/LAT/L5-S1 X-RAY L-S SPINE AP/LATERAL Marquita Calvert MD [address] [place] [address] [place] [address] Referral ID Status Reason Start Date Expiration Date V isits Requested Visits Authorized [id number] Closed Auto-Generate d Referral 04/28/2021 05/28/2022 1 1 [facility] for visit Narrative* Diagnostic Procedure Only (Routine) - Closed Specialty Diagnoses / Procedures Referred By Contac t Referred To Contact XR IMAGING Diagnoses Pain in left hip Procedures XR HIP GENERAL 3V PELV/AP/LAT LEFT RADEX HIP UNILATERAL WITH PELVIS 2-3 VIEWS Enrico Hollis PA-C [address] [address] [place] [address] Referral ID Status Reason Start Date Expiration Date V isits Requested Visits Authorized [id number] Closed Auto-Generate d Referral 2024 08/06/2025 1 1 [facility] Reason for Referral Specialty Diagnoses / Procedures Referred By Contac t Referred To Contact General Surgery Diagnoses Thyroid nodule Procedures CONSULT TO GENERAL SURGERY OFFICE/OUTPATIENT NEW HIGH MDM 60-74 MINUTES 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 Yes December 09, 2024 9:51pm Chief Complaint and Reason for Visit Chief Complaint Admit Date DENTAL December 09, 2024 8:45 pm Additional Source Comments Source Comments (unrecognize d section and content) In the event this informatio n is protected by the Federal Confidentiality of Alcohol and Drug Abuse Patient Records regulations: The Federal rules restrict any use of the information to criminally investigate or prosecute any alcohol or drug abuse patient.[facility] HospitalIn the event this information is protected by the Federal Confidentiality of Alcohol and Drug Abuse Patient Records regulations: The Federal rules restrict any use of the information to criminally investigate or prosecute any alcohol or drug abuse patient.[facility] HospitalIn the event this information is protected by the Federal Confidentiality of Alcohol and Drug Abuse Patient Records regulations: The Federal rules restrict any use of the information to criminally investigate or prosecute any alcohol or drug abuse patient.[facility] HospitalIn the event this information is protected by the Federal Confidentiality of Alcohol and Drug Abuse Patient Records regulations: The Federal rules restrict any use of the information to criminally investigate or prosecute any alcohol or drug abuse patient.[facility] HospitalIn the event this information is protected by the Federal Confidentiality of Alcohol and Drug Abuse Patient Records regulations: The Federal rules restrict any use of the information to criminally investigate or prosecute any alcohol or drug abuse patient.[facility] HospitalIn the event this information is protected by the Federal Confidentiality of Alcohol and Drug Abuse Patient Records regulations: The Federal rules restrict any use of the information to criminally investigate or prosecute any alcohol or drug abuse patient.[facility] HospitalIn the event this information is protected by the Federal Confidentiality of Alcohol and Drug Abuse Patient Records regulations: The Federal rules restrict any use of the information to criminally investigate or prosecute any alcohol or drug abuse patient.[facility] HospitalIn the event this information is protected by the Federal Confidentiality of Alcohol and Drug Abuse Patient Records regulations: The Federal rules restrict any use of the information to criminally investigate or prosecute any alcohol or drug abuse patient.[facility] HospitalIn the event this information is protected by the Federal Confidentiality of Alcohol and Drug Abuse Patient Records regulations: The Federal rules restrict any use of the information to criminally investigate or prosecute any alcohol or drug abuse patient.[facility] HospitalIn the event this information is protected by the Federal Confidentiality of Alcohol and Drug Abuse Patient Records regulations: The Federal rules restrict any use of the information to criminally investigate or prosecute any alcohol or drug abuse patient.[facility] HospitalIn the event this information is protected by the Federal Confidentiality of Alcohol and Drug Abuse Patient Records regulations: The Federal rules restrict any use of the information to criminally investigate or prosecute any alcohol or drug abuse patient.[facility] HospitalIn the event this information is protected by the Federal Confidentiality of Alcohol and Drug Abuse Patient Records regulations: The Federal rules restrict any use of the information to criminally investigate or prosecute any alcohol or drug abuse patient.[facility] HospitalIn the event this information is protected by the Federal Confidentiality of Alcohol and Drug Abuse Patient Records regulations: The Federal rules restrict any use of the information to criminally investigate or prosecute any alcohol or drug abuse patient.[facility] HospitalIn the event this information is protected by the Federal Confidentiality of Alcohol and Drug Abuse Patient Records regulations: The Federal rules restrict any use of the information to criminally investigate or prosecute any alcohol or drug abuse patient.[facility] HospitalIn the event this information is protected by the Federal Confidentiality of Alcohol and Drug Abuse Patient Records regulations: The Federal rules restrict any use of the information to criminally investigate or prosecute any alcohol or drug abuse patient.[facility] HospitalIn the event this information is protected by the Federal Confidentiality of Alcohol and Drug Abuse Patient Records regulations: The Federal rules restrict any use of the information to criminally investigate or prosecute any alcohol or drug abuse patient.[facility] HospitalIn the event this information is protected by the Federal Confidentiality of Alcohol and Drug Abuse Patient Records regulations: The Federal rules restrict any use of the information to criminally investigate or prosecute any alcohol or drug abuse patient.[facility] HospitalIn the event this information is protected by the Federal Confidentiality of Alcohol and Drug Abuse Patient Records regulations: The Federal rules restrict any use of the information to criminally investigate or prosecute any alcohol or drug abuse patient.[facility] HospitalIn the event this information is protected by the Federal Confidentiality of Alcohol and Drug Abuse Patient Records regulations: The Federal rules restrict any use of the information to criminally investigate or prosecute any alcohol or drug abuse patient.[facility] HospitalIn the event this information is protected by the Federal Confidentiality of Alcohol and Drug Abuse Patient Records regulations: The Federal rules restrict any use of the information to criminally investigate or prosecute any alcohol or drug abuse patient.[facility] HospitalIn the event this information is protected by the Federal Confidentiality of Alcohol and Drug Abuse Patient Records regulations: The Federal rules restrict any use of the information to criminally investigate or prosecute any alcohol or drug abuse patient.[facility] HospitalIn the event this information is protected by the Federal Confidentiality of Alcohol and Drug Abuse Patient Records regulations: The Federal rules restrict any use of the information to criminally investigate or prosecute any alcohol or drug abuse patient.[facility] HospitalIn the event this information is protected by the Federal Confidentiality of Alcohol and Drug Abuse Patient Records regulations: The Federal rules restrict any use of the information to criminally investigate or prosecute any alcohol or drug abuse patient.[facility] HospitalIn the event this information is protected by the Federal Confidentiality of Alcohol and Drug Abuse Patient Records regulations: The Federal rules restrict any use of the information to criminally investigate or prosecute any alcohol or drug abuse patient.[facility] HospitalIn the event this information is protected by the Federal Confidentiality of Alcohol and Drug Abuse Patient Records regulations: The Federal rules restrict any use of the information to criminally investigate or prosecute any alcohol or drug abuse patient.[facility] HospitalIn the event this information is protected by the Federal Confidentiality of Alcohol and Drug Abuse Patient Records regulations: The Federal rules restrict any use of the information to criminally investigate or prosecute any alcohol or drug abuse patient.[facility] HospitalIn the event this information is protected by the Federal Confidentiality of Alcohol and Drug Abuse Patient Records regulations: The Federal rules restrict any use of the information to criminally investigate or prosecute any alcohol or drug abuse patient.[facility] HospitalIn the event this information is protected by the Federal Confidentiality of Alcohol and Drug Abuse Patient Records regulations: The Federal rules restrict any use of the information to criminally investigate or prosecute any alcohol or drug abuse patient.[facility] HospitalIn the event this information is protected by the Federal Confidentiality of Alcohol and Drug Abuse Patient Records regulations: The Federal rules restrict any use of the information to criminally investigate or prosecute any alcohol or drug abuse patient.[facility] HospitalIn the event this information is protected by the Federal Confidentiality of Alcohol and Drug Abuse Patient Records regulations: The Federal rules restrict any use of the information to criminally investigate or prosecute any alcohol or drug abuse patient.[facility] HospitalIn the event this information is protected by the Federal Confidentiality of Alcohol and Drug Abuse Patient Records regulations: The Federal rules restrict any use of the information to criminally investigate or prosecute any alcohol or drug abuse patient.[facility] HospitalIn the event this information is protected by the Federal Confidentiality of Alcohol and Drug Abuse Patient Records regulations: The Federal rules restrict any use of the information to criminally investigate or prosecute any alcohol or drug abuse patient.[facility] HospitalIn the event this information is protected by the Federal Confidentiality of Alcohol and Drug Abuse Patient Records regulations: The Federal rules restrict any use of the information to criminally investigate or prosecute any alcohol or drug abuse patient.[facility] HospitalIn the event this information is protected by the Federal Confidentiality of Alcohol and Drug Abuse Patient Records regulations: The Federal rules restrict any use of the information to criminally investigate or prosecute any alcohol or drug abuse patient.[facility] HospitalIn the event this information is protected by the Federal Confidentiality of Alcohol and Drug Abuse Patient Records regulations: The Federal rules restrict any use of the information to criminally investigate or prosecute any alcohol or drug abuse patient.[facility] HospitalIn the event this information is protected by the Federal Confidentiality of Alcohol and Drug Abuse Patient Records regulations: The Federal rules restrict any use of the information to criminally investigate or prosecute any alcohol or drug abuse patient.[facility] HospitalIn the event this information is protected by the Federal Confidentiality of Alcohol and Drug Abuse Patient Records regulations: The Federal rules restrict any use of the information to criminally investigate or prosecute any alcohol or drug abuse patient.[facility] HospitalIn the event this information is protected by the Federal Confidentiality of Alcohol and Drug Abuse Patient Records regulations: The Federal rules restrict any use of the information to criminally investigate or prosecute any alcohol or drug abuse patient.[facility] HospitalIn the event this information is protected by the Federal Confidentiality of Alcohol and Drug Abuse Patient Records regulations: The Federal rules restrict any use of the information to criminally investigate or prosecute any alcohol or drug abuse patient.[facility] HospitalIn the event this information is protected by the Federal Confidentiality of Alcohol and Drug Abuse Patient Records regulations: The Federal rules restrict any use of the information to criminally investigate or prosecute any alcohol or drug abuse patient.[facility] HospitalIn the event this information is protected by the Federal Confidentiality of Alcohol and Drug Abuse Patient Records regulations: The Federal rules restrict any use of the information to criminally investigate or prosecute any alcohol or drug abuse patient.[facility] HospitalIn the event this information is protected by the Federal Confidentiality of Alcohol and Drug Abuse Patient Records regulations: The Federal rules restrict any use of the information to criminally investigate or prosecute any alcohol or drug abuse patient.[facility] HospitalIn the event this information is protected by the Federal Confidentiality of Alcohol and Drug Abuse Patient Records regulations: The Federal rules restrict any use of the information to criminally investigate or prosecute any alcohol or drug abuse patient.[facility] HospitalIn the event this information is protected by the Federal Confidentiality of Alcohol and Drug Abuse Patient Records regulations: The Federal rules restrict any use of the information to criminally investigate or prosecute any alcohol or drug abuse patient.[facility] HospitalIn the event this information is protected by the Federal Confidentiality of Alcohol and Drug Abuse Patient Records regulations: The Federal rules restrict any use of the information to criminally investigate or prosecute any alcohol or drug abuse patient.[facility] HospitalIn the event this information is protected by the Federal Confidentiality of Alcohol and Drug Abuse Patient Records regulations: The Federal rules restrict any use of the information to criminally investigate or prosecute any alcohol or drug abuse patient.[facility] HospitalIn the event this information is protected by the Federal Confidentiality of Alcohol and Drug Abuse Patient Records regulations: The Federal rules restrict any use of the information to criminally investigate or prosecute any alcohol or drug abuse patient.[facility] HospitalIn the event this information is protected by the Federal Confidentiality of Alcohol and Drug Abuse Patient Records regulations: The Federal rules restrict any use of the information to criminally investigate or prosecute any alcohol or drug abuse patient.[facility] HospitalIn the event this information is protected by the Federal Confidentiality of Alcohol and Drug Abuse Patient Records regulations: The Federal rules restrict any use of the information to criminally investigate or prosecute any alcohol or drug abuse patient.[facility] HospitalIn the event this information is protected by the Federal Confidentiality of Alcohol and Drug Abuse Patient Records regulations: The Federal rules restrict any use of the information to criminally investigate or prosecute any alcohol or drug abuse patient.[facility] HospitalIn the event this information is protected by the Federal Confidentiality of Alcohol and Drug Abuse Patient Records regulations: The Federal rules restrict any use of the information to criminally investigate or prosecute any alcohol or drug abuse patient.[facility] HospitalIn the event this information is protected by the Federal Confidentiality of Alcohol and Drug Abuse Patient Records regulations: The Federal rules restrict any use of the information to criminally investigate or prosecute any alcohol or drug abuse patient.[facility] HospitalIn the event this information is protected by the Federal Confidentiality of Alcohol and Drug Abuse Patient Records regulations: The Federal rules restrict any use of the information to criminally investigate or prosecute any alcohol or drug abuse patient.[facility] HospitalIn the event this information is protected by the Federal Confidentiality of Alcohol and Drug Abuse Patient Records regulations: The Federal rules restrict any use of the information to criminally investigate or prosecute any alcohol or drug abuse patient.[facility] HospitalIn the event this information is protected by the Federal Confidentiality of Alcohol and Drug Abuse Patient Records regulations: The Federal rules restrict any use of the information to criminally investigate or prosecute any alcohol or drug abuse patient.[facility] HospitalIn the event this information is protected by the Federal Confidentiality of Alcohol and Drug Abuse Patient Records regulations: The Federal rules restrict any use of the information to criminally investigate or prosecute any alcohol or drug abuse patient.[facility] HospitalIn the event this information is protected by the Federal Confidentiality of Alcohol and Drug Abuse Patient Records regulations: The Federal rules restrict any use of the information to criminally investigate or prosecute any alcohol or drug abuse patient.[facility] HospitalIn the event this information is protected by the Federal Confidentiality of Alcohol and Drug Abuse Patient Records regulations: The Federal rules restrict any use of the information to criminally investigate or prosecute any alcohol or drug abuse patient.[facility] HospitalIn the event this information is protected by the Federal Confidentiality of Alcohol and Drug Abuse Patient Records regulations: The Federal rules restrict any use of the information to criminally investigate or prosecute any alcohol or drug abuse patient.[facility] HospitalIn the event this information is protected by the Federal Confidentiality of Alcohol and Drug Abuse Patient Records regulations: The Federal rules restrict any use of the information to criminally investigate or prosecute any alcohol or drug abuse patient.[facility] HospitalIn the event this information is protected by the Federal Confidentiality of Alcohol and Drug Abuse Patient Records regulations: The Federal rules restrict any use of the information to criminally investigate or prosecute any alcohol or drug abuse patient.[facility] HospitalIn the event this information is protected by the Federal Confidentiality of Alcohol and Drug Abuse Patient Records regulations: The Federal rules restrict any use of the information to criminally investigate or prosecute any alcohol or drug abuse patient.[facility] HospitalIn the event this information is protected by the Federal Confidentiality of Alcohol and Drug Abuse Patient Records regulations: The Federal rules restrict any use of the information to criminally investigate or prosecute any alcohol or drug abuse patient.[facility] HospitalIn the event this information is protected by the Federal Confidentiality of Alcohol and Drug Abuse Patient Records regulations: The Federal rules restrict any use of the information to criminally investigate or prosecute any alcohol or drug abuse patient.[facility] HospitalIn the event this information is protected by the Federal Confidentiality of Alcohol and Drug Abuse Patient Records regulations: The Federal rules restrict any use of the information to criminally investigate or prosecute any alcohol or drug abuse patient.[facility] HospitalIn the event this information is protected by the Federal Confidentiality of Alcohol and Drug Abuse Patient Records regulations: The Federal rules restrict any use of the information to criminally investigate or prosecute any alcohol or drug abuse patient.[facility] HospitalIn the event this information is protected by the Federal Confidentiality of Alcohol and Drug Abuse Patient Records regulations: The Federal rules restrict any use of the information to criminally investigate or prosecute any alcohol or drug abuse patient.[facility] HospitalIn the event this information is protected by the Federal Confidentiality of Alcohol and Drug Abuse Patient Records regulations: The Federal rules restrict any use of the information to criminally investigate or prosecute any alcohol or drug abuse patient.[facility] HospitalIn the event this information is protected by the Federal Confidentiality of Alcohol and Drug Abuse Patient Records regulations: The Federal rules restrict any use of the information to criminally investigate or prosecute any alcohol or drug abuse patient.[facility] HospitalIn the event this information is protected by the Federal Confidentiality of Alcohol and Drug Abuse Patient Records regulations: The Federal rules restrict any use of the information to criminally investigate or prosecute any alcohol or drug abuse patient.[facility] HospitalIn the event this information is protected by the Federal Confidentiality of Alcohol and Drug Abuse Patient Records regulations: The Federal rules restrict any use of the information to criminally investigate or prosecute any alcohol or drug abuse patient.[facility] HospitalIn the event this information is protected by the Federal Confidentiality of Alcohol and Drug Abuse Patient Records regulations: The Federal rules restrict any use of the information to criminally investigate or prosecute any alcohol or drug abuse patient.[facility] HospitalIn the event this information is protected by the Federal Confidentiality of Alcohol and Drug Abuse Patient Records regulations: The Federal rules restrict any use of the information to criminally investigate or prosecute any alcohol or drug abuse patient.[facility] HospitalIn the event this information is protected by the Federal Confidentiality of Alcohol and Drug Abuse Patient Records regulations: The Federal rules restrict any use of the information to criminally investigate or prosecute any alcohol or drug abuse patient.[facility] HospitalIn the event this information is protected by the Federal Confidentiality of Alcohol and Drug Abuse Patient Records regulations: The Federal rules restrict any use of the information to criminally investigate or prosecute any alcohol or drug abuse patient.[facility] HospitalIn the event this information is protected by the Federal Confidentiality of Alcohol and Drug Abuse Patient Records regulations: The Federal rules restrict any use of the information to criminally investigate or prosecute any alcohol or drug abuse patient.[facility] HospitalIn the event this information is protected by the Federal Confidentiality of Alcohol and Drug Abuse Patient Records regulations: The Federal rules restrict any use of the information to criminally investigate or prosecute any alcohol or drug abuse patient.[facility] HospitalIn the event this information is protected by the Federal Confidentiality of Alcohol and Drug Abuse Patient Records regulations: The Federal rules restrict any use of the information to criminally investigate or prosecute any alcohol or drug abuse patient.[facility] HospitalIn the event this information is protected by the Federal Confidentiality of Alcohol and Drug Abuse Patient Records regulations: The Federal rules restrict any use of the information to criminally investigate or prosecute any alcohol or drug abuse patient.[facility] HospitalIn the event this information is protected by the Federal Confidentiality of Alcohol and Drug Abuse Patient Records regulations: The Federal rules restrict any use of the information to criminally investigate or prosecute any alcohol or drug abuse patient.[facility] HospitalIn the event this information is protected by the Federal Confidentiality of Alcohol and Drug Abuse Patient Records regulations: The Federal rules restrict any use of the information to criminally investigate or prosecute any alcohol or drug abuse patient.[facility] HospitalIn the event this information is protected by the Federal Confidentiality of Alcohol and Drug Abuse Patient Records regulations: The Federal rules restrict any use of the information to criminally investigate or prosecute any alcohol or drug abuse patient.[facility] HospitalIn the event this information is protected by the Federal Confidentiality of Alcohol and Drug Abuse Patient Records regulations: The Federal rules restrict any use of the information to criminally investigate or prosecute any alcohol or drug abuse patient.[facility] HospitalIn the event this information is protected by the Federal Confidentiality of Alcohol and Drug Abuse Patient Records regulations: The Federal rules restrict any use of the information to criminally investigate or prosecute any alcohol or drug abuse patient.[facility] HospitalIn the event this information is protected by the Federal Confidentiality of Alcohol and Drug Abuse Patient Records regulations: The Federal rules restrict any use of the information to criminally investigate or prosecute any alcohol or drug abuse patient.[facility] HospitalIn the event this information is protected by the Federal Confidentiality of Alcohol and Drug Abuse Patient Records regulations: The Federal rules restrict any use of the information to criminally investigate or prosecute any alcohol or drug abuse patient.[facility] HospitalIn the event this information is protected by the Federal Confidentiality of Alcohol and Drug Abuse Patient Records regulations: The Federal rules restrict any use of the information to criminally investigate or prosecute any alcohol or drug abuse patient.[facility] HospitalIn the event this information is protected by the Federal Confidentiality of Alcohol and Drug Abuse Patient Records regulations: The Federal rules restrict any use of the information to criminally investigate or prosecute any alcohol or drug abuse patient.[facility] HospitalIn the event this information is protected by the Federal Confidentiality of Alcohol and Drug Abuse Patient Records regulations: The Federal rules restrict any use of the information to criminally investigate or prosecute any alcohol or drug abuse patient.[facility] HospitalIn the event this information is protected by the Federal Confidentiality of Alcohol and Drug Abuse Patient Records regulations: The Federal rules restrict any use of the information to criminally investigate or prosecute any alcohol or drug abuse patient.[facility] HospitalIn the event this information is protected by the Federal Confidentiality of Alcohol and Drug Abuse Patient Records regulations: The Federal rules restrict any use of the information to criminally investigate or prosecute any alcohol or drug abuse patient.[facility] HospitalIn the event this information is protected by the Federal Confidentiality of Alcohol and Drug Abuse Patient Records regulations: The Federal rules restrict any use of the information to criminally investigate or prosecute any alcohol or drug abuse patient.[facility] HospitalIn the event this information is protected by the Federal Confidentiality of Alcohol and Drug Abuse Patient Records regulations: The Federal rules restrict any use of the information to criminally investigate or prosecute any alcohol or drug abuse patient.[facility] HospitalIn the event this information is protected by the Federal Confidentiality of Alcohol and Drug Abuse Patient Records regulations: The Federal rules restrict any use of the information to criminally investigate or prosecute any alcohol or drug abuse patient.[facility] HospitalIn the event this information is protected by the Federal Confidentiality of Alcohol and Drug Abuse Patient Records regulations: The Federal rules restrict any use of the information to criminally investigate or prosecute any alcohol or drug abuse patient.[facility] HospitalIn the event this information is protected by the Federal Confidentiality of Alcohol and Drug Abuse Patient Records regulations: The Federal rules restrict any use of the information to criminally investigate or prosecute any alcohol or drug abuse patient.[facility] Care Teams (unrecognized sec tion and content) Operations Trainer Relationship Specialty Start Date End Date Marquita Calvert MD [address] [place] [address] PCP - General Internal Medicine 08/13/19 Operations Trainer Relationship Specialty Start Date End Date Marquita Calvert MD [address] [place] [address] PCP - General Internal Medicine 08/13/19 Operations Trainer Relationship Specialty Start Date End Date Marquita Calevrt MD [address] [place] [address] PCP - General Internal Medicine 08/13/19 Operations Trainer Relationship Specialty Start Date End Date Marquita Calvert MD [address] [place] [address] PCP - General Internal Medicine 08/13/19 Operations Trainer Relationship Specialty Start Date End Date Marquita Calvert MD [address] [place] [address] PCP - General Internal Medicine 08/13/19 Operations Trainer Relationship Specialty Start Date End Date Marquita Calvert MD [address] [place] [address] PCP - General Internal Medicine 08/13/19 Operations Trainer Relationship Specialty Start Date End Date Marquita Calvert MD [address] [facility] [address] PCP - General Internal Medicine 08/13/19 Operations Trainer Relationship Specialty Start Date End Date Marquita Calvert MD [address] [facility] [address] PCP - General Internal Medicine 08/13/19 Operations Trainer Relationship Specialty Start Date End Date Marquita Calvert MD [address] [facility] [address] PCP - General Internal Medicine 08/13/19 Operations Trainer Relationship Specialty Start Date End Date Marquita Calvert MD [address] [facility] [address] PCP - General Internal Medicine 08/13/19 Operations Trainer Relationship Specialty Start Date End Date Marquita Calvert MD [address] [facility] [address] PCP - General Internal Medicine 08/13/19 Operations Trainer Relationship Specialty Start Date End Date Marquita Calvert MD [address] [facility] [address] PCP - General Internal Medicine 08/13/19 Operations Trainer Relationship Specialty Start Date End Date Marquita Calvetr MD [address] [facility] [address] PCP - General Internal Medicine 08/13/19 Operations Trainer Relationship Specialty Start Date End Date Marquita Calvert MD [address] [facility] [address] PCP - General Internal Medicine 08/13/19 Operations Trainer Relationship Specialty Start Date End Date Marquita Calvert MD [address] [place] [address] PCP - General Internal Medicine 08/13/19 Operations Trainer Relationship Specialty Start Date End Date Marquita Calvert MD [address] [place] [address] PCP - General Internal Medicine 08/13/19 Operations Trainer Relationship Specialty Start Date End Date Marquita Calvert MD [address] [place] [address] PCP - General Internal Medicine 08/13/19 Operations Trainer Relationship Specialty Start Date End Date Marquita Calvert MD [address] [place] [address] PCP - General Internal Medicine 08/13/19 Operations Trainer Relationship Specialty Start Date End Date Marquita Calvert MD [address] [place] [address] PCP - General Internal Medicine 08/13/19 Operations Trainer Relationship Specialty Start Date End Date Daria Park, DICE DEALER.PEST CONTROL OPERATOR [address] [facility] [place] [address] PCP - General Internal Medicine 07/22/23 Operations Trainer Relationship Specialty Start Date End Date Daria Park, DICE DEALER.PEST CONTROL OPERATOR [address] [facility] [place] [address] PCP - General Internal Medicine 07/22/23 Operations Trainer Relationship Specialty Start Date End Date Daria Park, DICE DEALER.PEST CONTROL OPERATOR [address] [facility] [place] [address] PCP - General Internal Medicine 07/22/23 Operations Trainer Relationship Specialty Start Date End Date Older, Daria, DICE DEALER.PEST CONTROL OPERATOR [address] [facility] [place] [address] PCP - General Internal Medicine 07/22/23 Operations Trainer Relationship Specialty Start Date End Date Older, Daria, DICE DEALER.PEST CONTROL OPERATOR [address] [place] [address] PCP - General Internal Medicine 07/22/23 Operations Trainer Relationship Specialty Start Date End Date Older, Daria, DICE DEALER.PEST CONTROL OPERATOR [address] [facility] [place] [address] PCP - General Internal Medicine 07/22/23 Operations Trainer Relationship Specialty Start Date End Date Older, Daria, DICE DEALER.PEST CONTROL OPERATOR [address] [facility] [place] [address] PCP - General Internal Medicine 07/22/23 Operations Trainer Relationship Specialty Start Date End Date Marquita Calvert MD [address] [place] [address] PCP - General Internal Medicine 08/13/19 07/21/23 Older, Daria, DICE DEALER.PEST CONTROL OPERATOR [address] [facility] [place] [address] PCP - General Internal Medicine 07/22/23 Operations Trainer Relationship Specialty Start Date End Date Marquita Calvert MD [address] [place] [address] PCP - General Internal Medicine 09/10/23 Operations Trainer Relationship Specialty Start Date End Date Marquita Calvert MD [address] [place] [address] PCP - General Internal Medicine 09/10/23 Operations Trainer Relationship Specialty Start Date End Date Marquita Calvert MD [address] [place] [address] PCP - General Internal Medicine 09/10/23 Operations Trainer Relationship Specialty Start Date End Date Marquita Calvert MD [address] [place] [address] PCP - General Internal Medicine 09/10/23 Operations Trainer Relationship Specialty Start Date End Date Marquita Calvert MD [address] [place] [address] PCP - General Internal Medicine 09/10/23 Operations Trainer Relationship Specialty Start Date End Date Marquita Calvert MD [address] [place] [address] PCP - General Internal Medicine 09/10/23 Operations Trainer Relationship Specialty Start Date End Date Marquita Calvert MD [address] [place] [address] PCP - General Internal Medicine 09/10/23 Operations Trainer Relationship Specialty Start Date End Date Marquita Calvert MD [address] [place] [address] PCP - General Internal Medicine 09/10/23 Operations Trainer Relationship Specialty Start Date End Date Marquita Calvert MD [address] [place] [address] PCP - General Internal Medicine 09/10/23 Operations Trainer Relationship Specialty Start Date End Date Marquita Calvert MD [address] [place] [address] PCP - General Internal Medicine 09/10/23 Operations Trainer Relationship Specialty Start Date End Date Marquita Calvert MD [address] [place] [address] PCP - General Internal Medicine 08/13/19 07/21/23 Operations Trainer Relationship Specialty Start Date End Date Marquita Calvert MD [address] [place] [address] PCP - General Internal Medicine 09/10/23 Operations Trainer Relationship Specialty Start Date End Date Marquita Calvert MD [address] [place] [address] PCP - General Internal Medicine 08/13/19 07/21/23 Daria Park APRN.PEST CONTROL OPERATOR [address] [place] [address] PCP - General Internal Medicine 07/22/23 09/09/23 Marquita Calvert MD [address] [place] [address] PCP - General Internal Medicine 09/10/23 Operations Trainer Relationship Specialty Start Date End Date Marquita Calvert MD [address] [place] [address] PCP - General Internal Medicine 09/10/23 Micki Smith PA-C [address] [place] [address] Brake Drum Molder Family Medicine 05/31/24 Daria Park APRN.PEST CONTROL OPERATOR [address] [place] [address] Brake Drum Molder Internal Medicine 05/31/24 Ct Michelle PA-C [address] [place] [address] Brake Drum Molder Family Medicine 05/31/24 Operations Trainer Relationship Specialty Start Date End Date Marquita Calvert MD [address] [place] [address] PCP - General Internal Medicine 09/10/23 Micki Smith PA-C [address] [place] [address] Brake Drum Molder Family Medicine 05/31/24 Daria Park APRN.PEST CONTROL OPERATOR [address] [place] [address] Brake Drum Molder Internal Medicine 05/31/24 Ct Michelle PA-C [address] [place] [address] Brake Drum Molder Family [facility] 05/31/24 Operations Trainer Relationship Specialty Start Date End Date Marquita Calvert MD [address] [place] [address] PCP - General Internal Medicine 09/10/23 Micki Smith PA-C [address] [place] [address] Brake Drum Molder Family Medicine 05/31/24 Daria Park APRN.PEST CONTROL OPERATOR [address] [place] [address] Brake Drum Molder Internal Medicine 05/31/24 Ct Michelle PA-C [address] [place] [address] Brake Drum Molder Family [facility] 05/31/24 Operations Trainer Relationship Specialty Start Date End Date Marquita Calvert MD [address] [place] [address] PCP - General Internal Medicine 09/10/23 Micki Smith PA-C [address] [place], [place] [address] [phone] Brake Drum Molder Family Medicine 05/31/24 Daria Park APRN.PEST CONTROL OPERATOR [address] [place] [address] Brake Drum Molder Internal Medicine 05/31/24 Ct Michelle PA-C [address] [place] [address] Brake Drum Molder Family [facility] 05/31/24 Operations Trainer Relationship Specialty Start Date End Date Marquita Calvert MD [address] [place] [address] PCP - General Internal Medicine 09/10/23 Micki Smith PA-C [address] [place] [address] Brake Drum Molder Family Medicine 05/31/24 Daria Park APRN.PEST CONTROL OPERATOR [address] [place] [address] Brake Drum Molder Internal Medicine 05/31/24 Ct Michelle PA-C [address] [place] [address] Brake Drum Molder Family Medicine 05/31/24 Operations Trainer Relationship Specialty Start Date End Date Marquita Calvert MD [address] [place] [address] PCP - General Internal Medicine 09/10/23 Micki Smith PA-C [address] [place] [address] Brake Drum Molder Family Medicine 05/31/24 Daria Park APRN.PEST CONTROL OPERATOR [address] [place] [address] Brake Drum Molder Internal Medicine 05/31/24 Ct Michelle PA-C [address] [place] [address] Brake Drum Molder Family Medicine 05/31/24 Operations Trainer Relationship Specialty Start Date End Date Marquita Calvert MD [address] [place] [address] PCP - General Internal Medicine 09/10/23 Micki Smith PA-C [address] [place] [address] Brake Drum Molder Family Medicine 05/31/24 Daria Park APRN.PEST CONTROL OPERATOR [address] [place] [address] Brake Drum Molder Internal Medicine 05/31/24 Ct Michelle PA-C [address] [place] [address] [facility] 05/31/24 Operations Trainer Relationship Specialty Start Date End Date Marquita Calvert MD [address] [place] [address] PCP - General Internal Medicine 09/10/23 Micki Smith PA-C [address] [place] [address] Brake Drum Molder Family Medicine 05/31/24 Daria Park APRN.PEST CONTROL OPERATOR [address] [place] [address] [facility] Internal Medicine 05/31/24 Ct Michelle PA-C [address] [place] [address] [facility] 05/31/24 Operations Trainer Relationship Specialty Start Date End Date Marquita Calvert MD [address] [place] [address] PCP - General Internal Medicine 09/10/23 Daria Park APRN.PEST CONTROL OPERATOR [address] [place] [address] Brake Drum Molder Internal Medicine 05/31/24 Operations Trainer Relationship Specialty Start Date End Date Marquita Calvert MD [address] [place] [address] PCP - General Internal Medicine 09/10/23 Daria Park APRN.PEST CONTROL OPERATOR [address] [place] [address] Brake Drum Molder Internal Medicine 05/31/24 Rima Bowen, urban redevelopment specialistSustainability Purchasing Agent 09/28/24 Operations Trainer Relationship Specialty Start Date End Date Marquita Calvert MD [address] [place] [address] PCP - General Internal Medicine 09/10/23 Daria Park APRN.PEST CONTROL OPERATOR [address] [place] [address] Brake Drum Molder Internal Medicine 05/31/24 Rima Bowen, urban redevelopment specialistSustainability Purchasing Agent 09/28/24 Operations Trainer Relationship Specialty Start Date End Date Marquita Calvert MD [address] [place] [address] PCP - General Internal Medicine 09/10/23 Daria Park APRN.PEST CONTROL OPERATOR [address] [facility] [place] [address] Brake Drum Molder Internal Medicine 05/31/24 Rima Bowen, urban redevelopment specialistSustainability Purchasing Agent 09/28/24 Operations Trainer Relationship Specialty Start Date End Date Marquita Calvert MD [address] [place] [address] PCP - General Internal Medicine 09/10/23 Daria Park DICE DEALER.PEST CONTROL OPERATOR [address] [place] [address] Brake Drum Molder Internal Medicine 05/31/24 Rima Bowen, urban redevelopment specialistSustainability Purchasing Agent 09/28/24 Operations Trainer Relationship Specialty Start Date End Date Marquita Calvert MD [address] [place] [address] PCP - General Internal Medicine 09/10/23 Daria Park APRN.PEST CONTROL OPERATOR [address] [facility] [place] [address] Brake Drum Molder Internal Medicine 05/31/24 Rima Bowen, urban redevelopment specialistSustainability Purchasing Agent 09/28/24 Operations Trainer Relationship Specialty Start Date End Date Marquita Calvert MD [address] [place] [address] PCP - General Internal Medicine 09/10/23 Daria Park, DICE DEALER.PEST CONTROL OPERATOR [address] [place] [address] Brake Drum Molder Internal Medicine 05/31/24 Rima Bowen, urban redevelopment specialistSustainability Purchasing Agent 09/28/24 Operations Trainer Relationship Specialty Start Date End Date Marquita Calvert MD [address] [place] [address] PCP - General Internal Medicine 09/10/23 Daria Park, DICE DEALER.PEST CONTROL OPERATOR [address] [place] [address] Brake Drum Molder Internal Medicine 05/31/24 Rima Bowen, urban redevelopment specialistSustainability Purchasing Agent 09/28/24 Operations Trainer Relationship Specialty Start Date End Date Marquita Calvert MD [address] [place] [address] PCP - General Internal Medicine 09/10/23 Daria Park, DICE DEALER.PEST CONTROL OPERATOR [address] [place] [address] Brake Drum Molder Internal Medicine 05/31/24 Rima Bowen, urban redevelopment specialistSustainability Purchasing Agent 09/28/24 Operations Trainer Relationship Specialty Start Date End Date Marquita Calvert MD [address] [facility] [address] PCP - General Internal Medicine 09/10/23 Older, ANGEL Huff.PEST CONTROL OPERATOR [address] [facility] [place] [address] Brake Drum Molder Internal Medicine 05/31/24 Rima Bowen, urban redevelopment specialistSustainability Purchasing Agent 09/28/24 Team Status: Active Member Role Status Dates Dr. Marquita Calvert MD Primary Care Provider Active Team Status: Inactive Member Role Status Dates Dr. Marquita Calvert MD Primary Care Provider Active Start: December 09, 2024 End: December 09, 2024 Dr. Malachi Friedman MD Emergency Provider Active Sta rt: December 09, 2024 End: December 09, 2024 Reason for Visit (unrecogniz ed section and content) Reason Onset Date Comments Population Health Navigation Outreach 11/13/2021 [employer] Care gap Reason Comments F/U 3 Month Reason Onset Date Comments Refill Request 11/24/2021 Reason Comments Nurse Visit Reason Onset Date Comments Refill Request 02/22/2022 Reason Onset Date Comments Refill Request 04/22/2022 Reason Onset Date Comments Refill Request 05/13/2022 Reason Onset Date Comments Refill Request 05/15/2022 Reason Comments Recheck 6 month follow up Reason Comments Medication Problem Patient Question Reason Onset Date Comments Refill Request 06/06/2022 Reason Onset Date Comments Refill Request 09/03/2022 Reason Onset Date Comments Refill Request 09/01/2022 Reason Comments Refill Request Reason Comments Same Day Appointment elevated heart rate Reason Comments heart rate elevated Reason Comments Follow Up Benign Prostatic Hypertrophy Reason Onset Date Comments Refill Request 02/26/2023 Reason Onset Date Comments Refill Request 04/14/2023 Reason Comments Radiology US Specialty Diagnoses / Procedures Referred By Contac t Referred To Contact US IMAGING Diagnoses Nontoxic multinodular goiter Procedures US THYROID/PARATHYROID US SOFT TISSUE HEAD & NECK REAL TIME IMGE Vish White MD [address] [place] [address] Us Imaging [facility] Referral ID Status Reason Start Date Expiration Date V isits Requested Visits Authorized [id number] Closed Auto-Generate d Referral 02/19/2023 03/20/2024 1 1 Reason Comments Orders Reason Comments Imm/Inj Reason Comments Recheck 3 MONTH FOLLOW UP Specialty Diagnoses / Procedures Referred By Contac t Referred To Contact Diagnoses Nontoxic multinodular goiter Procedures BIOPSY THYROID PERCUTANEOUS CORE NEEDLE BIOPSY THYROID [facility] [address] [place] [address] Referral ID Status Reason Start Date Expiration Date Visits Re quested Visits Authorized [id number] 1 Reason Onset Date Comments Refill Request 08/08/2023 Reason Onset Date Comments Refill Request 08/14/2023 Reason Onset Date Comments Refill Request 08/16/2023 Reason Onset Date Comments Refill Request 08/20/2023 Reason Comments Scheduling Thyroid Biopsy Reason Comments Follow Up BP Reason Comments Recheck BP follow up Reason Onset Date Comments Refill Request 11/11/2023 Reason Onset Date Comments Refill Request 11/08/2023 Reason Comments Medication Problem Reason Comments Insurance Authorization Reason Onset Date Comments Refill Request 02/11/2024 Reason Onset Date Comments Refill Request 03/31/2024 Reason Comments Recheck 6 month follow up Reason Comments Appointment Reason Comments Rx refill; discontinued medication Reason Comments Cough Head and chest conge stion, sinus drainage, NATARAJAN x3 days Reason Comments Results Reason Onset Date Comments Refill Request 07/05/2024 Reason Comments Pain Reason Comments Abdominal Pain Reason Comments New Patient Low Back Pain Left Hip Pain Reason Onset Date Comments Population Health Navigation Outreach 08/13/2024 [employer] High Risk - 1st attempt Reason Comments Left Knee Pain Reason Comments Radio Gen A21 Specialty Diagnoses / Procedures Referred By Contac t Referred To Contact XR IMAGING Diagnoses Pain Procedures XR KNEE GENERAL 4V AP BOTH/PA BOTH/LAT/MERC LEFT RADIOLOGIC EXAM KNEE COMPLETE 4/MORE VIEWS Jerry Suh MD [address] [place] [address] Phone: tel: fax: [place] [address] Referral ID Status Reason Start Date Expiration Date V isits Requested Visits Authorized [id number] Closed Auto-Generate d Referral 06/22/2024 07/22/2025 1 1 Reason Comments Recheck Medication follow up Reason Comments Medicare Wellness Exam Annual Medicare W ellness Reason Comments Radiology US Specialty Diagnoses / Procedures Referred By Contac t Referred To Contact US IMAGING Diagnoses Thyroid nodule Procedures US THYROID/PARATHYROID US SOFT TISSUE HEAD & NECK REAL TIME IMGE DOCM Daria Park APRN.PEST CONTROL OPERATOR [address] [place] [address] Phone: tel: fax: [place] [address] Referral ID Status Reason Start Date Expiration Date V isits Requested Visits Authorized [id number] Closed Auto-Generate d Referral 10/21/2024 11/20/2025 1 1 Reason Comments Established Patient Knee Pain Reason Onset Date Comments Refill Request 11/04/2024 Reason Onset Date Comments Results 11/02/2024 Reason Comments Thyroid Nodule Has, three nodules o n his thyroid, has had for years. Specialty Diagnoses / Procedures Referred By [facility] Referred To Contact General Surgery Diagnoses Thyroid nodule Procedures CONSULT TO GENERAL SURGERY OFFICE/OUTPATIENT [facility] 60 MINUTES Daria Park APRN.PEST CONTROL OPERATOR [address] [place] [address] Phone: tel: fax: Referral ID Status Reason Start Date Expiration Date V isits Requested Visits Authorized [id number] Closed PCP Requested Referral 11/02/2024 11/02/2025 1 1 PRN Active and Recently Administ ered Medications (unrecognized section and content) Medication Order 07/27/2023 07/28/2023 07/29/2023 lidocaine (PF) 10 mg/mL (1 %) injection (XYLOCAINE) (CANCELED) SUBCUTANEOUS, X (OR/PROCEDURE) PRN, Starting on Sat07/29/23 at 1312, Until Sat07/29/23 at 1332, Intraprocedure 1312 (Given - Provid er: Russ Tucker DO, DO - Comment: left thyroid region) (unrecognized sect ion and content) No Status Records FoundNo Status Records FoundNo Status Records Found INFORMATION SOURCE (unrecogn ized section and content) DATE CREATED AUTHOR 07/11/2024 [facility] DATE CREATED AUTHOR AUTHOR'S ORGANIZ ATION 08/07/2024 [facility] DATE CREATED AUTHOR AUTHOR'S ORGANIZ ATION 12/01/2024 [facility] Goals (unrecognized section and content) Goals may be documented in a n alternate section FOR RECORDS PERTAINING TO PATIENTS WHO ARE OR HAVE BEEN ENROLLED IN A CHEMICAL DEPENDENCY/SUBSTANCEABUSE PROGRAM, SOME INFORMATION MAY BE OMITTED. This clinical summary was aggregated from multiple sources. Caution should be exercised in using it in the provision of clinical care. This summary normalizes information from multiple sources, and as a consequence, information in this document may materially change the coding, format and clinical context of patient data. In addition, data may be omitted in some cases. CLINICAL DECISIONS SHOULD BE BASED ON THE PRIMARY CLINICAL RECORDS. [facility]. provides no warranty or guarantee of the accuracy or completeness of information in this document.
== END 2024-12-09 21:55 | disposition home or self-care (01) ==
PROVIDERS: Emergency Provider Emergency Medicine; PCP Internal Medicine; Visit Provider Emergency Medicine
DX: K04.02 Irreversible pulpitis (principal); E11.9 Type 2 diabetes mellitus without complications; I10 Essential (primary) hypertension; N40.0 Benign prostatic hyperplasia without lower urinary tract symptoms; E78.2 Mixed hyperlipidemia; Z79.85 Long-term (current) use of injectable non-insulin antidiabetic drugs; Z79.899 Other long term (current) drug therapy; Z98.811 Dental restoration status; Z98.818 Other dental procedure status
CPT/HCPCS: 99282